=== PATIENT | male | born 1945 | race Caucasian/White ===

== ENCOUNTER 2017-03-18 13:29 | Emergency (ER) | payer MEDICARE, OTHER ==
[2015-05-27 13:55] VITALS: BMI 21.2
[~2017-03-18 13:29] MED LIST: BENADRYL25 MG PO; CALAMINE LOTIO177 ML TP; COUMADIN10 MG PO; COUMADIN5 MG PO; DEPAKOTE ER500 MG PO; FLORINEF 0.1 M0.1 MG PO; HUMULIN R100 U/ML SC; HUMULIN R100 U/ML SQ; IMODIUM A-D2 MG PO; LISINOPRIL10 MG PO; MIDODRINE HCL5 MG PO; NEPHRO-VITE RX1 TAB PO; NEURONTIN 300300 MG PO; NORCO 5/325 TAB1 TA1 PO; NORVASC2.5 MG PO; PEPCID20 MG PO; PLAVIX75 MG PO; RENAGEL800 MG PO; RENVELA800 MG PO; TRIAMCINOLONE A60 M1 TP; ZANTAC150 MG PO; ZYPREXA10 MG PO
[2017-03-18 14:24] LABS: BASOPHILS 0.6 % (0-2); EOSINOPHILS 1.7 % (0-7); HEMATOCRIT 35.5 % (42.0-54.0); HEMOGLOBIN 11.7 g/dL (13.5-17.5); LYMPHOCYTES 12.3 % (15-50); MCH 32.3 pg (26.0-34.0); MCV 98.1 fL (80.0-100.0); MEAN PLATELET VOLUME 12.7 fL (7.4-10.4); MONOCYTES 9.9 % (2-11); NEUTROPHILS 75.5 % (40-80); PLATELET COUNT 129 10x3/uL (130-400); RBC 3.62 10x6/uL (4.20-6.10); RDW 14.3 % (11.5-14.5); WBC 6.4 10x3/uL (4.8-10.8)
[2017-03-18 15:31] LABS: INR 1.14 (0.85-1.17); PROTIME 14.2 SECONDS (11.6-15.0)
[2017-03-18 15:46] LABS: ANION GAP 16.2 mmol/L (8-16); BILIRUBIN - TOTAL 0.28 mg/dL (0.2-1.3); CALCIUM 9.3 mg/dL (8.5-10.1); CARBON DIOXIDE 24.2 mmol/L (21.0-32.0); CREATININE - SERUM 5.2 mg/dL (0.6-1.3); MAGNESIUM - SERUM 1.8 mg/dL (1.8-2.4); POTASSIUM - SERUM 4.4 mmol/L (3.5-5.1); PROTEIN - SERUM 6.4 g/dL (6.4-8.2)
== END 2017-03-18 16:45 | disposition home or self-care (01) ==
LOC: D.ER 13:29
PROVIDERS: Family Medicine; Nurse Practitioner Family
DX: R31.9 Hematuria, unspecified (principal); Z99.2 Dependence on renal dialysis; K59.00 Constipation, unspecified; I12.0 Hypertensive chronic kidney disease with stage 5 chronic kidney disease or end stage renal disease; N18.6 End stage renal disease; E11.9 Type 2 diabetes mellitus without complications

== ENCOUNTER → 2017-04-03 07:47 | Outpatient (CLI) | payer MEDICARE, OTHER ==
[2015-05-27 13:55] VITALS: BMI 21.2
== END | disposition home or self-care (01) ==
LOC: D.MRI 07:47
DX: N28.89 Other specified disorders of kidney and ureter (principal)

== ENCOUNTER 2018-04-04 15:48 | Inpatient (IN) | payer MEDICARE, OTHER ==
[~2018-04-04] VITALS: Ht 190.5 cm; Wt 69.1 kg
[2018-04-04 18:00] VITALS: BP 169/49
--- NOTE | 2018-04-04 18:01 | NUR ---
ARRIVED VIA STRETCHER TO ICU ROOM 2304, TO BED VIA STAFF, DR. MUNOZ PRESENT AND AWARE OF PRESENCE, AWAKE, ALERT AND ORIENTED TO PERSON, TIME, REORIENTED TO PLACE EASILY. VS STABLE, NO NOTED BLEEDING FROM RIGHT GRAFT SITE, STAFF INSTRUCTED BY DR. MUNOZ TO NOT REMOVE PRESSURE DRESSING AT PRESENT, THE RIGHT HAND IS WARM TO TOUCH, PATIENT REPORTS NO DEGREDATION OF FEELING IN THAT HAND, MOVES FINGERS EASILY, RADIAL PULSE IS PRESENT BUT VERY WEAK, NAILS ARE PINK AND CAP REFILL IS QUICK. PATIENT UNDERSTANDS WHAT IS HAPPENING AND THAT WE MUST VERIFY DR. CABALLERO INTENTIONS BEFORE GIVING FOOD OR DRINK. SEE FLOW SHEETS FOR SPECIFICS.
[2018-04-04 18:07] VITALS: BP 126/79; BMI 18.7
[2018-04-04 19:00] VITALS: BP 190/86
--- NOTE | 2018-04-04 19:30 | NUR ---
SHIFT ASSESSMENT COMPLETE PER NURSING FLOWSHEET, NO NEEDS VOICED OR NOTED AT THIS TIME, C/L IN REACH
[2018-04-04 20:00] VITALS: BP 120/42
[2018-04-04 21:00] VITALS: BP 127/86
--- NOTE | 2018-04-04 21:00 | NUR ---
PATIENT INCONTINENT OF STOOL, PARTIAL LINEN CHANGE, LEVI CARE PROVIDED, PATIENT REPOSITIONED, CONTINUE POC
[2018-04-04 22:00] VITALS: BP 103/51
--- NOTE | 2018-04-04 22:45 | NUR ---
PATIENT LEFT TO GO TO SURGERY, VIA BED, ACCOMPANIED BY OR STAFF
[2018-04-05] VITALS (10 sets, daily range): BP systolic 93–128; BP diastolic 42–81; Ht 190.5 cm; Wt 69.1 kg
--- NOTE | 2018-04-05 00:30 | NUR ---
PATIENT RETURNED FROM SURGERY, RE-ASSESSMENT COMPLETE PER NURSING FLOWSHEET, PATIENT REPOSITIONED, VSS
--- NOTE | 2018-04-05 03:00 | NUR ---
RE-ASSESSMENT COMPLETE, PATIENT REPOSITIONED, NO OTHER NEEDS VOICED OR NOTED AT THIS TIME
[2018-04-05 04:07] LABS: BASOPHILS 1.1 % (0-2); EOSINOPHILS 2.4 % (0-7); HEMATOCRIT 27.1 % (42.0-54.0); HEMOGLOBIN 8.9 g/dL (13.5-17.5); LYMPHOCYTES 26.8 % (15-50); MCH 29.3 pg (26.0-34.0); MCHC 32.8 g/dL (31.0-37.0); MCV 89.1 fL (80.0-100.0); MEAN PLATELET VOLUME 11.1 fL (7.4-10.4); MONOCYTES 12.4 % (2-11); NEUTROPHILS 57.3 % (40-80); RBC 3.04 10x6/uL (4.20-6.10); RDW 14.9 % (11.5-14.5); WBC 4.5 10x3/uL (4.8-10.8)
[2018-04-05 04:11] LABS: PLATELET COUNT 103 10x3/uL (130-400)
[2018-04-05 04:16] LABS: INR 1.18 (0.85-1.17); PROTIME 14.5 SECONDS (11.6-15.0)
[2018-04-05 04:21] LABS: ANION GAP 18.7 mmol/L (8-16); CALCIUM 8.6 mg/dL (8.5-10.1); CARBON DIOXIDE 22.6 mmol/L (21.0-32.0); CREATININE - SERUM 10.1 mg/dL (0.6-1.3)
[2018-04-05 04:22] LABS: POTASSIUM - SERUM 6.3 mmol/L (3.5-5.1)
--- NOTE | 2018-04-05 05:23 | NUR ---
DR MUNOZ NOTIFIED OF CRITICAL K+, NEW ORDER RECEIVED
--- NOTE | 2018-04-05 11:25 | NUR ---
RECEIVED REPORT FROM KITTY IN ICU. PATIENT TO ADMIT TO ROOM 2137.
--- NOTE | 2018-04-05 11:29 | NUR ---
REPORT CALLED TO FLOOR NURSE
--- NOTE | 2018-04-05 11:49 | NUR ---
RECEIVED PATIENT FROM ICU VIA WHEELCHAIR. PATIENT ALERT/ORIENTED. CALL LIGHT WITHIN REACH. PATIENT WITH ATTENTION TOWARD TELEVISION, SWIMMING ON TV. NO DISTRESS.
--- NOTE | 2018-04-05 11:55 | NUR ---
PRESSURE DRESSING TO RIGHT UPPER ARM INTACT. NO BLEEDING NOTED. SCDS ON AND PATENT. IV TO LEFT HAND SALINE LOCKED. NO DISTRESS.
--- NOTE | 2018-04-05 12:14 | NUR ---
BLANKET FROM THE WARMER PROVIDED TO PATIENT. NO DISTRESS. CONSUMING NOON MEAL AT THIS TIME.
--- NOTE | 2018-04-05 12:44 | NUR ---
CALLED PHARMACY PATIENT DOES NOT HAVE VALTESSA AVAILABLE. PHARMACY STATED TECHS AT [facility] BUT HAVE PRINTED LABELS AND MEDS WILL BE TO UNIT VERY SOON.
--- NOTE | 2018-04-05 12:56 | HP ---
PATIENT: JHONATHAN THRASHER MEDICAL RECORD: [id number] ACCOUNT: [id number] LOCATION:[address] : [birth year] ADMISSION DATE: 04/04/18 PCP: JOLYNN MUNOZ MD HISTORY AND PHYSICAL EXAMINATION REASON FOR ADMISSION: Access complication. HISTORY OF PRESENT ILLNESS: This is a 72-year-old gentleman that was at rehab at [facility] and developed a squirting bleed of approximately a liter from his right upper extremity HeRO graft that was tamponaded with a pressure dressing. He is being admitted for surgical consultation. REVIEW OF SYSTEMS: Besides the pain in his arm, no nausea, vomiting, diarrhea. All the rest of his review of systems are negative. PAST MEDICAL HISTORY: 1. ESRD in [place] 3 days a week. 2. Not able to tolerate anticoagulation. 3. Anemia of CKD. 4. Hyperphosphatemia. 5. Secondary hyperparathyroidism. PAST SURGICAL HISTORY: 1. Multiple colonoscopies and endoscopies. 2. Multiple dialysis access surgeries. SOCIAL HISTORY: No tobacco, alcohol or illicit drugs. He has been on dialysis for a number of years. FAMILY HISTORY: Noncontributory. PHYSICAL EXAMINATION: VITAL SIGNS: Stable and afebrile in the [facility]. GENERAL: He is alert. Mental status is at baseline. HEENT: Normocephalic, atraumatic. Clear nares. Clear throat. NECK: No JVD or thyromegaly. CHEST: Clear. CARDIAC: Irregular rate and rhythm. S1, S2. ABDOMEN: Nontender in all 4 quadrants. EXTREMITIES: Right upper extremity HeRO graft with Flash wrap and pressure dressing. Left upper extremity with BP cuff. Muscle atrophy but no focal neurological deficit. LABORATORY DATA: Potassium was 5.5, hemoglobin approximately [address] [facility] prior to transfer. ASSESSMENT: 1. Access complication. Consulting vascular surgery, admit to ICU due to the potential significant hemorrhage that can develop from the pseudoaneurysm. 2. Hyperkalemia. We will monitor his BMP. 3. Anemia of chronic kidney disease. 4. Hyperphosphatemia. 5. Gastrointestinal bleed, currently stable. PLAN: HISTORY AND PHYSICAL [id number] JHONATHAN THRASHER 1. Please see orders. 2. Surgical consultation. TRANSINT:[id number] Voice Confirmation ID: [id number] DOCUMENT ID: [id number] JOLYNN MUNOZ MD at 1256 CC: [id number] DICTATION DATE: 04/04/18 1631 PRINCIPAL SCIENTIST: 04/04/18 1932 ADM IN [facility] [address] [id number]
--- NOTE | 2018-04-05 13:42 | NUR ---
VALTESSA STILL NOT AVAILABLE TO ADMINISTER TO PATIENT. MEDICATION NOT IN CASSESSTE, REFIGERATOR, OR PYXIS.
--- NOTE | 2018-04-05 14:22 | NUR ---
SPOKE WITH LORNA, PHARMACIST ABOUT ADMINISTEREING VALTESSA NOW, SINCE IT IS SO LATE AND PATIENT ATE 2 1/2 HOURS AGO AND JUST RECEIVED HIS PROTAMINE AND IT IS CONTRIINDICATED TO GIVE THIS MEDICATION WITHIN 3 HOURS OF OTHER MEDS. WAS INSTUCTED TO HOLD UNTIL PATIENT EATS TONIGHT BUT KEEP ON REGULAR SCHEDULE FOR TOMORROWS DOSE.
--- NOTE | 2018-04-05 17:39 | NUR ---
PT DOWNSTAIRS IN DIALYSIS. NO DISTRESS. TOLERATED ORAL MEDS WELL. DINNER TRAY AT BEDSIDE. DIALYSIS NURSE ALLOWING PATIENT TO EAT DURING TREATMENT.
--- NOTE | 2018-04-05 18:06 | NUR ---
MALAIKA LEVI, , PLEASE CALL WHEN PATIENT [facility] PATIENT WILL COMPLETE THERAPY AND THEN GO HOME WITH HIS DAUGHTER. DAUGHTER IS ANXIOUS TO GET HIM BACK INTO THERAPY.
--- NOTE | 2018-04-05 20:15 | NUR ---
PT BACK FROM HD VIA BED. DENIES PAIN AT THIS TIME. CL IN REACH. STATES HE WOULD LIKE A SANDWHICH. SANDWHICH PROVIDED PER RENAL DIET.
--- NOTE | 2018-04-05 21:43 | NUR ---
PT LAYING IN BED. DENIES PAIN AT THIS TIME. A/O X 4. VITALS STABLE. TOOK MEDICATIONS WITHOUT DIFFICULTY. HEROGRAFT TO R ARM, COVERED WITH DRSG C/D/I. OLD FISTULA TO L ARM. NORMAL SINUS ON TELE. L HAND IV SL. ROOM AIR. NO FURTHER CONCERNS AT THIS TIME. BED LOWERED AND LOCKED. CL IN REACH. WILL CONTINUE TO MONITOR.
--- NOTE | 2018-04-05 23:57 | NUR ---
RESTING IN BED WITH NO DISTRESS. RESPS NONLABORED. CALL LIGHT IN REACH. MONITOR AND CPOC.
[2018-04-06 00:30] VITALS: BP 101/51
[2018-04-06 04:30] VITALS: BP 104/39
--- NOTE | 2018-04-06 07:00 | NUR ---
RECEIVED REPORT. ASSUMED CARE OF PATIENT. PATIENT RESTING WITH EYES CLOSED. EASILY AROUSED. RESP EVEN AND UNLABORED. CALL LIGHT WITHIN REACH. NO DISTRESS. NO BLEEDING NOTED FROM RIGHT UPPER ARM HEROGRAFT. RECEIVED REPORT FROM [facility] NURSE THAT DIALYSIS ONLY REMOVED 800ML.
[2018-04-06 07:25] VITALS: BP 159/72
[2018-04-06 09:32] LABS: ANION GAP 17.5 mmol/L (8-16); CALCIUM 8.6 mg/dL (8.5-10.1); CREATININE - SERUM 8.6 mg/dL (0.6-1.3); POTASSIUM - SERUM 5.5 mmol/L (3.5-5.1)
[2018-04-06 10:16] LABS: BASOPHILS 1.8 % (0-2); HEMATOCRIT 26.6 % (42.0-54.0); HEMOGLOBIN 8.7 g/dL (13.5-17.5); IMMATURE GRANULOCYTES 0.2 % (0-5); LYMPHOCYTES 16.9 % (15-50); MCHC 32.7 g/dL (31.0-37.0); MCV 88.7 fL (80.0-100.0); MEAN PLATELET VOLUME 11.8 fL (7.4-10.4); MONOCYTES 15.1 % (2-11); RDW 15.3 % (11.5-14.5)
[2018-04-06 10:17] LABS: PLATELET COUNT 144 10x3/uL (130-400)
--- NOTE | 2018-04-06 14:00 | NUR ---
COMPLETE BED BATH AND LINEN CHANGE PROVIDED BY THIS LINK TRAINER MECHANIC. INCONTINENT CARES PROVIDED. NO DISTRESS. CALL LIGHT WITHIN REACH.
--- NOTE | 2018-04-06 17:06 | NUR ---
RESTING WITH EYES CLOSED, EASILY AROUSED. NO DISTRESS. SET PATIENT UP IN BED AND HE IS NOW AWAITING HIS DINNER TO BE SERVERD.
--- NOTE | 2018-04-06 19:30 | NUR ---
PT IS RESTING IN BED WITH EYES OPEN. ALERT AND ORIENTED X 3. DENIES ANY PAIN OR DISCOMFORT AT THIS TIME. NO NEEDS VOICED. DRESSING TO HERO GRAFT SITE IS CDI. NO DRAINAGE NOTED. LEFT HAND SALINE LOCK IS CDI. TELEMETRY UNIT IS ON AND INTACT. SR'S ARE UYP X 3 IN BED. CALL LIGHT AND BEDSIDE TABLE ARE WITHIN EASY REACH.
[2018-04-06 21:41] VITALS: BP 111/55
--- NOTE | 2018-04-06 22:39 | NUR ---
PT IS RESTING QUIETLY IN BED WITH EYES CLOSED. RESPS ARE EVEN AND UNLABORED. NO ACUTE DISTRESS NOTED.
[2018-04-07 00:43] VITALS: BP 135/60
--- NOTE | 2018-04-07 00:56 | NUR ---
PT RESTING IN BED WATCHING TV. NO NEED VOICED.
[2018-04-07 04:17] VITALS: BP 132/61
--- NOTE | 2018-04-07 05:27 | NUR ---
RESTING WITH NO DISTRESS. MONITOR AND CPOC.
[2018-04-07 07:45] VITALS: BP 138/82
--- NOTE | 2018-04-07 12:29 | NUR ---
RESTS IN BED WITH EYES CLOSED. CALL LIGHT IN REACH. WILL MONITOR NEEDS.
--- NOTE | 2018-04-07 12:36 | NUR ---
JUST SPOKE WITH PT'S DAUGHTER DAVION LEWIS AND SHE IS WONDERING ABOUT PT'S DISCHARGE AND WHERE HE WILL GO. I STATED TO HER I KNOW THEY ARE WANTING TO DO REHAB. SHE ASKED IF I COULD GIVE THE LACTATION COORDINATOR HER NUMBER AND I WROTE IT DOWN AND SHE WANTED TO BE TRANSFERED INTO PT'S ROOM. TRANSFERED HER INTO PT'S ROOM AND LAN LACTATION COORDINATOR WAS IN THE ROOM. PT ANSWERED PHONE AND I STATED TO LAN THAT IS THE PT'S DAUGHTER ON THE PHONE AND SHE IS WANTING TO SPEAK WITH HIM. HE VERBALIZED UNDERSTANDING.
[2018-04-07 13:18] VITALS: BP 148/88
--- NOTE | 2018-04-07 14:17 | MORECARE ---
CASE MANAGEMENT DISCHARGE SUMMARY PATIENT: JHONATHAN THRASHER UNIT: [id number] ADM DATE: 04/04/18 AGE: 72 : 47 SEX: M ROOM/BED: D.2137 AUTHOR: AFIA ARANA PHYSICIAN: REFERRING PHYSICIAN: JOLYNN MUNOZ MD DATE OF SERVICE: 04/07/18 Discharge Plan Patient Name: JHONATHAN THRASHER [facility] [facility] 1945 Planned Disposition: Inpatient Rehab Anticipated Discharge Date: 04/08/18 Discharge Date: Expected LOS: 4 Initial Reviewer: [email or web address] Initial Review Date: 04/07/2018 Generated: 04/07/18 3:17 pm Patient Name: JHONATHAN THRASHER Page [phone] at 1417 All edits/amendments must be made on the electronic document DICTATION DATE: 04/07/18 1416 DIRECTOR ORACLE DATABASE: SINTIA 04/07/18 1416 RPT#: [id number] DC DATE: STATUS: ADM IN [facility] [address] [place] [address] END OF REPORT
--- NOTE | 2018-04-07 14:20 | NUR ---
PT TAKEN TO DIALYSIS.
--- NOTE | 2018-04-07 14:27 | MORECARE ---
CASE MANAGEMENT DISCHARGE SUMMARY PATIENT: JHONATHAN THRASHER UNIT: [id number] ADM DATE: 04/04/18 AGE: 72 : [birth year] SEX: M ROOM/BED: D.2137 AUTHOR: AFIA ARANA PHYSICIAN: REFERRING PHYSICIAN: JOLYNN MUNOZ MD DATE OF SERVICE: 04/07/18 Discharge Plan Patient Name: JHONATHAN THRASHER [facility] [facility] 1945 Planned Disposition: Inpatient Rehab Anticipated Discharge Date: 04/08/18 Discharge Date: Expected LOS: 4 Initial Reviewer: [email or web address] Initial Review Date: 04/07/2018 Generated: 04/07/18 3:27 pm DCPIA - Discharge Planning Initial Assessment Updated by [email or web address]: Wilmar Fraser on 04/07/18 2:23 pm * Is the patient Alert and Oriented? Yes * How many steps to enter\exit or inside your home? RAMP * PCP DR. MUNOZ * Pharmacy [facility] IN [place] * Preadmission Environment Home with Family * ADLs Independent * Equipment Walker * Other Equipment NO MEDICAL EQUIPMENT PROVIDER PREFERENCE * List name and contact numbers for known caregivers / representatives who currently or will assist patient after discharge: GABO CAPONE, DTR, DAVION LEWIS, DTR, * Verbal permission to speak to the caregivers and representatives has been obtained from the patient. Yes * Community resources currently utilized Other * Please name any agencies selected above. OUTPATIENT DIALYSIS, [facility] [place] [facility], MWF, 0600AM, [employer] * Additional services required to return to the preadmission environment? Yes * Can the patient safely return to the preadmission environment? Yes * Has this patient been hospitalized within the prior 30 days at any hospital? Yes Last DP export: 04/07/18 1:17 p Patient Name: JHONATHAN THRASHRE Page [phone] at 3491 All edits/amendments must be made on the electronic document DICTATION DATE: 04/07/181425 LURE MAKER: SINTIA 04/07/18 1426 RPT#: [id number] DC DATE: STATUS: ADM IN [address] [place] [address] END OF REPORT
--- NOTE | 2018-04-07 14:45 | MORECARE ---
CASE MANAGEMENT DISCHARGE SUMMARY PATIENT: JHONATHAN THRASHER UNIT: [id number] ADM DATE: 04/04/18 AGE: 72 : 47 SEX: M ROOM/BED: D.3673 AUTHOR: SUMITDOC PHYSICIAN: REFERRING PHYSICIAN: JOLYNN JAQUEZ MD DATE OF SERVICE: 04/07/18 Discharge Plan Patient Name: JHONATHAN THRASHER [facility] [facility] 1945 Planned Disposition: Inpatient Rehab Anticipated Discharge Date: 04/08/18 Discharge Date: Expected LOS: 4 Initial Reviewer: [email or web address] Initial Review Date: 04/07/2018 Generated: 04/07/18 3:44 pm Comments DCP- Discharge Planning Updated by [email or web address]: Wilmar Fraser on 04/07/18 1:[address] Patient Name: JHONATHAN THRASHER Admission Status: Urgent Accout number: [id number] Admission Date: 04-04-2018 : 1945 Admission Diagnosis: Attending: Jolynn Jaquez Current LOS: 3 Anticipated DC Date: 04-08-2018 Planned Disposition: Inpatient Rehab Primary Insurance: MEDICARE A & B PLANNED EXTERNAL PROVIDER: [facility] Discharge Planning Comments: CM RECEIVED ORDER FOR REHAB. CM MET WITH PT IN ROOM TO DISCUSS DISCHARGE PLANNING AND NEEDS. PT REPORTS LIVING AT HOME INDEPENDENTLY WITH HIS ADULT DAUGHTER, DAVION LEWIS. JHONATHAN THRASHER provided verbal consent to discuss current and ongoing needs with/in the presence of: DAUGHTER DAVION. PT HAS STANDARD WHEELED WALKER AT HOME AND NO MEDICAL EQUIPMENT PROVIDER PREFERENCE. PT HAS NO OUTSIDE SERVICES ASSISTING IN THE HOME. PT GOES TO DIALYSIS IN [place] ON MWF, 0600AM, DAUGHTER TRANSPORTS HIM. CM DISCUSSED AVAILABILITY OF HOME HEALTH, REHAB SERVICES AND MEDICAL EQUIPMENT. CM DISCUSSED REHAB OPTIONS, LOCATONS AND PROVIDERS. PT WAS IN REHAB AT [facility] FOR ONE DAY AND HE CAME HERE FOR BETTER CARE. PT WOULD LIKE REHAB AT [facility] IF POSSIBLE AND DOES NOT WANT TO CONSIDER GOING TO SENIOR LIVING FACILITY. PT REPORTS HIS DAUGHTER WILL PICK HIM UP FOR DISCHARGE HOME. IMPORTANT MESSAGE FROM MEDICARE PROVIDED AND EXPLAINED. PT DIRECTED CM TO CALL DAVION. CM CALLED DAVION LEWIS, , AND DISCUSSED REHAB OPTIONS. DAVION WOULD LIKE TO TRY TO GET PT INTO THE REHAB AT [facility] INSTEAD OF GOING BACK TO [facility]. PT WAS IN [facility] FOR ONE DAY AND THEN HAD BLEEDING ISSUE WITH FISTULA AND HAD TO BE HOSPITALIZED AGAIN. INPATIENT REHAB PRESCREENING ORDER RECEIVED. CM WAITING INPATIENT REHAB PRESCREENING AND ADMISSION DETERMINATION FROM [facility]. Yardage Estimator: Wilmar Fraser DCPIA - Discharge Planning Initial Assessment Updated by SLAVA: Wilmar Fraser on 04/07/18 2:23 pm * Is the patient Alert and Oriented? Yes * How many steps to enter\exit or inside your home? RAMP * PCP DR. JAQUEZ * Pharmacy [facility] IN [place] * Preadmission Environment Home with Family * ADLs Independent * Equipment Walker * Other Equipment NO MEDICAL EQUIPMENT PROVIDER PREFERENCE * List name and contact numbers for known caregivers / representatives who currently or will assist patient after discharge: GABO CAPONE, DTR, DAVION LEWIS, DTR, * Verbal permission to speak to the caregivers and representatives has been obtained from the patient. Yes * Community resources currently utilized Other * Please name any agencies selected above. OUTPATIENT DIALYSIS, [facility] [place] [facility], MWF, 0600AM, [employer] * Additional services required to return to the preadmission environment? Yes * Can the patient safely return to the preadmission environment? Yes * Has this patient been hospitalized within the prior 30 days at any hospital? Yes Coverage Notice Reviewer: [email or web address] - Wilmar Fraser Notice Issued Date-Time: 04/07/2018 12:35 Notice Type: IM Discharge Notice Notice Delivered To: Patient Relationship to Patient: Folding Machine Tender Name: Delivery Method: HAND - Hand Delivered Georgie Days: Prior Verbal Notification: Recipient Understood Notice: Yes Recipient Signature: Yes Med Rec Note Co-signed by Attending: Coverage Notice Comment: Last DP export: 04/07/18 1:27 p Patient Name: JHONATHAN THRASHER Page [phone] at 1449 All edits/amendments must be made on the electronic document DICTATION DATE: 04/07/184 INTERNAL REVENUE AGENT: SINTIA 04/07/18 1444 RPT#: [id number] MD DATE: STATUS: ADM IN [facility] [address] [place] [address] END OF REPORT
--- NOTE | 2018-04-07 16:10 | NUR ---
SPOKE WITH DIALYSIS THEY STATE PT DOES NOT NEED PROAMATINE RIGHT NOW BUT IF IT CHANGES THEY WILL LET ME KNOW.
--- NOTE | 2018-04-07 16:48 | OP ---
PATIENT NAME: JHONATHAN THRASHER MEDICAL RECORD: [id number] :[birth year] LOCATION:D.M2 D.2137 ADMISSION DATE:04/04/18 SURGEON: MARY SALMON MD DATE OF OPERATION: 04/05/2018 PREOPERATIVE DIAGNOSES: 1. Acute hemorrhage from a bleeding graft pseudoaneurysm. 2. Acute blood loss anemia. 3. End-stage renal disease. POSTOPERATIVE DIAGNOSES: 1. Acute hemorrhage from a bleeding graft pseudoaneurysm without evidence of a pseudoaneurysm infection. 2. Acute blood loss anemia. 3. End-stage renal disease. PROCEDURES: 1. An 8 mm x 40 mm Fluency Plus Stent placement for pseudoaneurysm exclusion. 2. Nonselective fistulogram. 3. 8-Slovenian antegrade sheath placement. 4. Immediate surgeon interpretation of the fluoroscopic images. SURGEON: Mary Salmon MD SAGGER PREPARER: None. BLOOD LOSS: Minimal. ANESTHESIA: General. COMPLICATIONS: None. The risks, possible complications, and alternatives to the procedure were explained to the patient. He elects to proceed. The discussion specifically included, but was not limited to, bleeding requiring emergency reoperation, infection, and possible need for additional access procedures. This patient obviously has had a number of access procedures. He has a lot of abandoned graft material in the right upper extremity. His vascular surgeon is Dr. Tafoya. I have discussed this case with Dr. Tafoya and I will be assuming the patient's surgical care today at Dr. Tafoya's request. No radiologist was present for this procedure. Static fluoroscopic images were obtained as well as cine images and these are kept in the PACS system. The surgeon interpretation of the radiographic images is dictated within the body of this operative note. OPERATIVE COURSE: The patient was conveyed to the operating room urgently on 04/04/2018. The operation began on 04/04/2018, and extended into the rug cleaning supervisor hours of 04/05/2018. The patient was conveyed to the operating room. General anesthetic was induced. The right upper extremity was abducted at 90 degrees to the patient's trunk. The right upper extremity was sterilely prepped and draped. Utilizing a micropuncture technique, I percutaneously accessed the graft just cephalad to the cubital fossa. This was an antegrade access. A microwire was placed. Micro dilator introducer was advanced. Through the micro OPERATIVE REPORT [id number] JHONATHAN THRASHER dilator an 0.035 J wire was advanced. Over the 0.035 J wire, an 8-Slovenian sheath was advanced. I then compressed the graft distally. Through the sheath, I performed a hand injection and this was a nonselective fistulogram. This revealed no apparent arterial anastomotic narrowing. There was marked irregularity of the graft, but no flow-limiting stenoses. I marked the pseudoaneurysm by applying a hemostat with its tip overlying the pseudoaneurysm. An 0.035 Glidewire was advanced up the HeRO graft. I then removed the sheath. Utilizing a sheathless technique, I advanced the 8 x 40 mm Fluency Plus Graft. This was advanced into the pseudoaneurysm and was deployed under fluoroscopy. I then removed the deployment device. I then readvanced a 6-Slovenian dilator sheath over the 0.035 Glidewire. Over the 0.035 Glidewire, I advanced an 8 mm x 60 mm angioplasty balloon and performed a balloon angioplasty of the stent in order to make sure that it was fully deployed and expanded. This was performed. The angioplasty balloon was removed. A subsequent fistulogram through the sheath revealed prompt flow out through the HeRO graft. I did not obtain any images over the mediastinum as there was metallic material on the table that prevented us from viewing the mediastinum. The outflow appeared to be brisk. There was no evidence of a persistent pseudoaneurysm. Where as the pseudoaneurysm was pulsatile prior to my interventions, there was no further pulsatility. Endovascular hardware was removed. The sheath puncture site was closed with 2 pursestring 3-0 Vicryl sutures. I then emptied out the contents of the pseudoaneurysm. There was no bleeding. The punctate hole where the bleeding had occurred was closed with a single horizontal mattress 3-0 Vicryl suture. The access site and the pseudoaneurysm site were then sealed with Dermabond. Sterile dressings were applied. The patient was then extubated and conveyed to post-anesthesia care unit. He will then be conveyed back to the intensive care unit. The graft can be accessed for hemodialysis starting tomorrow. The only place that should not be used for access would be at the sheath insertion site and at the pseudoaneurysm repair site. TRANSINT:[id number] Voice Confirmation ID: [id number] DOCUMENT ID: [id number] MARY SALMON MD at 1648 CC: JENNY TAFOYA and JOLYNN MUNOZ MD [id number] DICTATION DATE: 04/05/1833 ER NURSE: 04/05/18 0330 ADM IN [facility] [address] [place] [address]
--- NOTE | 2018-04-07 17:18 | NUR ---
Rehab Note- Acute Inpatient Rehab prescreen order received. Will visit with the patient in the AM. He was recetnly is Rehab. Will follow at this time. Thank you for this referral! Rosa Mayorga RN Clinical Liaison, [facility] Rehab
--- NOTE | 2018-04-07 18:06 | NUR ---
DIALYSIS STATES THEY GOT OFF 3L.
--- NOTE | 2018-04-07 18:15 | NUR ---
PT RETURNED FROM DIALYSIS VIA BED.
[2018-04-07 20:51] VITALS: BP 147/81
--- NOTE | 2018-04-07 22:54 | NUR ---
ASSISTED PT TO BATHROOM AND BACK TO BED.
[2018-04-08 00:02] VITALS: BP 141/68
--- NOTE | 2018-04-08 01:05 | NUR ---
REST IN BED, CALL LIGHT IN REACH.
--- NOTE | 2018-04-08 04:09 | NUR ---
REST QUIELTY IN BED, CALL LIGHT IN REACH.
[2018-04-08 06:21] LABS: BASOPHILS 1.2 % (0-2); EOSINOPHILS 2.2 % (0-7); HEMATOCRIT 25.4 % (42.0-54.0); HEMOGLOBIN 8.2 g/dL (13.5-17.5); IMMATURE GRANULOCYTES 0.2 % (0-5); LYMPHOCYTES 21.5 % (15-50); MCH 28.5 pg (26.0-34.0); MCHC 32.3 g/dL (31.0-37.0); MCV 88.2 fL (80.0-100.0); MEAN PLATELET VOLUME 11.6 fL (7.4-10.4); MONOCYTES 15.4 % (2-11); NEUTROPHILS 59.5 % (40-80); RBC 2.88 10x6/uL (4.20-6.10); RDW 15.2 % (11.5-14.5); WBC 4.9 10x3/uL (4.8-10.8)
[2018-04-08 06:34] LABS: ANION GAP 14.3 mmol/L (8-16); CALCIUM 9.2 mg/dL (8.5-10.1); CARBON DIOXIDE 27.5 mmol/L (21.0-32.0); CREATININE - SERUM 7.1 mg/dL (0.6-1.3); PHOSPHOROUS 6.9 mg/dL (2.5-4.9); POTASSIUM - SERUM 4.8 mmol/L (3.5-5.1)
[2018-04-08 06:48] LABS: PLATELET COUNT 104 10x3/uL (130-400)
--- NOTE | 2018-04-08 07:00 | NUR ---
RECEIVED REPORT. ASSUMED CARE OF PATIENT. CALL LIGHT WITHIN REACH. PATIENT RESTING WITH EYES CLOSED, EASILY AROUSED. NO DISTRESS. RESP EVEN AND UNLABORED.
[2018-04-08 08:15] VITALS: BP 132/43
--- NOTE | 2018-04-08 11:35 | NUR ---
RESTING IN BED. INCONTINENT CARES PROVIDED. CALL LIGHT WITHIN REACH. NO DISTRESS.
[2018-04-08 11:46] VITALS: BP 136/72
[2018-04-08] MEDS ORDERED: PROCRIT 202000 UNIT/ SC (14:19)
[2018-04-08] MEDS ORDERED: COUMADIN5 MG PO (14:20)
--- NOTE | 2018-04-08 14:25 | NUR ---
RESTING WELL. NO DISTRESS. CALL LIGHT WIHTIN REACH.
[2018-04-08 15:07] VITALS: BP 117/69
--- NOTE | 2018-04-08 16:23 | NUR ---
RESTING WITH EYES CLOSED. EASILY AROUSED. NO DISTRESS. CALL LIGHT WITHIN REACH.
--- NOTE | 2018-04-08 17:21 | MORECARE ---
CASE MANAGEMENT DISCHARGE SUMMARY PATIENT: JHONATHAN THRASHER UNIT: [id number] ADM DATE: 04/04/18 AGE: 72 : [birth year] SEX: M ROOM/BED: D.2137 AUTHOR: AFIA ARANA PHYSICIAN: REFERRING PHYSICIAN: JOLYNN JAQUEZ MD DATE OF SERVICE: 04/08/18 Discharge Plan Patient Name: JHONATHAN THRASHER [facility] : 1945 Planned Disposition: Inpatient Rehab Anticipated Discharge Date: 04/08/18 Discharge Date: Expected LOS: 4 Initial Reviewer: [id number] Initial Review Date: 04/07/2018 Generated: 04/08/18 6:21 pm Comments DCP- Discharge Planning Updated by [id number]: Wilmar Fraser on 04/08/18 4:[address] Patient Name: JHONATHAN THRASHER Encounter No: [id number] : 1945 Primary Insurance: MEDICARE A & B Anticipated DC Date: 04-08-2018 Planned Disposition: Inpatient Rehab External Planned Provider: [facility] DCP follow-up note: CM SPOKE TO SHANDA OF INPATIENT REHAB, THEY PLAN TO ACCEPT PT TODAY FOR REHAB. PT NOTIFIED, IN AGREEMENT WITH DISCHARGE TO INPATIENT REHAB. [facility] CALLED CM AT APPROXIMATELY 1650 HOURS, PT CAN ADMIT TO ROOM 1108-B. THE ROOM IS READY AND REHAB IS READY TO ACCEPT PT AND NURSE REPORT. MEDICAL LAB TECHNICIAN NURSE AND CARTRIDGE LOADING OPERATOR NOTIFIED. ARI Villalobos DCP- Discharge Planning Updated by [id number]: Wilmar Fraser on 04/07/18 1:[address] Patient Name: JHONATHAN THRASHER Admission Status: Urgent Accout number: [id number] Admission Date: 04-04-2018 : 1945 Admission Diagnosis: Attending: Jolynn Jaquez Current LOS: 3 Anticipated DC Date: 04-08-2018 Planned Disposition: Inpatient Rehab Primary Insurance: MEDICARE A & B PLANNED EXTERNAL PROVIDER: [facility] Discharge Planning Comments: CM RECEIVED ORDER FOR REHAB. CM MET WITH PT IN ROOM TO DISCUSS DISCHARGE PLANNING AND NEEDS. PT REPORTS LIVING AT HOME INDEPENDENTLY WITH HIS ADULT DAUGHTER, DAVION LEWIS. JHONATHAN THRASHER provided verbal consent to discuss current and ongoing needs with/in the presence of: DAUGHTER DAVION. PT HAS STANDARD WHEELED WALKER AT HOME AND NO MEDICAL EQUIPMENT PROVIDER PREFERENCE. PT HAS NO OUTSIDE SERVICES ASSISTING IN THE HOME. PT GOES TO DIALYSIS IN [place] ON MWF, 0600AM, DAUGHTER TRANSPORTS HIM. CM DISCUSSED AVAILABILITY OF HOME HEALTH, REHAB SERVICES AND MEDICAL EQUIPMENT. CM DISCUSSED REHAB OPTIONS, LOCATONS AND PROVIDERS. PT WAS IN REHAB AT [facility] FOR ONE DAY AND HE CAME HERE FOR BETTER CARE. PT WOULD LIKE REHAB AT [facility] IF POSSIBLE AND DOES NOT WANT TO CONSIDER GOING TO PRISON FACILITY. PT REPORTS HIS DAUGHTER WILL PICK HIM UP FOR DISCHARGE HOME. IMPORTANT MESSAGE FROM MEDICARE PROVIDED AND EXPLAINED. PT DIRECTED CM TO CALL DAVION. CM CALLED DAVION LEWIS, , AND DISCUSSED REHAB OPTIONS. DAVION WOULD LIKE TO TRY TO GET PT INTO THE REHAB AT [facility] INSTEAD OF GOING BACK TO [facility]. PT WAS IN [facility] FOR ONE DAY AND THEN HAD BLEEDING ISSUE WITH FISTULA AND HAD TO BE HOSPITALIZED AGAIN. INPATIENT REHAB PRESCREENING ORDER RECEIVED. CM WAITING INPATIENT REHAB PRESCREENING AND ADMISSION DETERMINATION FROM [facility]. Healthcare Financial Analyst: Wilmar Fraser DCPIA - Discharge Planning Initial Assessment Updated by [id number]: Wilmar Fraser on 04/07/18 2:23 pm * Is the patient Alert and Oriented? Yes * How many steps to enter\exit or inside your home? RAMP * PCP DR. JAQUEZ * Pharmacy [facility] IN [place] * Preadmission Environment Home with Family * ADLs Independent * Equipment Walker * Other Equipment NO MEDICAL EQUIPMENT PROVIDER PREFERENCE * List name and contact numbers for known caregivers / representatives who currently or will assist patient after discharge: GBAO CAPONE, DTR, DAVION LEWIS, DTR, * Verbal permission to speak to the caregivers and representatives has been obtained from the patient. Yes * Community resources currently utilized Other * Please name any agencies selected above. OUTPATIENT DIALYSIS, [facility] [place] [facility], MWF, 0600AM, DAUGHTER TRANSPORTS * Additional services required to return to the preadmission environment? Yes * Can the patient safely return to the preadmission environment? Yes * Has this patient been hospitalized within the prior 30 days at any hospital? Yes Coverage Notice Reviewer: [id number] - Wilmar Fraser Notice Issued Date-Time: 04/07/2018 12:35 Notice Type: IM Discharge Notice Notice Delivered To: Patient Relationship to Patient: Principal Biostatistician Name: Delivery Method: HAND - Hand Delivered Georgie Days: Prior Verbal Notification: Recipient Understood Notice: Yes Recipient Signature: Yes Med Rec Note Co-signed by Attending: Coverage Notice Comment: Last DP export: 04/07/18 1:45 p Patient Name: JHONATHAN THRASHER Page [id number] at 1721 All edits/amendments must be made on the electronic document DICTATION DATE: 04/08/181719 FOOD SERVICE DRIVER: SINTIA 04/08/181719 RPT#: [id number] DC DATE: STATUS: ADM IN [facility] [address] [place] [address] END OF REPORT
--- NOTE | 2018-04-08 18:33 | NUR ---
REPORT CALLED TO LISETTE AT THIS TIME. PATIENT TO BE ADMITTED TO ROOM 1108-B.
--- NOTE | 2018-04-08 18:45 | NUR ---
20 GAUGE IV REMOVED FROM LEFT HAND. NO BLEEDING FROM SITE. CATHETER TIP INTACT. 2X2 GAUZE APPLIED AND SECURED WITH BANDAID. TOLERATED IV REMOVAL WELL. PATIENT BEING DISCHARGED TO REHAB.
--- NOTE | 2018-04-08 19:17 | NUR ---
PATIENT LEFT UNIT VIA WHEELCHAIR AT 1855. ELLY DISCHARGED TO INPATIENT REHAB. PATIENT LEFT UNIT WITH ALL PERSONAL BELONGINGS. NO DISTRESS UPON LEAVING UNIT.
--- NOTE | 2018-04-09 06:57 | DS ---
PATIENT:JHONATHAN THRASHER :[birth year] MEDICAL RECORD: [id number] DISCHARGE SUMMARY ADMISSION DATE: 04/04/18 DISCHARGE DATE: 04/08/18 HISTORY OF PRESENT ILLNESS: Mr. Thrasher is a 72-year-old white male with end-stage renal disease, chronic dialysis. He was at [facility] last week with pneumonia, received a course of antibiotics and was stable. He had an aneurysmal area on his graft. Dr. Jaquez and I both evaluated and did not think that it needed surgical intervention at that time. At rehabilitation, the patient was only there for a day when he began to have leakage from this aneurysm and was transferred to [facility] ER where surgery stated that they were unable to care for that wound and was transferred here. HOSPITAL COURSE: The patient did receive transfusion. He was taken to surgery by Dr. Pereyra where he had resection and balloon clotting of the pseudoaneurysm. Postoperatively, he did well. We were able to use the upper portion of the graft. He was reaccepted into rehab at [place] and will be transferred there. During this time, underwent dialysis twice with the graft and did well with that. He was otherwise stable at the time of discharge. DISCHARGE DIAGNOSES: 1. Malfunction of vascular device, requiring surgical intervention. 2. End-stage renal disease. 3. Chronic diarrhea. 4. Chronic anemia. PLAN: The patient will be discharged to rehab today. We will continue to follow him there. He will continue his thrice weekly dialysis and his current renal diet, out of bed and I will follow his access. DISCHARGE MEDICATIONS: Renvela 800 t.i.d., Procrit 4000 daily, Nephro-Janett 1 daily, Zyprexa 10 at bedtime, Florinef 0.1 daily, Depakote ER 500 daily, Neurontin 300 bedtime, loperamide p.r.n. and midodrine 5 mg t.i.d. TRANSINT:[id number] Voice Confirmation ID: [id number] DOCUMENT ID: [id number] MARY CHANEY MD at 0657 CC: [id number] DICTATION DATE: 04/08/18 0629 BIOPHARMACEUTICAL REP: 04/08/18 0816 DIS IN 04/08/18 [address] [place] [address]
== END 2018-04-08 18:55 | DRG 252 ==
LOC: D.ICU 15:48 → D.M2 18:01 → D.ICU 18:01 → D.M2 04-05 11:30
PROVIDERS: Internal Medicine Nephrology; ADMIT Internal Medicine Nephrology
PROC: 03LY3DZ Occlusion of Upper Artery with Intraluminal Device, Percutaneous Approach (ICD-10-PCS; principal; 2018-04-05)
PROC: B51W1ZZ Fluoroscopy of Dialysis Shunt/Fistula using Low Osmolar Contrast (ICD-10-PCS; 2018-04-05)
PROC: 5A1D70Z Performance of Urinary Filtration, Intermittent, Less than 6 Hours Per Day (ICD-10-PCS; 2018-04-05)
DX: T82.838A Hemorrhage due to vascular prosthetic devices, implants and grafts, initial encounter (principal); N18.6 End stage renal disease; D62 Acute posthemorrhagic anemia; I12.0 Hypertensive chronic kidney disease with stage 5 chronic kidney disease or end stage renal disease; N25.81 Secondary hyperparathyroidism of renal origin; Y83.8 Other surgical procedures as the cause of abnormal reaction of the patient, or of later complication, without mention of misadventure at the time of the procedure; D63.1 Anemia in chronic kidney disease; E87.5 Hyperkalemia; E11.22 Type 2 diabetes mellitus with diabetic chronic kidney disease; Z99.2 Dependence on renal dialysis; I48.91 Unspecified atrial fibrillation; I95.9 Hypotension, unspecified; Z86.73 Personal history of transient ischemic attack (TIA), and cerebral infarction without residual deficits

== ENCOUNTER 2018-04-08 19:00 | Inpatient (IN) | payer MEDICARE, OTHER ==
[~2018-04-08] VITALS: Ht 190.5 cm; Wt 76.0 kg
[2018-04-08 19:00] VITALS: BP 133/41
[~2018-04-08 19:00] MED LIST changes: +PROCRIT 202000 UNIT/ SC
[2018-04-08 22:17] VITALS: BP 133/41
[2018-04-09 00:37] VITALS: BP 145/66
--- NOTE | 2018-04-09 02:07 | NUR ---
PT ASLEEP NO NEEDS NOTED, FLUIDS AND CALL LIGHT WITHIN REACH
[2018-04-09 06:37] VITALS: BP 145/66
[2018-04-09 07:28] LABS: BASOPHILS 0.7 % (0-2); EOSINOPHILS 3.2 % (0-7); HEMATOCRIT 25.3 % (42.0-54.0); HEMOGLOBIN 8.2 g/dL (13.5-17.5); LYMPHOCYTES 20.6 % (15-50); MCH 28.7 pg (26.0-34.0); MCHC 32.4 g/dL (31.0-37.0); MCV 88.5 fL (80.0-100.0); MEAN PLATELET VOLUME 11.4 fL (7.4-10.4); MONOCYTES 16.2 % (2-11); NEUTROPHILS 59.3 % (40-80); PLATELET COUNT 104 10x3/uL (130-400); RBC 2.86 10x6/uL (4.20-6.10); RDW 15.2 % (11.5-14.5)
[2018-04-09 07:51] LABS: ANION GAP 19.2 mmol/L (8-16); CALCIUM 9.2 mg/dL (8.5-10.1); CREATININE - SERUM 8.7 mg/dL (0.6-1.3); POTASSIUM - SERUM 5.2 mmol/L (3.5-5.1)
--- NOTE | 2018-04-09 08:59 | NUR ---
AWAKE AND ALERT. NO DISTRESS NOTED. CL IN REACH.
[2018-04-09 09:33] VITALS: Ht 190.5 cm; Wt 76.0 kg
[2018-04-09 10:07] LABS: % SATURATION 31 % (15-55); IRON 62 ug/dl (35-150); TOTAL IRON BIND CAPACITY 197 ug/dl (260-445); UNSAT IRON BIND CAPACITY 135 ug/dl (150-375)
--- NOTE | 2018-04-09 11:39 | NUR ---
PARTICIPATED IN THERAPY THIS AM. RESTING QUIETLY AT THIS TIME.
--- NOTE | 2018-04-09 11:44 | NUR ---
CASE MANAGEMENT Admitted to rehab 04/08/18. Discharge planning and needs discussed. Mr. arteaga lives with his daughter Nena Willis. DME at home include standard wheeled walker with no DME provider preference. Patient goes to dialysis in [place] on MWF 06:00am, daughter transports him. Nena Willis phone #[phone]. Pharmacy [facility] in [place]. Ramp to enter home. Fabienne Romo, BONE DRIER Rehab Rotary Kiln Operator
[2018-04-09 12:00] VITALS: BP 129/63
--- NOTE | 2018-04-09 15:25 | NUR ---
AT DIALYSIS- TOOK EARILER BY BED.
--- NOTE | 2018-04-09 16:35 | NUR ---
STILL IN DIALYSIS AT THIS TIME.
--- NOTE | 2018-04-09 17:58 | NUR ---
RETURNED FROM DIALYSIS. ALERT AND ORIENTED. VSS. R ARM FISTULA WITH DRESSING CDI-NO BLOOD NOTED. EATING DINNER AT THIS TIME.
--- NOTE | 2018-04-09 18:37 | NUR ---
2L WERE PULLED OFF IN DIALYSIS. VS 135/71 74 O2 SAT 98.
[2018-04-09 19:00] VITALS: BP 138/67
--- NOTE | 2018-04-09 19:15 | NUR ---
AWAKE AND ALERT. RESTING IN BED. RIGHT FISTULA COVERED WITH BANDAGE INTACT. NOTED OLD FISTULA IN LEFT ARM. RESPIRATIONS UNLABORED. STATES HE HAS HAD DIARREHA TODAY. WILL MONITOR STOOLS. NO DISTRESS NOTED. CALL LIGHT IN REACH.
--- NOTE | 2018-04-09 22:14 | NUR ---
CONTINUES HAVING LOOSE STOOLS WITH NOTED FOUL SMELL AND MUCOUS IN STOOL. SPECIMEN COLLECTED AND SENT TO LAB FOR C-DIFF.
[2018-04-10 00:05] VITALS: BP 142/52
--- NOTE | 2018-04-10 00:39 | NUR ---
C-DIFF NEGATIVE. CONTINUES TO HAVE LOOSE STOOLS. MEDICATED WITH IMMODIUM PRN DOSE PER HIS REQUEST. RESPIRATIONS UNLABORED. NO OTHER NEEDS VOICED.
--- NOTE | 2018-04-10 03:17 | NUR ---
RESTING WITH EYES CLOSED AND RESPIRATIONS UNLABORED. NO DISTRESS NOTED.
--- NOTE | 2018-04-10 05:44 | NUR ---
QUIET HOURS. RESPIRATIONS UNLABORED. NO CURRENT C/O DISCOMFORTS.
[2018-04-10 06:25] VITALS: BP 130/50
[2018-04-10 06:46] VITALS: BP 135/50
--- NOTE | 2018-04-10 07:33 | NUR ---
PATIENT IS ALERT/ORIENT. RESTING IN BED. CALL LIGHT WITHIN REACH. VOICES NO NEEDS AT THIS TIME. WILL CONTINUE WITH PLAN OF CARE
[2018-04-10 12:00] VITALS: BP 108/52
--- NOTE | 2018-04-10 12:15 | NUR ---
EATING LUNCH.CL IN REACH.
--- NOTE | 2018-04-10 15:59 | NUR ---
PATIENT TURNING COIN PURSE ASSEMBLER LIGHT WHEN HE NEEDS TO GO INTO THE BATHROOM. DOESN'T WANT TO WAIT FOR HELP. WILL GET UP BY SELF AND WALK INTO BATHROOM. CHAIR/BED ALARM ON. PATIENT IS A STAND BY ASST
[2018-04-10 18:41] VITALS: BP 119/69
--- NOTE | 2018-04-10 19:27 | NUR ---
AWAKE AND RESTING IN BED. ASSISTED WITH TV CONTROLS. RESPIRATIONS UNLABORED. NOTED LEFT ARM FISTULA NOT IN USE AND RIGHT ARM FISTULA FOR DIALYSIS WITH DRESSING INTACT. NO C/O PAIN. CALLL LIGHT IN REACH.
[2018-04-11 00:16] VITALS: BP 143/55
[2018-04-11 02:54] VITALS: BP 143/53
--- NOTE | 2018-04-11 03:51 | NUR ---
CONTINUES HAVING LOOSE STOOLS. ASSISTED NEEDED TO BATHROOM. CURRENTLY IN BED RESTING.
[2018-04-11 06:00] VITALS: BP 139/41
--- NOTE | 2018-04-11 07:22 | NUR ---
PATIENT ALERT/ORIENT. DR BHAKTA INTO SEE PATIENT. WROTE DIALYSIS ORDERS. CALL LIGHT WITHIN REACH. VOICES NO NEEDS. WILL CONTINUE WITH PLAN OF CARE
[2018-04-11 08:02] LABS: BASOPHILS 1.2 % (0-2); EOSINOPHILS 2.1 % (0-7); HEMATOCRIT 23.1 % (42.0-54.0); HEMOGLOBIN 7.6 g/dL (13.5-17.5); IMMATURE GRANULOCYTES 0.2 % (0-5); LYMPHOCYTES 20.1 % (15-50); MCH 29.1 pg (26.0-34.0); MCHC 32.9 g/dL (31.0-37.0); MCV 88.5 fL (80.0-100.0); MEAN PLATELET VOLUME 11.7 fL (7.4-10.4); MONOCYTES 15.9 % (2-11); NEUTROPHILS 60.5 % (40-80); PLATELET COUNT 113 10x3/uL (130-400); RBC 2.61 10x6/uL (4.20-6.10); RDW 15.4 % (11.5-14.5); WBC 5.7 10x3/uL (4.8-10.8)
[2018-04-11 08:07] LABS: ANION GAP 19.1 mmol/L (8-16); CALCIUM 8.9 mg/dL (8.5-10.1); CARBON DIOXIDE 24.9 mmol/L (21.0-32.0); CREATININE - SERUM 8.4 mg/dL (0.6-1.3)
--- NOTE | 2018-04-11 10:03 | NUR ---
NURSE ASST IN PATIENT ROOM. HELPING PATIENT WITH SHOWER
--- NOTE | 2018-04-11 10:13 | NUR ---
PATIENT IN REHAB ROOM. WORKING WITH OCCUPATIONAL THERAPIST
--- NOTE | 2018-04-11 11:06 | NUR ---
Nutrition Follow Up: Chart reviewed. Noted pt with chronic diarrhea. Diet: Renal ADA PO Intake: 100% meal avg BM: 04/11/18 Wt stable Labs reviewed Meds noted including Questran Rec continue current diet. RD following.
[2018-04-11 12:06] VITALS: BP 119/57
--- NOTE | 2018-04-11 12:55 | NUR ---
PATIENT TAKEN DOWN TO DIALYSIS CLINIC FOR TREATMENT
--- NOTE | 2018-04-11 16:55 | NUR ---
DIALYSIS CLINIC CALLED FOR THIS NURSE TO PICK. WHEN THIS NURSE BROUGHT PATIENT BACK TO ROOM, PATIENT STATED THAT HE HAD HAD A BOWEL MOVEMENT IN HIS PANTS. PATIENT STATES THAT THE DIALYSIS CLINIC DID NOT HAVE ANYWHERE HE COULD GO TO THE BATHROOM. PATIENT TAKEN INTO HIS BATHROOM AND CLEANED UP
[2018-04-11 18:06] VITALS: BP 132/76
--- NOTE | 2018-04-11 19:15 | NUR ---
PATIENT IS SLEEPING. BED IS DOWN LOW WITH SIDE RAILS UP X2. CALL LIGHT IS IN REACH.
--- NOTE | 2018-04-11 21:21 | NUR ---
PATIENT IS A&O. DENIES ANY NEEDS. BED IS DOWN LOW WITH SIDE RAILS UP X2 AND CALL LIGHT IN REACH.
[2018-04-12] VITALS (7 sets, daily range): BP systolic 109–129; BP diastolic 54–67
--- NOTE | 2018-04-12 00:04 | NUR ---
PATIENT IS SLEEPING. BED IS DOWN LOW WITH SIDE RAILS UP X2 AND CALL LIGHT IN REACH.
--- NOTE | 2018-04-12 04:00 | NUR ---
PATIENT IS SLEEPING. BED IS DOWN LOW WITH SIDE RAILS UP X2. CALL LIGHT IN REACH.
--- NOTE | 2018-04-12 07:32 | NUR ---
AWAKE, ALERT. NO C/O PAIN. RESP EVEN AND UNLABORED. CL IN REACH.
--- NOTE | 2018-04-12 11:40 | NUR ---
AMBULATED IN WARD THIS AM WITH PT. BACK TO [facility] RESTING AT THIS TIME.
--- NOTE | 2018-04-12 16:54 | NUR ---
NO CHANGE IN ASSESSMENT. RESTING WO C/O PAIN.
--- NOTE | 2018-04-12 19:02 | NUR ---
PATIENT IS SLEEPING. BED IS DOWN LOW WITH SIDE RAILS UP X2. CALL LIGHT IN REACH.
--- NOTE | 2018-04-12 20:29 | NUR ---
PATIENT IS RESTING IN HIS BED. VITAL SIGNS ARE STABLE. HE DENIES ANY NEEDS. BED IS DOWN LOW WITH SIDE RAILS UP X2 AND CALL LIGHT IS IN REACH.
[2018-04-13] VITALS: BP 127/63
--- NOTE | 2018-04-13 | NUR ---
PATIENT IS SLEEPING. VITAL SIGNS CHECKED AND ARE STABLE. DENIES ANY NEEDS.
--- NOTE | 2018-04-13 04:03 | NUR ---
PATIENT IS SLEEPING. BED IS DOWN LOW. CALL LIGHT IN REACH.
[2018-04-13 05:25] VITALS: BP 104/52
--- NOTE | 2018-04-13 07:20 | NUR ---
REQUESTED PROAMATINE FROM PHARMACY. ROSA ISELA IS OUT.
--- NOTE | 2018-04-13 07:37 | NUR ---
ALERT AND ORIENTED. NO C/O PAIN. RESP EVEN AND UNLABORED. CL IN REACH.
[2018-04-13 07:59] VITALS: BP 116/58
[2018-04-13 11:17] VITALS: BP 126/65
--- NOTE | 2018-04-13 15:45 | NUR ---
SHOWER GIVEN PER MULTIMEDIA DEVELOPER. NO CHANGE IN ASSESSMENT.
[2018-04-13 18:43] VITALS: BP 133/75
--- NOTE | 2018-04-13 18:57 | NUR ---
PATIENT IS SLEEPING. BED IS DOWN LOW WITH CALL LIGHT IN REACH.
--- NOTE | 2018-04-13 21:26 | NUR ---
PATIENT IS RESTING IN HIS BED. HE DENIES ANY NEEDS. TAKES HIS MEDICATIONS W/O COMPICATIONS. BED IS DOWN LOW WITH SIDE RAILS UP AND CALL LIGHT IN REACH.
--- NOTE | 2018-04-14 00:08 | NUR ---
PATIENT IS SLEEPING. BED IS DOWN LOW WITH SIDE RAILS UP X2. CALL LIGHT IS IN REACH.
[2018-04-14 00:40] VITALS: BP 125/57
--- NOTE | 2018-04-14 04:00 | NUR ---
PATIENT IS SLEEPING. BED IS DOWN LOW. CALL LIGHT IS IN REACH.
[2018-04-14 06:06] VITALS: BP 113/61
[2018-04-14 07:27] LABS: BASOPHILS 1.3 % (0-2); EOSINOPHILS 2.5 % (0-7); HEMATOCRIT 25.1 % (42.0-54.0); IMMATURE GRANULOCYTES 0.2 % (0-5); LYMPHOCYTES 28.7 % (15-50); MCH 28.5 pg (26.0-34.0); MCHC 31.9 g/dL (31.0-37.0); MCV 89.3 fL (80.0-100.0); MEAN PLATELET VOLUME 11.1 fL (7.4-10.4); MONOCYTES 11.3 % (2-11); PLATELET COUNT 116 10x3/uL (130-400); RBC 2.81 10x6/uL (4.20-6.10); RDW 15.6 % (11.5-14.5); WBC 4.8 10x3/uL (4.8-10.8)
--- NOTE | 2018-04-14 07:30 | NUR ---
PT LYING IN BED. CL IN REACH. PT DENIES NEEDS OR PAIN. RESP EVEN AND UNLABORED. WILL CONTINUE TO MONITOR. BED IN LOW POSITION. SIDE RAILS X2.
[2018-04-14 07:36] LABS: ANION GAP 23.4 mmol/L (8-16); CALCIUM 8.6 mg/dL (8.5-10.1); CARBON DIOXIDE 20.3 mmol/L (21.0-32.0); POTASSIUM - SERUM 5.7 mmol/L (3.5-5.1)
--- NOTE | 2018-04-14 09:42 | NUR ---
PT LYING IN BED WATCHING TV. CL IN REACH. PT IS HAVING EPISODES OF DIARRHEA THIS MORNING X2. DOCTOR CHANGED IMODIUM FROM PRN TO SCHEDULED. FIRST DOSE GIVEN THIS AM. WILL CONTINUE TO MONITOR.
--- NOTE | 2018-04-14 10:34 | NUR ---
OCCUPATIONAL THERAPY CAME TO THIS NURSE AND STATED THE PATIENT TOLD HER THAT HE HAD CHEST PAIN THAT WENT DOWN HIS ARM. THIS NURSE CHECKED VITALS AND ASSESSED PT. VITALS WERE 102/64, 89, RESP 17, 100%. THIS NURSE ASKED PT WHERE HE WAS HURTING AND PT STATED " MY SHOULDER IS HURTING FROM DOING THE EXERCISES." THIS NURSE THEN ASKED PT IF IT WAS HIS CHEST LIKE HEART BURN AND HE STATED " ITS MY SHOULDER MUSCLE BEING SORE." PT DENIED HIS ACTUAL CHEST OR HEART HURTING. WILL CONTINUE TO MONITOR.
--- NOTE | 2018-04-14 11:42 | NUR ---
PT IN THERAPY DENIES NEEDS
[2018-04-14 12:57] VITALS: BP 133/73
--- NOTE | 2018-04-14 15:33 | NUR ---
PT IN DIALYSIS.
--- NOTE | 2018-04-14 17:19 | NUR ---
PT BACK FROM DIALYSIS. PT IN BED WATHCING TV. CL IN REACH. PT DENIES NEEDS OR PAIN. WCTM
[2018-04-14 17:24] VITALS: BP 144/72
--- NOTE | 2018-04-14 19:18 | NUR ---
RESTING IN BED WITH RESPIRATIONS UNLABORED. RIGHT ARM FISTULA FOR DIALYSIS INTACT. OLD LEFT ARM FISTULA PRESENT AND NOT IN USE. NO DISTRESS NOTED.
[2018-04-15 00:14] VITALS: BP 142/57
[2018-04-15 00:58] VITALS: BP 129/41
--- NOTE | 2018-04-15 03:07 | NUR ---
RESTING IN BED WITH NO DISTRESS NOTED. CALL LIGHT IN REACH. RESPIRATIONS UNLABORED.
[2018-04-15 06:21] LABS: CALCIUM 8.6 mg/dL (8.5-10.1); CARBON DIOXIDE 24.7 mmol/L (21.0-32.0); PHOSPHOROUS 6.1 mg/dL (2.5-4.9)
[2018-04-15 06:22] LABS: CREATININE - SERUM 7.1 mg/dL (0.6-1.3); POTASSIUM - SERUM 4.7 mmol/L (3.5-5.1)
[2018-04-15 06:28] VITALS: BP 127/45
[2018-04-15 06:33] LABS: EOSINOPHILS 3.3 % (0-7); HEMATOCRIT 24.6 % (42.0-54.0); LYMPHOCYTES 20.2 % (15-50); MCH 28.6 pg (26.0-34.0); MCHC 32.5 g/dL (31.0-37.0); MCV 87.9 fL (80.0-100.0); MEAN PLATELET VOLUME 11.5 fL (7.4-10.4); MONOCYTES 19.9 % (2-11); NEUTROPHILS 55.6 % (40-80); RDW 15.8 % (11.5-14.5); WBC 3.9 10x3/uL (4.8-10.8)
[2018-04-15 06:34] LABS: PLATELET COUNT 90 10x3/uL (130-400)
[2018-04-15 06:51] VITALS: BP 116/80
--- NOTE | 2018-04-15 07:23 | NUR ---
PT LYING IN BED WATCHING TV. CL IN REACH. PT DENIES NEEDS OR PAIN. BED IN LOW POSITION. SIDE RAILS X2. RESP EVEN AND UNLABORED. RITU [place]'D DISCHARGE THIS MORNING. WILL CONTINUE TO MONITOR.
--- NOTE | 2018-04-15 07:23 | NUR ---
REMAINNS SLEEPING IN BED.CL IN REACH.
[2018-04-15 07:58] LABS: PLATELET ESTIMATE DECREASED
[2018-04-15] MEDS ORDERED: PROTONIX40 MG PO (08:24)
--- NOTE | 2018-04-15 10:26 | NUR ---
Nutrition Follow Up: Chart reviewed. Diet: Renal ADA; Lactose Free PO Intake: 96% meal avg BM: 04/15/18 WT stable Labs reviewed - Phos elevated Meds noted including Questran Rec continue current diet. RD following.
--- NOTE | 2018-04-15 11:10 | NUR ---
PT SITTING UP IN WHEELCHAIR IN ROOM. WAITING FOR DC. CL IN REACH. WCTM
[2018-04-15 11:58] VITALS: BP 122/63
[2018-04-15 12:27] VITALS: BP 122/63
--- NOTE | 2018-04-15 14:15 | NUR ---
PT LEFT FLOOR WITH DAUGHTER IN WHEELCHAIR. PAPERWORK SIGNED. BELONGINGS TAKEN WITH PT.
--- NOTE | 2018-04-15 14:31 | NUR ---
PATIENT DISCHARGING HOME TODAY WITH HIS DAUGHTER. [facility] WILL PROVIDE THERAPY AT HOME. NO NEW DME NEEDED AT THIS TIME. PATIENT WILL CONTINUE SAME HD DAYS AT [facility] ON @ 6:00AM. PATIENT CHOICE FORM FOR HOME HEALTH AND IMFM FORM SIGNED AND FILED IN CHART.
--- NOTE | 2018-04-23 12:19 | RHP ---
PATIENT: JHONATHAN THRASHER MEDICAL RECORD: [id number] ACCOUNT: [id number] LOCATION:[id number] : [birth year] ADMISSION DATE: 04/08/18 REHABILITATION HISTORY AND PHYSICAL EXAMINATION POST ADMISSION PHYSICIAN EXAMINATION ADMITTING DIAGNOSES: Uremic myopathy. HISTORY OF PRESENT ILLNESS: The patient is a 72-year-old gentleman, who presents to the rehab with a working diagnosis of uremic myopathy. The patient is a 72-year-old gentleman that presented to [facility] for approximately 8 days with fluid on his lungs per his daughter, was transferred to [facility] inpatient rehab for 1-day he developed bleeding from his right upper extremity HeRO graft that was tamponaded with a pressure dressing. He arrived via EMS with emergent surgery for sheath. Fistulogram was also done and stent to exclude the pseudoaneurysm. Dr. Pereyra saw this gentleman. He had extended period of being in the hospital between [facility] and [facility]. His daughter states that he has gotten progressively weaker while in the hospital. Lives at home with his daughter and was independent with his own care and moderately independent with rolling walker for mobility. He is currently on telemetry, monitoring closely for bleeding. He received hemodialysis 3 times a week. I will monitor his hemodialysis site pretty closely. He is unable to perform his ADLs independently. He is got impaired mobility, recent falls. He is a high risk for falls and self-care deficits. There are barriers to his discharge home safely at this time. He is currently set up for mod assist and his daughter and him both plan on him returning home safely with his prior level of functioning after his acute stay here in the inpatient rehab. Dr. Davis is his knockdown worker. 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 PAST MEDICAL HISTORY: Significant for end-stage renal dialysis. He is on chronic kidney disease, electrolyte abnormalities, hyperparathyroidism, CHF, AFib, TIA, diabetes, hypertension, arthritis, chronic back pain, colon/rectal cancer, and bipolar disorder. PAST SURGICAL HISTORY: Includes multiple colonoscopies and endoscopies, multiple dialysis access surgeries, cataracts, bilateral hip replacements, gallbladder surgery, and colon surgery. ALLERGIES: No known drug allergies. CURRENT MEDICATIONS: Include folic acid 1 tab daily. He is on ProAmatine 5 mg t.i.d., sevelamer 800 mg t.i.d. with meals, Zyprexa 10 mg daily, folic acid 1 tab daily, Florinef 0.1 mg daily, he is on Depakote 500 mg daily, Imodium 2 mg q.4 hours p.r.n. diarrhea, and Neurontin 300 mg p.o. at bedtime. HABITS: No alcohol or tobacco use. FAMILY HISTORY: Noncontributory. SOCIAL HISTORY: The patient hopes to return back home and get back to his prior HISTORY AND PHYSICAL [id number] AJ THRASHERONY level of functioning. REVIEW OF SYSTEMS: GENERAL: Does complain of weakness and fatigue. HEENT: Denies cold, cough, or congestion. CARDIOVASCULAR: He denies chest pain. PHYSICAL EXAMINATION: VITAL SIGNS: Stable, afebrile. Generally a thin gentleman, in no acute distress, alert upon exam. HEENT: Normocephalic and atraumatic. Mucosa moist. NECK: Supple without adenopathy. LUNGS: Clear at this time with no wheeze, rhonchi, or rales. HEART: Irregular rate and rhythm. No murmurs, rubs or gallops. ABDOMEN: Benign. EXTREMITIES: No clubbing, cyanosis or edema. His postop area looks pretty good at this time. NEUROLOGIC: He does have noted proximal muscle weakness. LABORATORY DATA: White count is 4.0, H&H of 8 and 25, and platelet count is noted to be 104. Sodium 134, potassium 5.2, BUN and creatinine of 74 and 8.7, and blood sugar is noted to be 74. ASSESSMENT: This is a 72-year-old gentleman, who presents to rehab with a working diagnosis of uremic myopathy. The patient has potential to make improvement. We instituted the following multidisciplinary therapies including but not limited to physical, occupational, respiratory, speech, nutritional services, prosthetics and orthotics. Given his complex medical condition and risk for more complications, rehabilitation services cannot be provided at a low level of care such as a skilled nurse facility. PLAN: 1. Admit to [facility] for inpatient therapy to include the following disciplines: A. Physical therapy to improve gait, all transfer skills and bed mobility to a modified independent level. B. Occupational therapy to a modified independent level. C. Case management to assist with discharge planning and placement options. D. Nutrition to assist with nutritional needs. E. Rehabilitation nursing to assist in monitoring the patient's [facility] medical conditions and to assist with any type of bowel and bladder management. 2. The patient's current medication and medical care will be continued. 3. We will go ahead and watch that area to his graft to make sure he has no further bleeding. 4. I am going to follow him up with care team meeting today at noon. TRANSINT:[id number] Voice Confirmation ID: [id number] DOCUMENT ID: [id number] 03/15/18 Edited for jenna LÓPEZ. MARIBEL notes whether there has been none or any medical/functional change since admission: - No change since preadmision screen. HISTORY AND PHYSICAL [id number] JHONATHAN THRASHER attests patient continues to be appropriate for IRF: - Continues to be appropriate. NONA MCRAE MD at 1219 CC: [id number] DICTATION DATE: 04/09/18 08 ELEMENTARY MATH TUTOR: 04/09/18 0910 DIS IN 04/15/18 [facility] [address] [place] [address]
== END 2018-04-15 14:34 | disposition home health service (06) | DRG 91 ==
LOC: D.REHAB 19:00
PROVIDERS: Internal Medicine Nephrology; ADMIT Emergency Medicine
DX: G72.89 Other specified myopathies (principal); N18.6 End stage renal disease; A41.9 Sepsis, unspecified organism; I13.2 Hypertensive heart and chronic kidney disease with heart failure and with stage 5 chronic kidney disease, or end stage renal disease; E11.22 Type 2 diabetes mellitus with diabetic chronic kidney disease; I50.9 Heart failure, unspecified; Z99.2 Dependence on renal dialysis; D64.9 Anemia, unspecified; I48.91 Unspecified atrial fibrillation; E11.40 Type 2 diabetes mellitus with diabetic neuropathy, unspecified; E87.8 Other disorders of electrolyte and fluid balance, not elsewhere classified; E21.3 Hyperparathyroidism, unspecified; F31.9 Bipolar disorder, unspecified; M19.90 Unspecified osteoarthritis, unspecified site; I95.9 Hypotension, unspecified

== ENCOUNTER 2018-07-09 14:13 | Emergency (ER) | payer MEDICARE, OTHER ==
[~2018-07-09] VITALS: Ht 190.5 cm; Wt 75.0 kg
[~2018-07-09 14:13] MED LIST changes: +PROTONIX40 MG PO
[2018-07-09 14:16] VITALS: Ht 190.5 cm; Wt 75.0 kg
[2018-07-09 16:03] LABS: INR 1.4 (0.85-1.17); PROTIME 16.6 SECONDS (11.6-15.0)
[2018-07-09 16:05] LABS: BASOPHILS 0.2 % (0-2); EOSINOPHILS 0.1 % (0-7); HEMATOCRIT 32.4 % (42.0-54.0); HEMOGLOBIN 10.7 g/dL (13.5-17.5); IMMATURE GRANULOCYTES 0.2 % (0-5); LYMPHOCYTES 5.3 % (15-50); MCV 93.9 fL (80.0-100.0); MEAN PLATELET VOLUME 11.2 fL (7.4-10.4); MONOCYTES 5.7 % (2-11); NEUTROPHILS 88.5 % (40-80); PLATELET COUNT 93 10x3/uL (130-400); RBC 3.45 10x6/uL (4.20-6.10); RDW 16.2 % (11.5-14.5); WBC 12.5 10x3/uL (4.8-10.8)
[2018-07-09 16:14] LABS: ALBUMIN 2.5 g/dL (3.4-5.0); ANION GAP 19.5 mmol/L (8-16); BILIRUBIN - TOTAL 0.37 mg/dL (0.2-1.3); CALCIUM 9.2 mg/dL (8.5-10.1); CARBON DIOXIDE 22.9 mmol/L (21.0-32.0); POTASSIUM - SERUM 4.4 mmol/L (3.5-5.1); PROTEIN - SERUM 6.5 g/dL (6.4-8.2)
[2018-07-09 17:12] LABS: PLATELET ESTIMATE DECREASED
[2018-07-09 20:20] VITALS: BP 111/47
== END 2018-07-09 20:20 | disposition home or self-care (01) ==
LOC: D.ER 14:13
PROVIDERS: Emergency Medicine
DX: K92.1 Melena (principal); I12.9 Hypertensive chronic kidney disease with stage 1 through stage 4 chronic kidney disease, or unspecified chronic kidney disease; N18.9 Chronic kidney disease, unspecified; R53.1 Weakness

== ENCOUNTER 2018-11-24 11:05 | Inpatient (IN) | payer MEDICARE, OTHER ==
[~2018-11-24] VITALS: Ht 190.5 cm; Wt 70.3 kg
[2018-11-24 11:19] VITALS: BP 132/66
[2018-11-24 11:49] LABS: BASOPHILS 0.1 % (0-2); EOSINOPHILS 0.2 % (0-7); HEMATOCRIT 30.9 % (42.0-54.0); HEMOGLOBIN 10.3 g/dL (13.5-17.5); IMMATURE GRANULOCYTES 0.1 % (0-5); LYMPHOCYTES 3.7 % (15-50); MCH 32.4 pg (26.0-34.0); MCHC 33.3 g/dL (31.0-37.0); MCV 97.2 fL (80.0-100.0); MEAN PLATELET VOLUME 10.8 fL (7.4-10.4); MONOCYTES 12.1 % (2-11); NEUTROPHILS 83.8 % (40-80); PLATELET COUNT 97 10x3/uL (130-400); RBC 3.18 10x6/uL (4.20-6.10); RDW 14.6 % (11.5-14.5); WBC 8.1 10x3/uL (4.8-10.8)
[2018-11-24 12:05] LABS: ALBUMIN 3.1 g/dL (3.4-5.0); ALKALINE PHOSPHATASE 122 U/L (46-116); ALT (SGPT) 31 U/L (10-68); BILIRUBIN - TOTAL 0.29 mg/dL (0.2-1.3); CALC OSMOLALITY 286 mosm/kg (275-300); CALCIUM 9.3 mg/dL (8.5-10.1); CARBON DIOXIDE 26.9 mmol/L (21.0-32.0); CHLORIDE - SERUM 99 mmol/L (98-107); CREATININE - SERUM 4.1 mg/dL (0.6-1.3); GLUCOSE 105 mg/dL (74-106); POTASSIUM - SERUM 4.4 mmol/L (3.5-5.1); PROTEIN - SERUM 7.1 g/dL (6.4-8.2); SODIUM 136 mmol/L (136-145); UREA NITROGEN 54 mg/dL (7-18); eGFR NON AFRICAN AMERICAN 15 mL/min (90-120)
[2018-11-24 12:16] LABS: CKMB 0.7 U/L (0.0-3.6); CREATINE KINASE 52 UL (21-232); MAGNESIUM - SERUM 1.9 mg/dL (1.8-2.4); TROPONIN-I < 0.017 ng/mL (0.000-0.060)
[2018-11-24 12:36] LABS: PLATELET ESTIMATE DECREASED
[2018-11-24 12:37] LABS: ROULEAUX OCC
--- NOTE | 2018-11-24 12:37 | NUR ---
[facility] CALLED AND REQUESTED THAT PT BE NPO AFTER MIDNIGHT AND THAT HE DOES NOT HAVE CAFFEINE AFTER MIDNIGHT.
[2018-11-24 12:48] LABS: APTT 29.2 SECONDS (22.8-39.4); INR 1.12 (0.85-1.17); PROTIME 13.9 SECONDS (11.6-15.0)
--- NOTE | 2018-11-24 13:22 | NUR ---
REPORT CALLED TO JUNE.
--- NOTE | 2018-11-24 13:35 | NUR ---
RECEIVED PT TO ROOM 2114 VIA W/C FROM ER PT IS [id number] SON IN LAW AT BEDSIDE PT CLEAN UP FROM INCONTINENT EPISODE OF DIARRHEA Bhargav BUTT PASTE APPLIED
[2018-11-24 15:06] VITALS: BP 128/62; BMI 19.4
[2018-11-24 18:11] LABS: CKMB 0.9 U/L (0.0-3.6); CREATINE KINASE 102 UL (21-232); TROPONIN-I 0.028 ng/mL (0.000-0.060)
[2018-11-24] MEDS ORDERED: BAYER CHEWABLE81 MG PO (18:13)
[2018-11-24] MEDS ORDERED: CARAFATE1 G PO (18:14)
--- NOTE | 2018-11-24 19:00 | NUR ---
RECEIVED BEDSIDE REPORT. PATIENT IS ALERT AND ORIENTED, RESTING COMFORTABLY IN BED. RESPIRATIONS ARE EVEN AND UNLABORED. NO S/S OF DISTRESS. NO C/O PAIN. CALL LIGHT WITHIN REACH. NEEDS MET. WILL CPOC.
[2018-11-24 20:00] VITALS: BP 103/52
[2018-11-24 23:53] LABS: CKMB 0.9 U/L (0.0-3.6); CREATINE KINASE 106 UL (21-232)
[2018-11-25] VITALS: BP 110/58
[2018-11-25 04:30] VITALS: BP 98/52
[2018-11-25 06:41] LABS: BASOPHILS 0.2 % (0-2); EOSINOPHILS 1.3 % (0-7); HEMATOCRIT 29.3 % (42.0-54.0); HEMOGLOBIN 9.9 g/dL (13.5-17.5); IMMATURE GRANULOCYTES 0.2 % (0-5); LYMPHOCYTES 11.1 % (15-50); MCH 31.8 pg (26.0-34.0); MCHC 33.8 g/dL (31.0-37.0); MEAN PLATELET VOLUME 11.4 fL (7.4-10.4); MONOCYTES 10.2 % (2-11); PLATELET COUNT 99 10x3/uL (130-400); RBC 3.11 10x6/uL (4.20-6.10); RDW 14.6 % (11.5-14.5)
[2018-11-25 06:43] LABS: MCV 94.2 fL (80.0-100.0); WBC 4.7 10x3/uL (4.8-10.8)
[2018-11-25 07:27] LABS: CKMB 0.7 U/L (0.0-3.6); CREATINE KINASE 75 UL (21-232); TROPONIN-I 0.024 ng/mL (0.000-0.060)
[2018-11-25 10:03] VITALS: BP 94/47
--- NOTE | 2018-11-25 10:10 | HP ---
PATIENT: JHONATHAN GARRIDO MEDICAL RECORD: [id number] ACCOUNT: [id number] LOCATION:[address] : [birth year] ADMISSION DATE: 11/24/18 PCP: KEHINDE MCRAE MD HISTORY AND PHYSICAL EXAMINATION DIAGNOSES: 1. Unstable angina. 2. Abnormal ECG. 3. Hypertension. 4. End-stage renal failure, dialysis. 5. Shortness of breath. HISTORY OF PRESENT ILLNESS: Mr. Garrido has no previous cardiac history, no previous cardiac workup. Saturday, after dialysis, he began having chest discomfort. He had shortness of breath and chest discomfort all weekend. Today, after dialysis, he had very severe chest discomfort and presented to the Emergency Room. His troponin is normal. His EKG has multiple PACs, but no acute ST-T abnormalities. PHYSICAL EXAMINATION: CONSTITUTIONAL/GENERAL APPEARANCE: Well nourished, well developed, appears stated age. EYES: Lids and conjunctivae noninjected. No discharge. No pallor. ENT: Lips within normal limit. No cyanosis. No pallor. NECK: Carotid arteries, bilateral normal upstroke. No bruits. No thrills. No jugular venous pressure or distention. CERVICAL LYMPH NODES: Nontender. Nonenlarged. THYROID: Not enlarged. No nodules. CARDIOVASCULAR: Precordial exam, nondisplaced. No heaves or pericardial thrills. Rate and rhythm, regular. Heart sounds, normal S1, normal S2. No S3, no gallop, no rub. Systolic murmur, not heard. Diastolic murmur, not heard. RESPIRATORY: Respiratory effort, unlabored. Normal curvature. No thoracic deformity. No chest wall tenderness. Percussion, resonant. Auscultation, clear. No wheezes, no rales, no rhonchi. ABDOMEN: Soft, nondistended, nontender. No abdominal pain, no vomiting and normal appetite. MUSCULOSKELETAL: No joint tenderness, normal gait, normal tone. SKIN: Warm and dry. OVERALL IMPRESSION: Chest pain compatible with angina, has been there since Saturday in a patient with end-stage renal failure; however, his troponin is normal. EKG is with no acute ST-T abnormalities. We will risk stratify with stress testing, Cardiolite imaging. Further care depends upon the findings of the stress test. TRANSINT:[id number] Voice Confirmation ID: [id number] DOCUMENT ID: [id number] HISTORY AND PHYSICAL [id number] JHONATHAN GARRIDO JEFFREY MD at 1010 CC: [id number] DICTATION DATE: 11/24/18 1225 RN LACTATION CONSULTANT: 11/24/18 1231 ADM IN [place] [id number] [place] [address]
[2018-11-25 12:00] VITALS: BP 90/45
[2018-11-25 12:17] LABS: ALBUMIN 3.2 g/dL (3.4-5.0); ANION GAP 18.5 mmol/L (8-16); BILIRUBIN - TOTAL 0.42 mg/dL (0.2-1.3); CALCIUM 9.1 mg/dL (8.5-10.1); CARBON DIOXIDE 23.8 mmol/L (21.0-32.0); TROPONIN-I 0.022 ng/mL (0.000-0.060)
[2018-11-25 12:18] LABS: CREATININE - SERUM 6.3 mg/dL (0.6-1.3)
[2018-11-25 12:23] LABS: POTASSIUM - SERUM 6.3 mmol/L (3.5-5.1)
--- NOTE | 2018-11-25 14:32 | NUR ---
Perineal area including scrotum and lower buttocks is excoriated and red due to frequent watery diarrhea. Calmoseptine cream is being applied BID and as needed with each episode of incontinence.
[2018-11-25 14:49] VITALS: Ht 190.5 cm; Wt 70.3 kg
--- NOTE | 2018-11-25 19:26 | NUR ---
RESUMING PATIENT CARE. PATIENT IS ALERT AND ORIENTED, RESTING COMFORTABLY IN BED. RESPIRATIONS ARE EVEN AND UNLABORED. NO S/S OF DISTRESS. NO C/O PAIN. CALL LIGHT WITHIN REACH. WILL CPOC.
[2018-11-25 20:00] VITALS: BP 119/48
[2018-11-26 00:30] VITALS: BP 132/38
[2018-11-26 04:30] VITALS: BP 114/54
[2018-11-26 06:12] LABS: BASOPHILS 0.4 % (0-2); EOSINOPHILS 1.1 % (0-7); HEMATOCRIT 30.7 % (42.0-54.0); HEMOGLOBIN 10.5 g/dL (13.5-17.5); LYMPHOCYTES 15.6 % (15-50); MCH 32.6 pg (26.0-34.0); MCHC 34.2 g/dL (31.0-37.0); MCV 95.3 fL (80.0-100.0); MEAN PLATELET VOLUME 11.2 fL (7.4-10.4); MONOCYTES 16.3 % (2-11); NEUTROPHILS 66.6 % (40-80); PLATELET COUNT 107 10x3/uL (130-400); RBC 3.22 10x6/uL (4.20-6.10); RDW 14.3 % (11.5-14.5); WBC 4.5 10x3/uL (4.8-10.8)
[2018-11-26 06:32] LABS: ALBUMIN 2.7 g/dL (3.4-5.0); ANION GAP 14.8 mmol/L (8-16); BILIRUBIN - TOTAL 0.32 mg/dL (0.2-1.3); CALCIUM 8.6 mg/dL (8.5-10.1); CARBON DIOXIDE 27.7 mmol/L (21.0-32.0); CREATININE - SERUM 5.1 mg/dL (0.6-1.3); PROTEIN - SERUM 6.4 g/dL (6.4-8.2)
[2018-11-26 06:40] LABS: POTASSIUM - SERUM 4.5 mmol/L (3.5-5.1)
[2018-11-26 08:35] VITALS: BP 94/48
--- NOTE | 2018-11-26 09:53 | MORECARE ---
CASE MANAGEMENT DISCHARGE SUMMARY PATIENT: JHONATHAN THRASHER UNIT: [id number] ADM DATE: 11/25/18 AGE: 73 : 47 SEX: M ROOM/BED: D.2115 AUTHOR: AFIA ARANA PHYSICIAN: REFERRING PHYSICIAN: KRISTEN CHONG MD DATE OF SERVICE: 11/26/18 Discharge Plan Patient Name: JHONATHAN THRASHER [facility] [facility] 1945 Planned Disposition: Home with Home Health Anticipated Discharge Date: 11/26/18 Discharge Date: Expected LOS: 1 Initial Reviewer: [email or web address] Initial Review Date: 11/26/2018 Generated: 11/26/18 10:52 am External Providers External Provider: [facility] Next Contact Date: 11/26/2018 Service Request Date: Service Type: Resolution: Reviewer: Comments: Coverage Notice Reviewer: [id number] Royal Zapata Notice Issued Date-Time: 11/25/2018 9:34 Notice Type: Medicare Outpatient Observation Notice Notice Delivered To: Patient Relationship to Patient: Self Windows Migration Technician Name: Delivery Method: HAND - Hand Delivered Georgie Days: Prior Verbal Notification: Recipient Understood Notice: Yes Recipient Signature: Yes Med Rec Note Co-signed by Attending: Coverage Notice Comment: Patient Name: JHONATHAN THRASHER Page [phone] at 0953 All edits/amendments must be made on the electronic document DICTATION DATE: 11/26/18951 CARBON PRINTER: SINTIA 11/26/18951 RPT#: [id number] DC DATE: STATUS: ADM IN [facility] [address] [place] [address] END OF REPORT
--- NOTE | 2018-11-26 10:07 | NUR ---
CLEANED OF BM INCONT. IV AND TELEMETRY DCD FOR DC. LEAVING FOR DIALYSIS BY BED. WILL CONT. PLAN OF CARE.
--- NOTE | 2018-11-26 12:04 | MORECARE ---
CASE MANAGEMENT DISCHARGE SUMMARY PATIENT: JHONATHAN THRASHER UNIT: [id number] ADM DATE: 11/25/18 AGE: 73 : 47 SEX: M ROOM/BED: D.2115 AUTHOR: SUMIT,DOC PHYSICIAN: REFERRING PHYSICIAN: KRISTEN CHONG MD DATE OF SERVICE: 11/26/18 Discharge Plan Patient Name: JHONATHAN THRASHER Facility: [facility]:[place] : 1945 Planned Disposition: Home with Home Health Anticipated Discharge Date: 11/26/18 Discharge Date: Expected LOS: 1 Initial Reviewer: [email or web address] Initial Review Date: 11/26/2018 Generated: 11/26/18 1:04 pm DCPIA - Discharge Planning Initial Assessment Updated by [email or web address]: Wilmar Fraser on 11/26/18 12:03 pm * Is the patient Alert and Oriented? Yes * How many steps to enter\exit or inside your home? * PCP DR. MUNOZ * Pharmacy [facility] IN [place] * Preadmission Environment Home with Family * ADLs Partial Dependent * Partial ADLs (Assistance needed) Medication Management * Equipment Walker * Other Equipment NO MEDICAL EQUIPMENT PROVIDER PREFERENCE * List name and contact numbers for known caregivers / representatives who currently or will assist patient after discharge: KELIN THRASHER, DTR, * Verbal permission to speak to the caregivers and representatives has been obtained from the patient. Yes * Community resources currently utilized Other * Please name any agencies selected above. [facility]YS[facility], [facility], [place] - [place], [address], [facility] * Additional services required to return to the preadmission environment? No * Can the patient safely return to the preadmission environment? Yes * Has this patient been hospitalized within the prior 30 days at any hospital? No Coverage Notice Reviewer: [id number] [facility] Notice Issued Date-Time: 11/25/2018 9:34 Notice Type: Medicare Outpatient Observation Notice Notice Delivered To: Patient Relationship to Patient: Self Candle Wicker Name: Delivery Method: HAND - Hand Delivered Georgie Days: Prior Verbal Notification: Recipient Understood Notice: Yes Recipient Signature: Yes Med Rec Note Co-signed by Attending: Coverage Notice Comment: Last DP export: 11/26/18 8:53 a Patient Name: JHONATHAN THRASHER Page [phone] at 1204 All edits/amendments must be made on the electronic document DICTATION DATE: 11/26/18 120 BULK DELIVERY DRIVER: SINTIA 11/26/18 1204 RPT#: [id number] DC DATE: STATUS: ADM IN [facility] [address] [place] [address] END OF REPORT
--- NOTE | 2018-11-26 12:12 | MORECARE ---
CASE MANAGEMENT DISCHARGE SUMMARY PATIENT: JHONATHAN THRASHER UNIT: [id number] ADM DATE: 11/25/18 AGE: 73 : 47 SEX: M ROOM/BED: D.7933 AUTHOR: SUMIT,DOC PHYSICIAN: REFERRING PHYSICIAN: KRISTEN CHONG MD DATE OF SERVICE: 11/26/18 Discharge Plan Patient Name: JHONATHAN THRASHER Facility: [facility]:[place] : 1945 Planned Disposition: Home with Home Health Anticipated Discharge Date: 11/26/18 Discharge Date: Expected LOS: 1 Initial Reviewer: [email or web address] Initial Review Date: 11/26/2018 Generated: 11/26/18 1:12 pm Comments DCP- Discharge Planning Updated by [email or web address]: Wilmar Fraser on 11/26/18 11:[address] Patient Name: JHONATHAN THRASHER Admission Status: Elective Accout number: [id number] Admission Date: 11-25-2018 : 1945 Admission Diagnosis: Attending: RASHMI CHONG Current LOS: 1 Anticipated DC Date: 11-26-2018 Planned Disposition: Home with Home Health Primary Insurance: MEDICARE A & B PLANNED EXTERNAL PROVIDER: [facility] Discharge Planning Comments: CM MET WITH PT IN ROOM TO DISCUSS DISCHARGE PLANNING AND NEEDS. PT REPORTS LIVING AT HIS DAUGHTERS HOME INDEPENDENTLY. PT HAS A WALKER WITH NO MEDICAL EQUIPMENT PROVIDER PREFERENCE. PT HAS NO OUTSIDE SERVICES ASSISTING IN THE HOME. CM DISCUSSED AVAILABILITY OF HOME HEALTH, REHAB SERVICES AND MEDICAL EQUIPMENT. PT REPORTS GOING TO DIALYSIS IN [facility], [place] AND HIS DAUGHTER TAKES HIM NOW. PT WOULD LIKE HOME HEALTH, LISTING PROVIDED, PT HAS NO PREFERENCE ON PROVIDER. CHOICE SIGNED. PT REPORTS KELIN WILL PICK HIM UP FOR DISCHARGE HOME. CM CALLED KELIN AT [phone]; KELIN REPORTS SHE WILL ART OBJECTS SUPERVISOR PT TODAY AFTER SHE GETS OFF FROM WORK. SHE WOULD LIKE HOME HEALTH AND HAS NO PREFERENCE ON PROVIDER. SHE HAS ASKED FOR DIALYSIS UNIT TRANSFER FROM [place] TO [place] PT IS LIVING WITH HER AT [address] [place] [address], [place]. [address]. CM NOTIFIED BEDSIDE NURSE AND PARRISH ALVARADO OF DAUGHTER PICKING UP PT AND PT NEEDING DIALYSIS AT HOSPITAL PRIOR TO DISCHARGE HOME TODAY NO ONE IS AVAILBLE TO TAKE PT TO HIS HOME DIALYSIS UNIT TODAY. CM CALLED [facility], , SPOKE TO [place]ERALD, REFERRAL PROVIDED, PT PLACED ON SCHEDULE FOR TOMORROW. CM FAXED REFERRAL AND DISCHARGE INFORMATION TO [facility] AT [phone]. SAND BLASTER NOTIFIED. Cellular Plastics Cutter: Wilmar Fraser DCPIA - Discharge Planning Initial Assessment Updated by [id number]: Wilmar Fraser on 11/26/18 12:03 pm * Is the patient Alert and Oriented? Yes * How many steps to enter\exit or inside your home? * PCP DR. MUNOZ * [facility] [place] * Preadmission Environment Home with Family * ADLs Partial Dependent * Partial ADLs (Assistance needed) Medication Management * Equipment Walker * Other Equipment NO MEDICAL EQUIPMENT PROVIDER PREFERENCE * List name and contact numbers for known caregivers / representatives who currently or will assist patient after discharge: KELINKAYLIE THRASHER DTR, * Verbal permission to speak to the caregivers and representatives has been obtained from the patient. Yes * Community resources currently utilized Other * Please name any agencies selected above. OUTPATIENT DIALYSIS, [facility], [address], [facility] * Additional services required to return to the preadmission environment? No * Can the patient safely return to the preadmission environment? Yes * Has this patient been hospitalized within the prior 30 days at any hospital? No Coverage Notice Reviewer: [email or web address] Royal Zapata Notice Issued Date-Time: 11/25/2018 9:34 Notice Type: Medicare Outpatient Observation Notice Notice Delivered To: Patient Relationship to Patient: Self Drawing Frame Tender Name: Delivery Method: HAND - Hand Delivered Georgie Days: Prior Verbal Notification: Recipient Understood Notice: Yes Recipient Signature: Yes Med Rec Note Co-signed by Attending: Coverage Notice Comment: Last DP export: 11/26/18 11:04 a Patient Name: JHONATHAN THRASHER Page [phone] at 1212 All edits/amendments must be made on the electronic document DICTATION DATE: 11/26/18 1212 COMPOSING ROOM SUPERVISOR: SINTIA 11/26/18 1212 RPT#: [id number] [place] DATE: STATUS: ADM IN [facility] [address] [place] [address] END OF REPORT
--- NOTE | 2018-11-26 13:31 | NUR ---
BACK FROM DIALYSIS, DIET RESUMED. WAITING FOR RIDE FROM DAUGHTER.
--- NOTE | 2018-11-26 17:41 | NUR ---
DC PLANS GIVEN. UNDERSTANDING VOICED. ESCORTED TO CAR BY W/C.
--- NOTE | 2018-12-02 13:38 | ST ---
PATIENT:JHONATHAN THRASHER MEDICAL RECORD: [id number] SEX: M LOCATION:D. D.211 ORDER #: ADMISSION DATE: 11/25/18 AGE OF PATIENT: 73 REFERRING PHYSICIAN: INTERPRETING PHYSICIAN: KRISTEN CHONG MD DATE OF SERVICE: 11/25/2018 PROCEDURE: Nuclear stress test. INDICATION: Chest pain compatible with angina. He was exercised on standard Lexiscan protocol with 28 mCi of sestamibi injected at peak stress. Rest images were done previously with 11 mCi. FINDINGS: Gated SPECT reveals preserved ejection fraction at 55% with good wall motion and thickening and brightening throughout all segments. SPECT imaging Cardiolite was used as myocardial fusion agent. There is homogeneous uptake throughout all segments at rest and stress with no evidence of inducible ischemia or previous infarction. OVERALL IMPRESSION: 1. This is a normal nuclear stress test with no evidence of inducible ischemia or previous infarction. 2. Gated SPECT reveals a preserved ejection fraction at 55%. In this patient with ongoing symptomatology, the current scan does not suggest the presence of hemodynamically significant coronary artery disease. Evaluate noncardiac etiology of chest pain. TRANSINT:[id number] Voice Confirmation ID: [id number] DOCUMENT ID: [id number] KRISTEN CHONG MD at 1338 CC: [id number] DICTATION DATE: 11/25/18 182 ENGINEERED WOOD DESIGNER: 11/26/18 0123 DIS IN 11/26/18 [facility] [address] [place] [address]
--- NOTE | 2018-12-02 13:38 | DS ---
PATIENT:JHONATHAN GARRIDO :[birth year] MEDICAL RECORD: [id number] DISCHARGE SUMMARY ADMISSION DATE: 11/25/18 DISCHARGE DATE: 11/26/18 DISCHARGE DIAGNOSES: 1. Chest pain. 2. Normal nuclear stress test. 3. Hypertension. 4. End-stage renal failure, on dialysis. HOSPITAL COURSE: Mr. Garrido presents with chest pain. He had one episode during dialysis. He was admitted. His troponin was normal. He had no further episodes of chest pain. He underwent Lexiscan Cardiolite imaging, which was normal. He was discharged home with no cardiac followup. He will follow up with Dr. Zhu. TRANSINT:[id number] Voice Confirmation ID: [id number] DOCUMENT ID: [id number] KRISTEN CHONG MD at 1338 CC: [id number] DICTATION DATE: 11/25/181818 EXPRESSIVE MUSIC THERAPIST: 11/26/18 0121 DIS IN 11/26/18 [place] [id number] [place] [address]
== END 2018-11-26 17:42 | disposition home health service (06) | DRG 313 ==
LOC: D.ER 11:05 → D.M2 12:32 → OBSVTIME 12:49 → D.M2 11-25 15:44
PROVIDERS: Family Medicine; ADMIT Internal Medicine Interventional Cardiology; ATTEND Internal Medicine Interventional Cardiology
PROC: 5A1D70Z Performance of Urinary Filtration, Intermittent, Less than 6 Hours Per Day (ICD-10-PCS; principal; 2018-11-24)
DX: R07.9 Chest pain, unspecified (principal); N18.6 End stage renal disease; I12.0 Hypertensive chronic kidney disease with stage 5 chronic kidney disease or end stage renal disease; D61.818 Other pancytopenia; E87.5 Hyperkalemia; R94.31 Abnormal electrocardiogram [ECG] [EKG]; E11.22 Type 2 diabetes mellitus with diabetic chronic kidney disease; Z99.2 Dependence on renal dialysis; I48.91 Unspecified atrial fibrillation; E11.40 Type 2 diabetes mellitus with diabetic neuropathy, unspecified; I49.1 Atrial premature depolarization; D63.1 Anemia in chronic kidney disease; G40.909 Epilepsy, unspecified, not intractable, without status epilepticus; F03.90 Unspecified dementia, unspecified severity, without behavioral disturbance, psychotic disturbance, mood disturbance, and anxiety; Z86.73 Personal history of transient ischemic attack (TIA), and cerebral infarction without residual deficits; Z87.891 Personal history of nicotine dependence

== ENCOUNTER → 2018-12-25 12:28 | Outpatient (CLI) | payer MEDICARE, OTHER ==
[2018-11-25 14:49] VITALS: BMI 19.3
[~2018-12-25 12:28] MED LIST changes: +BAYER CHEWABLE81 MG PO; +CARAFATE1 G PO
== END | disposition home or self-care (01) ==
LOC: D.LAB 12:28 → D.RAD 12:28
PROVIDERS: ATTEND Internal Medicine Nephrology
DX: S91.109A Unspecified open wound of unspecified toe(s) without damage to nail, initial encounter (principal)

== ENCOUNTER → 2019-01-12 17:42 | Outpatient (CLI) | payer MEDICARE, OTHER ==
[2018-11-25 14:49] VITALS: BMI 19.3
== END | disposition home or self-care (01) ==
LOC: D.LABREF 17:42
PROVIDERS: ATTEND Podiatrist Foot & Ankle Surgery
DX: M86.172 Other acute osteomyelitis, left ankle and foot (principal)

== ENCOUNTER → 2019-03-20 11:06 | Outpatient (CLI) | payer MEDICARE, OTHER ==
[2018-11-25 14:49] VITALS: BMI 19.3
[2019-03-22 14:08] LABS: PROTEIN S - FREE 82 % (57-157); PROTEIN S - FUNCTIONAL 87 % (63-140); PROTEIN S - TOTAL 91 % (60-150)
[2019-03-23 07:08] LABS: LUPUS - INTERPRETATION Comment: (()); LUPUS - THROMBIN TIME 15.8 sec (0.0-23.0); LUPUS - dRVVT 59.9 sec (0.0-47.0); PTT-LA 38.4 sec (0.0-51.9)
[2019-03-23 10:09] LABS: ANA REFLEX - DIRECT Negative (Negative)
[2019-03-23 12:09] LABS: MITOCHONDRIAL ANTIBODY <20.0 Units (0.0-20.0); PROTEIN C - ANTIGEN 86 % (60-150); PROTEIN C - FUNCTIONAL 103 % (73-180)
[2019-03-23 14:08] LABS: ACLA - IGG AB <9 GPL U/mL (0-14); ACLA - IGM AB <9 MPL U/mL (0-12)
[2019-03-24 18:08] LABS: PLASMINOGEN <4 IU/mL (0-27)
== END | disposition home or self-care (01) ==
LOC: D.LAB 11:06
PROVIDERS: ATTEND Nurse Practitioner Family
DX: T82.49XA Other complication of vascular dialysis catheter, initial encounter (principal)

== ENCOUNTER → 2019-05-13 09:51 | Outpatient (CLI) | payer MEDICARE, OTHER ==
[2019-04-21 11:43] VITALS: BMI 21.9
== END | disposition home or self-care (01) ==
LOC: D.CT 05-04 09:00
PROVIDERS: ATTEND Surgery
DX: I83.90 Asymptomatic varicose veins of unspecified lower extremity (principal); Z49.02 Encounter for fitting and adjustment of peritoneal dialysis catheter

== ENCOUNTER 2019-08-17 12:32 | Inpatient (IN) | payer MEDICARE, OTHER ==
[~2019-08-17] VITALS: Ht 190.5 cm; Wt 107.7 kg
[2019-08-17] VITALS (12 sets, daily range): BP systolic 91–148; BP diastolic 16–77; BMI 22.0
[2019-08-17 13:26] LABS: APTT 58.3 SECONDS (22.8-39.4); INR 2.88 (0.85-1.17); PROTIME 29.7 SECONDS (11.6-15.0)
[2019-08-17 13:39] LABS: HEMATOCRIT 35.5 % (42.0-54.0); HEMOGLOBIN 11.8 g/dL (13.5-17.5); MCH 30.4 pg (26.0-34.0); MCHC 33.2 g/dL (31.0-37.0); MCV 91.5 fL (80.0-100.0); MEAN PLATELET VOLUME 9.3 fL (7.4-10.4); PLATELET COUNT 228 10x3/uL (130-400); RBC 3.88 10x6/uL (4.20-6.10); RDW 16.4 % (11.5-14.5); WBC 34.1 10x3/uL (4.8-10.8)
[2019-08-17 13:45] LABS: ALBUMIN 2.1 g/dL (3.4-5.0); ALKALINE PHOSPHATASE 165 U/L (30-120); ALT (SGPT) 10 U/L (10-68); BILIRUBIN - TOTAL 0.83 mg/dL (0.2-1.3); CALC OSMOLALITY 280 mosm/kg (275-300); CALCIUM 10.3 mg/dL (8.5-10.1); CARBON DIOXIDE 25.9 mmol/L (21.0-32.0); CHLORIDE - SERUM 97 mmol/L (98-107); CKMB 0.4 U/L (0.0-3.6); CREATINE KINASE 14 UL (21-232); CREATININE - SERUM 6.8 mg/dL (0.6-1.3); POTASSIUM - SERUM 4.1 mmol/L (3.5-5.1); PRO BNP 18672 pg/mL (0-125); PROTEIN - SERUM 6.9 g/dL (6.4-8.2); SODIUM 134 mmol/L (136-145); TROPONIN-I < 0.017 ng/mL (0.000-0.060); UREA NITROGEN 60 mg/dL (7-18); eGFR NON AFRICAN AMERICAN 9 mL/min (90-120)
[2019-08-17 13:55] LABS: GLUCOSE 33 mg/dL (74-106)
[2019-08-17 14:15] LABS: LYMPHOCYTES 2 % (15-50); MONOCYTES 3 % (2-11); NEUTROPHILS 94 % (40-80); PLATELET ESTIMATE NORMAL
--- NOTE | 2019-08-17 14:30 | NUR ---
REPEAT EKG SHOWS A-FIB WITH RVR.
--- NOTE | 2019-08-17 16:26 | NUR ---
PT TRANSFERRED TO ROOM VIA BED, PT IS ORIENTED, ANSWERS QUESTIONS, HOOKED TO MONITORS, PT IN AFIB WITH RVR, CARDIOLOGY PAGED AT THIS TIME
--- NOTE | 2019-08-17 19:00 | NUR ---
SHIFT ASSESSMENT COMPLETED. PT CARE ASSUMED, MONITORS ON AND WORKING, VITALS STABLE, CALL LIGHT WITHIN REACH, SEE FLOW SHEET FOR FURTHER DETAILS, WILL CONTINUE TO OBSERVE.
[2019-08-18] VITALS (9 sets, daily range): BP systolic 117–151; BP diastolic 65–103; BMI 21.9
--- NOTE | 2019-08-18 | NUR ---
PT LYING IN BED RESTING, MONITORS ON AND WORKING, VITALS STABLE, CALL LIGHT WITHIN REACH, WILL CONTINUE TO OBSERV.E
[2019-08-18 05:29] LABS: BASOPHILS 0 % (0-2); EOSINOPHILS 0.1 % (0-7); HEMATOCRIT 34.2 % (42.0-54.0); HEMOGLOBIN 11.4 g/dL (13.5-17.5); IMMATURE GRANULOCYTES 0.6 % (0-5); LYMPHOCYTES 1.9 % (15-50); MCH 29.6 pg (26.0-34.0); MCHC 33.3 g/dL (31.0-37.0); MCV 88.8 fL (80.0-100.0); MEAN PLATELET VOLUME 9.7 fL (7.4-10.4); MONOCYTES 2.9 % (2-11); NEUTROPHILS 94.5 % (40-80); PLATELET COUNT 250 10x3/uL (130-400); RBC 3.85 10x6/uL (4.20-6.10); RDW 16.3 % (11.5-14.5); WBC 22.7 10x3/uL (4.8-10.8)
[2019-08-18 05:56] LABS: ALKALINE PHOSPHATASE 209 U/L (30-120); ALT (SGPT) 11 U/L (10-68); BILIRUBIN - TOTAL 0.63 mg/dL (0.2-1.3); CALCIUM 10.5 mg/dL (8.5-10.1); CARBON DIOXIDE 24.9 mmol/L (21.0-32.0); CHLORIDE - SERUM 99 mmol/L (98-107); CKMB 0.8 U/L (0.0-3.6); CREATINE KINASE 8 UL (21-232); CREATININE - SERUM 6.5 mg/dL (0.6-1.3); PHOSPHOROUS 3.2 mg/dL (2.5-4.9); POTASSIUM - SERUM 4.5 mmol/L (3.5-5.1); PROTEIN - SERUM 6.7 g/dL (6.4-8.2); SODIUM 135 mmol/L (136-145); UREA NITROGEN 65 mg/dL (7-18); VANCOMYCIN - RANDOM 13.4 ug/mL (10.0-20.0); eGFR NON AFRICAN AMERICAN 9 mL/min (90-120)
[2019-08-18 06:03] LABS: CALC OSMOLALITY 285 mosm/kg (275-300)
[2019-08-18 06:04] LABS: GLUCOSE 53 mg/dL (74-106); TROPONIN-I 0.119 ng/mL (0.000-0.060)
--- NOTE | 2019-08-18 07:00 | NUR ---
LG DARK TARRY STOOL AT THIS TIME, COMPLETE BATH AND LINEN CHANGE
--- NOTE | 2019-08-18 09:00 | NUR ---
LG BM AT THIS TIME, PARTIAL BATH AND LINEN CHANGE
--- NOTE | 2019-08-18 11:30 | NUR ---
PT UPTO CHAIR, LUNCH SERVED
--- NOTE | 2019-08-18 13:00 | NUR ---
BM AT THIS TIME, PARTIAL LINEN CHANGE
--- NOTE | 2019-08-18 15:00 | NUR ---
COMPLETE BATH AND LINEN CHANGE
--- NOTE | 2019-08-18 17:36 | NUR ---
REPORT CALLED TO TIMA VOGEL
--- NOTE | 2019-08-18 19:00 | NUR ---
EVENING ROUNDS COMPLETE. PT IN DIALYSIS AT THIS TIME.
[2019-08-19 00:24] VITALS: BP 74/41
--- NOTE | 2019-08-19 02:30 | NUR ---
PIV TO R THUMB OUT. THIS NURSE ATTEMPTED X2 FOR NEW PIV, NO SUCCESS. WILL HAVE ANOTHER NURSE TRY. CL IN REACH, BED IN LOWEST POSITION.
[2019-08-19 05:11] VITALS: BP 87/69
[2019-08-19 06:12] LABS: BASOPHILS 0.1 % (0-2); EOSINOPHILS 0.9 % (0-7); HEMATOCRIT 30.5 % (42.0-54.0); HEMOGLOBIN 10.1 g/dL (13.5-17.5); IMMATURE GRANULOCYTES 1.4 % (0-5); LYMPHOCYTES 4.9 % (15-50); MCH 29.3 pg (26.0-34.0); MCHC 33.1 g/dL (31.0-37.0); MCV 88.4 fL (80.0-100.0); MEAN PLATELET VOLUME 9.1 fL (7.4-10.4); MONOCYTES 7.6 % (2-11); NEUTROPHILS 85.1 % (40-80); PLATELET COUNT 214 10x3/uL (130-400); RBC 3.45 10x6/uL (4.20-6.10); RDW 16.2 % (11.5-14.5)
[2019-08-19 06:29] LABS: PHOSPHOROUS 3.1 mg/dL (2.5-4.9); VANCOMYCIN - RANDOM 18.8 ug/mL (10.0-20.0)
[2019-08-19 06:37] LABS: WBC 10.1 10x3/uL (4.8-10.8)
[2019-08-19 08:25] VITALS: BP 121/62
[2019-08-19 09:11] LABS: HEP B CORE AB TOTAL Negative (Negative); HEPATITIS C ANTIBODY <0.1 S/CO RAT (0.0-0.9)
[2019-08-19 12:37] VITALS: BP 146/61
--- NOTE | 2019-08-19 12:50 | NUR ---
Nutrition Follow-up: Noted pt c/o loose stools but not appropriate for CDT; Lomotil started. Diet: Renal/Low K+ Wt: 236.9# (08/18); 176# (08/16) Labs noted: K+ 4.0, Glu 58, POC Glu 251 Meds noted: Nephrovite, Renagel, Humalog, Lomotil -Encourage PO intake and honor food preferences within diet restrictions. -Offer Nepro with meals. -Noted large discrepancy in wts; need reweigh. -RD following.
--- NOTE | 2019-08-19 14:31 | NUR ---
CONSENTS SIGNED FOR HEMASPLIT EXCHANGE.
[2019-08-19 16:20] VITALS: BP 103/67
[2019-08-19 20:00] VITALS: BP 95/71
[2019-08-20] VITALS (20 sets, daily range): BP systolic 85–137; BP diastolic 39–73; Ht 190.5 cm; Wt 107.7 kg
[2019-08-20 07:02] LABS: ALBUMIN 1.8 g/dL (3.4-5.0); ANION GAP 14.2 mmol/L (8-16); BILIRUBIN - DIRECT 0.19 mg/dL (0.00-0.30); BILIRUBIN - INDIRECT 0.22 mg/dL (0.00-1.00); BILIRUBIN - TOTAL 0.41 mg/dL (0.2-1.3); CALCIUM 10.7 mg/dL (8.5-10.1); CARBON DIOXIDE 23.9 mmol/L (21.0-32.0); CREATININE - SERUM 6.5 mg/dL (0.6-1.3); PHOSPHOROUS 3.9 mg/dL (2.5-4.9); POTASSIUM - SERUM 4.1 mmol/L (3.5-5.1); PROTEIN - SERUM 5.9 g/dL (6.4-8.2); VANCOMYCIN - RANDOM 25.9 ug/mL (10.0-20.0)
[2019-08-20 07:09] LABS: INR 1.43 (0.85-1.17); PROTIME 17.3 SECONDS (11.6-15.0)
[2019-08-20 07:23] LABS: HEMOGLOBIN 9.7 g/dL (13.5-17.5); LYMPHOCYTES 3.8 % (15-50); MCH 30.2 pg (26.0-34.0); MCHC 33.4 g/dL (31.0-37.0); MCV 90.3 fL (80.0-100.0); MEAN PLATELET VOLUME 8.9 fL (7.4-10.4); NEUTROPHILS 86.6 % (40-80); PLATELET COUNT 223 10x3/uL (130-400); RBC 3.21 10x6/uL (4.20-6.10); WBC 10.3 10x3/uL (4.8-10.8)
--- NOTE | 2019-08-20 08:06 | NUR ---
ASSESSMENT DONE. DENIES NEEDS
--- NOTE | 2019-08-20 10:36 | NUR ---
I have reviewed this patient and I concur with the Shift Assessment completed by the Licensed Practical Nurse today this shift.
--- NOTE | 2019-08-20 17:28 | NUR ---
RECIVED FROM OR PER BED
--- NOTE | 2019-08-20 17:54 | NUR ---
PT O2 SAT 50%-60% BP 67/42. RAPID RESPONSE CALLED. O2 AT 4L VIA NC. CHANGED PT TO HIGH FLOW NC 15L. O2 SAT 68%-72% BP NOW 117/52. RAPID TEAM RESPONDED R.T. PUT THEIR PERSONAL PULSE OX ON PT AND THEY GOT A READING OF 99% TWO DIFFERENT VITAL MACHINES READ THE SAME 70%-80%. ICU CHARGE THAT RESPONDED TO RAPID STATES PT NEEDS TO GO TO THE UNIT AND SHE WILL CALL OIL FIELD EQUIPMENT MECHANIC SUPERVISOR. FSBS 60 GAVE AN AMP OF D50. PT TAKEN TO ICU ROOM 2310 AND GAVE REPORT TO JOSE JUAN VOGEL AT BEDSIDE.
--- NOTE | 2019-08-20 18:15 | NUR ---
PT ARRIVED TO ICU ACCOMPANIED BY NURSING STAFF. PT AROUSES TO VERBAL STIMULI, LETHARGIC. RT SUBCLAVIAN TRIALYSIS PORT INFUSING, SEE IV FLOWSHEET. BREATHING EVEN, UNLABORED AT THIS TIME, WILL CONTINUE TO MONITOR.
[2019-08-20 18:30] LABS: BASOPHILS 0.1 % (0-2); EOSINOPHILS 2.7 % (0-7); HEMATOCRIT 29.3 % (42.0-54.0); HEMOGLOBIN 9.4 g/dL (13.5-17.5); IMMATURE GRANULOCYTES 2.1 % (0-5); MCHC 32.1 g/dL (31.0-37.0); MCV 90.4 fL (80.0-100.0); MEAN PLATELET VOLUME 9.1 fL (7.4-10.4); MONOCYTES 5.9 % (2-11); NEUTROPHILS 84.2 % (40-80); PLATELET COUNT 192 10x3/uL (130-400); RBC 3.24 10x6/uL (4.20-6.10); RDW 16.2 % (11.5-14.5); WBC 8.5 10x3/uL (4.8-10.8)
[2019-08-20 18:47] LABS: ANION GAP 12.5 mmol/L (8-16); CALCIUM 9.9 mg/dL (8.5-10.1); CARBON DIOXIDE 24.6 mmol/L (21.0-32.0); POTASSIUM - SERUM 4.1 mmol/L (3.5-5.1)
[2019-08-20 18:55] LABS: TROPONIN-I 0.031 ng/mL (0.000-0.060)
--- NOTE | 2019-08-20 20:00 | NUR ---
PT ALERT AND ORIENTED. SITTING UP IN BED TALKING TO HER . SHE DENIES NEEDS OR PAIN. SHE IS ON 3.5L NC. OS SAT 94%. IV TO RIGHT WRIST IS SL. BED IS LOW AND CALL LIGHT WITHIN REACH.
--- NOTE | 2019-08-20 20:00 | NUR ---
PT GETTING DIALYSIS. HE IS LETHARGIC. AROUSES TO VERBAL STIMULI BUT DOES NOT STAY AWAKE LONG ONCE AROUSED. HE HAS D10 AT 30ML/HR TO HIS RIGHT TRIALYSIS CATHETER. HE IS ON 7L HIGH FLOW NASAL CANNULA. RESPIRATIONS ARE SHALLOW. O2 SAT 98%. BED IS LOW AND CALL LIGHT WITHIN REACH.
--- NOTE | 2019-08-20 21:30 | NUR ---
RECIEVED A CALL FROM DR. HAQUE. HE STATES PT SHOULD BE ON BIPAP NOT NASAL CANNULA. SPOKE WITH RT, WHO IS GOING IN HER ROOM NOW TO PLACE ON BIPAP. WILL CONTINUE TO MONITOR.
[2019-08-21] VITALS (24 sets, daily range): BP systolic 88–140; BP diastolic 52–69
--- NOTE | 2019-08-21 01:03 | NUR ---
PT RESTING WITH EYES CLOSED, AROUSES WITH VERBAL STIMULI. HE IS LETHARGIC. RESPIRATIONS SHALLOW AT A RATE OF 16 BREATHS PER MINUTE. LUNG SOUNDS DIMINISHED BILATERALLY. VSS. HIS BED IS LOW AND CALL LIGHT IS WITHIN REACH.
--- NOTE | 2019-08-21 03:45 | NUR ---
PT RESTING WITH EYES CLOSED ON 3L HIGH FLOW NC. RESPIRATIONS SHALLOW, EVEN AND UNLABORED. AROUSES WITH VERBAL STIMULI BUT IS LETHARGIC. VSS. BED IS LOW AND CALL LIGHT IS WITHIN REACH. ORAL CARE PERFORMED.
--- NOTE | 2019-08-21 04:35 | NUR ---
BLOOD SUGAR 60. 25ML OF D50 GIVEN IVP ORDERED. RECHECKED 30 MINUTES LATER AND IT IS NOW 72. WILL CONTINUE TO MONITOR.
[2019-08-21 05:24] LABS: BASOPHILS 0.1 % (0-2); HEMATOCRIT 27.9 % (42.0-54.0); HEMOGLOBIN 8.9 g/dL (13.5-17.5); IMMATURE GRANULOCYTES 2.6 % (0-5); LYMPHOCYTES 6.1 % (15-50); MCH 28.8 pg (26.0-34.0); MCHC 31.9 g/dL (31.0-37.0); MCV 90.3 fL (80.0-100.0); MEAN PLATELET VOLUME 9.3 fL (7.4-10.4); MONOCYTES 8.8 % (2-11); NEUTROPHILS 77.4 % (40-80); PLATELET COUNT 187 10x3/uL (130-400); RBC 3.09 10x6/uL (4.20-6.10); RDW 16.2 % (11.5-14.5); WBC 7.4 10x3/uL (4.8-10.8)
--- NOTE | 2019-08-21 05:43 | NUR ---
AFTER SPEAKING WITH STARCH FACTORY LABORER, TIFFANY, WE DECIDED TO GO AHEAD AND TREAT HIS BLOOD SUGAR OF 70 WITH THE REMAINDER OF THE 25ML OF D50. WILL CONTINUE TO MONITOR.
[2019-08-21 05:53] LABS: ANION GAP 15.7 mmol/L (8-16); CALCIUM 9.8 mg/dL (8.5-10.1); CARBON DIOXIDE 22.8 mmol/L (21.0-32.0); CREATININE - SERUM 7.4 mg/dL (0.6-1.3); PHOSPHOROUS 4.6 mg/dL (2.5-4.9); POTASSIUM - SERUM 4.5 mmol/L (3.5-5.1); VANCOMYCIN - RANDOM 33.1 ug/mL (10.0-20.0)
--- NOTE | 2019-08-21 06:06 | NUR ---
CRITICAL D-DIMER OF 6.04 CALLED TO PARRISH HUMPHREY. NO NEW ORDERS GIVEN AT THIS TIME. SHE STATED SHE WOULD LET THE MD KNOW.
--- NOTE | 2019-08-21 08:16 | NUR ---
FSBS 61, 25G D50 GIVEN.
--- NOTE | 2019-08-21 08:51 | EC ---
PATIENT:JHONATHAN THRASHER DATE OF SERVICE: 08/17/19 SEX: M MEDICAL RECORD: [id number] DATE OF : [birth year] LOCATION:[place] [address] AGE OF PATIENT: 73 ADMISSION DATE: 08/17/19 REFERRING PHYSICIAN: INTERPRETING PHYSICIAN: AVIS WORKMAN MD ECHOCARDIOGRAM REPORT ECHO CHARGES 4 ECHO COMPLETE Date: 08/18/19 CLINICAL DIAGNOSIS: AFIB ECHOCARDIOGRAPHIC MEASUREMENTS (adult normal given) AC root (d.<3.7cm) 3.5 cm LV Septum d (<1.2 cm> 1.2 cm Valve Excursion 1.8 cm LV Septum (systole) 1.6 cm Left Atria (s.<4.0cm> 3.2 cm LVPW d(<1.2cm) 1.5 cm RV (d.<2.3cm) 2.9 cm LVPW (sytole) 1.6 cm LV diastole(<5.6CM) 4.6 cm MV E-F(>70mm/sec) cm LV systole 3.6 cm LVOT Diameter 1.9 cm MV exc.(>10mm) cm Est.ejection fraction (50-75%) % DOPPLER: LVIT cm/sec A 87 cm/sec E 62 cm/sec LA cm/sec RVSP 29.8 mmHg LVOT 85 cm/sec AOP1/2T m/s Asc. Ao 176 cm/sec RVOT 72 cm/sec RA cm/sec PA 76 cm/sec AV Gradient Peak 12.4 mmHg AV Mean 6.2 mmHg AV Area 1.5 cm MV Gradient Peak 4.1 mmHg MV Mean 1.7 mmHg MV Area cm COMMENTS: Associate Spa Director: Sarah Beth ANDREWS Care Aide: 3 Dr. Abbott TAPE# PACS Pericardial Effusion N DATE OF SERVICE: Adequate 2D, color flow imaging, spectral Doppler, and M-Mode LVH is present. LV internal dimension is normal. Wall motion is normal. EF is greater than or equal to 55%. Aortic valve is tricuspid. No evidence of stenosis by Doppler interrogation. Left atrium is normal. Mitral valve shows no prolapse. Trace MR. Right-sided chambers are grossly normal. Trace TR. TRANSINT:[id number] Voice Confirmation ID: [id number] DOCUMENT ID: [id number] ECHOCARDIOGRAM REPORT [id number] JHONATHAN THRASHER AVIS WORKMAN MD at 0851 CC: [id number] DICTATION DATE: 08/19/19 [address]TE VEHICLE OPERATOR: 08/19/19 1104 ADM IN [place] [address] [place] [id number]
--- NOTE | 2019-08-21 10:19 | NUR ---
FSBS 61 AGAIN. D50 GIVEN. REPORTED TO [facility] TRIAL MANAGEMENT ASSOCI[facility].
--- NOTE | 2019-08-21 10:19 | NUR ---
SPO2 DROPS TO 86%. HOB 45 DEG. ENC TO COUGH. SUCTIONED THICK YELLOW SPUTUM. SPO2 RETURNS TO ABOVE 90 PERCENT.
--- NOTE | 2019-08-21 10:42 | NUR ---
Nutrition follow-up: Pt now in ICU; NPO Labs reviewed Will need nutrition support started if diet unable to advance within 24-[address] following.
--- NOTE | 2019-08-21 10:52 | NUR ---
SPOKE TO ROSA HERNANDEZ STEP DAUGHTER. SHE STATES THAT SHE HAS POA. SHE STATES THAT SHE WANTS FULL CODE STATUS.
--- NOTE | 2019-08-21 12:10 | NUR ---
DR SWENSON HERE. CONCENT BY PT FOR BRONCH. REPORTED TO MALAIKA NEVILLE BY PHONE ABOUT BRONCH AND THAT PT GAVE CONCENT.
--- NOTE | 2019-08-21 13:16 | NUR ---
BRONCOSCOPY DONE AT BS IN ICU BY DR SWENSON. NO SEDATION GIVEN. 5 OF VERSED AVAILABLE BUT PT DID NOT REQUIRE. PT ZHENG PROCEDURE WELL.
--- NOTE | 2019-08-21 13:41 | NUR ---
FSBS 67. D50 GIVEN.
--- NOTE | 2019-08-21 17:29 | NUR ---
CHG BATH AND LINENS CHANGED.
[2019-08-21 18:08] LABS: AEROBE ID Final report (())
--- NOTE | 2019-08-21 18:28 | NUR ---
MEAL TRAY DELIVERED AND PT FED. PT ATE 100% OF MEAL WITH TOTAL ASST AND WITH OUT DIFFICULTY.
--- NOTE | 2019-08-21 19:10 | NUR ---
PT IS RESTING IN BED WITH EYES CLOSED. AWAKES EASILY WHEN CALLED NAME. HE IS ONLY ALERT AND ORIENTED X2. HIS VS ARE STABLE. TRIAYSIS CATHETOR OBSERVED IN RIGHT NECK CDI. PERFORMED FULL ASSESSMENT AND WILL DOC IN FLOW SHEET. REPSOTIONED AT THIS TIME FOR COMFORT. HEELS ARE BRIDGED OFF BED. BED IS LOW,SIDE RAISLX2,CALL LIGHT WITHIN REACH. BED ALARM IS ON. NO NEEDS WERE VOICED
--- NOTE | 2019-08-21 20:15 | NUR ---
AFTER TALKING WITH PT HE VOICED "CAN I HAVE A PAIN PILL?". I ASKED HIM IF HE WAS IN PAIN, HE VOICED"IN MY LOWER BACK AND MY CHEST". I ASKED IF HE USUALLY HAS PAIN THERE AND HE VOICED"ITS BECASUE I HAVE PNEMONIA AND I HAVE BEEN COUGHING SO MUCH". I VERBALIZED TO HIM THAT I WOULD CALL THE DOCTOR TO SEE ABOUT GETTING A MEDICINE ORDER BC HE HAS NOTHING ORDERED AT THIS TIME. HE VERBALIZED UNDERSTANDING. VSS. NO OTHER NEEDS WERE VOICED. BED IS LOW,SIDE RAISLX2,CALL LIGHT WITHIN REACH. WILL CONITNUE TO MONITOR
--- NOTE | 2019-08-21 20:35 | NUR ---
TAKLED TO AND INFORMED HIM THAT THE PT HAS BEEN C/O PAIN IN HIS "BACK AND MY CHEST BC I HAVE PNEUMONIA". INFORMED THAT THE PT HAS NO PAIN MEDICNE ORDERED. HE GAVE T.O TO GIVE NORCO 7.5MG/325 TYLENOL PO Q4H PRN. T.O READ BACK CORRECT.
--- NOTE | 2019-08-21 21:41 | NUR ---
PT INFORMED ME "I NEED TO BE CLEANED UP I POOPED". PT ASSISTED BY ROOLING BACK AND FORTH FOR ME TO CLEAN HIM UP. HE HAD SMALL DARK BROWN SOFT BM. AFTER CLEANING I APPLIED CALMACEPTINE ORDERED. PT TOLERATED WELL AND VS REMAINED STABLE. HE HAS THEN LIFTED UP TO TOB OF BED AND HOB IS AT 35 DEGREES. PROVIDED WARM BLANKET FOR COMFORT AND APPLIED LIP MOISTURIZER TO LIPS REQUSTED. BED WAS LEFT LOW,SIDE RASILX2,CALL LGIHT WITHIN REACH. WILL CONITNUE TO MONITOR
--- NOTE | 2019-08-21 23:06 | NUR ---
PT IS RESTING IN BED WITH EYES CLOSED. VSS. I REPOSITION HIM TO HIS RIGHT SIDE WITH A PILLOW TO ALLOW PRESSURE OFF OF COCCYX AREA. HE VOICES PAIN"ITS BETTER". PROVIDED ORAL CARE AGAIN. WILL PERFORM RE-ASSESSMENT AND DOC IN FLOWSHEET. BED IS LOW,SIDE RAISLX2,CALL LGITH WITHIN REACH. WILL CONITNUE TO MONITOR
[2019-08-22] VITALS (24 sets, daily range): BP systolic 122–165; BP diastolic 57–90
--- NOTE | 2019-08-22 01:00 | NUR ---
PT IS RESTING IN BED WITH EYES CLOSED. VSS. REPOSITIONED FOR COMFORT. BED IS LOW,SIDE RAISLX2,CALL LIGHT WIHTIN REACH. WILL CONTINUE TO MONITOR
--- NOTE | 2019-08-22 02:59 | NUR ---
PT IS RESTING IN BED ON LEFT SIDE WITH EYES CLOSED. AWAKES EASILY. VSS. DID RE-ASSESSMENT AND WILL DOC IN FLOWSHEET. NO NEEDS OR CONCERNS WERE VOICED. REPOSITIONED FOR COMFORT. BED IS LOW,SIDE RAISLX2,CALL LIGHT WITHIN REACH. BED ALARM IS ON
--- NOTE | 2019-08-22 03:51 | NUR ---
WHILE CHECKING PT BS WHICH WAS 124 HE INFORMED ME"I NEED TO BE CLEANED UP I POOPED AGAIN". PT HAS LARGE INCONTINENT BROWN BM. CLEANED HIM UP GENTLY DUE TO EXCORIEATION AND APPLIED MORE CALMASEPTINE ORDERED. PT TOLERATED WELL. VSS REAMINAED STABLE. PROPPED HIM ON HIS LEFT SIDE FOR RELIEF OFF COCCYX. AND COVERED UP WITH WARM BLANKET FOR COMFORT. BED WAS LEFT LOW,SIDE RAILSX2,CALL TAY PINEDA. WILL CONITUE TO [facility]
[2019-08-22 04:43] LABS: BASOPHILS 0.2 % (0-2); EOSINOPHILS 2.3 % (0-7); HEMATOCRIT 27.6 % (42.0-54.0); HEMOGLOBIN 8.8 g/dL (13.5-17.5); IMMATURE GRANULOCYTES 2.6 % (0-5); LYMPHOCYTES 5.4 % (15-50); MCH 28.8 pg (26.0-34.0); MCHC 31.9 g/dL (31.0-37.0); MCV 90.2 fL (80.0-100.0); MEAN PLATELET VOLUME 8.6 fL (7.4-10.4); MONOCYTES 5.7 % (2-11); NEUTROPHILS 83.8 % (40-80); PLATELET COUNT 185 10x3/uL (130-400); RBC 3.06 10x6/uL (4.20-6.10); RDW 16.1 % (11.5-14.5)
[2019-08-22 04:44] LABS: WBC 11.5 10x3/uL (4.8-10.8)
[2019-08-22 04:57] LABS: ANION GAP 15.7 mmol/L (8-16); CALCIUM 9.6 mg/dL (8.5-10.1); CARBON DIOXIDE 22.9 mmol/L (21.0-32.0); CREATININE - SERUM 8.4 mg/dL (0.6-1.3); MAGNESIUM - SERUM 1.9 mg/dL (1.8-2.4); PHOSPHOROUS 4.6 mg/dL (2.5-4.9); POTASSIUM - SERUM 4.6 mmol/L (3.5-5.1); T4 THYROXINE 5.4 ug/dL (4.7-13.3); VANCOMYCIN - RANDOM 29.4 ug/mL (10.0-20.0)
--- NOTE | 2019-08-22 05:02 | NUR ---
PT IS RESTING IN BED WITH EYES CLOSED. VSS. REPOSITIONED FOR COMFORT. NO NEEDS OR CONCERNS VOICED. BED IS LOW,SIDE RAISLX2,CALL LIGHT WITHIN REACH. WILL CONINTUE TO MONITOR
--- NOTE | 2019-08-22 06:46 | NUR ---
PT IS SITTING UP IN BED WATCHING TV A&OX2. HE VOICES NO NEEDS OR PAIN AT THIS TIME. VSS. REPOSITIONED FOR COMFORT. BED IS LOW,SIDE RAILSX2,CALL LIGHT WITHIN REACH.
--- NOTE | 2019-08-22 08:55 | NUR ---
ASSISTED WITH BREAKFAST. PT COUGHING AFTER FIRST BITE. CRACKLES BILAT LUNGS. PT IS UNABLE TO COUGH UP SPUTUM. SPO2 97% ON 4LNC. YOUNGEST DAUGHTER AT BS.
--- NOTE | 2019-08-22 08:58 | NUR ---
ENC PT TO COUGH.
--- NOTE | 2019-08-22 10:23 | NUR ---
REPORTED TO DR SWENSON THAT PT COUGHING DURING BREAKFAST. DR SWENSON ORDERS TO KEEP PT NPO.
--- NOTE | 2019-08-22 11:17 | NUR ---
DR SWENSON HERE ON ROUNDS. DR MUNOZ HERE WELL. PT PLACED IN ISOLATION FOR RESISTANT INFECTION SPUTUM.
[2019-08-22 15:10] LABS: ACID FAST SMEAR Negative (()); AFB SPECIMEN PROCESSING Concentration (())
--- NOTE | 2019-08-22 15:48 | NUR ---
HD AT BS. PT INC OF STOOL. CLEANED AND LINENS CHANGED.
--- NOTE | 2019-08-22 19:00 | NUR ---
PT CURRENTLY GETTING DIALYSIS. HE IS ALERT AND ORIENTED TO SELF. VSS. BED IS LOW AND CALL LIGHT WITHIN REACH. HE DENIES PAIN OR NEEDS AT THIS TIME.
--- NOTE | 2019-08-22 20:01 | NUR ---
CALLED DR MUNOZ REGARDING THE FOLLOWING. THE PHARMACY IS CLOSED AND WE DO NOT HAVE ANYMORE TPN. PT WAS COMPLAINING OF GENERALIZED PAIN DURING DIALYSIS, WHICH HAS NOW RESOLVED BUT PT ONLY HAS NORCO ORDERED AND HE IS NPO. PT HAS AMIODARONE AND MIDODRINE SCHEDULED FOR TONIGHT BUT IS NPO. PER DR. MUNOZ. RUN D10 @ 40ML/HR UNTIL A NEW BAG OF TPN IS MADE. ORDER GIVEN FOR TORADOL PRN. AND HOLD THE AMIODARONE AND MIDODRINE.
[2019-08-23] VITALS (23 sets, daily range): BP systolic 125–172; BP diastolic 65–102
--- NOTE | 2019-08-23 00:15 | NUR ---
PT TRYING TO GET OUT OF BED. HE STATES HE NEEDS ME TO TAKE HIM TO THE HOSPITAL. REORIENTED HIM TO TIME, PLACE AND SITUATION. HE STATES HE POOPED. CLEANED HIM UP AND CHANGED HIS LINENS. BUTT PASTE APPLIED TO BUTTOCKS WHERE HE IS EXCORIATED. HE HAS A SMALL LOOSE STOOL. SINCE WE DO NOT HAVE ANOTHER BAG OF TPN TO INFUSE, I HUNG A BAG OF THE D10 @ 40ML/HR ORDERED. BLOOD SUGAR 110 AT THIS TIME. VSS. BED IS LOW, BED ALARM ON AND CALL LIGHT IN REACH.
--- NOTE | 2019-08-23 02:35 | NUR ---
PT RESTING WITH EYES CLOSED. RESPIRATIONS SHALLOW, AND UNLABORED. O2 SAT 97% ON 4L HIGH FLOW NC. VSS. BED IS LOW AND CALL LIGHT WITHIN REACH.
[2019-08-23 04:47] LABS: BASOPHILS 0.1 % (0-2); EOSINOPHILS 1.8 % (0-7); HEMATOCRIT 27.5 % (42.0-54.0); HEMOGLOBIN 8.8 g/dL (13.5-17.5); IMMATURE GRANULOCYTES 2.2 % (0-5); LYMPHOCYTES 3.5 % (15-50); MCH 28.9 pg (26.0-34.0); MCV 90.2 fL (80.0-100.0); MEAN PLATELET VOLUME 8.9 fL (7.4-10.4); MONOCYTES 6.8 % (2-11); NEUTROPHILS 85.6 % (40-80); PLATELET COUNT 186 10x3/uL (130-400); RBC 3.05 10x6/uL (4.20-6.10); RDW 16.2 % (11.5-14.5); WBC 10.1 10x3/uL (4.8-10.8)
--- NOTE | 2019-08-23 04:55 | NUR ---
BLOOD SUGAR IS 125. AM LABS DRAWN. PT ASKING FOR A BANANA. HE IS CONFUSED TO TIME, PLACE AND SITUATION. REORIENTED REGARDING NPO DIET, TIME, PLACE AND SITUATION. PT IS HARD TO UNDERSTAND. HE HAS GARBLED SPEECH AT TIMES. VSS. HE IS NOW RESTING WITH EYES CLOSED. NO DISTRESS NOTED. BED IS LOW AND CALL LIGHT IS WITHIN REACH, BED ALARM ON.
[2019-08-23 04:57] LABS: ANION GAP 11.3 mmol/L (8-16); CALCIUM 10.2 mg/dL (8.5-10.1); CARBON DIOXIDE 25.6 mmol/L (21.0-32.0); VANCOMYCIN - RANDOM 24.8 ug/mL (10.0-20.0)
[2019-08-23 05:00] LABS: CREATININE - SERUM 5.6 mg/dL (0.6-1.3); POTASSIUM - SERUM 3.9 mmol/L (3.5-5.1)
--- NOTE | 2019-08-23 08:30 | NUR ---
PT SPEECH GARBLED. CONFUSED. CRACKLES BILAT, 4L O2 PER NC. TRIALYSIS CATHETER TO RIGHT CHEST, IV FLUIDS AND TPN INFUSING PER ORDERS. PT REPORTING NO PAIN AT THIS TIME. DOLL WIG HACKLER STRENGTH WEAK. PT LETHARGIC. BED LOW, CALL LIGHT IN REACH. NO OTHER NEEDS AT THIS TIME.
--- NOTE | 2019-08-23 10:05 | NUR ---
PT RESTING. 4 L O2 PER NC. NO SIGNS OF DISTRESS. WILL CONTINUE TO MONITOR.
--- NOTE | 2019-08-23 17:46 | NUR ---
PTS SON N LAW. PATTYS HERE. POA PAPERS GIVEN TO THIS RN BY HIM AND PLACED ON CHART.
--- NOTE | 2019-08-23 18:44 | NUR ---
PT C/O GENERALIZED DISCOMFORT. TORADOL GIVEN. PT COUGH AND SPIT THICK WHITE SPUTUM.
--- NOTE | 2019-08-23 19:00 | NUR ---
REPORT RECEIVED. PT DISORIENTED TO TIME AND PLACE, REORIENTED NEEDED. NO ACUTE DISTRESS NOTED. RT CHEST TRIALYSIS INFUSING, SEE IV FLOWSHEET. ASSESSMENT COMPLETE, SEE FLOWSHEET. WILL CONTINUE TO MONITOR.
--- NOTE | 2019-08-23 21:00 | NUR ---
PT RESTING IN BED, NO ACUTE DISTRESS NOTED.
--- NOTE | 2019-08-23 23:00 | NUR ---
CHG BATH GIVEN, FULL LINEN CHANGE. REASSESSMENT COMPLETED. SEE FLOWSHEET.
[2019-08-24] VITALS (23 sets, daily range): BP systolic 146–172; BP diastolic 70–90
--- NOTE | 2019-08-24 01:00 | NUR ---
PT RESTING IN BED, NO ACUTE DISTRESS NOTED.
--- NOTE | 2019-08-24 03:00 | NUR ---
REASSESSMENT COMPLETED, SEE FLOWSHEET.
[2019-08-24 03:06] LABS: IMMUNOGLOBULIN E 36 IU/mL (6-495)
--- NOTE | 2019-08-24 05:00 | NUR ---
PT RESTING IN BED, REPORST MODERATE PAIN (7/10). REPOSITIONED FOR COMFORT.
[2019-08-24 06:10] LABS: BASOPHILS 0.2 % (0-2); EOSINOPHILS 3.5 % (0-7); HEMATOCRIT 26.2 % (42.0-54.0); HEMOGLOBIN 8.4 g/dL (13.5-17.5); IMMATURE GRANULOCYTES 2.4 % (0-5); LYMPHOCYTES 5.7 % (15-50); MCHC 32.1 g/dL (31.0-37.0); MCV 90.3 fL (80.0-100.0); MEAN PLATELET VOLUME 8.7 fL (7.4-10.4); MONOCYTES 7.2 % (2-11); PLATELET COUNT 203 10x3/uL (130-400); RDW 16.2 % (11.5-14.5); WBC 9.1 10x3/uL (4.8-10.8)
[2019-08-24 06:28] LABS: ALBUMIN 2.6 g/dL (3.4-5.0); ANION GAP 14.3 mmol/L (8-16); BILIRUBIN - TOTAL 0.45 mg/dL (0.2-1.3); CALCIUM 10.1 mg/dL (8.5-10.1); CARBON DIOXIDE 24.8 mmol/L (21.0-32.0); CREATININE - SERUM 6.9 mg/dL (0.6-1.3); POTASSIUM - SERUM 4.1 mmol/L (3.5-5.1); PROTEIN - SERUM 6.7 g/dL (6.4-8.2)
--- NOTE | 2019-08-24 07:00 | NUR ---
ASSESSMENT COMPLETE PER FLOWSHEET.
--- NOTE | 2019-08-24 09:40 | NUR ---
TO XRAY FOR MODIFIED BARIUM SWALLOW.
--- NOTE | 2019-08-24 10:00 | NUR ---
UP IN CHAIR. O2 SAT 100 PERCENT.
--- NOTE | 2019-08-24 10:16 | NUR ---
UP IN CHAIR. VOICES NO CO AT TIME. O2 4 LITERS HIGH FLOW.
--- NOTE | 2019-08-24 10:59 | NUR ---
Nutrition follow-up: Pt with paul aspiration per MBSS; NPO TPN @ 30 ml/hr per renal Labs reviewed Wt: 237# Pt not meeting est nutritional needs at this time Recommend PEG tube placement and TF of Nepro started to better meet est nutritional needs. RDN following.
--- NOTE | 2019-08-24 11:00 | NUR ---
REASSESSED. UP IN BED. SAT 97 PERCENT O2 4LITERS HIGH FLOW.
[2019-08-24 12:09] LABS: FUNGUS STAIN Final report (())
--- NOTE | 2019-08-24 15:00 | NUR ---
REASSESSED O2 CONT 4LITER HIGHFLOW.
--- NOTE | 2019-08-24 17:45 | NUR ---
EATING SUPPER. VOICES NO CO AT TIME.
--- NOTE | 2019-08-24 20:17 | MORECARE ---
CASE MANAGEMENT DISCHARGE SUMMARY PATIENT: JHONATHAN THRASHER UNIT: [id number] ADM DATE: 08/17/19 AGE: 73 : 47 SEX: M ROOM/BED: D.2310 AUTHOR: AFIA ARANA PHYSICIAN: REFERRING PHYSICIAN: JOLYNN MUNOZ MD DATE OF SERVICE: 08/24/19 Discharge Plan Patient Name: JHONATHAN THRASHER Facility: [facility]:[place] : 1945 Planned Disposition: Home Anticipated Discharge Date: Discharge Date: Expected LOS: Initial Reviewer: [email or web address] Initial Review Date: 08/17/2019 Generated: 08/24/19 9:16 pm DCP- Discharge Planning Updated by [email or web address]: Dottie Peralta on 08/20/19 1:[address] CM went to room to completed discharge planning. He is out of the room at this time. CM will continue to follow and assist with discharge planning/needs. DCPIA - Discharge Planning Initial Assessment Updated by [email or web address]: Alta Melendez on 08/24/19 8:14 pm * Is the patient Alert and Oriented? Yes * How many steps to enter\exit or inside your home? * PCP Leonid * Pharmacy [facility] * Preadmission Environment Home with Family * ADLs Partial Dependent * Partial ADLs (Assistance needed) Ambulation Bathing Dressing Eating Medication Management Toileting Transfers * Other Equipment walker, w/c * List name and contact numbers for known caregivers / representatives who currently or will assist patient after discharge: Katherine Thrasher - daughter POA - [phone] * Verbal permission to speak to the caregivers and representatives has been obtained from the patient. Yes * Community resources currently utilized None * Additional services required to return to the preadmission environment? No * Can the patient safely return to the preadmission environment? Yes * Has this patient been hospitalized within the prior 30 days at any hospital? No Patient Name: JHONATHAN THRASHER Page [id number] at 2017 All edits/amendments must be made on the electronic document DICTATION DATE: 08/24/192015 CABLE HOOKER: SINTIA 08/24/19 2016 RPT#: [id number] DC DATE: STATUS: ADM IN [facility] [address] [place] [address] END OF REPORT
--- NOTE | 2019-08-24 20:24 | MORECARE ---
CASE MANAGEMENT DISCHARGE SUMMARY PATIENT: JHONATHAN THRASHER UNIT: [id number] ADM DATE: 08/17/19 AGE: 73 : 47 SEX: M ROOM/BED: D.2310 AUTHOR: AFIA ARANA PHYSICIAN: REFERRING PHYSICIAN: JOLYNN JAQUEZ MD DATE OF SERVICE: 08/24/19 Discharge Plan Patient Name: JHONATHAN THRASHER Facility: [facility]:[place] : 1945 Planned Disposition: Home Anticipated Discharge Date: Discharge Date: Expected LOS: Initial Reviewer: [email or web address] Initial Review Date: 08/17/2019 Generated: 08/24/19 9:23 pm Comments DCP- Discharge Planning Updated by [email or web address]: Alta Melendez on 08/24/19 7:[address] Patient Name: JHONATHAN THRASHER Admission Status: ER Accout number: [id number] Admission Date: 08-17-2019 : 1945 Admission Diagnosis:PNEUMONIA, UNSPECIFIED ORGANISM Attending: Jolynn Jaquez Current LOS: 7 Anticipated DC Date: Planned Disposition: Home Primary Insurance: MEDICARE A & B Discharge Planning Comments: CM met with patient to complete initial dc planning assessment. CM educated patient on the CM role and verbal consent given by patient to complete assessment. Patient lives at home with family. Patient is mostly independent. At discharge patient plans to return home and feels this is a safe discharge. CM discussed availability of home health, rehab services, and medical equipment. Patient will have family to transport home. Patient has home hemo dialysis MWF. Patient denied known discharge needs at this time. Patient may need walk test for home 02 if still required at discharge. CM will continue to follow and will assist as needed with dc plans/needs. Energy Professional: Alta Melendez DCP- Discharge Planning Updated by [email or web address]: Dottie Peralta on 08/20/19 1:[address] CM went to room to completed discharge planning. He is out of the room at this time. CM will continue to follow and assist with discharge planning/needs. DCPIA - Discharge Planning Initial Assessment Updated by [email or web address]: Alta Melendez on 08/24/19 8:14 pm * Is the patient Alert and Oriented? Yes * How many steps to enter\exit or inside your home? * PCP Leonid * Pharmacy [facility] * Preadmission Environment Home with Family * ADLs Partial Dependent * Partial ADLs (Assistance needed) Ambulation Bathing Dressing Eating Medication Management Toileting Transfers * Other Equipment walker, w/c * List name and contact numbers for known caregivers / representatives who currently or will assist patient after discharge: Katherine Thrasher - daughter POA - [phone] * Verbal permission to speak to the caregivers and representatives has been obtained from the patient. Yes * Community resources currently utilized None * Additional services required to return to the preadmission environment? No * Can the patient safely return to the preadmission environment? Yes * Has this patient been hospitalized within the prior 30 days at any hospital? No Last DP export: 08/24/19 7:17 p Patient Name: JHONATHAN THRASHER Page [phone] at 2023 All edits/amendments must be made on the electronic document DICTATION DATE: 08/24/192022 INSULATION APPLICATOR: SINTIA 08/24/192022 RPT#: [id number] DC DATE: STATUS: ADM IN [facility] [address] [place] [address] END OF REPORT
[2019-08-25] VITALS (14 sets, daily range): BP systolic 128–162; BP diastolic 70–80
[2019-08-25 06:19] LABS: DIGOXIN 2.09 ng/mL (0.90-2.00); MAGNESIUM - SERUM 1.9 mg/dL (1.8-2.4); TOBRAMYCIN - TROUGH 2.4 ug/mL (0.5-2.0); VANCOMYCIN - RANDOM 20.6 ug/mL (10.0-20.0)
[2019-08-25 06:53] LABS: ALBUMIN 2.9 g/dL (3.4-5.0); ANION GAP 16.9 mmol/L (8-16); BILIRUBIN - TOTAL 0.44 mg/dL (0.2-1.3); CALCIUM 10.2 mg/dL (8.5-10.1); CARBON DIOXIDE 21.4 mmol/L (21.0-32.0); POTASSIUM - SERUM 4.3 mmol/L (3.5-5.1); PROTEIN - SERUM 6.8 g/dL (6.4-8.2)
--- NOTE | 2019-08-25 07:00 | NUR ---
ASSESSMENT COMPLETE PER FLOWSHEET. UP IN CHAIR FOR BREAKFAST.
--- NOTE | 2019-08-25 08:00 | NUR ---
CONSUMED 100 PERCENT.
--- NOTE | 2019-08-25 09:51 | NUR ---
BACK TO BED WITH ASSIST.
--- NOTE | 2019-08-25 11:00 | NUR ---
REASSESSED NO CHANGES NOTED.
--- NOTE | 2019-08-25 11:45 | NUR ---
PT REFUSED LUNCH.
--- NOTE | 2019-08-25 16:00 | NUR ---
REPORT CALLED TO SCOTT.
--- NOTE | 2019-08-25 17:00 | NUR ---
ON HD. PT VOICES NO CO AT TIME. REFUSED SUPPER.
--- NOTE | 2019-08-25 18:50 | NUR ---
PT FROM ICU AT THIS TIME, PT MOVED TO BED, NO DISTRESS NOTED, CL IN REACH, SR UP X 2.
[2019-08-26] VITALS (7 sets, daily range): BP systolic 137–157; BP diastolic 58–91
[2019-08-26 04:50] LABS: BASOPHILS 0.5 % (0-2); HEMATOCRIT 25.8 % (42.0-54.0); HEMOGLOBIN 8.2 g/dL (13.5-17.5); IMMATURE GRANULOCYTES 1.2 % (0-5); LYMPHOCYTES 9.1 % (15-50); MCH 28.8 pg (26.0-34.0); MCHC 31.8 g/dL (31.0-37.0); MCV 90.5 fL (80.0-100.0); MONOCYTES 11.4 % (2-11); NEUTROPHILS 73.8 % (40-80); RBC 2.85 10x6/uL (4.20-6.10); RDW 16.5 % (11.5-14.5); WBC 7.5 10x3/uL (4.8-10.8)
[2019-08-26 05:08] LABS: PLATELET COUNT 261 10x3/uL (130-400)
[2019-08-26 05:52] LABS: ANION GAP 14.3 mmol/L (8-16); CALCIUM 9.6 mg/dL (8.5-10.1); CARBON DIOXIDE 25.8 mmol/L (21.0-32.0); MAGNESIUM - SERUM 1.8 mg/dL (1.8-2.4); POTASSIUM - SERUM 4.1 mmol/L (3.5-5.1); TOBRAMYCIN - TROUGH 2.7 ug/mL (0.5-2.0); VANCOMYCIN - RANDOM 18.1 ug/mL (10.0-20.0)
[2019-08-26 05:55] LABS: CREATININE - SERUM 5.5 mg/dL (0.6-1.3)
--- NOTE | 2019-08-26 07:30 | NUR ---
PT LAYING SUPINE, HOB AT 45 DEGREES. PT IS SNORING AND ON 4L HIGH FLOW NC. WILL OPEN EYES WHEN TOUCHED, BUT WILL NOT VERBALLY RESPOND. FSBS IS LOW (SEE LABS). AMP OF DEXTROSE 50% RECIEVED PER ALEXANDER REQUEST. RR EVEN AND UNLABORED AT THIS TIME. NO OBVIOUS SIGNS OF DISTRESS NOTED. WILL CONTINUE TO MONITOR.
--- NOTE | 2019-08-26 12:59 | NUR ---
I have reviewed this patient and I concur with the Shift Assessment completed by the Licensed Practical Nurse today this shift.
--- NOTE | 2019-08-26 19:30 | NUR ---
PT IN BED, EYES CLOSED, RESP EVEN AND UNLABORED. NO DISTRESS NOTED, CL IN REACH, SR UP X 2.
--- NOTE | 2019-08-27 01:52 | NUR ---
I have reviewed this patient and I concur with the Shift Assessment completed by the Licensed Practical Nurse today this shift.
[2019-08-27 04:00] VITALS: BP 158/77
[2019-08-27 05:10] LABS: BASOPHILS 0.4 % (0-2); EOSINOPHILS 3.4 % (0-7); HEMATOCRIT 25.3 % (42.0-54.0); HEMOGLOBIN 7.9 g/dL (13.5-17.5); LYMPHOCYTES 10.8 % (15-50); MCH 28.4 pg (26.0-34.0); MCHC 31.2 g/dL (31.0-37.0); MEAN PLATELET VOLUME 9.1 fL (7.4-10.4); NEUTROPHILS 70.4 % (40-80); PLATELET COUNT 284 10x3/uL (130-400); RBC 2.78 10x6/uL (4.20-6.10); RDW 16.6 % (11.5-14.5); WBC 7.7 10x3/uL (4.8-10.8)
[2019-08-27 05:39] LABS: % SATURATION 37 % (15-55); IRON 26 ug/dl (35-150); TOTAL IRON BIND CAPACITY 69 ug/dl (260-445)
[2019-08-27 05:51] LABS: ANION GAP 15.3 mmol/L (8-16); CALCIUM 10.1 mg/dL (8.5-10.1); CARBON DIOXIDE 24.9 mmol/L (21.0-32.0); CREATININE - SERUM 6.8 mg/dL (0.6-1.3); PHOSPHOROUS 4.6 mg/dL (2.5-4.9); POTASSIUM - SERUM 4.2 mmol/L (3.5-5.1); VANCOMYCIN - RANDOM 17.5 ug/mL (10.0-20.0)
[2019-08-27 05:56] LABS: UNSAT IRON BIND CAPACITY 43 ug/dl (150-375)
--- NOTE | 2019-08-27 07:07 | NUR ---
PT LAYING SUPINE WITH HOB @ 45 DEGREES. RR EVEN AND UNLABORED ON 4L HF NC. NO DISTRESS NOTED. CALL LIGHT WITHIN REACH. BED IN LOWEST POSITION. WILL CONTINUE TO MONITOR.
[2019-08-27 08:50] VITALS: BP 152/72
[2019-08-27 11:00] VITALS: BP 174/79
--- NOTE | 2019-08-27 11:17 | NUR ---
Nutrition Follow-up: Nursing reports pt eating well. ST following. Diet: Renal, Puree, Honey Thick Liquids No new wt; last wt: 237# (08/19) Last BM: 08/25 Labs reviewed Meds noted: Albumin, Nephrovite, Renagel -Encourage PO intake and honor food preferences within diet restrictions. -Offer Nepro with meals. -Need new wt; noted daily wts ordered. -RD following.
--- NOTE | 2019-08-27 16:55 | NUR ---
I have reviewed this patient and I concur with the Shift Assessment completed by the Licensed Practical Nurse today this shift.
--- NOTE | 2019-08-27 19:30 | NUR ---
PT IN BED, EYES CLOSED, RESP EVEN AND UNLABORED. NO DISTRESS NOTED, CL IN REACH, SR X 2, PT DONE WITH DIALYSIS AT BEDSIDE, AT THIS TIME.
[2019-08-27 20:00] VITALS: BP 148/71
[2019-08-28] VITALS: BP 131/44
--- NOTE | 2019-08-28 00:13 | NUR ---
PT RECTAL TUBE PULLED OUT, RENAL NURSE PRACTITIONER PAGED AT THIS TIME.
[2019-08-28 04:00] VITALS: BP 138/70
--- NOTE | 2019-08-28 05:10 | NUR ---
I have reviewed this patient and I concur with the Shift Assessment completed by the Licensed Practical Nurse today this shift.
[2019-08-28 05:21] LABS: BASOPHILS 0.6 % (0-2); EOSINOPHILS 3.5 % (0-7); HEMATOCRIT 25.6 % (42.0-54.0); IMMATURE GRANULOCYTES 0.3 % (0-5); LYMPHOCYTES 11.5 % (15-50); MCH 28.6 pg (26.0-34.0); MCHC 31.3 g/dL (31.0-37.0); MCV 91.4 fL (80.0-100.0); MEAN PLATELET VOLUME 9.2 fL (7.4-10.4); MONOCYTES 14.4 % (2-11); NEUTROPHILS 69.7 % (40-80); PLATELET COUNT 277 10x3/uL (130-400); RDW 16.7 % (11.5-14.5); WBC 6.3 10x3/uL (4.8-10.8)
[2019-08-28 06:12] LABS: ANION GAP 12.1 mmol/L (8-16); CARBON DIOXIDE 27.7 mmol/L (21.0-32.0); PHOSPHOROUS 4.2 mg/dL (2.5-4.9); POTASSIUM - SERUM 3.8 mmol/L (3.5-5.1)
[2019-08-28 06:13] LABS: CREATININE - SERUM 4.6 mg/dL (0.6-1.3)
--- NOTE | 2019-08-28 07:30 | NUR ---
PT SITTING UP IN BED, RR EVEN AND UNLABORED. DENIES NEEDS OR PAIN AT THIS TIME. CALL LIGHT WITHIN REACH. HONEY THICK COKE RECIEVED PER REQUEST. WILL CONTINUE TO MONITOR.
[2019-08-28 08:00] VITALS: BP 142/81
[2019-08-28 12:00] VITALS: BP 154/74
--- NOTE | 2019-08-28 13:43 | NUR ---
OT NOTE: PT COMPLETED FACE AND HAND HYGIENE WITH MIN A. PT COMPLETED BED MOB TASKS WITH MAX A. [phone] THANK YOU,VIOLA WATSON
--- NOTE | 2019-08-28 15:40 | NUR ---
Rehab Prescreening Consult recieved and the chart has been reviewed. He is refusing PT per notes, has a rectal tube, has a C-Diff pending and on droplet isolation. He is to low level currently for acute rehab and we do not have a private room for isolation. Rehab will continue to follow, but he may be more appropriate for a skilled facility. Shey Lovett RN Clinical liaison, Rehab
[2019-08-28 16:00] VITALS: BP 131/39
[2019-08-28 17:08] LABS: FUNGUS CULTURE RESULT 1 Candida albicans (()); FUNGUS MYCOLOGY CULTURE Final report (())
[2019-08-28 20:30] VITALS: BP 149/71
[2019-08-29] VITALS (7 sets, daily range): BP systolic 136–168; BP diastolic 63–91
--- NOTE | 2019-08-29 06:28 | NUR ---
I have reviewed this patient and I concur with the Shift Assessment completed by the Licensed Practical Nurse today this shift.
[2019-08-29 07:05] LABS: ANION GAP 11.2 mmol/L (8-16); CALCIUM 10.3 mg/dL (8.5-10.1); CARBON DIOXIDE 27.8 mmol/L (21.0-32.0); CREATININE - SERUM 6.5 mg/dL (0.6-1.3); PHOSPHOROUS 4.9 mg/dL (2.5-4.9); TOBRAMYCIN - TROUGH 3.5 ug/mL (0.5-2.0)
[2019-08-29 07:34] LABS: BASOPHILS 0.4 % (0-2); EOSINOPHILS 2.9 % (0-7); HEMATOCRIT 24.7 % (42.0-54.0); HEMOGLOBIN 7.7 g/dL (13.5-17.5); IMMATURE GRANULOCYTES 0.3 % (0-5); LYMPHOCYTES 12.3 % (15-50); MCH 28.9 pg (26.0-34.0); MCHC 31.2 g/dL (31.0-37.0); MCV 92.9 fL (80.0-100.0); MEAN PLATELET VOLUME 9.4 fL (7.4-10.4); MONOCYTES 13.5 % (2-11); NEUTROPHILS 70.6 % (40-80); PLATELET COUNT 270 10x3/uL (130-400); RBC 2.66 10x6/uL (4.20-6.10); RDW 16.9 % (11.5-14.5); WBC 7.3 10x3/uL (4.8-10.8)
--- NOTE | 2019-08-29 19:25 | NUR ---
FIRST UNIT PRBC STARTED PER Amy GARCIA RN. NO REACTIONS NOTED. WILL MONITOR. RESP UNLABORED.
--- NOTE | 2019-08-29 23:30 | NUR ---
PRBC COMPLETED WITH NO REACITONS NOTED.O2 @ 4L PER NC ON. RESP UNALBORED.CL IN REACH
--- NOTE | 2019-08-30 00:10 | NUR ---
2ND UNIT PRBC STARTED. NO REACTIONS NOTED.
[2019-08-30 00:30] VITALS: BP 162/72
[2019-08-30 04:30] VITALS: BP 146/71
[2019-08-30 05:35] LABS: LYMPHOCYTES 13.2 % (15-50); MCH 28.9 pg (26.0-34.0); MCHC 31.3 g/dL (31.0-37.0); MCV 92.2 fL (80.0-100.0); MEAN PLATELET VOLUME 9.3 fL (7.4-10.4); NEUTROPHILS 75.3 % (40-80); PLATELET COUNT 263 10x3/uL (130-400); RDW 16.9 % (11.5-14.5); WBC 7.2 10x3/uL (4.8-10.8)
[2019-08-30 05:37] LABS: HEMATOCRIT 29.7 % (42.0-54.0); HEMOGLOBIN 9.3 g/dL (13.5-17.5); RBC 3.22 10x6/uL (4.20-6.10)
--- NOTE | 2019-08-30 05:42 | NUR ---
I have reviewed this patient and I concur with the Shift Assessment completed by the Licensed Practical Nurse today this shift.
[2019-08-30 06:04] LABS: ANION GAP 14.6 mmol/L (8-16); CALCIUM 10.4 mg/dL (8.5-10.1); CARBON DIOXIDE 24.7 mmol/L (21.0-32.0); CREATININE - SERUM 7.7 mg/dL (0.6-1.3); PHOSPHOROUS 5.2 mg/dL (2.5-4.9); POTASSIUM - SERUM 4.3 mmol/L (3.5-5.1); T4 THYROXIN - FREE 0.87 ng/dL (0.76-1.46); THYROID STIMULATING HORMONE 0.92 uIU/mL (0.36-3.74); TOBRAMYCIN - TROUGH 2.8 ug/mL (0.5-2.0)
[2019-08-30 15:11] VITALS: BP 165/70
[2019-08-30 17:55] VITALS: BP 164/59
[2019-08-30 20:30] VITALS: BP 147/79
--- NOTE | 2019-08-30 21:00 | NUR ---
A&O X 4 IN ROOM. PT REPORTS PAIN OF 10/10 TO ABDOMEN. DIALYSIS NURSE REPORTS REMOVAL OF 2L. FSBS 124. NO FURTHER NEEDS VOICED, CTM.
[2019-08-31 00:30] VITALS: BP 152/77
[2019-08-31 04:30] VITALS: BP 167/76
[2019-08-31 08:53] LABS: HEMATOCRIT 31.5 % (42.0-54.0); HEMOGLOBIN 10.1 g/dL (13.5-17.5); LYMPHOCYTES 9.7 % (15-50); MCH 29.6 pg (26.0-34.0); MCHC 32.1 g/dL (31.0-37.0); MCV 92.4 fL (80.0-100.0); MEAN PLATELET VOLUME 9.1 fL (7.4-10.4); NEUTROPHILS 76.9 % (40-80); PLATELET COUNT 215 10x3/uL (130-400); RBC 3.41 10x6/uL (4.20-6.10); WBC 7.1 10x3/uL (4.8-10.8)
[2019-08-31 09:03] LABS: ALBUMIN 4.1 g/dL (3.4-5.0); ANION GAP 18.6 mmol/L (8-16); BILIRUBIN - TOTAL 0.61 mg/dL (0.2-1.3); CARBON DIOXIDE 24.2 mmol/L (21.0-32.0); CREATININE - SERUM 6.1 mg/dL (0.6-1.3); POTASSIUM - SERUM 4.8 mmol/L (3.5-5.1); PROTEIN - SERUM 7.6 g/dL (6.4-8.2)
[2019-08-31 09:51] VITALS: BP 167/75
--- NOTE | 2019-08-31 10:41 | NUR ---
PT AWAKE AND CONFUSED. SEEMS TO BE HURTING. DENIES NEED FOR PAIN MEDICATION. NO COMPLAINTS VOIED AT THIS TIME. WILL CNT TO MONITOR. CL IN REACH, SRX2
--- NOTE | 2019-08-31 11:26 | NUR ---
DROPPED A BOTTLE OF MUCOMYST, SO HAD TO EDWINA ANOTHER ONE
--- NOTE | 2019-08-31 12:08 | NUR ---
Nutrition Follow-up: Pt in droplet precautions. Nursing reports that he is a feeder but she was not sure how well he ate this AM. Noted pt ate 75% x 3 meals on 08/28. Per MD note, pt does not like thickened water; ST following. Diet: Renal No new wt; last wt: 237# (08/19) Labs noted: Ca 11.0 Meds noted: Albumin, Nephrovite, Protonix, Renagel, NS @ KVO -Encourage PO intake and honor food preferences within diet restrictions. -Offer nutrition supplements. -Need new wt; noted daily wts ordered. -RD following.
[2019-08-31 13:18] VITALS: BP 168/93
--- NOTE | 2019-08-31 16:03 | NUR ---
I have reviewed this patient and I concur with the Shift Assessment completed by the Licensed Practical Nurse today this shift.
--- NOTE | 2019-08-31 18:21 | NUR ---
PT ATE ALMOST ALL OF HIS DINNER TRAY. ALERT AND CONFUSED. NO CMPLIANTS OR CONCERNS STATED AT THIS TIME. CL IN REACH,S RX2.
--- NOTE | 2019-08-31 19:10 | NUR ---
REPORT RECEIVED, WILL CONTINUE POC. PATIENT IS ALERT BUT PLEASANTLY CONFUSED. NO S/S OF DISTRESS OBSERVED, RR EVEN AND UNLABORED ON 4L. RECTAL TUBE IN PLACE, PATENT. PATIENT DENIES NEEDS AT THIS TIME. CL IN REACH, BED LOCKED AND LOWERED. WILL CTM.
[2019-08-31 21:51] VITALS: BP 158/75
[2019-09-01 01:26] VITALS: BP 166/83
--- NOTE | 2019-09-01 03:02 | NUR ---
I have reviewed this patient and I concur with the Shift Assessment completed by the Licensed Practical Nurse today this shift.
[2019-09-01 05:03] VITALS: BP 165/81
--- NOTE | 2019-09-01 07:00 | NUR ---
RECEIVED BEDSIDE REPORT ON PATIENT AND ASSUMED CARE. PATIENT ALERT BUT CONFUSED STATES ITS 2000, AND CANNOT RECALL WHY HE IS IN THE HOSPITAL, REORIENTED. RIGHT IJ TRIALYSIS CATH INPLACE, WITH NS AT 15 ML/HR. RIGHT ARM FISTULA NOTED BUT NOT ABLE TO PALPATE THRILL OR BRUIT, OLD FISTULA SITE NOTED TO LEFT UPPEER ARM NO THRILL OR BRUIT NOTED. FECAL BAG IN PLACE. ON NC AT 3 LPM WITH SPO2 - 100%. BBS - CLEAR BUT DIMINISHED. HEAD TO TOE ASSESSMENT COMPLETED.
--- NOTE | 2019-09-01 08:11 | NUR ---
PATIENT GIVEN BREAKFAST TRAY AND REPOSITIONED IN BED. FSBS - 70 MG/DL.
[2019-09-01 09:46] VITALS: BP 172/80
--- NOTE | 2019-09-01 11:35 | MORECARE ---
CASE MANAGEMENT DISCHARGE SUMMARY PATIENT: JHONATHAN THRASHER UNIT: [id number] ADM DATE: 08/17/19 AGE: 73 : 47 SEX: M ROOM/BED: D.2103 AUTHOR: AFIA ARANA PHYSICIAN: REFERRING PHYSICIAN: JOLYNN JAQUEZ MD DATE OF SERVICE: 09/01/19 Discharge Plan Patient Name: JHONATHAN THRASHER Facility: [facility]:[place] : 1945 Planned Disposition: Home Anticipated Discharge Date: Discharge Date: Expected LOS: Initial Reviewer: [email or web address] Initial Review Date: 08/17/2019 Generated: 09/01/19 12:34 pm Comments DCP- Discharge Planning Updated by [email or web address]: Dottie Peralta on 09/01/19 10:[address] CM noted PT notes. I called patient's daughter to discuss post acute care. Patient's daughter states she would like her father to go to inpatient rehab at [facility]. States after discharge from rehab if he needs further therapy, would like outpatient therapy (not home health) at [facility] outpatient PT department. CM placed inpatient rehab screen. CM will continue to follow and assist with discharge planning/needs. DCP- Discharge Planning Updated by [email or web address]: Alta Melendez on 08/24/19 7:[address] Patient Name: JHONATHAN THRASHER Admission Status: ER Accout number: [id number] Admission Date: 08-17-2019 : 1945 Admission Diagnosis:PNEUMONIA, UNSPECIFIED ORGANISM Attending: Jolynn Jaquez Current LOS: 7 Anticipated DC Date: Planned Disposition: Home Primary Insurance: MEDICARE A & B Discharge Planning Comments: CM met with patient to complete initial dc planning assessment. CM educated patient on the CM role and verbal consent given by patient to complete assessment. Patient lives at home with family. Patient is mostly independent. At discharge patient plans to return home and feels this is a safe discharge. CM discussed availability of home health, rehab services, and medical equipment. Patient will have family to transport home. Patient has home hemo dialysis MWF. Patient denied known discharge needs at this time. Patient may need walk test for home 02 if still required at discharge. CM will continue to follow and will assist as needed with dc plans/needs. Psychiatric Nurse Practitioner: Alta Melendez DCP- Discharge Planning Updated by [email or web address]: Dottie Peralta on 08/20/19 1:[address] CM went to room to completed discharge planning. He is out of the room at this time. CM will continue to follow and assist with discharge planning/needs. DCPIA - Discharge Planning Initial Assessment Updated by [email or web address]: Alta Melendez on 08/24/19 8:14 pm * Is the patient Alert and Oriented? Yes * How many steps to enter\exit or inside your home? * PCP Leonid * Pharmacy [facility] * Preadmission Environment Home with Family * ADLs Partial Dependent * Partial ADLs (Assistance needed) Ambulation Bathing Dressing Eating Medication Management Toileting Transfers * Other Equipment walker, w/c * List name and contact numbers for known caregivers / representatives who currently or will assist patient after discharge: Katherine Thrasher - daughter POA - [phone] * Verbal permission to speak to the caregivers and representatives has been obtained from the patient. Yes * Community resources currently utilized None * Additional services required to return to the preadmission environment? No * Can the patient safely return to the preadmission environment? Yes * Has this patient been hospitalized within the prior 30 days at any hospital? No Coverage Notice Reviewer: [email or web address] - Dottie Peralta Notice Issued Date-Time: 09/01/2019 11:30 Notice Type: Patient Choice Letter Notice Delivered To: Family Member Relationship to Patient: Daughter [employer]p [employer] Name: Katheirne Thrasher Delivery Method: HAND - Hand Delivered Georgie Days: Prior Verbal Notification: Recipient Understood Notice: Yes Recipient Signature: Yes Med Rec Note Co-signed by Attending: Coverage Notice Comment: [facility]LET for Inpatient rehab at [facility] Last DP export: 08/24/19 7:24 p Patient Name: JHONATHAN THRASHER Page [phone] at 1135 All edits/amendments must be made on the electronic document DICTATION DATE: 09/01/191133 HUMANITIES DEPARTMENT CHAIR: SINTIA 09/01/191133 RPT#: [id number] DC DATE: STATUS: ADM IN [facility] [address] [place] [address] END OF REPORT
--- NOTE | 2019-09-01 12:23 | NUR ---
OT NOTE: PT PERFORMED WELL TODAY. CONSUMED APPROX 80% OF MEAL; PT ABLE TO FEED SELF WITH SET UP; ABLE TO WASH HANDS AND FACE WITH SET UP; BED MOB WITH MIN ASSIST; GOOD STATIC SITTING BALANCE ON EOB; SIT TO STAND WITH MIN ASSIST AND USE OF WALKER. ABLE TO SIDE STEP AND TAKE A FEW STEPS WITH MIN ASSIST AND USE OF WALKER. DID NOT HAVE PT SIT UP IN CHAIR DUE TO RECTAL TUBE. ABLE TO PERFORM UE AROM EXS WITH CUES. GABO TURNER, OTR/L [phone]
[2019-09-01 12:49] VITALS: BP 189/98
--- NOTE | 2019-09-01 13:37 | NUR ---
PATIENT DID NOT EAT LUNCH TRAY, ATTMEPTED TO ASSIST WITH EATING BUT PATIENT STATED NO HUNGRY.
--- NOTE | 2019-09-01 14:20 | NUR ---
OT NOTE: PT COMPLETED BUE AROM EXS TOLERATED. PT COMPLETED FACE AND HAND HYGIENE TASKS. PT COMPLETED SIDE ROLLING WITH MIN A. [phone] THANK YOU,VIOLA WATSON
--- NOTE | 2019-09-01 15:15 | NUR ---
PATIENT RESTING QUIETLY, EASILY AROUSED BY VOICE, FSBS - 118 MG/DL.
--- NOTE | 2019-09-01 19:00 | NUR ---
REPORT RECEIVED, WILL CONTINUE POC. PATIENT IS AAOX4, LYING IN SEMI-FOWLERS POSITION. NO S/S OF DISTRESS OBSERVED, RR EVEN AND UNLABORED ON 4L. PATIENT DENIES NEEDS AT THIS TIME. CL IN REACH, BED LOCKED AND LOWERED. WILL CTM.
--- NOTE | 2019-09-01 20:15 | NUR ---
DIALYSIS AT BEDSIDE.
[2019-09-01 23:58] VITALS: BP 175/83
--- NOTE | 2019-09-02 00:41 | NUR ---
TELEMETRY DC'D PER ORDER.
--- NOTE | 2019-09-02 01:06 | NUR ---
I have reviewed this patient and I concur with the Shift Assessment completed by the Licensed Practical Nurse today this shift.
--- NOTE | 2019-09-02 01:54 | NUR ---
PATIENT C/O PAIN TO BACK AND HEAD. NO ORDERS FOR PAIN MEDS AND TYLENOL IS BEING HELD. PAGED YAMILA RODRIGUEZ APN AQUATICS MANAGER. ORDERS RECEIVED.
[2019-09-02 04:05] VITALS: BP 197/87
--- NOTE | 2019-09-02 07:10 | NUR ---
REPORT RECEIVED FROM SUPERVISOR PAPER COATING AND PATIENT CARE ASSUMED.PATIENT LAYING IN BED ON BACK WITH EYES CLOSED AND BREATHING EVENLY. WILL CONTINUE WITH PLAN OF CARE. SR UP X 2 BED IN LOW POSITION AND CALL LIGHT IN REACH.
[2019-09-02 08:11] VITALS: BP 178/88
--- NOTE | 2019-09-02 10:30 | NUR ---
Rehab Note- Continue to follow at this time. The patient currently has a rectal tube. Will continue to follow. Thank you for this referral! Rosa Mayorga RN [facility] Rehab, Clinical Liaison
--- NOTE | 2019-09-02 10:56 | NUR ---
PATIENT IS STABLE AND VSS. PATIENT DENIES ANY NEEDS OR PAIN. ASSESSENT COMPLETED. WILL CONTINUE TO MONITOR. SR UP X 2 BED IN LOW POSITION AND CALL LIGHT IN REACH.
[2019-09-02 11:42] VITALS: BP 189/56
[2019-09-02 14:56] VITALS: BP 200/89
--- NOTE | 2019-09-02 16:45 | NUR ---
OT NOTE: PT COMPLETED SUPINE TO SIT WITH MIN/MOD A. PT COMPLETED ADL MOB WITH MIN A WITH RW. PT COMPLETED UE AROM AXS. PT COMPLETED UB HYGIENE TASK WITH SET UP AT EOB. [phone] THANK YOU,VIOLA WATSON
--- NOTE | 2019-09-02 17:11 | NUR ---
OT NOTE: PT WITH NOTED IMPROVEMENT TODAY. BED MOB WITH MIN ASSIST; GOOD STATIC SITTING ON EOB; PROVIDED PT WITH WASHCLOTH AND HE WAS ABLE TO WASH FACE, HANDS, CHEST, AND ARMS WITH SET UP AND VERBAL INSTRUCTION; MOD ASSIST WITH LE BATHING; MIN ASSIST TO AAMIR GOWN; SET UP OF TRAY FOR FEEDING; SIT TO STAND WITH WALKER AND MIN ASSIST; AMB IN ROOM AND INTO HALLWAY WITH WALKER, GAIT BELT, 02, AND IV AND MIN ASSIST X APPROX 30 FT. PT VERY FATIGUED FOLLOWING AMBULATION GABO TURNER, OTR/L [phone]
--- NOTE | 2019-09-02 19:00 | NUR ---
REPORT RECEIVED, WILL CONTINUE POC. PATIENT IS ALERT, CONFUSED. NO S/S OF DISTRESS OBSERVED, RR EVEN AND UNLABORED ON 2L O2 VIA NC. PATIENT DENIES NEEDS AT THIS TIME. CL IN REACH, BED LOCKED AND LOWERED. WILL CTM.
[2019-09-02 20:48] VITALS: BP 200/89
[2019-09-03] VITALS (7 sets, daily range): BP systolic 124–178; BP diastolic 58–100
--- NOTE | 2019-09-03 03:38 | NUR ---
I have reviewed this patient and I concur with the Shift Assessment completed by the Licensed Practical Nurse today this shift.
--- NOTE | 2019-09-03 09:38 | NUR ---
Nutrition Follow-up: NPO for removal of trialysis and insertion of new hemosplit today. Diet: NPO PO intake: 45% avg yesterday (10-75%) No new wt; last wt: 237# (08/19) Last BM: 09/01 Labs reviewed Meds noted: Nephrovite, Protonix, Renagel -Resume diet following surgery as medically feasible. -Pt may benefit from an appetite stimulant. -Need new wt; daily wts ordered. -RD following.
--- NOTE | 2019-09-03 11:49 | NUR ---
PT CONFUSED AND UNABLE TO CALL CONSENTS. CALLED ROSA THRASHER PT'S POA AND GOT OVER THE PHONE CONSENTS FOR HEMOSPLIT PLACEMENT AND TRIALYSIS REMOVAL TODAY AND ANNELISE VOGEL VERIFIED WITH ROSA THRASHER.
--- NOTE | 2019-09-03 11:49 | NUR ---
PT CONFUSED AND UNABLE TO SIGN CONSENTS. CALLED ROSA THRASHER PT'S POA AND GOT OVER THE PHONE CONSENTS FOR HEMOSPLIT PLACEMENT AND TRIALYSIS REMOVAL TODAY 09/03/19 AND ANNELISE VOGEL VERIFIED WITH ROSA THRASHER.
--- NOTE | 2019-09-03 13:19 | NUR ---
I have reviewed this patient and I concur with the Shift Assessment completed by the Licensed Practical Nurse today this shift.
--- NOTE | 2019-09-03 15:40 | NUR ---
PT LYING IN BED. RESTING QUIETLY. RECEIVING DIALYSIS IN ROOM. BED LOW. CL IN REACH. WILL CONTINUE TO MONITOR.
--- NOTE | 2019-09-03 16:21 | NUR ---
OT NOTE: PT COMPLETED SUPINE TO SIT WITH MIN A TO MANAGE LES. PT COMPLETED EOB SITTING WITH CGA. PT COMPLETED SIT TO SUPINE TO WITH MIN A. PT COMPLETED UB HYGIENE TASKS WITH MIN A. PT REQUIRED MODERATE VERBAL CUES FOR INCREASED UNDERSTANDING. [phone] THANK YOU,VIOLA WATSON
--- NOTE | 2019-09-03 17:20 | NUR ---
SX CALLED AND STATED SX IS CANCELED TODAY AND PT WILL GO TOMORROW INSTEAD. I VERBALIZED UNDERSTANDING. PT TO BE NPO AFTER MIDNIGHT.
--- NOTE | 2019-09-03 17:43 | NUR ---
DIALYSIS FINISHED WITH PT AND NURSE STATED SHE GOT OFF 3L AND LAST BP WAS 124/68.
--- NOTE | 2019-09-03 19:15 | NUR ---
PT AROUSES WITH VERBAL STIMULI. HE LOOKS AROUND BUT WILL NOT ANSWER MY QUESTIONS TO ASSESS ORIENTATION. VSS. RECTAL TUBE IN PLACE AND WORKING PROPERLY. HIS BED IS LOW AND CALL LIGHT IS WITHIN REACH.
[2019-09-04] VITALS: BP 165/88
[2019-09-04 04:00] VITALS: BP 166/88
--- NOTE | 2019-09-04 07:53 | NUR ---
PT LAYING SUPINE IN BED WITH EYES OPEN UPON ENTERING. PT IS ALERT BUT DOES NOT RESPOND TO QUESTIONS/ CONVERSATION. ASSESSED BLOOD SUGAR, 96. NO INSULIN NEEDED PER SLIDING SCALE. RESTING COMFORTABLY IN BED. BED IN LOWEST POSITION, BED RAILS X2, CALL LIGHT WITHIN REACH. WILL CONTINUE TO MONITOR.
--- NOTE | 2019-09-04 08:33 | NUR ---
ADMINISTERED IV PROTONIX AT THIS TIME, TOLERATED WELL. RESTING COMFORTABLY IN BED. WAS ABLE TO GET PT TO ANSWER 2 YES OR NO ANSWER QUESTIONS, ANSWERED APPROPRIATELY. DENIES ANY NEEDS. WILL CONTINUE TO MONITOR.
[2019-09-04 10:36] VITALS: BP 173/50
--- NOTE | 2019-09-04 12:20 | NUR ---
ASSESSED BLOOD SUGAR, 93. NO INSULIN PER SLIDING SCALE. UNABLE TO TAKE PO MEDS DUE TO NPO ORDER FOR PROCEDURE TODAY. RESTING IN BED, DENIES ANY NEEDS. WILL CONTINUE TO MONITOR.
--- NOTE | 2019-09-04 12:56 | NUR ---
PT HAS BEEN PREOP'D AND IS READY FOR SURGERY. RESTING COMFORTABLY IN BED. WILL CONTINUE TO MONITOR.
--- NOTE | 2019-09-04 14:00 | NUR ---
PT GONE TO PROCEDURE
--- NOTE | 2019-09-04 15:14 | NUR ---
OT NOTE: PT COMPLETED SUPINE TO SIT AT EOB WITH MIN A. PT COMPLETED BUE AROM EXS AT EOB TOLERATED. PT COMPLETED SITTING BALANCE AT EOB WITH SBA/CGA. PT COMPLETED BATHING TASKS AT EOB WITH MIN A FOR UB AND MAX A FOR LB. PT REQUIRED EXTENSIVE CUES FOR SEQUENCING AND TASK COMPLETION. 3-100 THANK YOU,VIOLA WATSON
[2019-09-04 15:48] VITALS: BP 159/90
--- NOTE | 2019-09-04 16:11 | NUR ---
I have reviewed this patient and I concur with the Shift Assessment completed by the Licensed Practical Nurse today this shift.
--- NOTE | 2019-09-04 16:26 | NUR ---
PT BACK FROM PROCEDURE, VSS. PT IS STILL SLEEPING, BREATHING EVEN AND NON LABORED, NO S/S OF DISTRESS NOTED AT THIS TIME. WILL CONTINUE TO MONITOR TO ACCESS FREQUENT VITALS.
--- NOTE | 2019-09-04 17:16 | NUR ---
SAW PT ATTEMPTING TO GET OUT OF BED, REDIRECTED. IS NOW RESTING IN BED WITH BED ALARM ON, AND FUNCTIONING. DOESNT WANT TO TAKE PO MEDICATIONS, DOCUMENTED. DENIES ANY NEEDS. WILL CONTINUE TO MONITOR.
[2019-09-04 20:30] VITALS: BP 140/86
--- NOTE | 2019-09-04 21:48 | NUR ---
PT IN BED, EYES CLOSED, RESP EVEN AND UNLABORED.NO DISTRESS NOTED, CL IN REACH, SR UP X 2.
[2019-09-05 00:26] VITALS: BP 157/48
--- NOTE | 2019-09-05 04:05 | NUR ---
I have reviewed this patient and I concur with the Shift Assessment completed by the Licensed Practical Nurse today this shift.
[2019-09-05 04:30] VITALS: BP 108/84
[2019-09-05 05:36] LABS: BASOPHILS 0.2 % (0-2); EOSINOPHILS 0 % (0-7); HEMOGLOBIN 10.4 g/dL (13.5-17.5); IMMATURE GRANULOCYTES 0.2 % (0-5); LYMPHOCYTES 8.1 % (15-50); MCH 28.4 pg (26.0-34.0); MCHC 31.5 g/dL (31.0-37.0); MCV 90.2 fL (80.0-100.0); MEAN PLATELET VOLUME 10.1 fL (7.4-10.4); MONOCYTES 9.2 % (2-11); NEUTROPHILS 82.3 % (40-80); PLATELET COUNT 175 10x3/uL (130-400); RBC 3.66 10x6/uL (4.20-6.10); WBC 5.4 10x3/uL (4.8-10.8)
[2019-09-05 05:51] LABS: ANION GAP 16.6 mmol/L (8-16); CARBON DIOXIDE 25.7 mmol/L (21.0-32.0); POTASSIUM - SERUM 4.3 mmol/L (3.5-5.1)
[2019-09-05 05:52] LABS: CALCIUM 12.1 mg/dL (8.5-10.1)
[2019-09-05] MEDS ORDERED: LANOXIN125 MCG PO (07:11)
--- NOTE | 2019-09-05 08:00 | NUR ---
PT RESTING COMFROTABLY. BREATHS EVEN/REGULAR AND UNLABORED. NO SIGNS OR SYMPTOMS OFACUTE DISTRESS NOTED AT THIST SAMANTHA. CL IN REACH,S RX.2.
--- NOTE | 2019-09-05 09:21 | NUR ---
SPOKE TO PRIMARY DIRECT OF REAL ESTATE DAUGHTER. PT STATES THAT HER HOME IS APPROPRIATE AND THAT THEY WOULD BE ABLE TO PICK HIM UP THIS AFTERNOON. PT USES [facility] IN THE PAST, [facility] NEEDS TO COME OUT SATURDAY.
[2019-09-05 10:06] VITALS: BP 165/83
--- NOTE | 2019-09-05 12:39 | NUR ---
FED PT LUNCH, ATE ROUGHLY 50% OF HIS TRAY. WAITING TO DIALYIZE BEFORE GOING HOME.
[2019-09-05 13:12] VITALS: BP 155/84
--- NOTE | 2019-09-05 14:47 | NUR ---
SPOKE TO DR. KRISHNAMURTHY, HE STATES TO KEEP PT ANOTHER NIGHT D/T PT LOOKING GENRALLY UNWELL. V/S STABLE, CBG WNL. PT HAS BEEN LETHARGIC. SPOKE TO DAUGHTER NEPTALI COME AT 5PM TO VISIT AND SEE FATHERS CHANGED CONDITION
--- NOTE | 2019-09-05 15:54 | NUR ---
Maria Eugenia Thorpe A.P.N. spoke to Geneva Mason R.N.. Told her Mr. Garrido was a home hemo patient. That he wasto be discharged and have dialysis at home.
[2019-09-05 17:26] VITALS: BP 143/72
--- NOTE | 2019-09-05 19:32 | MORECARE ---
CASE MANAGEMENT DISCHARGE SUMMARY PATIENT: JHONATHAN THRASHER UNIT: [id number] ADM DATE: 08/17/19 AGE: 73 : 47 SEX: M ROOM/BED: D.2103 AUTHOR: SUMIT,DOC PHYSICIAN: REFERRING PHYSICIAN: JOLYNN JAQUEZ MD DATE OF SERVICE: 09/05/19 Discharge Plan Patient Name: JHONATHAN THRASHER Facility: [facility]:[place] : 1945 Planned Disposition: Home Anticipated Discharge Date: Discharge Date: Expected LOS: Initial Reviewer: [email or web address] Initial Review Date: 08/17/2019 Generated: 09/05/19 8:32 pm Comments DCP- Discharge Planning Updated by [id number]: Alta Melendez on 09/05/19 6:[address] CM called and spoke with Rosa from inpatient rehab regarding patient possible admission to rehab. She asked if patient still had rectal tube. CM wasn't sure. Rosa stated she would review chart and let CM know if they can accept patient or not. CM did get d/c orders for home. CM called and spoke with daughter Katherine. CM asked about getting HH set up and she stated that she needed to speak to her Dad but if needed they would want [facility]. CM contacted Rosa with [facility] and she stated that they can admit patient on Saturday. CM for fax over records to [facility]. CM got a call from nursing that discharge was placed on hold per Dr. Navarro. and daughter to come visit with patient this evening to see his status. DCP- Discharge Planning Updated by [id number]: Dottie Peralta on 09/01/19 10:[address] CM noted PT notes. I called patient's daughter to discuss post acute care. Patient's daughter states she would like her father to go to inpatient rehab at [facility]. States after discharge from rehab if he needs further therapy, would like outpatient therapy (not home health) at [facility] outpatient PT department. CM placed inpatient rehab screen. CM will continue to follow and assist with discharge planning/needs. DCP- Discharge Planning Updated by [id number]: Alta Melendez on 08/24/19 7:[address] Patient Name: JHONATHAN THRASHER Admission Status: ER Accout number: [id number] Admission Date: 08-17-2019 : 1945 Admission Diagnosis:PNEUMONIA, UNSPECIFIED ORGANISM Attending: Jolynn Jaquez Current LOS: 7 Anticipated DC Date: Planned Disposition: Home Primary Insurance: MEDICARE A & B Discharge Planning Comments: CM met with patient to complete initial dc planning assessment. CM educated patient on the CM role and verbal consent given by patient to complete assessment. Patient lives at home with family. Patient is mostly independent. At discharge patient plans to return home and feels this is a safe discharge. CM discussed availability of home health, rehab services, and medical equipment. Patient will have family to transport home. Patient has home hemo dialysis MWF. Patient denied known discharge needs at this time. Patient may need walk test for home 02 if still required at discharge. CM will continue to follow and will assist as needed with dc plans/needs. Shank Burnisher: Alta Melendez DCP- Discharge Planning Updated by [id number]: Dotite Peralta on 08/20/19 1:[address] CM went to room to completed discharge planning. He is out of the room at this time. CM will continue to follow and assist with discharge planning/needs. DCPIA - Discharge Planning Initial Assessment Updated by [email or web address]: Alta Melendez on 08/24/19 8:14 pm * Is the patient Alert and Oriented? Yes * How many steps to enter\exit or inside your home? * PCP Leonid * Pharmacy [facility] * Preadmission Environment Home with Family * ADLs Partial Dependent * Partial ADLs (Assistance needed) Ambulation Bathing Dressing Eating Medication Management Toileting Transfers * Other Equipment walker, w/c * List name and contact numbers for known caregivers / representatives who currently or will assist patient after discharge: Katherine Thrasher - daughter POA - [phone] * Verbal permission to speak to the caregivers and representatives has been obtained from the patient. Yes * Community resources currently utilized None * Additional services required to return to the preadmission environment? No * Can the patient safely return to the preadmission environment? Yes * Has this patient been hospitalized within the prior 30 days at any hospital? No Coverage Notice Reviewer: [id number] - Dottie Peralta Notice Issued Date-Time: 09/01/2019 11:30 Notice Type: Patient Choice Letter Notice Delivered To: Family Member Relationship to Patient: Daughter Opening Machine Cleaner Name: Katherine Thrasher Delivery Method: HAND - Hand Delivered Georgie Days: Prior Verbal Notification: Recipient Understood Notice: Yes Recipient Signature: Yes Med Rec Note Co-signed by Attending: Coverage Notice Comment: [facility] for Inpatient rehab at [facility] Last DP export: 09/01/19 10:35 a Patient Name: JHONATHAN THRASHER Page 13889 at 1932 All edits/amendments must be made on the electronic document DICTATION DATE: 09/05/191931 POWER PLANT ASSISTANT: SINTIA 09/05/191931 RPT#: [id number] DC DATE: STATUS: ADM IN [facility] [address] [place] [address] END OF REPORT
--- NOTE | 2019-09-05 20:03 | NUR ---
PATIENT RESTING IN BED WITH EYES CLOSED AND NO S/S OF DISTRESS. BED IN LOWEST POSITION AND CALL LIGHT WITHIN REACH. WILL CONTINUE TO MONITOR.
[2019-09-05 20:30] VITALS: BP 126/79
--- NOTE | 2019-09-05 23:27 | NUR ---
Rehab Note- The patient continues with rectal tube at this time and is not appropriate in inpatient acute rehab. Will continue to follow at this time. Rosa Mayorga RN Clinical Liaiosn, [facility] Rehab
[2019-09-06 00:55] VITALS: BP 138/69
[2019-09-06 04:30] VITALS: BP 149/76
[2019-09-06 06:47] LABS: ANION GAP 21.2 mmol/L (8-16); CALCIUM 10.8 mg/dL (8.5-10.1); CARBON DIOXIDE 21.8 mmol/L (21.0-32.0); CREATININE - SERUM 8.5 mg/dL (0.6-1.3)
--- NOTE | 2019-09-06 07:23 | NUR ---
PT RESTING, ROUSED FOR BREATHING TX. DOES NOT ANSWER QUESTIONS AT THIS TIME. CL IN REACH,S RX2, NO FAMILY AT BEDSIDE.
[2019-09-06 07:34] LABS: BASOPHILS 1.3 % (0-2); EOSINOPHILS 1.1 % (0-7); HEMATOCRIT 31.5 % (42.0-54.0); HEMOGLOBIN 10.2 g/dL (13.5-17.5); IMMATURE GRANULOCYTES 0.2 % (0-5); LYMPHOCYTES 15.7 % (15-50); MCHC 32.4 g/dL (31.0-37.0); MCV 89.5 fL (80.0-100.0); MEAN PLATELET VOLUME 10.2 fL (7.4-10.4); MONOCYTES 12.8 % (2-11); NEUTROPHILS 68.9 % (40-80); PLATELET COUNT 177 10x3/uL (130-400); RBC 3.52 10x6/uL (4.20-6.10); WBC 5.5 10x3/uL (4.8-10.8)
--- NOTE | 2019-09-06 09:51 | MORECARE ---
CASE MANAGEMENT DISCHARGE SUMMARY PATIENT: JHONATHAN THRASHER UNIT: [id number] ADM DATE: 08/17/19 AGE: 73 : 47 SEX: M ROOM/BED: D.2103 AUTHOR: SUMIT,DOC PHYSICIAN: REFERRING PHYSICIAN: JOLYNN JAQUEZ MD DATE OF SERVICE: 09/06/19 Discharge Plan Patient Name: JHONATHAN THRASHER Facility: [facility]:[place] : 1945 Planned Disposition: Home Anticipated Discharge Date: Discharge Date: Expected LOS: Initial Reviewer: [email or web address] Initial Review Date: 08/17/2019 Generated: 09/06/19 10:51 am Comments DCP- Discharge Planning Updated by [email or web address]: Alta Melendez on 09/05/19 6:[address] CM called and spoke with Rosa from inpatient rehab regarding patient possible admission to rehab. She asked if patient still had rectal tube. CM wasn't sure. Rosa stated she would review chart and let CM know if they can accept patient or not. CM did get d/c orders for home. CM called and spoke with daughter Katherine. CM asked about getting HH set up and she stated that she needed to speak to her Dad but if needed they would want [facility]. CM contacted Rosa with [facility] and she stated that they can admit patient on Saturday. CM for fax over records to [facility]. CM got a call from nursing that discharge was placed on hold per Dr. Navarro. and daughter to come visit with patient this evening to see his status. DCP- Discharge Planning Updated by [id number]: Dottie Peralta on 09/01/19 10:[address] CM noted PT notes. I called patient's daughter to discuss post acute care. Patient's daughter states she would like her father to go to inpatient rehab at [facility]. States after discharge from rehab if he needs further therapy, would like outpatient therapy (not home health) at [facility] outpatient PT department. CM placed inpatient rehab screen. CM will continue to follow and assist with discharge planning/needs. DCP- Discharge Planning Updated by [id number]: Alta Melendez on 08/24/19 7:[address] Patient Name: JHONATHAN THRASHER Admission Status: ER Accout number: [id number] Admission Date: 08-17-2019 : 1945 Admission Diagnosis:PNEUMONIA, UNSPECIFIED ORGANISM Attending: Jolynn Jaquez Current LOS: 7 Anticipated DC Date: Planned Disposition: Home Primary Insurance: MEDICARE A & B Discharge Planning Comments: CM met with patient to complete initial dc planning assessment. CM educated patient on the CM role and verbal consent given by patient to complete assessment. Patient lives at home with family. Patient is mostly independent. At discharge patient plans to return home and feels this is a safe discharge. CM discussed availability of home health, rehab services, and medical equipment. Patient will have family to transport home. Patient has home hemo dialysis MWF. Patient denied known discharge needs at this time. Patient may need walk test for home 02 if still required at discharge. CM will continue to follow and will assist as needed with dc plans/needs. Ladle Mechanic: Alta Melendez DCP- Discharge Planning Updated by [id number]: Dottie Peralta on 08/20/19 1:[address] CM went to room to completed discharge planning. He is out of the room at this time. CM will continue to follow and assist with discharge planning/needs. DCPIA - Discharge Planning Initial Assessment Updated by [id number]: Alta Melendez on 08/24/19 8:14 pm * Is the patient Alert and Oriented? Yes * How many steps to enter\exit or inside your home? * PCP Leonid * Pharmacy [facility] * Preadmission Environment Home with Family * ADLs Partial Dependent * Partial ADLs (Assistance needed) Ambulation Bathing Dressing Eating Medication Management Toileting Transfers * Other Equipment walker, w/c * List name and contact numbers for known caregivers / representatives who currently or will assist patient after discharge: Katherine Thrasher - daughter POA - [phone] * Verbal permission to speak to the caregivers and representatives has been obtained from the patient. Yes * Community resources currently utilized None * Additional services required to return to the preadmission environment? No * Can the patient safely return to the preadmission environment? Yes * Has this patient been hospitalized within the prior 30 days at any hospital? No External [facility]iders [facility] Next Contact Date: Service Request Date: Service Type: Resolution: Reviewer: Comments: Coverage Notice Reviewer: [id number] - Dottie Peralta Notice Issued Date-Time: 09/01/2019 11:30 Notice Type: Patient Choice Letter Notice Delivered To: Family Member Relationship to Patient: Daughter Motion Study Analyst Name: Katherine Thrasher Delivery Method: HAND - Hand Delivered Georgie Days: Prior Verbal Notification: Recipient Understood Notice: Yes Recipient Signature: Yes Med Rec Note Co-signed by Attending: Coverage Notice Comment: [facility]LET for Inpatient rehab at [facility] Last DP export: 09/05/19 6:32 p Patient Name: JHONATHAN THRASHER Page [id number] at 0951 All edits/amendments must be made on the electronic document DICTATION DATE: 09/06/19950 VIBRATION ENGINEER: SINTIA 09/06/19950 RPT#: [id number] DC DATE: STATUS: ADM IN [facility] [address] [place] [address] END OF REPORT
[2019-09-06 10:01] VITALS: BP 137/67
--- NOTE | 2019-09-06 10:16 | NUR ---
PT MORE ALERT HIS MORNING. ATE HISM EDICATIONS BUT REFUSED TO EAT MORE FOR BREAKFAST. STRONGLY DISLIKES OUR THICKENED LIQUIDS. WILL CNT. TO MONITOR. FAMILY TO VISIT TODAY. Rosita VARGAS RX2.
--- NOTE | 2019-09-06 11:34 | NUR ---
I have reviewed this patient and I concur with the Shift Assessment completed by the Licensed Practical Nurse today this shift.
[2019-09-06 14:10] VITALS: BP 151/76
[2019-09-06 18:22] VITALS: BP 164/79
--- NOTE | 2019-09-06 19:00 | NUR ---
REPORT RECEIVED, WILL CONTINUE POC. PATIENT IS LETHARGIC, LYING IN BED IN SEMI-FOWLERS POSITION. NO S/S OF DISTRESS OBSERVED, RR EVEN AND UNLABORED ON 2L O2 VIA NC. PATIENT DENIES NEEDS AT THIS TIME. CL IN REACH, BED LOCKED AND LOWERED. WILL CTM.
[2019-09-06 20:30] VITALS: BP 174/81
[2019-09-07 00:17] VITALS: BP 179/88
[2019-09-07 04:30] VITALS: BP 174/83
[2019-09-07 05:27] LABS: BASOPHILS 1.2 % (0-2); EOSINOPHILS 2.1 % (0-7); HEMATOCRIT 31.6 % (42.0-54.0); HEMOGLOBIN 10.2 g/dL (13.5-17.5); IMMATURE GRANULOCYTES 0.6 % (0-5); LYMPHOCYTES 18.1 % (15-50); MCH 28.7 pg (26.0-34.0); MCHC 32.3 g/dL (31.0-37.0); MCV 88.8 fL (80.0-100.0); MONOCYTES 15.5 % (2-11); NEUTROPHILS 62.5 % (40-80); PLATELET COUNT 196 10x3/uL (130-400); RBC 3.56 10x6/uL (4.20-6.10); RDW 16.6 % (11.5-14.5); WBC 5.2 10x3/uL (4.8-10.8)
[2019-09-07 05:55] LABS: ANION GAP 17.6 mmol/L (8-16); CALCIUM 10.6 mg/dL (8.5-10.1); CARBON DIOXIDE 23.5 mmol/L (21.0-32.0); CREATININE - SERUM 9.9 mg/dL (0.6-1.3); DIGOXIN 1.59 ng/mL (0.90-2.00); POTASSIUM - SERUM 4.1 mmol/L (3.5-5.1)
[2019-09-07 09:00] VITALS: BP 182/71
[2019-09-07 11:00] VITALS: BP 194/96
--- NOTE | 2019-09-07 12:25 | NUR ---
OT NOTE: PT NOT DOING WELL TODAY. PT VERY SLOW TO RESPOND TO ANY COMMANDS; SAT IN SILENCE MOST OF TIME; REQUIRED MAX ASSIST FOR SUPINE TO SIT; WHEN ASKED WHAT WAS WRONG, HE STATED THAT HE WAS COLD AND HIS BACK WAS HURTING; REQUIRED MAX ENCOURAGEMENT FOR SIT TO STAND WITH WALKER AND MOD ASSIST. PT DID NOT ATTEMPT ANYTHING.. CONT TO STATE, "I CANT DO IT" HOWEVER, WITH VERBAL CUES FOR EACH STEP HE COULD PHYSICALLY DO IT BUT MENTALLY HAVE DIFFICULTY PROCESSING COMMANDS. PT FINALLY ABLE TO WALK APPROX 5 STEPS WITH WALKER.. YESSENIA COVER CREASER WAS IN ROOM TO ASSIST, PT JUST SAT DOWN.. HE WAS NOT CLOSE TO BED AND THERAPISTS HAD TO DRAG HIM TO EOB. PT WOULD NOT STAND TO SCOOT UP IN BED HE WAS ABLE TO DO LAST WEEK..MAX ASSIST X 2 TO GET PT UP IN BED AND PADS RE ADJUSTED. GABO TURNER, OTR/L [phone]
--- NOTE | 2019-09-07 14:30 | MORECARE ---
CASE MANAGEMENT DISCHARGE SUMMARY PATIENT: JHONATHAN THRASHER UNIT: [id number] ADM DATE: 08/17/19 AGE: 73 : 47 SEX: M ROOM/BED: D.2103 AUTHOR: SUMIT,DOC PHYSICIAN: REFERRING PHYSICIAN: JOLYNN JAQUEZ MD DATE OF SERVICE: 09/07/19 Discharge Plan Patient Name: JHONATHAN THRASHER Facility: [facility]:[place] : 1945 Planned Disposition: Home Anticipated Discharge Date: Discharge Date: Expected LOS: Initial Reviewer: [email or web address] Initial Review Date: 08/17/2019 Generated: 09/07/19 3:29 pm Comments DCP- Discharge Planning Updated by [email or web address]: Eboni Jiménez on 09/07/19 1:[address] Patient's rectal tube has been removed, patient has ambulated 3". CM contacted Shey with rehab, will re-evaluate again 09/07. DCP- Discharge Planning Updated by [email or web address]: Alta Melendez on 09/05/19 6:[address] CM called and spoke with Rosa from inpatient rehab regarding patient possible admission to rehab. She asked if patient still had rectal tube. JANENE wasn't sure. Rosa stated she would review chart and let CM know if they can accept patient or not. JANENE did get d/c orders for home. JANENE called and spoke with daughter Katherine. CM asked about getting HH set up and she stated that she needed to speak to her Dad but if needed [facility] would want [facility] . CM contacted Rosa with [facility] and she stated that they can admit patient on Saturday. CM for fax over records to [facility]. CM got a call from nursing that discharge was placed on hold per Dr. Navarro. and daughter to come visit with patient this evening to see his status. DCP- Discharge Planning Updated by [email or web address]: Dottie Peralta on 09/01/19 10:[address] CM noted PT notes. I called patient's daughter to discuss post acute care. Patient's daughter states she would like her father to go to inpatient rehab at [facility]. States after discharge from rehab if he needs further therapy, would like outpatient therapy (not home health) at [facility] outpatient PT department. CM placed inpatient rehab screen. CM will continue to follow and assist with discharge planning/needs. DCP- Discharge Planning Updated by [email or web address]: Alta Melendez on 08/24/19 7:[address] Patient Name: JHONATHAN THRASHER Admission Status: ER Accout number: [id number] Admission Date: 08-17-2019 : 1945 Admission Diagnosis:PNEUMONIA, UNSPECIFIED ORGANISM Attending: Jolynn Jaquez Current LOS: 7 Anticipated DC Date: Planned Disposition: Home Primary Insurance: MEDICARE A & B Discharge Planning Comments: CM met with patient to complete initial dc planning assessment. CM educated patient on the CM role and verbal consent given by patient to complete assessment. Patient lives at home with family. Patient is mostly independent. At discharge patient plans to return home and feels this is a safe discharge. CM discussed availability of home health, rehab services, and medical equipment. Patient will have family to transport home. Patient has home hemo dialysis MWF. Patient denied known discharge needs at this time. Patient may need walk test for home 02 if still required at discharge. CM will continue to follow and will assist as needed with dc plans/needs. Dietary Director: Alta Melendez DCP- Discharge Planning Updated by [email or web address]: Dottie Fabian on 08/20/19 1:[address] CM went to room to completed discharge planning. He is out of the room at this time. CM will continue to follow and assist with discharge planning/needs. DCPIA - Discharge Planning Initial Assessment Updated by [email or web address]: Alta Melendez on 08/24/19 8:14 pm * Is the patient Alert and Oriented? Yes * How many steps to enter\\exit or inside your home? * PCP Leonid * Pharmacy [facility] * Preadmission Environment Home with Family * ADLs Partial Dependent * Partial ADLs (Assistance needed) Ambulation Bathing Dressing Eating Medication Management Toileting Transfers * Other Equipment walker, w/c * List name and contact numbers for known caregivers / representatives who currently or will assist patient after discharge: Katherine Thrasher - daughter POA - [phone] * Verbal permission to speak to the caregivers and representatives has been obtained from the patient. Yes * Community resources currently utilized None * Additional services required to return to the preadmission environment? No * Can the patient safely return to the preadmission environment? Yes * Has this patient been hospitalized within the prior 30 days at any hospital? No Coverage Notice Reviewer: [id number] Royal Peralta Notice Issued Date-Time: 09/01/2019 11:30 Notice Type: Patient Choice Letter Notice Delivered To: Family Member Relationship to Patient: Daughter Hoisting Engineer Pile Driving Name: Katherine Thrasher Delivery Method: HAND - Hand Delivered Georgie Days: Prior Verbal Notification: Recipient Understood Notice: Yes Recipient Signature: Yes Med Rec Note Co-signed by Attending: Coverage Notice Comment: [facility]LET for Inpatient rehab at [facility] Last DP export: 09/06/19 8:51 a Patient Name: JHONATHAN THRASHER Page [phone] at 1430 All edits/amendments must be made on the electronic document DICTATION DATE: 09/07/191429 SYSTEMS ARCHITECTURE ANALYST: SINTIA 09/07/19 1430 RPT#: [id number] DC DATE: STATUS: ADM IN [facility] [address] [place] [address] END OF REPORT
[2019-09-07 15:00] VITALS: BP 190/94
--- NOTE | 2019-09-07 16:34 | NUR ---
OT NOTE: PT COMPLETED SIDE ROLLING WITH MAX A.PT ATTEMPTED SUPINE TO SIT WITH MAX A. PT REQUIRED MOD A WITH SIMPLE FACE AND HAND HYGIENE. PT IS WEAK AND CONFUSED. [phone] THANK YOU,VIOLA WATSON
--- NOTE | 2019-09-07 17:32 | NUR ---
I have reviewed this patient and I concur with the Shift Assessment completed by the Licensed Practical Nurse today this shift.
--- NOTE | 2019-09-07 18:03 | NUR ---
PT HAS BEEN MOSTLY LETHARGIC AND CONFUSED DURING THE DAY. HE WAS AWAKE THIS MORING, BUT WOULD SPEAK TO US. ATTEMPTED TO FEED ALL MEALS BUT PT REFUSED TO OPEN HIS MOUTH. UNABLE TO GIVE MEDICATIONS D/T HIS NON COMPLIENCE. WILL CONT. TO ATTEMPT NECISSARY. FAMILY HAS NOT CALLED. WALKED 3 FEET WITH PHYSICAL THERAPY AND WILL BE REASSED FOR INHOUSE REHAB TOMORROW. PTS RECTAL TUBE WAS D/C'D YESTERDAY EVENING BY ME. CL IN REACH, SRX2, BED ALARM ON AND ACTIVE WNL.
--- NOTE | 2019-09-07 19:05 | NUR ---
REPORT RECEIVED, WILL CONTINUE POC. PATIENT IS RESTING WITH EYES CLOSED, NO S/S OF DISTRESS OBSERVED, RR EVEN AND UNLABORED ON ROOM AIR. CL IN REACH, BED LOCKED AND LOWERED. DROPLET PRECAUTIONS MAINTAINED. WILL CTM.
[2019-09-07 19:25] VITALS: BP 160/82
[2019-09-08 00:39] VITALS: BP 160/79
[2019-09-08 04:22] LABS: BASOPHILS 0.9 % (0-2); EOSINOPHILS 5.2 % (0-7); IMMATURE GRANULOCYTES 0.2 % (0-5); MCH 28.7 pg (26.0-34.0); MCHC 32.3 g/dL (31.0-37.0); MCV 88.8 fL (80.0-100.0); MEAN PLATELET VOLUME 9.9 fL (7.4-10.4); MONOCYTES 13.9 % (2-11); NEUTROPHILS 58.8 % (40-80); PLATELET COUNT 166 10x3/uL (130-400); RBC 3.49 10x6/uL (4.20-6.10); RDW 16.6 % (11.5-14.5); WBC 4.6 10x3/uL (4.8-10.8)
[2019-09-08 04:28] VITALS: BP 180/88
[2019-09-08 04:36] LABS: ANION GAP 19.2 mmol/L (8-16); CALCIUM 10.6 mg/dL (8.5-10.1); CARBON DIOXIDE 23.1 mmol/L (21.0-32.0); CREATININE - SERUM 11.1 mg/dL (0.6-1.3); POTASSIUM - SERUM 4.3 mmol/L (3.5-5.1)
--- NOTE | 2019-09-08 08:00 | NUR ---
PT RECEIVED AWAKE AND ALERT. POSITIONED FOR MEAL, ASSISTED TO EAT. LINENS CHANGED AND PT CLEANED DUE TO BM. ALVAREZ APPLIED AND PT POSITIONED FOR COMFORT.
[2019-09-08 09:00] VITALS: BP 188/56
--- NOTE | 2019-09-08 12:13 | NUR ---
Nutrition Follow-up: Noted pt refused to open his mouth for meals yesterday but nursing reports he ate well for breakfast this AM. Diet: Renal, Puree, Honey Thick Liquids No new wt; last wt: 237# (08/19) Last BM: 09/07 Labs noted: Na 135, Glu 115, Ca 10.6 Meds noted: Nephrovite, Protonix, Renagel -Encourage PO intake and honor food preferences within diet restrictions. -Offer Nepro with meals. -Need new wt; noted daily wts ordered. -RD following.
--- NOTE | 2019-09-08 14:37 | NUR ---
OT NOTE: PT ACTING LETHARGIC TODAY. HIS EYES WERE OPEN BUT VERY LIMITED VERBAL RESPONSE; BED MOB INCLUDING ROLLING SIDE TO SIDE FOR TOILET HYGIENE WITH MAX ASSIST. PT WITH 2 EPISODES OF DIARRHEA..CREAM PLACED ON BOTTOM EACH TIME DUE TO EXCORIATION. SUPINE TO SIT WITH MIN ASSIST; SIT TO STAND X 2 TRIALS WITH MOD ASSIST TO IMPROVE UE STRENGTH. TRANSFER FROM BED TO CHAIR TO BED WITH MOD ASSIST AND USE OF WALKER. GABO TURNER, OTR/L [phone]
[2019-09-08 15:00] VITALS: BP 178/87
--- NOTE | 2019-09-08 16:07 | NUR ---
OT NOTE: PT REQUIRED MAX A WITH LB HYGIENE . PT HAD 2 EPISODES OF DIARRHEA DURING SESSION. NURSING AWARE. PT REQUIRED MOD A WITH UB HYGIENE TASKS. PT REQUIRED MOD A FOR SUPINE TO SIT. PT COMPLETED BED TO CHAIR TSF WITH MOD/MIN A WITH R/W. 113-124 THANK YOU,VIOLA WATSON
--- NOTE | 2019-09-08 16:13 | OP ---
PATIENT NAME: JHONATHAN THRASHER MEDICAL RECORD: [id number] :47 LOCATION:D.M2 D.2103 ADMISSION DATE:08/17/19 SURGEON: JENNY TAFOYA MD DATE OF OPERATION: 08/20/2019 REFERRED BY: Daryl Munoz MD PREOPERATIVE DIAGNOSES: End-stage renal disease and dependence on hemodialysis with dependence on a tunneled dialysis catheter in the right internal jugular vein also pneumonia, and gram-positive Streptococci on blood culture. POSTOPERATIVE DIAGNOSES: End-stage renal disease and dependence on hemodialysis with dependence on a tunneled dialysis catheter in the right internal jugular vein also pneumonia, and gram-positive Streptococci on blood culture. OPERATION PERFORMED: Today, removal of tunneled dialysis catheter from the right internal jugular vein and insertion of a 20-cm Trialysis catheter through the right internal jugular vein, through a different pass and not tunneled. Also, during the procedure, fluoroscopic guidance for placement of the new catheter and performance of superior vena cavogram. OPERATIVE FINDINGS: The patient has a rigid tube or sheath of calcium and probably collagen, which used to surround the outflow device of his HeRO graft and now surrounds his TDC. This sheath interfered with catheter function unless the catheter were placed very deeply into the right atrium. DESCRIPTION OF PROCEDURE: Under MAC and monitored per VOCATIONAL REHABILITATION TEACHER with intermittent administration of IV lidocaine due to ventricular tachycardia. The patient is prepped and draped in sterile manner and the skin and subcutaneous tissues anesthetized with 1% lidocaine without epinephrine. I made a small transverse incision over the catheter at the base of the neck and exposed the Dacron felt cuff on the TDC, dissected it from the surrounding structures to mobilize the catheter. I then made another small incision a little higher over the catheter. The old catheter was clamped and transected and the subcutaneous section then backed out and brought out through the small or more distal incision in the neck. That catheter was then removed over wire under fluoroscopy and replaced first with a 15 cm Trialysis catheter, which did not work and then contrast injections demonstrated the tight sheath obstructing flow and the catheter was then replaced with a 20-cm long Trialysis catheter. Contrast injection revealed good filling of the right atrium and with aspiration of both therapeutic lumens and the third lumen all returned blood easily. The catheter was flushed with saline and heparin locked, clamped and capped. It was sutured to the skin near the entry site with 2-0 Prolene and the wound closed with interrupted inverted 3-0 Vicryl and a chlorhexidine Biopatch was applied and then a sterile CVL dressing. The patient was awakened and taken to recovery. There was really no blood loss during the procedure today. Sponges, instruments, and needles were accounted for. No drain was used and no surgical specimen was submitted for histopathology. The terminal 3 inches of the old HemoSplit catheter were sent for culture and sensitivity. PLAN: The patient will continue his in-hospital treatment for pneumonia and sepsis. Unless there is a problem with his present Trialysis catheter function, I think he should dialyze with it until discharge from the hospital and then at [facility] have the Trialysis catheter replaced with a new tunneled dialysis catheter via the right internal jugular vein. That is, if his medical condition improved OPERATIVE REPORT [id number] JHONATHAN THRASHER to the point that he is considered to be potentially a candidate for that under conscious sedation at [facility]. If not, it can be done here at [place] of course. TRANSINT:[id number] Voice Confirmation ID: [id number] DOCUMENT ID: [id number] JENNY TAFOYA MD at 1613 CC: DARYL MUNOZ MD [id number] DICTATION DATE: 08/20/19 1624 MOBILE EQUIPMENT OPERATOR: 08/20/19 1713 ADM IN [place] [id number] [place] [address]
--- NOTE | 2019-09-08 16:13 | OP ---
PATIENT NAME: JHONATHAN THRASHER MEDICAL RECORD: [id number] :47 LOCATION:D.M2 D.2103 ADMISSION DATE:08/17/19 SURGEON: JENNY TAFOYA MD DATE OF OPERATION: 09/04/2019 REFERRED BY: 1. Jolynn Jaquez MD 2. Rhys Church MD 3. Rabia Hoyos DO PREOPERATIVE DIAGNOSES: End-stage renal disease, dependence on hemodialysis and sepsis and pneumonia and blood borne infection with positive blood cultures. POSTOPERATIVE DIAGNOSIS: End-stage renal disease, dependence on hemodialysis and sepsis and pneumonia and blood borne infection with positive blood cultures. OPERATION PERFORMED: Removal of Trialysis dialysis catheter from the right internal jugular vein and insertion of a new 27 cm HemoSplit dialysis catheter via the right internal jugular vein under fluoroscopy. ANESTHESIA: General with LMA per PERSONAL CARE AIDE. SURGEON: Jenny Tafoya MD PREOPERATIVE NOTE: Mr. Thrasher is a chronically ill 73-year-old white male patient on dialysis. He dialyzed for quite a long time with the right-sided HeRO which had to be removed due to recurrent episodes of thrombosis and he has had dialyzed for a long time now with HemoSplit via the right internal jugular vein through the old tract of the HeRO device. He was hospitalized with blood cultures positive and pneumonia and sepsis and his catheter was removed and replaced with a Trialysis catheter about 2 weeks ago. He now is to have a temporary catheter removed and we will try to place another long-term HemoSplit dialysis catheter in the same place. The fibrous calcified sheath or tract from the old HeRO outflow device extends well down into the right atrium and I believe it is probably optimal to place his new catheter down at least into the upper inferior vena cava. Under anesthesia, the patient was prepped and draped in sterile manner and the skin and subcutaneous tissues has been needed and anesthetized further with 0.25% Marcaine with epinephrine. The entry site over the clavicle at the base of the neck was excised sharply and the existing catheter then removed over a Roadrunner guidewire, which was passed into the inferior vena cava. The tract was extremely tight around the existing catheter. I passed a dilator and peel-away introducer over the wire. I chose a new 27 cm HemoSplit and made an incision based on the fluoroscopic appearance and the decision to have the tip reach into the inferior vena cava. The new catheter was pulled through the subcutaneous tunnel and then passed over the guidewire through the peel-away sheath after being well lubricated with ultrasound jelly. The catheter then passed actually fairly easily into the upper vena cava. The guidewire and peelaway sheath were removed. The catheter was sutured to the skin near the entry site. Both lumens were accessed and aspirated, free return of blood confirmed. They were then flushed with saline and then heparin locked, clamped and capped. The catheter was sutured to the skin near the entry site with 2-0 Prolene and the cervical wound closed with interrupted inverted 3-0 Vicryl and Dermabond glue. That incision was subsequently dressed additionally with OPERATIVE REPORT [id number] JHONATHAN THRASHER Bactroban ointment then Maxorb Ag, Tegaderm, and Cavilon skin prep. The entry site was dressed with a Biopatch and a sterile CVL dressing and the patient awakened and taken back to his room on the floor. Blood loss during the procedure was insignificant and unreplaced. All sponges, instruments and needles were accounted for. No drain was used and no surgical specimen submitted for histopathology. TRANSINT:[id number] Voice Confirmation ID: [id number] DOCUMENT ID: [id number] cc: JENNY Taylor MD at 1613 CC: JOLYNN JAQUEZ MD and RHYS CHURCH [id number] DICTATION DATE: 09/04/19 1547 HIDE TRIMMER: 09/05/19 0123 ADM IN [facility] [address] [place] [address]
--- NOTE | 2019-09-08 19:01 | NUR ---
PT AT REST WITH EYES CLOSED DIALYSIS IS IN PROGRESS IN ROOM
--- NOTE | 2019-09-08 22:14 | NUR ---
HE IS UNABLE TO DO IS OR FLUTTER-TOO SOMNOLENT POST GIALYSIS TO DO.
[2019-09-09] VITALS: BP 150/77
[2019-09-09 04:00] VITALS: BP 125/76
--- NOTE | 2019-09-09 08:00 | NUR ---
PT RESTING IN BED WITH EYES OPEN CALL LIGHT IN REACH WILL MONITER
[2019-09-09 08:18] LABS: BASOPHILS 0.9 % (0-2); EOSINOPHILS 2.8 % (0-7); HEMATOCRIT 33.6 % (42.0-54.0); HEMOGLOBIN 10.6 g/dL (13.5-17.5); IMMATURE GRANULOCYTES 0.2 % (0-5); LYMPHOCYTES 16.2 % (15-50); MCH 28.7 pg (26.0-34.0); MCHC 31.5 g/dL (31.0-37.0); MEAN PLATELET VOLUME 10.4 fL (7.4-10.4); MONOCYTES 15.8 % (2-11); NEUTROPHILS 64.1 % (40-80); PLATELET COUNT 137 10x3/uL (130-400); RBC 3.69 10x6/uL (4.20-6.10); RDW 16.7 % (11.5-14.5); WBC 4.6 10x3/uL (4.8-10.8)
[2019-09-09 08:20] LABS: MCV 91.1 fL (80.0-100.0)
[2019-09-09 08:33] LABS: ANION GAP 20.4 mmol/L (8-16); CALCIUM 11.4 mg/dL (8.5-10.1); CARBON DIOXIDE 23.1 mmol/L (21.0-32.0); POTASSIUM - SERUM 4.5 mmol/L (3.5-5.1)
[2019-09-09 08:35] LABS: CREATININE - SERUM 7.2 mg/dL (0.6-1.3)
[2019-09-09 11:08] VITALS: BP 149/72
[2019-09-09 13:09] VITALS: BP 131/77
--- NOTE | 2019-09-09 15:02 | NUR ---
OT NOTE: PT SLIGHTLY MORE RESPONSIVE TODAY; ABLE TO PERFORM BED MOB INCLUDING SUPINE TO SIT WITHOUT ASSIST; GOOD STATIC SITTING ON EOB; ABLE TO WASH FACE AND HANDS WITH SET UP; TRANSFERRED TO CHAIR WITH MIN ASSIST; AFTER SETTING UP PT TRAY, PT WAS ABLE TO FEED HIMSELF.. REQUIRED ASSIST TO GET STARTED AND AFTER A FEW BITES WITH ASSIST, PT WAS ABLE TO FEED HIMSELF. GABO TURNRE, OTR/L [phone]
--- NOTE | 2019-09-09 15:07 | MORECARE ---
CASE MANAGEMENT DISCHARGE SUMMARY PATIENT: JHONATHAN THRASHER UNIT: [id number] ADM DATE: 08/17/19 AGE: 73 : 47 SEX: M ROOM/BED: D.2103 AUTHOR: SUMIT,DOC PHYSICIAN: REFERRING PHYSICIAN: JOLYNN JAQUEZ MD DATE OF SERVICE: 09/09/19 Discharge Plan Patient Name: JHONATHAN THRASHER Facility: [facility]:[place] : 1945 Planned Disposition: Home Anticipated Discharge Date: Discharge Date: Expected LOS: Initial Reviewer: [email or web address] Initial Review Date: 08/17/2019 Generated: 09/09/19 4:06 pm Comments DCP- Discharge Planning Updated by [email or web address]: Eboni Jiménez on 09/07/19 1:[address] Patient's rectal tube has been removed, patient has ambulated 3". CM contacted Shey with rehab, will re-evaluate again 09/07. DCP- Discharge Planning Updated by [email or web address]: Alta Melendez on 09/05/19 6:[address] CM called and spoke with Rosa from inpatient rehab regarding patient possible admission to rehab. She asked if patient still had rectal tube. JANENE wasn't sure. Rosa stated she would review chart and let CM know if they can accept patient or not. JANENE did get d/c orders for home. JANENE called and spoke with daughter Katherine. CM asked about getting HH set up and she stated that she needed to speak to her Dad but if needed they would want [facility] . CM contacted Rosa with [facility] and she stated that they can admit patient on Saturday. CM for fax over records to [facility]. CM got a call from nursing that discharge was placed on hold per Dr. Navarro. and daughter to come visit with patient this evening to see his status. DCP- Discharge Planning Updated by [email or web address]: Dottie Peralta on 09/01/19 10:[address] CM noted PT notes. I called patient's daughter to discuss post acute care. Patient's daughter states she would like her father to go to inpatient rehab at [facility]. States after discharge from rehab if he needs further therapy, would like outpatient therapy (not home health) at [facility] outpatient PT department. CM placed inpatient rehab screen. CM will continue to follow and assist with discharge planning/needs. DCP- Discharge Planning Updated by [email or web address]: Alta Melendez on 08/24/19 7:[address] Patient Name: JHONATHAN THRASHER Admission Status: ER Accout number: [id number] Admission Date: 08-17-2019 : 1945 Admission Diagnosis:PNEUMONIA, UNSPECIFIED ORGANISM Attending: Jolynn Jaquez Current LOS: 7 Anticipated DC Date: Planned Disposition: Home Primary Insurance: MEDICARE A & B Discharge Planning Comments: CM met with patient to complete initial dc planning assessment. CM educated patient on the CM role and verbal consent given by patient to complete assessment. Patient lives at home with family. Patient is mostly independent. At discharge patient plans to return home and feels this is a safe discharge. CM discussed availability of home health, rehab services, and medical equipment. Patient will have family to transport home. Patient has home hemo dialysis MWF. Patient denied known discharge needs at this time. Patient may need walk test for home 02 if still required at discharge. CM will continue to follow and will assist as needed with dc plans/needs. Animal Caretaker: Alta Melendez DCP- Discharge Planning Updated by [email or web address]: Dottie Fabian on 08/20/19 1:[address] CM went to room to completed discharge planning. He is out of the room at this time. CM will continue to follow and assist with discharge planning/needs. DCPIA - Discharge Planning Initial Assessment Updated by [email or web address]: Alta Melendez on 08/24/19 8:14 pm * Is the patient Alert and Oriented? Yes * How many steps to enter\\exit or inside your home? * PCP Leonid * Pharmacy [facility] * Preadmission Environment Home with Family * ADLs Partial Dependent * Partial ADLs (Assistance needed) Ambulation Bathing Dressing Eating Medication Management Toileting Transfers * Other Equipment walker, w/c * List name and contact numbers for known caregivers / representatives who currently or will assist patient after discharge: Katherine Thrasher - daughter POA - [phone] * Verbal permission to speak to the caregivers and representatives has been obtained from the patient. Yes * Community resources currently utilized None * Additional services required to return to the preadmission environment? No * Can the patient safely return to the preadmission environment? Yes * Has this patient been hospitalized within the prior 30 days at any hospital? No External Providers External Provider: [facility] Next Contact Date: Service Request Date: Service Type: Resolution: Reviewer: Comments: Coverage Notice Reviewer: [email or web address] Royal Peralta Notice Issued Date-Time: 09/01/2019 11:30 Notice Type: Patient Choice Letter Notice Delivered To: Family Member Relationship to Patient: Daughter Shake Backboard Notcher Name: Katherine Thrasher Delivery Method: HAND - Hand Delivered Georgie Days: Prior Verbal Notification: Recipient Understood Notice: Yes Recipient Signature: Yes Med Rec Note Co-signed by Attending: Coverage Notice Comment: [facility]LET for Inpatient rehab at [facility] Last DP export: 09/07/19 1:30 p Patient Name: JHONATHAN THRASHER Page [phone] at 1507 All edits/amendments must be made on the electronic document DICTATION DATE: 09/09/19 1506 WEIGHER PACKING: SINTIA 09/09/19 1506 RPT#: [id number] DC DATE: STATUS: ADM IN [facility] [address] [place] [address] END OF REPORT
--- NOTE | 2019-09-09 15:28 | MORECARE ---
CASE MANAGEMENT DISCHARGE SUMMARY PATIENT: JHONATHAN THRASHER UNIT: [id number] ADM DATE: 08/17/19 AGE: 73 : 47 SEX: M ROOM/BED: D.2103 AUTHOR: SUMIT,DOC PHYSICIAN: REFERRING PHYSICIAN: JOLYNN JAQUEZ MD DATE OF SERVICE: 09/09/19 Discharge Plan Patient Name: JHONATHAN THRASHER Facility: [facility]:[place] : 1945 Planned Disposition: Home Anticipated Discharge Date: Discharge Date: Expected LOS: Initial Reviewer: [email or web address] Initial Review Date: 08/17/2019 Generated: 09/09/19 4:28 pm Comments DCP- Discharge Planning Updated by [email or web address]: Eboni Jiménez on 09/09/19 2:[address] Patient's daughter now wants patient to go into [facility]. Faxed information to Yana at [facility]. Patient Choice and DC IMM signed. DCP- Discharge Planning Updated by [email or web address]: Eboni Jiménez on 09/07/19 1:[address] Patient's rectal tube has been removed, patient has ambulated 3". CM contacted Shey with rehab, will re-evaluate again 09/07. DCP- Discharge Planning Updated by [email or web address]: Alta Melendez on 09/05/19 6:[address] CM called and spoke with Rosa from inpatient rehab regarding patient possible admission to rehab. She asked if patient still had rectal tube. JANENE wasn't sure. Rosa stated she would review chart and let CM know if they can accept patient or not. JANENE did get d/c orders for home. JANENE called and spoke with daughter Katherine. JANENE asked about getting HH set up and she stated that she needed to speak to her Dad but if needed they would want [facility]. JANENE contacted Rosa with [facility] and she stated that they can admit patient on Saturday. JANENE for fax over records to [facility]. JANENE got a call from nursing that discharge was placed on hold per Dr. Navarro. and daughter to come visit with patient this evening to see his status. DCP- Discharge Planning Updated by [email or web address]: Dottie Peralta on 09/01/19 10:[address] CM noted PT notes. I called patient's daughter to discuss post acute care. Patient's daughter states she would like her father to go to inpatient rehab at [facility]. States after discharge from rehab if he needs further therapy, would like outpatient therapy (not home health) at [facility] outpatient PT department. CM placed inpatient rehab screen. CM will continue to follow and assist with discharge planning/needs. DCP- Discharge Planning Updated by [id number]: Alta Melendez on 08/24/19 7:[address] Patient Name: JHONATHAN THRASHER Admission Status: ER Accout number: [id number] Admission Date: 08-17-2019 : 1945 Admission Diagnosis:PNEUMONIA, UNSPECIFIED ORGANISM Attending: Jolynn Jaquez Current LOS: 7 Anticipated DC Date: Planned Disposition: Home Primary Insurance: MEDICARE A & B Discharge Planning Comments: CM met with patient to complete initial dc planning assessment. CM educated patient on the CM role and verbal consent given by patient to complete assessment. Patient lives at home with family. Patient is mostly independent. At discharge patient plans to return home and feels this is a safe discharge. CM discussed availability of home health, rehab services, and medical equipment. Patient will have family to transport home. Patient has home hemo dialysis MWF. Patient denied known discharge needs at this time. Patient may need walk test for home 02 if still required at discharge. CM will continue to follow and will assist as needed with dc plans/needs. Customer Success Specialist: Alta Melendez DCP- Discharge Planning Updated by [email or web address]: Dottie Peralta on 08/20/19 1:[address] CM went to room to completed discharge planning. He is out of the room at this time. CM will continue to follow and assist with discharge planning/needs. DCPIA - Discharge Planning Initial Assessment Updated by [email or web address]: Alta Melendez on 08/24/19 8:14 pm * Is the patient Alert and Oriented? Yes * How many steps to enter\\exit or inside your home? * PCP Leonid * Pharmacy [facility] * Preadmission Environment Home with Family * ADLs Partial Dependent * Partial ADLs (Assistance needed) Ambulation Bathing Dressing Eating Medication Management Toileting Transfers * Other Equipment walker, w/c * List name and contact numbers for known caregivers / representatives who currently or will assist patient after discharge: Katherine Thrasher - daughter POA - [phone] * Verbal permission to speak to the caregivers and representatives has been obtained from the patient. Yes * Community resources currently utilized None * Additional services required to return to the preadmission environment? No * Can the patient safely return to the preadmission environment? Yes * Has this patient been hospitalized within the prior 30 days at any hospital? No Coverage Notice Reviewer: [email or web address] Royal Peralta Notice Issued Date-Time: 09/01/2019 11:30 Notice Type: Patient Choice Letter Notice Delivered To: Family Member Relationship to Patient: Daughter Composer Teaching Artist Name: Katherine Thrasher Delivery Method: HAND - Hand Delivered Georgie Days: Prior Verbal Notification: Recipient Understood Notice: Yes Recipient Signature: Yes Med Rec Note Co-signed by Attending: Coverage Notice Comment: ARLET for Inpatient rehab at [facility] Last DP export: 09/09/19 2:07 pm Patient Name: JHONATHAN THRASHER Page [id number] at 1528 All edits/amendments must be made on the electronic document DICTATION DATE: 09/09/19 1528 DRYWALL HANGER: SINTIA 09/09/19 1528 RPT#: [id number] DC DATE: STATUS: ADM IN [facility] [address] [place] [address] END OF REPORT
--- NOTE | 2019-09-09 15:31 | NUR ---
PT RESTING IN BED EYES OPEN CALL LIGHT IN REACH WILL MONITER
--- NOTE | 2019-09-09 15:33 | NUR ---
OT NOTE: PT COMPLETED SUPINE TO SIT WITH MIN A. PT COMPLETED SIT TO STAND WITH MIN A. PT COMPLETED UB HYGIENE WITH MOD A. 1-995 THANK YOU,VIOLA WATSON
--- NOTE | 2019-09-09 15:54 | NUR ---
I have reviewed this patient and I concur with the Shift Assessment completed by the Licensed Practical Nurse today this shift.
--- NOTE | 2019-09-09 16:43 | MORECARE ---
CASE MANAGEMENT DISCHARGE SUMMARY PATIENT: JHONATHAN THRASHER UNIT: [id number] ADM DATE: 08/17/19 AGE: 73 : [birth year] SEX: M ROOM/BED: D.2103 AUTHOR: SUMIT,DOC PHYSICIAN: REFERRING PHYSICIAN: JOLYNN JAQUEZ MD DATE OF SERVICE: 09/09/19 Discharge Plan Patient Name: JHONATHAN THRASHER Facility: [facility]:[place] : 1945 Planned Disposition: Home Anticipated Discharge Date: Discharge Date: Expected LOS: Initial Reviewer: [email or web address] Initial Review Date: 08/17/2019 Generated: 09/09/19 5:43 pm Comments DCP- Discharge Planning Updated by [email or web address]: Eboni Jiménez on 09/09/19 3:[address] Patient's daughter now wants patient to go into [facility]. Faxed information to Yana at [facility]. Patient Choice and DC IMM signed. daughter refuses for the patient to go into a SNF. DCP- Discharge Planning Updated by [email or web address]: Eboni Jiménez on 09/07/19 1:[address] Patient's rectal tube has been removed, patient has ambulated 3". CM contacted Shey with rehab, will re-evaluate again 09/07. DCP- Discharge Planning Updated by [id number]: Alta Melendez on 09/05/19 6:[address] JANENE called and spoke with Rosa from inpatient rehab regarding patient possible admission to rehab. She asked if patient still had rectal tube. JANENE wasn't sure. Rosa stated she would review chart and let CM know if they can accept patient or not. JANENE did get d/c orders for home. JANENE called and spoke with daughter Katherine. JANENE asked about getting HH set up and she stated that she needed to speak to her Dad but if needed they would want [facility]. JANENE contacted Rosa with [facility] and she stated that they can admit patient on Saturday. CM for fax over records to [facility]. JANENE got a call from nursing that discharge was placed on hold per Dr. Navarro. and daughter to come visit with patient this evening to see his status. DCP- Discharge Planning Updated by [email or web address]: Dottie Peralta on 09/01/19 10:[address] CM noted PT notes. I called patient's daughter to discuss post acute care. Patient's daughter states she would like her father to go to inpatient rehab at [facility]. States after discharge from rehab if he needs further therapy, would like outpatient therapy (not home health) at [facility] outpatient PT department. CM placed inpatient rehab screen. CM will continue to follow and assist with discharge planning/needs. DCP- Discharge Planning Updated by [email or web address]: Alta Melendez on 08/24/19 7:[address] Patient Name: JHONATHAN THRASHER Admission Status: ER Accout number: [id number] Admission Date: 08-17-2019 : 1945 Admission Diagnosis:PNEUMONIA, UNSPECIFIED ORGANISM Attending: Jolynn Jaquez Current LOS: 7 Anticipated DC Date: Planned Disposition: Home Primary Insurance: MEDICARE A & B Discharge Planning Comments: CM met with patient to complete initial dc planning assessment. CM educated patient on the CM role and verbal consent given by patient to complete assessment. Patient lives at home with family. Patient is mostly independent. At discharge patient plans to return home and feels this is a safe discharge. CM discussed availability of home health, rehab services, and medical equipment. Patient will have family to transport home. Patient has home hemo dialysis MWF. Patient denied known discharge needs at this time. Patient may need walk test for home 02 if still required at discharge. CM will continue to follow and will assist as needed with dc plans/needs. Software Specialist: Alta Melendez DCP- Discharge Planning Updated by [id number]: Dottie Peralta on 08/20/19 1:[address] CM went to room to completed discharge planning. He is out of the room at this time. CM will continue to follow and assist with discharge planning/needs. DCPIA - Discharge Planning Initial Assessment Updated by [id number]: Alta Melendez on 08/24/19 8:14 pm * Is the patient Alert and Oriented? Yes * How many steps to enter\\exit or inside your home? * PCP Leonid * Pharmacy [facility] * Preadmission Environment Home with Family * ADLs Partial Dependent * Partial ADLs (Assistance needed) Ambulation Bathing Dressing Eating Medication Management Toileting Transfers * Other Equipment walker, w/c * List name and contact numbers for known caregivers / representatives who currently or will assist patient after discharge: Katherine Thrasher - daughter POA - [phone] * Verbal permission to speak to the caregivers and representatives has been obtained from the patient. Yes * Community resources currently utilized None * Additional services required to return to the preadmission environment? No * Can the patient safely return to the preadmission environment? Yes * Has this patient been hospitalized within the prior 30 days at any hospital? No Coverage Notice Reviewer: [id number] Royal Peralta Notice Issued Date-Time: 09/01/2019 11:30 Notice Type: Patient Choice Letter Notice Delivered To: Family Member Relationship to Patient: Daughter Sheet Layer Name: Katherine Thrasher Delivery Method: HAND - Hand Delivered Georgie Days: Prior Verbal Notification: Recipient Understood Notice: Yes Recipient Signature: Yes Med Rec Note Co-signed by Attending: Coverage Notice Comment: [facility]LET for Inpatient rehab at [facility] Last DP export: 09/09/19 2:28 pm Patient Name: JHONATHAN THRASHER Page [id number] at 1643 All edits/amendments must be made on the electronic document DICTATION DATE: 09/09/19 164 COMPUTER OPERATOR: SINTIA 09/09/191642 RPT#: [id number] DC DATE: STATUS: ADM IN [facility] [address] [place] [address] END OF REPORT
--- NOTE | 2019-09-09 16:50 | MORECARE ---
CASE MANAGEMENT DISCHARGE SUMMARY PATIENT: JHONATHAN THRASHER UNIT: [id number] ADM DATE: 08/17/19 AGE: 73 : 47 SEX: M ROOM/BED: D.2103 AUTHOR: SUMIT,DOC PHYSICIAN: REFERRING PHYSICIAN: JOLYNN JAQUEZ MD DATE OF SERVICE: 09/09/19 Discharge Plan Patient Name: JHONATHAN THRASHER Facility: [facility]:[place] : 1945 Planned Disposition: Home Anticipated Discharge Date: Discharge Date: Expected LOS: Initial Reviewer: [email or web address] Initial Review Date: 08/17/2019 Generated: 09/09/19 5:49 pm Comments DCP- Discharge Planning Updated by [id number]: Eboni Jiménez on 09/09/19 3:48 pm [facility] has approved patient for admission. Patient's daughter now wants patient to go into [facility]. Faxed information to Yana at [facility]. Patient Choice and DC IMM signed. daughter refuses for the patient to go into a SNF. DCP- Discharge Planning Updated by [email or web address]: Eboni Jiménez on 09/07/19 1:[address] Patient's rectal tube has been removed, patient has ambulated 3". CM contacted Shey with rehab, will re-evaluate again 09/07. DCP- Discharge Planning Updated by [email or web address]: Alta Melendez on 09/05/19 6:[address] JANENE called and spoke with Rosa from inpatient rehab regarding patient possible admission to rehab. She asked if patient still had rectal tube. JANENE wasn't sure. Rosa stated she would review chart and let CM know if they can accept patient or not. JANENE did get d/c orders for home. JANENE called and spoke with daughter Katherine. JANENE asked about getting HH set up and she stated that she needed to speak to her Dad but if needed they would want [facility]. JANENE contacted Rosa with [facility] and she stated that they can admit patient on Saturday. CM for fax over records to [facility]. JANENE got a call from nursing that discharge was placed on hold per Dr. Navarro. and daughter to come visit with patient this evening to see his status. DCP- Discharge Planning Updated by [id number]: Dottie Peralta on 09/01/19 10:[address] CM noted PT notes. I called patient's daughter to discuss post acute care. Patient's daughter states she would like her father to go to inpatient rehab at [facility]. States after discharge from rehab if he needs further therapy, would like outpatient therapy (not home health) at [facility] outpatient PT department. CM placed inpatient rehab screen. CM will continue to follow and assist with discharge planning/needs. DCP- Discharge Planning Updated by [email or web address]: Alta Melendez on 08/24/19 7:[address] Patient Name: JHONATHAN THRASHER Admission Status: ER Accout number: [id number] Admission Date: 08-17-2019 : 1945 Admission Diagnosis:PNEUMONIA, UNSPECIFIED ORGANISM Attending: Jolynn Jaquez Current LOS: 7 Anticipated DC Date: Planned Disposition: Home Primary Insurance: MEDICARE A & B Discharge Planning Comments: CM met with patient to complete initial dc planning assessment. CM educated patient on the CM role and verbal consent given by patient to complete assessment. Patient lives at home with family. Patient is mostly independent. At discharge patient plans to return home and feels this is a safe discharge. CM discussed availability of home health, rehab services, and medical equipment. Patient will have family to transport home. Patient has home hemo dialysis MWF. Patient denied known discharge needs at this time. Patient may need walk test for home 02 if still required at discharge. CM will continue to follow and will assist as needed with dc plans/needs. Spike Driver: Alta Melendez DCP- Discharge Planning Updated by [email or web address]: Dottie Peralta on 08/20/19 1:[address] CM went to room to completed discharge planning. He is out of the room at this time. CM will continue to follow and assist with discharge planning/needs. DCPIA - Discharge Planning Initial Assessment Updated by [email or web address]: Alta Melendez on 08/24/19 8:14 pm * Is the patient Alert and Oriented? Yes * How many steps to enter\\exit or inside your home? * PCP Leonid * Pharmacy [facility] * Preadmission Environment Home with Family * ADLs Partial Dependent * Partial ADLs (Assistance needed) Ambulation Bathing Dressing Eating Medication Management Toileting Transfers * Other Equipment walker, w/c * List name and contact numbers for known caregivers / representatives who currently or will assist patient after discharge: Katherine Thrasher - daughter POA - [phone] * Verbal permission to speak to the caregivers and representatives has been obtained from the patient. Yes * Community resources currently utilized None * Additional services required to return to the preadmission environment? No * Can the patient safely return to the preadmission environment? Yes * Has this patient been hospitalized within the prior 30 days at any hospital? No Coverage Notice Reviewer: [id number] Royal Peralta Notice Issued Date-Time: 09/01/2019 11:30 Notice Type: Patient Choice Letter Notice Delivered To: Family Member Relationship to Patient: Daughter Crystal Lapper Name: Katherine Thrasher Delivery Method: HAND - Hand Delivered Georgie Days: Prior Verbal Notification: Recipient Understood Notice: Yes Recipient Signature: Yes Med Rec Note Co-signed by Attending: Coverage Notice Comment: ARLET for Inpatient rehab at [facility] Last DP export: 09/09/19 3:44 pm Patient Name: JHONATHAN THRASHER Page [phone] at 1650 All edits/amendments must be made on the electronic document DICTATION DATE: 09/09/191649 EARTH SCIENCE TECHNICAL OFFICER: SINTIA 09/09/191649 RPT#: [id number] DC DATE: STATUS: ADM IN [facility] [address] [place] [address] END OF REPORT
--- NOTE | 2019-09-09 19:00 | NUR ---
REPORT RECEIVED, WILL CONTINUE POC. PATIENT IS AAOX2, LYING IN SEMI-FOWLERS POSITION. NO S/S OF DISTRESS OBSERVED, RR EVEN AND UNLABORED ON 2L I2 VIA NC. PATIENT DENIES NEEDS AT THIS TIME. CL IN REACH, BED LOCKED AND LOWERED. WILL CTM.
[2019-09-09 20:00] VITALS: BP 154/74
[2019-09-10] VITALS: BP 128/74
--- NOTE | 2019-09-10 01:12 | NUR ---
PATIENT HAD LARGE INCONTINENT BM. PATIENT CLEANED UP, BUTT PASTE APPLIED. LINENS CHANGED.
--- NOTE | 2019-09-10 02:13 | NUR ---
20G PIV INSERTED TO LT WRIST X1 ATTEMPT, GOOD BLOOD RETURN, FLUSHED WITH EASE. PATIENT TOLERATED WELL.
--- NOTE | 2019-09-10 03:52 | NUR ---
I have reviewed this patient and I concur with the Shift Assessment completed by the Licensed Practical Nurse today this shift.
[2019-09-10 04:00] VITALS: BP 165/81
[2019-09-10 08:34] VITALS: BP 165/75
[2019-09-10 12:00] VITALS: BP 153/79
--- NOTE | 2019-09-10 12:09 | NUR ---
OT NOTE: BED MOB WITH MIN ASSIST; TOILETING WITH CGA; SIMPLE GROOMING WITH SET UP; FUNCTIONAL TRANSFERS WITH CGA GABO TURNER, OTR/L [phone]
--- NOTE | 2019-09-10 12:14 | NUR ---
OT NOTE: PT INITIALLY IN BED; VERY SLOW PROCESSING FOR VERBAL COMMANDS TODAY; BED MOB WITH MIN ASSIST; MOD ASSIST FOR DOFFING/DONNING SHIRT; MIN ASSIST FOR SIMPLE GROOMING; SIT TO STAND WITH MOD ASSIST; FUNCTIONAL TRANSFERS WITH MIN/MOD ASSIST. GABO TURNER, OTR/L [phone]
--- NOTE | 2019-09-10 13:19 | MORECARE ---
CASE MANAGEMENT DISCHARGE SUMMARY PATIENT: JHONATHAN THRASHER UNIT: [id number] ADM DATE: 08/17/19 AGE: 73 : 47 SEX: M ROOM/BED: D.2103 AUTHOR: SUMIT,DOC PHYSICIAN: REFERRING PHYSICIAN: JOLYNN JAQUEZ MD DATE OF SERVICE: 09/10/19 Discharge Plan Patient Name: JHONATHAN THRASHER Facility: [facility]:[place] : 1945 Planned Disposition: Home Anticipated Discharge Date: Discharge Date: Expected LOS: Initial Reviewer: [email or web address] Initial Review Date: 08/17/2019 Generated: 09/10/19 2:19 pm Comments DCP- Discharge Planning Updated by [email or web address]: Eboni Jiménez on 09/10/19 12:[address] DC today to [facility] via their van. DCP- Discharge Planning Updated by [email or web address]: Eboni Jiménez on 09/09/19 3:[address] [facility] has approved patient for admission. Patient's daughter now wants patient to go into [facility]. Faxed information to Yana at [facility]. Patient Choice and DC IMM signed. daughter refuses for the patient to go into a SNF. DCP- Discharge Planning Updated by [id number]: Eboni Jiménez on 09/07/19 1:[address] Patient's rectal tube has been removed, patient has ambulated 3". CM contacted Shey with rehab, will re-evaluate again 09/07. DCP- Discharge Planning Updated by [id number]: Alta Melendez on 09/05/19 6:[address] CM called and spoke with Roas from inpatient rehab regarding patient possible admission to rehab. She asked if patient still had rectal tube. JANENE wasn't sure. Rosa stated she would review chart and let CM know if they can accept patient or not. JANENE did get d/c orders for home. JANENE called and spoke with daughter Katherine. JANENE asked about getting HH set up and she stated that she needed to speak to her Dad but if needed they would want [facility]. CM contacted Rosa with [facility] and she stated that they can admit patient on Saturday. CM for fax over records to [facility]. CM got a call from nursing that discharge was placed on hold per Dr. Navarro. and daughter to come visit with patient this evening to see his status. DCP- Discharge Planning Updated by [email or web address]: Dottie Peralta on 09/01/19 10:[address] CM noted PT notes. I called patient's daughter to discuss post acute care. Patient's daughter states she would like her father to go to inpatient rehab at [facility]. States after discharge from rehab if he needs further therapy, would like outpatient therapy (not home health) at [facility] outpatient PT department. CM placed inpatient rehab screen. CM will continue to follow and assist with discharge planning/needs. DCP- Discharge Planning Updated by [id number]: Alta Melendez on 08/24/19 7:[address] Patient Name: JHONATHAN THRASHER Admission Status: ER Accout number: [id number] Admission Date: 08-17-2019 : 1945 Admission Diagnosis:PNEUMONIA, UNSPECIFIED ORGANISM Attending: Jolynn Jaquez Current LOS: 7 Anticipated DC Date: Planned Disposition: Home Primary Insurance: MEDICARE A & B Discharge Planning Comments: CM met with patient to complete initial dc planning assessment. CM educated patient on the CM role and verbal consent given by patient to complete assessment. Patient lives at home with family. Patient is mostly independent. At discharge patient plans to return home and feels this is a safe discharge. CM discussed availability of home health, rehab services, and medical equipment. Patient will have family to transport home. Patient has home hemo dialysis MWF. Patient denied known discharge needs at this time. Patient may need walk test for home 02 if still required at discharge. CM will continue to follow and will assist as needed with dc plans/needs. Contracting Analyst: Alta Melendez DCP- Discharge Planning Updated by [email or web address]: Dottie Peralta on 08/20/19 1:[address] CM went to room to completed discharge planning. He is out of the room at this time. CM will continue to follow and assist with discharge planning/needs. DCPIA - Discharge Planning Initial Assessment Updated by [id number]: Alta Melendez on 08/24/19 8:14 pm * Is the patient Alert and Oriented? Yes * How many steps to enter\\exit or inside your home? * PCP Leonid * Pharmacy [facility] * Preadmission Environment Home with Family * ADLs Partial Dependent * Partial ADLs (Assistance needed) Ambulation Bathing Dressing Eating Medication Management Toileting Transfers * Other Equipment walker, w/c * List name and contact numbers for known caregivers / representatives who currently or will assist patient after discharge: Katherine Thrasher - daughter POA - [phone] * Verbal permission to speak to the caregivers and representatives has been obtained from the patient. Yes * Community resources currently utilized None * Additional services required to return to the preadmission environment? No * Can the patient safely return to the preadmission environment? Yes * Has this patient been hospitalized within the prior 30 days at any hospital? No Coverage Notice Reviewer: [email or web address] Royal Peralta Notice Issued Date-Time: 09/01/2019 11:30 Notice Type: Patient Choice Letter Notice Delivered To: Family Member Relationship to Patient: Daughter Candle Extrusion Machine Operator Name: Katherine Thrasher Delivery Method: HAND - Hand Delivered Georgie Days: Prior Verbal Notification: Recipient Understood Notice: Yes Recipient Signature: Yes Med Rec Note Co-signed by Attending: Coverage Notice Comment: ARLET for Inpatient rehab at [facility] Last DP export: 09/09/19 3:50 pm Patient Name: JHONATHAN THRASHER Page [id number] at 1319 All edits/amendments must be made on the electronic document DICTATION DATE: 09/10/19 131 COAL EQUIPMENT OPERATOR: SINTIA 09/10/19 1319 RPT#: [id number] DC DATE: STATUS: ADM IN [facility] [address] [place] [address] END OF REPORT
--- NOTE | 2019-09-10 16:30 | NUR ---
REPORT CALLED TO TIMA VOGEL AT [facility]. ADELIA TO SPECIAL CLASS WELDER BETWEEN [phone].
--- NOTE | 2019-09-10 18:23 | NUR ---
PT ASSISTED INTO CHAIR FOR [facility]. BELONGINGS SENT. PACKET GIVEN TO CLIENT ANALYST.
--- NOTE | 2019-09-11 06:36 | NUR ---
OT NOTE: (DOS 09/10/2019) PT REQUIRED MIN A FOR SUPINE TO SIT WITH EXENTENSIVE VERBAL CUES. PT COMPLETED EOB SITTING WITH MIN A. PT REQUIRED MIN/MOD A WITH AAMIR/DOFF SOCKS. PT COMPLETED FACE WASH WITH MIN A. [phone] [facility]
--- NOTE | 2019-09-11 15:16 | MORECARE ---
CASE MANAGEMENT DISCHARGE SUMMARY PATIENT: JHONATHAN THRASHER UNIT: [id number] ADM DATE: 08/17/19 AGE: 73 : [birth year] SEX: M ROOM/BED: D.2103 AUTHOR: SUMIT,DOC PHYSICIAN: REFERRING PHYSICIAN: JOLYNN JAQUEZ MD DATE OF SERVICE: 09/11/19 Discharge Plan Patient Name: JHONATHAN THRASHER Facility: [facility]:[place] : 1945 Planned Disposition: Home Anticipated Discharge Date: Discharge Date: 09/10/2019 Expected LOS: Initial Reviewer: [email or web address] Initial Review Date: 08/17/2019 Generated: 09/11/19 4:15 pm Comments DCP- Discharge Planning Updated by [email or web address]: Eboni Jiménez on 09/10/19 12:[address] DC today to [facility] via their van. DCP- Discharge Planning Updated by [email or web address]: Eboni Jiménez on 09/09/19 3:[address] [facility] has approved patient for admission. Patient's daughter now wants patient to go into [facility]. Faxed information to Yana at [facility]. Patient Choice and DC IMM signed. daughter refuses for the patient to go into a SNF. DCP- Discharge Planning Updated by [id number]: Eboni Jiménez on 09/07/19 1:[address] Patient's rectal tube has been removed, patient has ambulated 3". CM contacted Shey with rehab, will re-evaluate again 09/07. DCP- Discharge Planning Updated by [email or web address]: Alta Melendez on 09/05/19 6:[address] CM called and spoke with Rosa from inpatient rehab regarding patient possible admission to rehab. She asked if patient still had rectal tube. JANENE wasn't sure. Rosa stated she would review chart and let CM know if they can accept patient or not. JANENE did get d/c orders for home. JANENE called and spoke with cynthia Murphy. JANENE asked about getting HH set up and she stated that she needed to speak to her Dad but if needed they would want [facility]. JANENE contacted Rosa with [facility] and she stated that they can admit patient on Saturday. CM for fax over records to [facility]. CM got a call from nursing that discharge was placed on hold per Dr. Navarro. and daughter to come visit with patient this evening to see his status. DCP- Discharge Planning Updated by [email or web address]: Dottie Peralta on 09/01/19 10:[address] CM noted PT notes. I called patient's daughter to discuss post acute care. Patient's daughter states she would like her father to go to inpatient rehab at [facility]. States after discharge from rehab if he needs further therapy, would like outpatient therapy (not home health) at [facility] outpatient PT department. CM placed inpatient rehab screen. CM will continue to follow and assist with discharge planning/needs. DCP- Discharge Planning Updated by [email or web address]: Alta Melendez on 08/24/19 7:[address] Patient Name: JHONATHAN THRASHER Admission Status: ER Accout number: [id number] Admission Date: 08-17-2019 : 1945 Admission Diagnosis:PNEUMONIA, UNSPECIFIED ORGANISM Attending: Jolynn Jaquez Current LOS: 7 Anticipated DC Date: Planned Disposition: Home Primary Insurance: MEDICARE A & B Discharge Planning Comments: CM met with patient to complete initial dc planning assessment. CM educated patient on the CM role and verbal consent given by patient to complete assessment. Patient lives at home with family. Patient is mostly independent. At discharge patient plans to return home and feels this is a safe discharge. CM discussed availability of home health, rehab services, and medical equipment. Patient will have family to transport home. Patient has home hemo dialysis MWF. Patient denied known discharge needs at this time. Patient may need walk test for home 02 if still required at discharge. CM will continue to follow and will assist as needed with dc plans/needs. Director Industrial Relations: Alta Melendez DCP- Discharge Planning Updated by [id number]: Dottie Peralta on 08/20/19 1:[address] CM went to room to completed discharge planning. He is out of the room at this time. CM will continue to follow and assist with discharge planning/needs. DCPIA - Discharge Planning Initial Assessment Updated by [id number]: Alta Melendez on 08/24/19 8:14 pm * Is the patient Alert and Oriented? Yes * How many steps to enter\\exit or inside your home? * PCP Leonid * Pharmacy [facility] * Preadmission Environment Home with Family * ADLs Partial Dependent * Partial ADLs (Assistance needed) Ambulation Bathing Dressing Eating Medication Management Toileting Transfers * Other Equipment walker, w/c * List name and contact numbers for known caregivers / representatives who currently or will assist patient after discharge: Katherine Thrasher - daughter POA - [phone] * Verbal permission to speak to the caregivers and representatives has been obtained from the patient. Yes * Community resources currently utilized None * Additional services required to return to the preadmission environment? No * Can the patient safely return to the preadmission environment? Yes * Has this patient been hospitalized within the prior 30 days at any hospital? No Coverage Notice Reviewer: [email or web address] Royal Peralta Notice Issued Date-Time: 09/01/2019 11:30 Notice Type: Patient Choice Letter Notice Delivered To: Family Member Relationship to Patient: Daughter Shell Mold Bonder Name: Katherine Thrasher Delivery Method: HAND - Hand Delivered Georgie Days: Prior Verbal Notification: Recipient Understood Notice: Yes Recipient Signature: Yes Med Rec Note Co-signed by Attending: Coverage Notice Comment: ARLET for Inpatient rehab at [facility] Last DP export: 09/10/19 12:19 pm Patient Name: JHONATHAN THRASHER Page [id number] at 1516 All edits/amendments must be made on the electronic document DICTATION DATE: 09/11/19 1515 OFFICE WORKER: SINTIA 09/11/19 1515 RPT#: [id number] DC DATE:09/10/19 STATUS: DIS IN [facility] [address] [place] [address] END OF REPORT
== END 2019-09-10 18:24 | DRG 314 ==
LOC: D.ER 12:32 → D.ICU 14:58 → D.M2 14:58 → D.ICU 14:58 → D.M2 08-18 18:35 → D.ICU 08-20 18:32 → D.M2 08-25 20:09
PROVIDERS: Family Medicine; Internal Medicine Nephrology; Internal Medicine Pulmonary Disease; Surgery; ADMIT Internal Medicine Nephrology; ATTEND Internal Medicine Nephrology
PROC: 05HM33Z Insertion of Infusion Device into Right Internal Jugular Vein, Percutaneous Approach (ICD-10-PCS; principal; 2019-08-20 13:00)
PROC: 0B9B8ZZ Drainage of Left Lower Lobe Bronchus, Via Natural or Artificial Opening Endoscopic (ICD-10-PCS; 2019-08-21)
PROC: 0B948ZZ Drainage of Right Upper Lobe Bronchus, Via Natural or Artificial Opening Endoscopic (ICD-10-PCS; 2019-08-21)
PROC: 0B988ZZ Drainage of Left Upper Lobe Bronchus, Via Natural or Artificial Opening Endoscopic (ICD-10-PCS; 2019-08-21)
PROC: 0B938ZZ Drainage of Right Main Bronchus, Via Natural or Artificial Opening Endoscopic (ICD-10-PCS; 2019-08-21)
PROC: 0B978ZZ Drainage of Left Main Bronchus, Via Natural or Artificial Opening Endoscopic (ICD-10-PCS; 2019-08-21)
PROC: 0B968ZZ Drainage of Right Lower Lobe Bronchus, Via Natural or Artificial Opening Endoscopic (ICD-10-PCS; 2019-08-21)
PROC: 05PY33Z Removal of Infusion Device from Upper Vein, Percutaneous Approach (ICD-10-PCS; 2019-09-04)
PROC: 05HM33Z Insertion of Infusion Device into Right Internal Jugular Vein, Percutaneous Approach (ICD-10-PCS; 2019-09-04)
DX: T80.219A Unspecified infection due to central venous catheter, initial encounter (principal); N18.6 End stage renal disease; J69.0 Pneumonitis due to inhalation of food and vomit; A41.9 Sepsis, unspecified organism; I12.0 Hypertensive chronic kidney disease with stage 5 chronic kidney disease or end stage renal disease; I47.2 Ventricular tachycardia; E87.1 Hypo-osmolality and hyponatremia; J44.1 Chronic obstructive pulmonary disease with (acute) exacerbation; E11.22 Type 2 diabetes mellitus with diabetic chronic kidney disease; Z99.2 Dependence on renal dialysis; I95.9 Hypotension, unspecified; D63.1 Anemia in chronic kidney disease; I48.91 Unspecified atrial fibrillation; D50.9 Iron deficiency anemia, unspecified; F41.8 Other specified anxiety disorders; M19.90 Unspecified osteoarthritis, unspecified site; R53.81 Other malaise; R19.7 Diarrhea, unspecified; I95.89 Other hypotension; T17.990A Other foreign object in respiratory tract, part unspecified in causing asphyxiation, initial encounter; E83.52 Hypercalcemia

== ENCOUNTER 2019-09-15 13:05 | Inpatient (IN) | payer MEDICARE ==
[~2019-09-15] VITALS: Ht 190.5 cm; Wt 79.4 kg
[~2019-09-15 13:05] MED LIST changes: +LANOXIN125 MCG PO
[2019-09-15 13:56] VITALS: BP 120/63; BMI 21.9
--- NOTE | 2019-09-15 14:43 | NUR ---
UNABLE TO GET IV OR BLOOD DRAW AFTER MULTIPLE ATTEMPTS, PUBLIC HEALTH ANALYST DR MARQUES ABOUT USING HEMOSPLIT FOR BLOOD DRAW
[2019-09-15 15:00] VITALS: BP 104/687
--- NOTE | 2019-09-15 15:26 | NUR ---
SPOKE WITH DR. HANSON ABOUT IV ACCESS, SHE ADVISED THAT SHE WOULD HAVE A DIALYSIS NURSE DRAW BLOOD FROM HEMOSPLIT AND TO ADMIT THE PATIENT WITHOUT LABS OR ACCESS
[2019-09-15 15:34] LABS: BILIRUBIN NEGATIVE (NEGATIVE); GLUCOSE NEGATIVE (NEGATIVE); KETONE NEGATIVE (NEGATIVE); NITRITE NEGATIVE (NEGATIVE); UROBILINOGEN NORMAL (NORMAL)
[2019-09-15 15:38] LABS: BACTERIA MODERATE /hpf (NEGATIVE); RED CELLS - URINE 0-5 /hpf (0-5); WHITE CELLS - URINE 0-5 /hpf (NEGATIVE)
[2019-09-15 16:00] VITALS: BP 136/46
--- NOTE | 2019-09-15 16:44 | NUR ---
PT HAS SCABS ON #2 TOE ON RIGHT FOOT AND #3 TOE ON LEFT. EXCORIATION ON BUTTOCKS, SCROTUM AND GROIN. RECOMMENDED KEEPING TOES OPEN TO AIR AND APPLYING CALMOSEPTINE CREAM TO BUTTOCKS, SCROTUM AND GROIN. WOUND CARE WILL CONTINUE MONITORING.
[2019-09-15 17:00] VITALS: BP 114/36
--- NOTE | 2019-09-15 19:00 | NUR ---
RECEIVED BEDSIDE REPORT. PATIENT RESTING COMFORTABLY IN BED. NO S/S OF DISTRESS. NO C/O PAIN. CALL LIGHT WITHIN REACH. WILL CPOC.
[2019-09-15 20:00] VITALS: BP 153/51
[2019-09-15] MEDS ORDERED: HUMALOG 30100 UNITS/ SC (22:32)
[2019-09-16] VITALS: BP 142/65
[2019-09-16 04:00] VITALS: BP 163/71
--- NOTE | 2019-09-16 07:20 | NUR ---
RECIEVE REPORT. RESTING IN BED WITH EYES CLOSED. RESPIRATIONS EVEN AND NONLABORED. CONTINUE PLAN OF CARE AND SAFETY PRECAUTIONS.
[2019-09-16 09:41] VITALS: BP 160/81
[2019-09-16 13:43] VITALS: BP 157/82
[2019-09-16 14:14] VITALS: BMI 21.8
--- NOTE | 2019-09-16 16:34 | NUR ---
RESTING IN BED WATCHING TV. RETURN DAUGHTER'S PHONE CALL. MESSAGE LEFT ON ANSWERING MACHINE.
[2019-09-16 17:16] VITALS: BP 134/70
--- NOTE | 2019-09-16 19:10 | NUR ---
DIALYSIS CURRENTLY IN PROGRESS IN PTS ROOM.
[2019-09-16 19:11] LABS: BASOPHILS 0.5 % (0-2); EOSINOPHILS 5.7 % (0-7); HEMATOCRIT 32.3 % (42.0-54.0); HEMOGLOBIN 10.3 g/dL (13.5-17.5); IMMATURE GRANULOCYTES 0.2 % (0-5); LYMPHOCYTES 15.4 % (15-50); MCH 28.9 pg (26.0-34.0); MCHC 31.9 g/dL (31.0-37.0); MCV 90.5 fL (80.0-100.0); MEAN PLATELET VOLUME 10.4 fL (7.4-10.4); MONOCYTES 9.6 % (2-11); NEUTROPHILS 68.6 % (40-80); PLATELET COUNT 156 10x3/uL (130-400); RBC 3.57 10x6/uL (4.20-6.10); RDW 16.5 % (11.5-14.5); WBC 5.6 10x3/uL (4.8-10.8)
[2019-09-16 19:19] LABS: ANION GAP 16.1 mmol/L (8-16); CALCIUM 11.6 mg/dL (8.5-10.1); CARBON DIOXIDE 25.4 mmol/L (21.0-32.0); CREATININE - SERUM 12.4 mg/dL (0.6-1.3); POTASSIUM - SERUM 5.5 mmol/L (3.5-5.1)
[2019-09-16 20:00] VITALS: BP 104/71
[2019-09-17] VITALS: BP 105/67
--- NOTE | 2019-09-17 02:46 | NUR ---
RESTING WITH EYES CLOSED, RESPERATIONS EVEN, NO S/S DISTRESS NOTED.
[2019-09-17 04:00] VITALS: BP 102/69
[2019-09-17 05:38] LABS: BASOPHILS 0.5 % (0-2); EOSINOPHILS 4.9 % (0-7); HEMATOCRIT 35.2 % (42.0-54.0); HEMOGLOBIN 10.9 g/dL (13.5-17.5); IMMATURE GRANULOCYTES 0.2 % (0-5); LYMPHOCYTES 17.3 % (15-50); MCH 28.3 pg (26.0-34.0); MCV 91.4 fL (80.0-100.0); MONOCYTES 9.7 % (2-11); NEUTROPHILS 67.4 % (40-80); PLATELET COUNT 127 10x3/uL (130-400); RBC 3.85 10x6/uL (4.20-6.10); RDW 16.4 % (11.5-14.5); WBC 5.9 10x3/uL (4.8-10.8)
[2019-09-17 06:02] LABS: ANION GAP 15.7 mmol/L (8-16); CALCIUM 10.9 mg/dL (8.5-10.1); CARBON DIOXIDE 26.2 mmol/L (21.0-32.0); PHOSPHOROUS 4.3 mg/dL (2.5-4.9); POTASSIUM - SERUM 4.9 mmol/L (3.5-5.1)
[2019-09-17 06:04] LABS: CREATININE - SERUM 8.4 mg/dL (0.6-1.3)
[2019-09-17 11:22] VITALS: BP 157/74
[2019-09-17 14:57] VITALS: BP 126/65
[2019-09-17 18:54] VITALS: BP 143/70
[2019-09-17 20:00] VITALS: BP 139/68
[2019-09-18] VITALS: BP 151/69
[2019-09-18 04:00] VITALS: BP 149/85
[2019-09-18 05:01] LABS: BASOPHILS 0.5 % (0-2); EOSINOPHILS 3.5 % (0-7); HEMATOCRIT 32.3 % (42.0-54.0); HEMOGLOBIN 10.2 g/dL (13.5-17.5); IMMATURE GRANULOCYTES 0.3 % (0-5); LYMPHOCYTES 16.7 % (15-50); MCH 28.3 pg (26.0-34.0); MCHC 31.6 g/dL (31.0-37.0); MCV 89.7 fL (80.0-100.0); MEAN PLATELET VOLUME 10.6 fL (7.4-10.4); MONOCYTES 9.9 % (2-11); NEUTROPHILS 69.1 % (40-80); RDW 16.3 % (11.5-14.5); WBC 6.6 10x3/uL (4.8-10.8)
[2019-09-18 05:06] LABS: PLATELET COUNT 157 10x3/uL (130-400)
[2019-09-18 05:29] LABS: ANION GAP 17.1 mmol/L (8-16); CALCIUM 10.8 mg/dL (8.5-10.1); CARBON DIOXIDE 25.1 mmol/L (21.0-32.0); CREATININE - SERUM 9.8 mg/dL (0.6-1.3); DIGOXIN 1.19 ng/mL (0.90-2.00); PHOSPHOROUS 4.9 mg/dL (2.5-4.9); POTASSIUM - SERUM 5.2 mmol/L (3.5-5.1)
[2019-09-18 09:12] LABS: HEP B CORE AB TOTAL Negative (Negative); HEPATITIS C ANTIBODY 0.1 (0.0-0.9)
[2019-09-18 09:34] VITALS: BP 148/81
[2019-09-18 12:00] VITALS: BP 124/71
--- NOTE | 2019-09-18 14:00 | NUR ---
Nutrition Follow-up: Pt confused. Ate ~50% of breakfast this AM. ST following. HD today. Diet: Renal, Puree, Honey Thick Liquids PO intake: 39% avg x 7 meals (0-100% per chart) WT: 175# (09/15) Last BM: 09/17 Labs noted: K+ 5.2, Ca 10.8 Meds noted: Sensipar, Renagel, Questran -Encourage PO intake and honor food preferences within diet restrictions. -Offer Nepro with meals. -Pt may benefit from appetite stimulant. -Monitor wt. -RD following.
--- NOTE | 2019-09-18 14:44 | NUR ---
Rehab Prescreening Consult recieved and the chart has been reviewed. He was in the ARU at [facility] and sent back to the hospital from there. According to notes he is lethargic and not motivated to participate. Medicare requires a patient be able to participate in 3 hrs of therapy 5 days a week. He is to low level for acute rehab. Recommend a skilled facility. Discussed with the CM Lola Lovett RN Clinical liaison, Rehab
--- NOTE | 2019-09-18 19:51 | NUR ---
IN ITAIL ROUNDS COMPLETED AT 0 HRS. DIALYSIS IN PROGRESS. DIALYSIS COMPLETED AT 0 HRS. ASSESSMENT DONE AT 1940 HRS. PT VERY [place]. PT ALERTA ND ORIENTED TO PERON AND PLACE. REORIENTED TO TIME. R CHEST HEMOSPLIT CLEAN, DRY AND INTACT. LUNGS DIMINISHED N BASES BILAT. TEAGUE. ABD SOFT WITH ACTIVE BS NOTED. STAGE 2 NOTED TO L INNER BUTTOCKS APPROX 1.5CM X 5 CM. THICKENED LIQUID GIVEN TO PT. SWALLOWED WITHOUT DIFFULCULTY. SR UP X2, CALL LIGHT WITHIN REACH.
[2019-09-18 20:00] VITALS: BP 119/69
--- NOTE | 2019-09-18 22:52 | NUR ---
REPOSITIONED IN BED FOR COMFORT. PT DENEIS ANY DISCOMFORT. CALL LIGHT WITHIN REACH.
--- NOTE | 2019-09-19 01:03 | NUR ---
PT RESTING WITH EYES CLOSED. RESP EVEN AND REGULAR. SR UP X2, CALL LIGHT WITHIN REACH AND BED ALARM ON.
--- NOTE | 2019-09-19 02:28 | NUR ---
REPOSITIONED IN BED FOR COMFORT. SR UP X2, CALL LIGHT WITHIN REACH AND BED ALARM ON.
[2019-09-19 04:00] VITALS: BP 134/77
--- NOTE | 2019-09-19 04:33 | NUR ---
PT RESTING WITH EYES CLOSED. RESP EVEN AND REGULAR. SR UP X2, CALL LIGHT WITHIN REACH AND BED ALARM ON.
[2019-09-19 04:58] LABS: BASOPHILS 0.5 % (0-2); HEMATOCRIT 31.3 % (42.0-54.0); HEMOGLOBIN 9.9 g/dL (13.5-17.5); LYMPHOCYTES 16.3 % (15-50); MCH 28.5 pg (26.0-34.0); MCHC 31.6 g/dL (31.0-37.0); MCV 90.2 fL (80.0-100.0); MEAN PLATELET VOLUME 10.4 fL (7.4-10.4); MONOCYTES 14.1 % (2-11); NEUTROPHILS 66.1 % (40-80); RBC 3.47 10x6/uL (4.20-6.10); RDW 16.1 % (11.5-14.5); WBC 5.6 10x3/uL (4.8-10.8)
[2019-09-19 05:07] LABS: PLATELET COUNT 120 10x3/uL (130-400)
[2019-09-19 05:37] LABS: CALCIUM 10.4 mg/dL (8.5-10.1); CARBON DIOXIDE 27.4 mmol/L (21.0-32.0); PHOSPHOROUS 4.4 mg/dL (2.5-4.9)
[2019-09-19 05:39] LABS: CREATININE - SERUM 6.3 mg/dL (0.6-1.3); POTASSIUM - SERUM 4.4 mmol/L (3.5-5.1)
--- NOTE | 2019-09-19 06:41 | NUR ---
VSS THROUGHOUT NIGHT. PT DENIED ANY DISCOMFORT. NEEDS MET; WILL CONTINUE TO MONITOR.
[2019-09-19 09:16] VITALS: BP 116/63
[2019-09-19 20:28] VITALS: BP 113/63
--- NOTE | 2019-09-20 01:25 | NUR ---
INITIAL ROUNDS COMPLETED AT 1914 HRS. PT RSTING WITH EYES CLOSED. RESP EVEN AND REGULAR. PT INCONTINENT OF A LARGE AMOUNT OF STOOL AT 2029 HRS. INCONTINENT CARE DONE, BED LINENS CHANGED. ASSESSMENT COMPLETED AT 2039 HRS. VSS. PT ALERT AND ORIENTED TO PERSON,PLACE AND SITUATION. REORIENTED TO TIME. R CHEST HEMOSPLIT CLEAN, DRY AND INTACT. LUNGS DIMINISHED IN BASES BILAT. TEAGUE. PALPABLE PERIPHERAL PULSES. BUTTOCKS AND POSTERIOR SCROTUM EXCORIATED. STAGE 2 NOTED TO L BUTTOCKS APPROX 1.5 X5CM. CALMOSEPTINE APPLIED TO AREA. PM FSBS 78. NO COVERAGE NEEDED. PM MEDS GIVEN CRUSHED IN APPLESAUCE. PT SWALLOWED WITHOUT DIFFICULTY. PT CURRENTLY RESTING WITH EYES CLOSED. RESP EVEN AND REGULAR. SR UP X2, CALL LIGHT WITHIN REACH AND BED ALARM ON.
--- NOTE | 2019-09-20 02:21 | NUR ---
PT AWAKE; DENIES ANY DISCOMFORT. SR UP X2, CALL LIGHT WITHIN REACH AND BED ALARM ON.
--- NOTE | 2019-09-20 04:20 | NUR ---
PT RESTING WITH EYES CLOSED. RESP EVEN AND REGULAR. SR UP X2, CALL LIGHT WITHIN REACH AND BED ALARM ON.
[2019-09-20 05:00] VITALS: BP 145/73
--- NOTE | 2019-09-20 06:44 | NUR ---
VSS THROUGHOUT NIGHT. PT DENIED ANY DISCOMFORT. INCONTINENT OF STOOL DURING SHIFT. NEEDS MET; WILL CONTINUE TO MONITOR.
[2019-09-20 06:56] LABS: HEMATOCRIT 33.5 % (42.0-54.0); HEMOGLOBIN 10.5 g/dL (13.5-17.5); MCH 28.5 pg (26.0-34.0); MCHC 31.3 g/dL (31.0-37.0); MEAN PLATELET VOLUME 10.4 fL (7.4-10.4); NEUTROPHILS 65.3 % (40-80); PLATELET COUNT 107 10x3/uL (130-400); RBC 3.68 10x6/uL (4.20-6.10); WBC 6.4 10x3/uL (4.8-10.8)
[2019-09-20 07:05] LABS: ANION GAP 15.5 mmol/L (8-16); CALCIUM 10.7 mg/dL (8.5-10.1); CARBON DIOXIDE 26.7 mmol/L (21.0-32.0); CREATININE - SERUM 7.9 mg/dL (0.6-1.3); PHOSPHOROUS 5.3 mg/dL (2.5-4.9); POTASSIUM - SERUM 5.2 mmol/L (3.5-5.1)
--- NOTE | 2019-09-20 07:20 | NUR ---
RECIEVE REPORT. RESTING IN BED WITH EYES CLOSED. NO SIGNS OF DISTRESS. RESPIRATIONS NONLABORED. CONTINUE PLAN OF CARE AND SAFETY PRECAUTIONS.
[2019-09-20 10:06] VITALS: BP 122/67
[2019-09-20 18:06] VITALS: BP 133/76
[2019-09-20 21:30] VITALS: BP 112/63
--- NOTE | 2019-09-21 00:07 | NUR ---
INITIAL ROUNDS COMPLETED AT 1909 HRS. PT RESTING WITH EYES CLOSED. RESP EVEN AND REGULAR. ASSESSMENT COMPLETED AT 2024 HRS. VSS. PT VERY [place]. PT ALERT, ORIENTED TO PERSON, PLACE AND SITUATION. REORIENTED TO TIME. HEMOSPLIT NOTED TO R UPPER CHEST. LUNGS DIMINISHED IN BASES BILAT. TEAGUE. ABDSOFT WITH ACTIVE BS NOTED. OLD [place]IST[place]AS NOTED TO BILAT ARMS AND UPPER R THIGH. BUTTOCKS AND SCROTUM EXCORIATED. STAGE 2 TO L BUTTOCKS APPROX 1.5C X 5 CM. PT INCONTINENT OF DIARRHEA. INCONTINENT CARE DONE, BE LINENS CHANGED. PT TOLERATED ACTIVITY WELL. PM FSBS 100. NO COVERGE NEEDED. PM MEDS GIVEN. PT CURRENTLY RESTING WITH EYES CLOSED. RESP EVEN AND REGULAR. SR UP X2,CALL LIGHT WITHIN REACH.
--- NOTE | 2019-09-21 03:33 | NUR ---
PT RESTING WITH EYES CLOSED. RESP EVEN AND REGULAR. SR UP X2,CALL LIGHT WITHIN REACH.
[2019-09-21 04:29] VITALS: BP 122/69
--- NOTE | 2019-09-21 06:06 | NUR ---
VSS THROUGHOUT NIGHT. PT DENIED ANY DISCOMFORT. INCONTINENT OF DIARRHEA X2 DURING SHIFT. NEEDS MET; WILL CONTINUE TO MONITOR.
--- NOTE | 2019-09-21 07:20 | NUR ---
RECIEVE REPORT. RESTING IN BED WITH EYES CLOSED. RESPIRATIONS NONLABORED. NO SIGNS OF DISTRESS. CONTINUE PLAN OF CARE AND SAFETY PRECAUTIONS.
[2019-09-21 09:00] VITALS: BP 119/64
[2019-09-21 10:09] LABS: ANION GAP 17.6 mmol/L (8-16); CALCIUM 10.4 mg/dL (8.5-10.1); CARBON DIOXIDE 26.4 mmol/L (21.0-32.0); CREATININE - SERUM 9.6 mg/dL (0.6-1.3); PHOSPHOROUS 5.4 mg/dL (2.5-4.9)
[2019-09-21 11:18] LABS: HEMATOCRIT 34.6 % (42.0-54.0); HEMOGLOBIN 10.8 g/dL (13.5-17.5); LYMPHOCYTES 11.9 % (15-50); MCH 28.6 pg (26.0-34.0); MCHC 31.2 g/dL (31.0-37.0); MCV 91.5 fL (80.0-100.0); NEUTROPHILS 76.7 % (40-80); PLATELET COUNT 104 10x3/uL (130-400); RBC 3.78 10x6/uL (4.20-6.10); RDW 15.8 % (11.5-14.5)
[2019-09-21 11:20] LABS: WBC 8.4 10x3/uL (4.8-10.8)
[2019-09-21 12:00] VITALS: BP 125/73
--- NOTE | 2019-09-21 14:32 | MORECARE ---
CASE MANAGEMENT DISCHARGE SUMMARY PATIENT: JHONATHAN THRASHER UNIT: [id number] ADM DATE: 09/15/19 AGE: 73 : [birth year] SEX: M ROOM/BED: D.3 AUTHOR: AFIA ARANA PHYSICIAN: REFERRING PHYSICIAN: JIAN HANSON DO DATE OF SERVICE: 09/21/19 Discharge Plan Patient Name: JHONATHAN THRASHER [facility] [facility] 1945 Planned Disposition: Anticipated Discharge Date: Discharge Date: Expected LOS: Initial Reviewer: [email or web address] Initial Review Date: 09/15/2019 Generated: 09/21/19 3:32 pm External Providers [facility] Next Contact Date: Service Request Date: Service Type: Resolution: Reviewer: Comments: Patient Name: JHONATHAN THRASHER Page [phone] at 1432 All edits/amendments must be made on the electronic document DICTATION DATE: 09/21/19 1432 EXCELSIOR MACHINE OPERATOR: SINTIA 09/21/19 1432 RPT#: [id number] DC DATE: STATUS: ADM IN [facility] [address] [place] [address] END OF REPORT
--- NOTE | 2019-09-21 14:43 | MORECARE ---
CASE MANAGEMENT DISCHARGE SUMMARY PATIENT: JHONATHAN THRASHER UNIT: [id number] ADM DATE: 09/15/19 AGE: 73 : 47 SEX: M ROOM/BED: D.7 AUTHOR: AFIA ARANA PHYSICIAN: REFERRING PHYSICIAN: JIAN HANSON DO DATE OF SERVICE: 09/21/19 Discharge Plan Patient Name: JHONATHAN THRASHER [facility] [facility] 1945 Planned Disposition: Anticipated Discharge Date: Discharge Date: Expected LOS: Initial Reviewer: [email or web address] Initial Review Date: 09/15/2019 Generated: 09/21/19 3:42 pm DCPIA - Discharge Planning Initial Assessment Updated by [email or web address]: Lola Dumont on 09/21/19 2:39 pm * Is the patient Alert and Oriented? No * PCP ALEXANDER * [facility] * Preadmission Environment Home Alone * ADLs Partial Dependent * Partial ADLs (Assistance needed) Ambulation Bathing Dressing Medication Management Toileting Transfers * Equipment Walker Wheelchair * List name and contact numbers for known caregivers / representatives who currently or will assist patient after discharge: KELIN THRASHER DTR [phone] * Verbal permission to speak to the caregivers and representatives has been obtained from the patient. Yes * Community resources currently utilized Home Health * Please name any agencies selected above. [facility] * Additional services required to return to the preadmission environment? No * Can the patient safely return to the preadmission environment? Yes * Has this patient been hospitalized within the prior 30 days at any hospital? Yes Last DP export: 09/21/19 1:32 p Patient Name: JHONATHAN THRASHER Page [phone] at 1443 All edits/amendments must be made on the electronic document DICTATION DATE: 09/21/19 144 INSTRUCTIONAL DEVELOPER: SINTIA 09/21/19 1443 RPT#: [id number] DC DATE: STATUS: ADM IN [facility] [address] [place] [address] END OF REPORT
--- NOTE | 2019-09-21 14:58 | MORECARE ---
CASE MANAGEMENT DISCHARGE SUMMARY PATIENT: JHONATHAN THRASHER UNIT: [id number] ADM DATE: 09/15/19 AGE: 73 : 47 SEX: M ROOM/BED: D.8077 AUTHOR: SUMIT,DOC PHYSICIAN: REFERRING PHYSICIAN: JIAN HANSON DO DATE OF SERVICE: 09/21/19 Discharge Plan Patient Name: JHONATHAN THRASHER Facility: [facility]:[place] : 1945 Planned Disposition: Anticipated Discharge Date: Discharge Date: Expected LOS: Initial Reviewer: [email or web address] Initial Review Date: 09/15/2019 Generated: 09/21/19 3:57 pm Comments DCP- Discharge Planning Updated by [email or web address]: Lola Dumont on 09/21/19 1:[address] Patient Name: JHONATHAN THRASHER Admission Status: ER Accout number: [id number] Admission Date: 09-15-2019 : 1945 Admission Diagnosis:DIARRHEA, UNSPECIFIED Attending: SETH Current LOS: 6 Anticipated DC Date: Planned Disposition: Primary Insurance: MEDICARE A & B Discharge Planning Comments: CM met with patient to complete initial dc planning assessment. CM educated patient on the CM role and verbal consent given by patient to complete assessment. CM verified patient's address, phone number, and emergency contact phone numbers. Patient lives at home alone, but at dc pt daughter Kelin [phone] states he will move in with her. CM discussed availability of home health, rehab services, and medical equipment. kelin states he has had [facility] in the past and plans to reuse them. ARLET signed for [facility], and declination signed for IP rehab, and SNF. CM spoke with Amol from [facility] at [phone]. Kelin states she quit her job so she is able to care for him at home. Patient will have family to transport home. Patient has home hemodialysis MWF. DC IMM delivered, explained, signed by the patient, and placed in chart. Signed form also left with the patient. CM will continue to follow and will assist as needed with dc plans/needs. Financial Services Agent: Lola Dumont DCPIA - Discharge Planning Initial Assessment Updated by [id number]: Lola Dumont on 09/21/19 2:39 pm * Is the patient Alert and Oriented? No * PCP ALEXANDER * [facility] * Preadmission Environment Home Alone * ADLs Partial Dependent * Partial ADLs (Assistance needed) Ambulation Bathing Dressing Medication Management Toileting Transfers * Equipment Walker Wheelchair * List name and contact numbers for known caregivers / representatives who currently or will assist patient after discharge: KELIN THRASHER DTR [phone] * Verbal permission to speak to the caregivers and representatives has been obtained from the patient. Yes * Community resources currently utilized Home Health * Please name any agencies selected above. [facility] * Additional services required to return to the preadmission environment? No * Can the patient safely return to the preadmission environment? Yes * Has this patient been hospitalized within the prior 30 days at any hospital? Yes Last DP export: 09/21/19 1:43 p Patient Name: JHONATHAN THRASHER Page [phone] at 1458 All edits/amendments must be made on the electronic document DICTATION DATE: 09/21/191457 DIRECT ENTRY MIDWIFE: SINTIA 09/21/198 RPT#: [id number] DC DATE: STATUS: ADM IN [facility] [address] [place] [address] END OF REPORT
[2019-09-21 15:00] VITALS: BP 98/54
[2019-09-21] MEDS ORDERED: ZYPREXA10 MG PO (15:00)
[2019-09-21] MEDS ORDERED: GUAIFEN-CODEINE10 ML PO (15:03)
[2019-09-21] MEDS ORDERED: SENSIPAR30 MG PO (15:03)
[2019-09-21] MEDS ORDERED: FLORINEF 0.1 M0.1 MG PO (15:04)
[2019-09-21] MEDS ORDERED: MEGACE40 MG PO (15:05)
[2019-09-21] MEDS ORDERED: ATIVAN0.5 MG PO (15:05)
[2019-09-21] MEDS ORDERED: TOPROL XL50 MG PO (15:06)
[2019-09-21] MEDS ORDERED: ZOFRAN4 MG PO (15:06)
[2019-09-21] MEDS ORDERED: ZOLOFT25 MG PO (15:07)
--- NOTE | 2019-09-21 15:32 | MORECARE ---
CASE MANAGEMENT DISCHARGE SUMMARY PATIENT: JHONATHAN THRASHER UNIT: [id number] ADM DATE: 09/15/19 AGE: 73 : 47 SEX: M ROOM/BED: D.2593 AUTHOR: SUMIT,DOC PHYSICIAN: REFERRING PHYSICIAN: JIAN HANSON DO DATE OF SERVICE: 09/21/19 Discharge Plan Patient Name: JHONATHAN THRASHER Facility: [facility]:[place] : 1945 Planned Disposition: Anticipated Discharge Date: Discharge Date: Expected LOS: Initial Reviewer: [email or web address] Initial Review Date: 09/15/2019 Generated: 09/21/19 4:32 pm Comments DCP- Discharge Planning Updated by [email or web address]: Lola Dumont on 09/21/19 1:[address] Patient Name: JHONATHAN THRASHER Admission Status: ER Accout number: [id number] Admission Date: 09-15-2019 : 1945 Admission Diagnosis:DIARRHEA, UNSPECIFIED Attending: SETH Current LOS: 6 Anticipated DC Date: Planned Disposition: Primary Insurance: MEDICARE A & B Discharge Planning Comments: CM met with patient to complete initial dc planning assessment. CM educated patient on the CM role and verbal consent given by patient to complete assessment. CM verified patient's address, phone number, and emergency contact phone numbers. Patient lives at home alone, but at dc pt daughter Kelin [phone] states he will move in with her. CM discussed availability of home health, rehab services, and medical equipment. kelin states he has had [facility] in the past and plans to reuse them. ARLET signed for [facility], and declination signed for IP rehab, and SNF. CM spoke with Amol from [facility] at [phone]. Kelin states she quit her job so she is able to care for him at home. Patient will have family to transport home. Patient has home hemodialysis MWF. DC IMM delivered, explained, signed by the patient, and placed in chart. Signed form also left with the patient. CM will continue to follow and will assist as needed with dc plans/needs. Talent Management Manager: Lola Dumont DCPIA - Discharge Planning Initial Assessment Updated by [email or web address]: Lola Dumont on 09/21/19 2:39 pm * Is the patient Alert and Oriented? No * PCP ALEXANDER * [facility] * Preadmission Environment Home Alone * ADLs Partial Dependent * Partial ADLs (Assistance needed) Ambulation Bathing Dressing Medication Management Toileting Transfers * Equipment Walker Wheelchair * List name and contact numbers for known caregivers / representatives who currently or will assist patient after discharge: KELIN THRASHER DTR [phone] * Verbal permission to speak to the caregivers and representatives has been obtained from the patient. Yes * Community resources currently utilized Home Health * Please name any agencies selected above. [facility] * Additional services required to return to the preadmission environment? No * Can the patient safely return to the preadmission environment? Yes * Has this patient been hospitalized within the prior 30 days at any hospital? Yes External Providers External Provider: [facility] Next Contact Date: Service Request Date: Service Type: Resolution: Reviewer: Comments: Last DP export: 09/21/19 1:58 p Patient Name: JHONATHAN THRASHER Page [phone] at 1532 All edits/amendments must be made on the electronic document DICTATION DATE: 09/21/191531 MACHINE OPERATOR PICKER: SINTIA 09/21/191531 RPT#: [id number] DC DATE: STATUS: ADM IN [facility] [address] [place] [address] END OF REPORT
--- NOTE | 2019-09-21 20:34 | NUR ---
PAGE OUT TO KELSEA ALVARADO APN, PT ASKING FOR NAUSEA MEDICATION.
[2019-09-22 00:39] VITALS: BP 77/49
[2019-09-22 06:27] VITALS: BP 103/61
--- NOTE | 2019-09-22 07:20 | NUR ---
RECIEVE REPORT. RESTING IN BED WITH EYES CLOSED. NO SIGNS OF DISTRESS. CONTINUE PLAN OF CARE AND SAFETY PRECAUTIONS.
[2019-09-22 10:49] VITALS: BP 104/63
[2019-09-22 12:21] VITALS: BP 103/59
--- NOTE | 2019-09-22 13:36 | NUR ---
Nutrition Follow-up: Appeared to have eaten a small amt of breakfast this AM. ST following. Diet: Renal, Puree, Honey Thick Liquids PO intake: 33% avg x 3 meals yesterday Wt: 175# (09/15) Last BM: 09/21 Labs noted (09/20): K+ 5.0, Ca 10.4, PO4 5.4 Meds noted: Zofran, Imodium, Questran, Sensipar, Renagel -Encourage PO intake and honor food preferences within diet restrictions. -+Nepro with meals. -Monitor wt. -RD following.
[2019-09-22 16:40] VITALS: BP 98/55
[2019-09-22 21:29] VITALS: BP 134/116
[2019-09-23 05:47] LABS: HEMATOCRIT 32.5 % (42.0-54.0); MCHC 30.8 g/dL (31.0-37.0); MEAN PLATELET VOLUME 11.3 fL (7.4-10.4); PLATELET COUNT 96 10x3/uL (130-400); RBC 3.45 10x6/uL (4.20-6.10); RDW 15.5 % (11.5-14.5); WBC 8.2 10x3/uL (4.8-10.8)
[2019-09-23 05:54] LABS: MCV 94.2 fL (80.0-100.0)
[2019-09-23 06:28] LABS: ALBUMIN 3.1 g/dL (3.4-5.0); ANION GAP 19.1 mmol/L (8-16); BILIRUBIN - TOTAL 0.36 mg/dL (0.2-1.3); CALCIUM 9.8 mg/dL (8.5-10.1); CARBON DIOXIDE 22.2 mmol/L (21.0-32.0); CREATININE - SERUM 8.6 mg/dL (0.6-1.3); POTASSIUM - SERUM 5.3 mmol/L (3.5-5.1); PROTEIN - SERUM 6.9 g/dL (6.4-8.2)
[2019-09-23 08:50] LABS: BASOPHILS 2 % (0-2); EOSINOPHILS 1 % (0-7); LYMPHOCYTES 24 % (15-50); MONOCYTES 5 % (2-11); NEUTROPHILS 67 % (40-80); PLATELET ESTIMATE DECREASED
[2019-09-23 10:10] VITALS: BP 80/40
[2019-09-23 10:42] VITALS: BP 107/66
--- NOTE | 2019-09-23 10:43 | NUR ---
DIALYSIS STARTED AT BS. B/P 107/66.
[2019-09-23 13:45] VITALS: BP 107/66
[2019-09-23 17:28] VITALS: BP 87/50
[2019-09-23 20:00] VITALS: BP 131/66
[2019-09-24] VITALS: BP 109/61
--- NOTE | 2019-09-24 05:10 | NUR ---
PT HAS HAD SEVERAL LIQUID STOOLS THROUGH OUT THE NIGHT, SPECIMEN COLLECT AND SENT TO LAB.
[2019-09-24 07:07] LABS: ALBUMIN 2.9 g/dL (3.4-5.0); ANION GAP 12.3 mmol/L (8-16); BILIRUBIN - TOTAL 0.27 mg/dL (0.2-1.3); CALCIUM 9.2 mg/dL (8.5-10.1); CARBON DIOXIDE 28.2 mmol/L (21.0-32.0); CREATININE - SERUM 6.4 mg/dL (0.6-1.3); MAGNESIUM - SERUM 1.9 mg/dL (1.8-2.4); PHOSPHOROUS 4.8 mg/dL (2.5-4.9); POTASSIUM - SERUM 4.5 mmol/L (3.5-5.1); PROTEIN - SERUM 6.6 g/dL (6.4-8.2); THYROID STIMULATING HORMONE 0.97 uIU/mL (0.36-3.74)
[2019-09-24 07:30] LABS: HEMATOCRIT 32.7 % (42.0-54.0); LYMPHOCYTES 11.2 % (15-50); MCH 28.7 pg (26.0-34.0); MCHC 30.6 g/dL (31.0-37.0); MEAN PLATELET VOLUME 10.8 fL (7.4-10.4); NEUTROPHILS 77.3 % (40-80); RBC 3.48 10x6/uL (4.20-6.10); RDW 15.8 % (11.5-14.5); WBC 8.7 10x3/uL (4.8-10.8)
[2019-09-24 07:31] LABS: PLATELET COUNT 75 10x3/uL (130-400)
--- NOTE | 2019-09-24 09:43 | NUR ---
AMBULATES WITH PT ASSIST. WEAKNESS NOTED.
[2019-09-24 11:25] VITALS: BP 100/48
--- NOTE | 2019-09-24 13:43 | NUR ---
Nutrition Follow-up: Pt ambulating with PT this AM. Observed >50% of breakfast eaten. Ate 75%-75%-10% of meals yesterday. Noted pt with several liquid stools overnight; CDT pending. HD yesterday. Diet: Renal, Puree, Honey Thick, Nepro TID Wt: 175# (09/15) Labs noted: K+ 4.5, Glu 69, PO4 4.8, Alb 2.9 Meds noted: Zofran, Imodium, Questran, Sensipar, Renagel -Encourage PO intake and honor food preferences within diet restrictions. -Need new wt. -RD following.
[2019-09-24 14:13] LABS: PATH REVIEW PERIPHERAL SMEAR REVIEWED
[2019-09-24 14:49] VITALS: BP 116/62
[2019-09-24 18:10] LABS: OVA + PARASITE EXAM Final report (())
--- NOTE | 2019-09-24 19:52 | MORECARE ---
CASE MANAGEMENT DISCHARGE SUMMARY PATIENT: JHONATHAN THRASHER UNIT: [id number] ADM DATE: 09/15/19 AGE: 73 : [birth year] SEX: M ROOM/BED: D.7051 AUTHOR: AFIA ARANA PHYSICIAN: REFERRING PHYSICIAN: JIAN HANSON DO DATE OF SERVICE: 09/24/19 Discharge Plan Patient Name: JHONATHAN THRASHER Facility: [facility]:[place] : 1945 Planned Disposition: Anticipated Discharge Date: Discharge Date: Expected LOS: Initial Reviewer: [email or web address] Initial Review Date: 09/15/2019 Generated: 09/24/19 8:51 pm Comments DCP- Discharge Planning Updated by [email or web address]: Lola Lopez on 09/24/19 6:[address] CM CALLED JUAN PABLO [phone] TO INQUIRE ABOUT COVID TESTING AND RESULTS. JUAN PABLO STATED SHE CALLED THE OTHER DAY TO [facility] AND SHE REPORTS IT WILL TAKE 5 OR MORE DAYS TO OBTAIN A RESULT. CM PROVIDED OTHER VENUES THAT WILL NOT REQUIRE A WEEKS WAIT FOR RESULTS. JUAN PABLO STATED [facility] [address] TODAY AND EXPECT RESULT SATURDAY OR SATURDAY. CM WILL CONTINUE TO FOLLOW AND ASSIST IN DC PLANNING. LOLA LOPEZ DCP- Discharge Planning Updated by [email or web address]: Lola Lopez on 09/21/19 1:[address] Patient Name: JHONATHAN THRASHER Admission Status: ER Accout number: [id number] Admission Date: 09-15-2019 : 1945 Admission Diagnosis:DIARRHEA, UNSPECIFIED Attending: SETH Current LOS: 6 Anticipated DC Date: Planned Disposition: Primary Insurance: MEDICARE A & B Discharge Planning Comments: CM met with patient to complete initial dc planning assessment. CM educated patient on the CM role and verbal consent given by patient to complete assessment. CM verified patient's address, phone number, and emergency contact phone numbers. Patient lives at home alone, but at dc pt daughter Juan Pablo [phone] states he will move in with her. CM discussed availability of home health, rehab services, and medical equipment. juan pablo states he has had [facility] in the past and plans to reuse them. ARLET signed for [facility], and declination signed for IP rehab, and SNF. CM spoke with Amol from [facility] at [phone]. Juan Pablo states she quit her job so she is able to care for him at home. Patient will have family to transport home. Patient has home hemodialysis MWF. DC IMM delivered, explained, signed by the patient, and placed in chart. Signed form also left with the patient. CM will continue to follow and will assist as needed with dc plans/needs. Belt Loop Maker: Lola Lopez DCPIA - Discharge Planning Initial Assessment Updated by [email or web address]: Lola Lopez on 09/21/19 2:39 pm * Is the patient Alert and Oriented? No * PCP ALEXANDER * [facility] * Preadmission Environment Home Alone * ADLs Partial Dependent * Partial ADLs (Assistance needed) Ambulation Bathing Dressing Medication Management Toileting Transfers * Equipment Walker Wheelchair * List name and contact numbers for known caregivers / representatives who currently or will assist patient after discharge: JUAN PABLO THRASHER DTR [phone] * Verbal permission to speak to the caregivers and representatives has been obtained from the patient. Yes * Community resources currently utilized Home Health * Please name any agencies selected above. [facility] * Additional services required to return to the preadmission environment? No * Can the patient safely return to the preadmission environment? Yes * Has this patient been hospitalized within the prior 30 days at any hospital? Yes Last DP export: 09/21/19 2:32 p Patient Name: JHONATHAN THRASHER Page [id number] at 1952 All edits/amendments must be made on the electronic document DICTATION DATE: 09/24/191950 PLUGGER WORKER: SINTIA 09/24/191950 RPT#: [id number] DC DATE: STATUS: ADM IN [facility] [address] [place] [address] END OF REPORT
[2019-09-24 20:00] VITALS: BP 101/36
--- NOTE | 2019-09-25 03:06 | NUR ---
I have reviewed this patient and I concur with the Shift Assessment completed by the Licensed Practical Nurse today this shift.
[2019-09-25 04:00] VITALS: BP 123/67
[2019-09-25 13:59] VITALS: Ht 190.5 cm; Wt 79.4 kg
--- NOTE | 2019-09-25 16:30 | MORECARE ---
CASE MANAGEMENT DISCHARGE SUMMARY PATIENT: JHONATHAN THRASHER UNIT: [id number] ADM DATE: 09/15/19 AGE: 73 : 47 SEX: M ROOM/BED: D.5506 AUTHOR: AFIA ARANA PHYSICIAN: REFERRING PHYSICIAN: JIAN HANSON DO DATE OF SERVICE: 09/25/19 Discharge Plan Patient Name: JHONATHAN THRASHER Facility: [facility]:[place] : 1945 Planned Disposition: Anticipated Discharge Date: Discharge Date: Expected LOS: Initial Reviewer: [email or web address] Initial Review Date: 09/15/2019 Generated: 09/25/19 5:30 pm Comments DCP- Discharge Planning Updated by [email or web address]: Lola Lopez on 09/24/19 6:[address] CM CALLED JUAN PABLO [phone] TO INQUIRE ABOUT COVID TESTING AND RESULTS. JUAN PABLO STATED SHE CALLED THE OTHER DAY TO [facility] AND SHE REPORTS IT WILL TAKE 5 OR MORE DAYS TO OBTAIN A RESULT. CM PROVIDED OTHER VENUES THAT WILL NOT REQUIRE A WEEKS WAIT FOR RESULTS. JUAN PABLO STATED SHE WILL GO TO [facility] ON [address] TODAY AND EXPECT RESULT SATURDAY OR SATURDAY. CM WILL CONTINUE TO FOLLOW AND ASSIST IN DC PLANNING. LOLA LOPEZ DCP- Discharge Planning Updated by [email or web address]: Lola Lopez on 09/21/19 1:[address] Patient Name: JHONATHAN THRASHER Admission Status: ER Accout number: [id number] Admission Date: 09-15-2019 : 1945 Admission Diagnosis:DIARRHEA, UNSPECIFIED Attending: SETH Current LOS: 6 Anticipated DC Date: Planned Disposition: Primary Insurance: MEDICARE A & B Discharge Planning Comments: CM met with patient to complete initial dc planning assessment. CM educated patient on the CM role and verbal consent given by patient to complete assessment. CM verified patient's address, phone number, and emergency contact phone numbers. Patient lives at home alone, but at dc pt daughter Juan Pablo [phone] states he will move in with her. CM discussed availability of home health, rehab services, and medical equipment. juan pablo states he has had [facility] in the past and plans to reuse them. ARLET signed for [facility], and declination signed for IP rehab, and SNF. CM spoke with Amol from [facility] at [phone]. Juan Pablo states she quit her job so she is able to care for him at home. Patient will have family to transport home. Patient has home hemodialysis MWF. DC IMM delivered, explained, signed by the patient, and placed in chart. Signed form also left with the patient. CM will continue to follow and will assist as needed with dc plans/needs. Rate Quoting Operator: Lola Lopez DCPIA - Discharge Planning Initial Assessment Updated by [email or web address]: Lola Lopez on 09/21/19 2:39 pm * Is the patient Alert and Oriented? No * PCP ALEXANDER * [facility] * Preadmission Environment Home Alone * ADLs Partial Dependent * Partial ADLs (Assistance needed) Ambulation Bathing Dressing Medication Management Toileting Transfers * Equipment Walker Wheelchair * List name and contact numbers for known caregivers / representatives who currently or will assist patient after discharge: JUAN PABLO THRASHER DTR [phone] * Verbal permission to speak to the caregivers and representatives has been obtained from the patient. Yes * Community resources currently utilized Home Health * Please name any agencies selected above. [facility] * Additional services required to return to the preadmission environment? No * Can the patient safely return to the preadmission environment? Yes * Has this patient been hospitalized within the prior 30 days at any hospital? Yes External Providers External Provider: [facility] Next Contact Date: Service Request Date: Service Type: Resolution: Reviewer: Comments: Last DP export: 09/24/19 6:52 p Patient Name: JHONATHAN THRASHER Page [id number] at 1630 All edits/amendments must be made on the electronic document DICTATION DATE: 09/25/19 1630 DISH UP PERSON: SINTIA 09/25/19 1630 RPT#: [id number] DC DATE: STATUS: ADM IN [facility] [address] [place] [address] END OF REPORT
[2019-09-25 20:27] VITALS: BP 96/51
[2019-09-26 04:39] VITALS: BP 92/50
--- NOTE | 2019-09-26 07:00 | NUR ---
RECEIVED REPORT. ASSUMED CARE OF PATIENT. CALL LIGHT WITHIN REACH. NO DISTRESS. PATIENT RESTING IN BED WITH EYES CLOSED. RESP EVEN AND UNLABORED. BEDSIDE SHIFT REPORT COMPLETED. WHITE BOARD UPDATED.
[2019-09-26 08:00] VITALS: BP 143/39
[2019-09-26 11:00] VITALS: BP 84/46
--- NOTE | 2019-09-26 12:44 | NUR ---
PATIENT MEDICATED FOR SEVERE ABD PAIN AT THIS TIME. NO DISTRESS. ZOFRAN ADMINISTERED FOR NAUSEA
[2019-09-26 15:00] VITALS: BP 98/81
[2019-09-26 16:05] LABS: BASOPHILS 0.1 % (0-2); EOSINOPHILS 0.5 % (0-7); HEMATOCRIT 31.2 % (42.0-54.0); HEMOGLOBIN 9.7 g/dL (13.5-17.5); IMMATURE GRANULOCYTES 0.3 % (0-5); LYMPHOCYTES 6.2 % (15-50); MCH 28.6 pg (26.0-34.0); MCHC 31.1 g/dL (31.0-37.0); MEAN PLATELET VOLUME 10.4 fL (7.4-10.4); MONOCYTES 6.7 % (2-11); NEUTROPHILS 86.2 % (40-80); PLATELET COUNT 80 10x3/uL (130-400); RBC 3.39 10x6/uL (4.20-6.10); RDW 15.9 % (11.5-14.5); WBC 8.7 10x3/uL (4.8-10.8)
[2019-09-26 16:32] LABS: INR 1.02 (0.85-1.17); PROTIME 13.3 SECONDS (11.6-15.0)
[2019-09-26 16:37] LABS: ALBUMIN 2.9 g/dL (3.4-5.0); ANION GAP 11.2 mmol/L (8-16); BILIRUBIN - TOTAL 0.31 mg/dL (0.2-1.3); CALCIUM 9.6 mg/dL (8.5-10.1); CARBON DIOXIDE 31.2 mmol/L (21.0-32.0); CREATININE - SERUM 6.1 mg/dL (0.6-1.3); PHOSPHOROUS 4.2 mg/dL (2.5-4.9); POTASSIUM - SERUM 4.4 mmol/L (3.5-5.1); PROTEIN - SERUM 6.7 g/dL (6.4-8.2)
[2019-09-26 16:38] LABS: PLATELET ESTIMATE DECREASED
--- NOTE | 2019-09-26 16:43 | NUR ---
22 gauge iv placed to left wrist x 1 stick. good blood return, easy flush. taped, dated and secured. tolerated iv placement well.
--- NOTE | 2019-09-26 17:09 | NUR ---
HERE, PT STATES ZOFRAN IS NOT HELPING NAUSEA. VERBAL ORDER RECEIVED FOR COMPAZINE. ORDER NOTED.
--- NOTE | 2019-09-26 19:25 | NUR ---
REPORT RECEIVED, PT CARE ASSUMED. WROTE NAME ON BOARD. PT SITTING UP IN BED WITH EYES CLOSED, RR EVEN AND NONLABORED, NO S/S OF DISTRESS. C/O NAUSEA, PRN PO COMPAZINE 10 MG ADMINISTERED. DENIES ANY OTHER NEEDS AT THIS TIME. BED IN LOWEST, SRX3, CALL LIGHT WITHIN REACH. WILL CTM.
[2019-09-26 21:00] VITALS: BP 137/78
[2019-09-27 04:24] VITALS: BP 97/51
--- NOTE | 2019-09-27 07:00 | NUR ---
RECEIVED REPORT. ASSUMED CARE OF PATIENT. CALL LIGHT WITHIN REACH. PATIENT RESTING IN BED WITH EYES CLOSED. PATIENT RESP EVEN AND UNLABORED. BEDSIDE SHIFT REPORT COMPLETED. WHITE BOARD UPDATED. NO DISTRESS.
[2019-09-27 07:52] LABS: ALBUMIN 2.9 g/dL (3.4-5.0); ANION GAP 15.3 mmol/L (8-16); BILIRUBIN - TOTAL 0.39 mg/dL (0.2-1.3); CALCIUM 9.8 mg/dL (8.5-10.1); CARBON DIOXIDE 25.2 mmol/L (21.0-32.0); CREATININE - SERUM 6.8 mg/dL (0.6-1.3); PHOSPHOROUS 4.4 mg/dL (2.5-4.9); POTASSIUM - SERUM 4.5 mmol/L (3.5-5.1); PROTEIN - SERUM 6.8 g/dL (6.4-8.2)
[2019-09-27 08:03] LABS: BASOPHILS 0.1 % (0-2); EOSINOPHILS 1.2 % (0-7); HEMATOCRIT 33.2 % (42.0-54.0); HEMOGLOBIN 10.3 g/dL (13.5-17.5); IMMATURE GRANULOCYTES 0.1 % (0-5); LYMPHOCYTES 9.3 % (15-50); MCH 28.7 pg (26.0-34.0); MCV 92.5 fL (80.0-100.0); MONOCYTES 6.6 % (2-11); NEUTROPHILS 82.7 % (40-80); PLATELET COUNT 96 10x3/uL (130-400); RBC 3.59 10x6/uL (4.20-6.10); WBC 6.7 10x3/uL (4.8-10.8)
[2019-09-27 08:45] VITALS: BP 118/67
[2019-09-27 08:47] LABS: PLATELET ESTIMATE DECREASED
--- NOTE | 2019-09-27 11:24 | NUR ---
MEDICATED FOR ABD PAIN AND NAUSEA AT THIS TIME. NO DISTRESS.
--- NOTE | 2019-09-27 11:29 | NUR ---
FSBS 63. PT ASYMPTOMATIC. APPLE JUICE AND TEA PROVIDED AND CONSUMED WITHOUT DIFFICULTY. PATIENT WITH ATTENTION TOWARD TELEVISION AT THIS TIME.
[2019-09-27 12:07] VITALS: BP 124/66
--- NOTE | 2019-09-27 12:24 | NUR ---
RECHECKED FSBS, UP TO 77 AFTER CONSUMING APPLE JUICE. NO DISTRESS. RESTING WITH EYES CLOSED.
[2019-09-27 15:51] VITALS: BP 131/70
--- NOTE | 2019-09-27 16:32 | NUR ---
PATIENT STATES HE IS PASSING A LOT OF GAS AND STATES THAT HIS BELLY FEELS MUCH BETTER SINCE HE HAS STARTED PASSING THE GAS. PATIENT IS ALERT WITH ATTENTION TOWARD TELEVISION AT THIS TIME AND NOT COMPLAINING OF ABD PAIN. CALL LIGHT WITHIN REACH. NO DISTRESS.
--- NOTE | 2019-09-27 18:15 | NUR ---
MEDICATED FOR NAUSEA AT THIS TIME.
--- NOTE | 2019-09-27 20:28 | NUR ---
PT NAUSEOUS, C/O "STOMACH BURNING AND HURTING." PRN PO ZOFRAN 4 MG ADMINISTERED, PER ORDER. FSBS 157, NO INSULIN GIVEN, NOT TOLERATING FOOD WELL AT THIS TIME. PM MEDS ADMINISTERED, PER ORDER. DENIES ANY OTHER NEEDS AT THIS TIME. BED IN LOWEST, SRX3, CALL LIGHT WITHIN REACH. WILL CTM.
[2019-09-27 20:30] VITALS: BP 101/64
[2019-09-28 04:41] VITALS: BP 121/68
[2019-09-28 07:44] LABS: BASOPHILS 0.1 % (0-2); EOSINOPHILS 0.6 % (0-7); HEMATOCRIT 27.3 % (42.0-54.0); HEMOGLOBIN 8.5 g/dL (13.5-17.5); IMMATURE GRANULOCYTES 0.2 % (0-5); LYMPHOCYTES 8.7 % (15-50); MCH 28.2 pg (26.0-34.0); MCHC 31.1 g/dL (31.0-37.0); MCV 90.7 fL (80.0-100.0); MONOCYTES 7.6 % (2-11); NEUTROPHILS 82.8 % (40-80); PLATELET COUNT 108 10x3/uL (130-400); RBC 3.01 10x6/uL (4.20-6.10)
[2019-09-28 07:46] LABS: ALBUMIN 2.4 g/dL (3.4-5.0); ALKALINE PHOSPHATASE 80 U/L (30-120); BILIRUBIN - TOTAL 0.32 mg/dL (0.2-1.3); CALCIUM 9.5 mg/dL (8.5-10.1); CARBON DIOXIDE 27.4 mmol/L (21.0-32.0); CHLORIDE - SERUM 101 mmol/L (98-107); CREATININE - SERUM 7.9 mg/dL (0.6-1.3); GLUCOSE 77 mg/dL (74-106); POTASSIUM - SERUM 4.8 mmol/L (3.5-5.1); PROTEIN - SERUM 6.3 g/dL (6.4-8.2); SODIUM 135 mmol/L (136-145); WBC 10.1 10x3/uL (4.8-10.8); eGFR NON AFRICAN AMERICAN 7 mL/min (90-120)
[2019-09-28 07:47] LABS: CALC OSMOLALITY 284 mosm/kg (275-300); UREA NITROGEN 56 mg/dL (7-18)
[2019-09-28 07:48] LABS: ALT (SGPT) < 6 U/L (10-68)
--- NOTE | 2019-09-28 08:58 | NUR ---
AM MEDS GIVEN AT THIS TIME. ALSO GAVE ULTRAM FOR PAIN LEVEL OF 10/10. PT DENIES ANY OTHER NEEDS AT THIS TIME. CALL LIGHT IN REACH, NAD NOTED, WILL CONTINUE TO MONITOR.
[2019-09-28 09:32] VITALS: BP 121/64
--- NOTE | 2019-09-28 10:27 | NUR ---
PT TO DIALYSIS VIA BED.
--- NOTE | 2019-09-28 14:30 | NUR ---
PT BACK TO ROOM 2126 FROM DIALYSIS, ASKING FOR PAIN MEDICATION, INFORMED PT THAT HE CANNOT HAVE ANYTHING UNTIL 3.
--- NOTE | 2019-09-28 17:25 | NUR ---
ULTRAM GIVEN FOR PAIN LEVEL OF 10/10. PT REFUSED TO EAT DINNER, STATED THAT HIS ABD WAS HURTING TOO MUCH AND HE DID NOT FEEL LIKE EATING. ALSO HUNG IV IRON. PT DENIES ANY NEEDS AT THIS TIME. CALL LIGHT IN REACH.
[2019-09-28 21:32] VITALS: BP 125/67
--- NOTE | 2019-09-28 21:49 | NUR ---
OT NOTE: PT COMPLETED SUPINE TO SIT WITH MOD A. PT COMPLETED SIT TO STAND WITH MIN/MOD A. PT REQUIRED MAX A WITH LB HYGIENE. PT COMPLETED UE AROM AXS WITH FUNCTIONAL TASK. [id number] THANK YOU,VIOLA WATSON
--- NOTE | 2019-09-29 01:37 | NUR ---
I have reviewed this patient and I concur with the Shift Assessment completed by the Licensed Practical Nurse today this shift.
--- NOTE | 2019-09-29 02:37 | NUR ---
I have reviewed this patient and I concur with the Shift Assessment completed by the Licensed Practical Nurse today this shift.
[2019-09-29 04:00] VITALS: BP 106/53
[2019-09-29 06:12] LABS: BASOPHILS 0.3 % (0-2); EOSINOPHILS 1.3 % (0-7); HEMATOCRIT 27.6 % (42.0-54.0); HEMOGLOBIN 8.4 g/dL (13.5-17.5); IMMATURE GRANULOCYTES 0.1 % (0-5); LYMPHOCYTES 8.6 % (15-50); MCH 27.9 pg (26.0-34.0); MCHC 30.4 g/dL (31.0-37.0); MCV 91.7 fL (80.0-100.0); MONOCYTES 7.6 % (2-11); NEUTROPHILS 82.1 % (40-80); PLATELET COUNT 113 10x3/uL (130-400); RBC 3.01 10x6/uL (4.20-6.10); WBC 7.7 10x3/uL (4.8-10.8)
[2019-09-29 06:47] LABS: ALBUMIN 2.4 g/dL (3.4-5.0); ALKALINE PHOSPHATASE 76 U/L (30-120); BILIRUBIN - TOTAL 0.32 mg/dL (0.2-1.3); CALCIUM 10.1 mg/dL (8.5-10.1); CARBON DIOXIDE 27.3 mmol/L (21.0-32.0); CHLORIDE - SERUM 102 mmol/L (98-107); GLUCOSE 100 mg/dL (74-106); PHOSPHOROUS 3.3 mg/dL (2.5-4.9); POTASSIUM - SERUM 4.2 mmol/L (3.5-5.1); PROTEIN - SERUM 6.2 g/dL (6.4-8.2); SODIUM 137 mmol/L (136-145)
[2019-09-29 06:56] LABS: CALC OSMOLALITY 279 mosm/kg (275-300); CREATININE - SERUM 5.1 mg/dL (0.6-1.3); UREA NITROGEN 30 mg/dL (7-18); eGFR NON AFRICAN AMERICAN 12 mL/min (90-120)
[2019-09-29 06:57] LABS: ALT (SGPT) < 6 U/L (10-68)
--- NOTE | 2019-09-29 07:30 | NUR ---
RECEIVED REPORT. ASSUMED CARE OF PATIENT. CALL LIGHT WITHIN REACH. PATIENT RESTING WITH EYES CLOSED. EASILY AROUSED. BEDSIDE SHIFT REPORT COMPLETE. WHITE BOARD UPDATED. RESP EVEN AND UNLABORED. NO DISTRESS.
[2019-09-29 09:28] VITALS: BP 131/73
--- NOTE | 2019-09-29 11:39 | NUR ---
FSBS 94. NO INSULIN PER SLIDING SCALE TO BE ADMINISTERED. RESTING WITH EYES CLOSED. NO DISTRESS. CALL LIGHT WITHIN REACH.
[2019-09-29 12:09] VITALS: BP 132/71
--- NOTE | 2019-09-29 12:11 | NUR ---
OT NOTES: PT RESTING BUT AROUSED TO VOICE. INITIALLY DID NOT WANT TO GET UP BUT AFTER SOME ENCOURAGEMENT, PT SAT RIGHT UP ON EOB WITHOUT ANY ASSIST. PROVIDED WITH WASH CLOTH AND HE WAS ABLE TO WASH FACE, HANDS, AND CHEST WITH VERBAL CUEING. PT ABLE TO AAMIR GOWN WITH MIN ASSIST; SIT TO STAND WITH WALKER AND MIN ASSIST; MAX ASSIST FOR PERINEAL CARE AND RE APPLIED CREAM TO BUTTOCKS. PT AMB IN ROOM WITH MIN ASSIST; AMB A FEW FEET OUTSIDE OF ROOM BUT FATIGUED QUICKLY AND HAD TO RETURN TO BED AND SIT DOWN. UE AROM EXS WHILE SITTING ON EOB. PROVIDED CLEAN LINENS; BACK TO BED WITHOUT ASSIST. GABO TURNER, OTR/L [phone]
--- NOTE | 2019-09-29 13:41 | NUR ---
NUTRITION F/U CHART REVIEWED, PT SLEEPING SOUNDLY. PO INTAKE RECORDS INDICATE POOR PO INTAKE THUS FAR TODAY. NUTRITIONAL SUPPLEMENT ON BEDSIDE TABLE. WILL CONTINUE TO MONITOR PT PROGRESS. RD FOLLOWING
[2019-09-29 15:35] VITALS: BP 121/70
--- NOTE | 2019-09-29 20:23 | NUR ---
GONE TO CT VIA BED.
[2019-09-29 22:31] VITALS: BP 119/58
--- NOTE | 2019-09-29 23:46 | NUR ---
PT INCONTINENT OF BOWEL, DUMPER MOLD CLEANER AT BED SIDE TO BATHE PT AND CHANGE LINENS.
[2019-09-30 01:54] VITALS: BP 120/51
--- NOTE | 2019-09-30 02:11 | NUR ---
I have reviewed this patient and I concur with the Shift Assessment completed by the Licensed Practical Nurse today this shift.
[2019-09-30 06:19] LABS: BASOPHILS 0.2 % (0-2); HEMATOCRIT 27.4 % (42.0-54.0); HEMOGLOBIN 8.5 g/dL (13.5-17.5); IMMATURE GRANULOCYTES 0.2 % (0-5); MCH 28.4 pg (26.0-34.0); MCV 91.6 fL (80.0-100.0); MEAN PLATELET VOLUME 10.4 fL (7.4-10.4); MONOCYTES 11.6 % (2-11); PLATELET COUNT 130 10x3/uL (130-400); RBC 2.99 10x6/uL (4.20-6.10); RDW 16.1 % (11.5-14.5); WBC 5.3 10x3/uL (4.8-10.8)
[2019-09-30 06:59] VITALS: BP 121/59
[2019-09-30 07:04] LABS: ALBUMIN 2.4 g/dL (3.4-5.0); BILIRUBIN - TOTAL 0.34 mg/dL (0.2-1.3); CALCIUM 10.5 mg/dL (8.5-10.1); CARBON DIOXIDE 27.1 mmol/L (21.0-32.0); POTASSIUM - SERUM 4.1 mmol/L (3.5-5.1); PROTEIN - SERUM 6.2 g/dL (6.4-8.2)
[2019-09-30 07:05] LABS: CREATININE - SERUM 6.6 mg/dL (0.6-1.3)
[2019-09-30 10:14] VITALS: BP 139/80
--- NOTE | 2019-09-30 15:59 | NUR ---
OT NOTE: PT COMPLETED BED MOB TASKS WITH MIN A. PT COMPLETED SUPINE TO SIT WITH MOD A. PT REQUIRED MAX A WITH LB HYGIENE TASKS. [phone] THANK YOU,VIOLA WATSON
--- NOTE | 2019-09-30 16:01 | NUR ---
OT NOTE: BED MOB WITH SBA; EOB SITTING WITH GOOD BALANCE; ABLE TO WASH FACE, HANDS, CHEST WITH SET UP; MAX ASSIST FOR TOILET HYGIENE..LARGE LOOSE BM; DONNED GOWN WITH SET UP; SOCKS WITH MOD ASSIST; AMB IN ROOM APPROX 12 FT; TRANSFERRED TO CHAIR WITH MIN ASSIST; ENCOURAGED PT TO EAT BREAKFAST AND SET UP TRAY BUT HE DID NOT WANT IT.. WANTED IT OUT OF ROOM. C/O BACK PAIN.. ATTEMPTED TO POSITION WITH PILLOWS WITHOUT SUCCESS. GABO TURNER, OTR/L [phone]
[2019-09-30 16:43] VITALS: BP 128/71
[2019-10-01] VITALS: BP 145/77
--- NOTE | 2019-10-01 03:54 | NUR ---
I have reviewed this patient and I concur with the Shift Assessment completed by the Licensed Practical Nurse today this shift.
[2019-10-01 04:00] VITALS: BP 141/71
[2019-10-01 09:47] LABS: BASOPHILS 0.6 % (0-2); EOSINOPHILS 2.5 % (0-7); HEMATOCRIT 30.7 % (42.0-54.0); HEMOGLOBIN 9.4 g/dL (13.5-17.5); IMMATURE GRANULOCYTES 0.4 % (0-5); LYMPHOCYTES 17.4 % (15-50); MCH 28.3 pg (26.0-34.0); MCHC 30.6 g/dL (31.0-37.0); MCV 92.5 fL (80.0-100.0); MEAN PLATELET VOLUME 9.5 fL (7.4-10.4); MONOCYTES 12.5 % (2-11); NEUTROPHILS 66.6 % (40-80); PLATELET COUNT 135 10x3/uL (130-400); RBC 3.32 10x6/uL (4.20-6.10); RDW 16.4 % (11.5-14.5); WBC 5.2 10x3/uL (4.8-10.8)
[2019-10-01 09:57] VITALS: BP 139/73
--- NOTE | 2019-10-01 10:02 | NUR ---
PT SWALLOWED AM MEDS WITH 1 SMALL SIP OF THICKENED WATER.
[2019-10-01 10:19] LABS: ALBUMIN 2.7 g/dL (3.4-5.0); ANION GAP 10.3 mmol/L (8-16); BILIRUBIN - TOTAL 0.42 mg/dL (0.2-1.3); CALCIUM 11.1 mg/dL (8.5-10.1); CARBON DIOXIDE 26.9 mmol/L (21.0-32.0); PHOSPHOROUS 3.9 mg/dL (2.5-4.9); POTASSIUM - SERUM 4.2 mmol/L (3.5-5.1)
[2019-10-01 10:20] LABS: CREATININE - SERUM 4.9 mg/dL (0.6-1.3)
--- NOTE | 2019-10-01 14:12 | NUR ---
Nutrition Follow-up: Pt has not been eating well. EGD today. Diet: NPO PO intake: 0-25% Wt: 175# (09/15) Labs noted: Na 135, Glu 73, Ca 11.1, Alb 2.7 Meds noted: Protonix, Carafate, Imodium, Questran, Sensipar, Renagel -Rec resume diet when medically feasible. -Need new wt. -RD following.
--- NOTE | 2019-10-01 14:16 | NUR ---
I have reviewed this patient and I concur with the Shift Assessment completed by the Licensed Practical Nurse today this shift.
[2019-10-01 15:06] VITALS: BP 141/81
--- NOTE | 2019-10-01 15:41 | NUR ---
OT NOTE: PT COMPLETED FACE AND HAND HYGIENE WITH SETUP. PT COMPLETED BUE AROM EXS TOLERATED. PT COMPLETED SUPINE TO SIT WITH CGA. PT STATED HE WAS NAUSEATED. ROD NOTIFIED NURSING. [phone] THANK YOU,VIOLA WATSON
[2019-10-01 16:02] VITALS: BP 113/78
--- NOTE | 2019-10-01 18:01 | NUR ---
PT RETURNED FROM EGD VIA BED. ALERT AND ORIENTED. VS STABLE. FSBS 62. FED PT JELLO AND APLLE JUICE. FSBS 77. NURSE FROM GI LAB STATES DR. SHARMA FOUND A HIATAL HERNIA, EROSIVE ESOPHAGITIS, DUODENITIS, AND GASTRITIS. I VERBALIZED UNDERSTANDING. BED LOW. CL IN REACH.
--- NOTE | 2019-10-01 19:36 | NUR ---
ASSESSMENT COMPLETE, PT A&O. IV TO RIGHT ARM SWOLLEN AND LEAKING, IV CATH REMOVED, TIP INTACT. AFTER 2 ATTEMPTS, UNABLE TO SITE PIV. WILL HAVE ANOTHER NURSE TRY.
[2019-10-01 20:00] VITALS: BP 122/68
--- NOTE | 2019-10-01 22:18 | NUR ---
SECOND NURSE AT SIDE TO ATTEMPT PIV. AFTER 2 STICKS, STILL NO IV ACCESS. WILL HAVE ANOTHER NURSE ATTEMPT.
[2019-10-02] VITALS: BP 149/77
[2019-10-02 04:00] VITALS: BP 136/72
--- NOTE | 2019-10-02 04:37 | NUR ---
I have reviewed this patient and I concur with the Shift Assessment completed by the Licensed Practical Nurse today this shift.
[2019-10-02 08:05] LABS: HEMATOCRIT 30.8 % (42.0-54.0); HEMOGLOBIN 9.4 g/dL (13.5-17.5); LYMPHOCYTES 18.2 % (15-50); MCH 29.4 pg (26.0-34.0); MCHC 30.5 g/dL (31.0-37.0); MEAN PLATELET VOLUME 10.3 fL (7.4-10.4); NEUTROPHILS 63.2 % (40-80); PLATELET COUNT 151 10x3/uL (130-400); RDW 17.6 % (11.5-14.5); WBC 4.5 10x3/uL (4.8-10.8)
[2019-10-02 08:06] LABS: MCV 96.3 fL (80.0-100.0)
--- NOTE | 2019-10-02 08:16 | NUR ---
SPOKE WITH DR. MUNOZ HE STATES NO BP OR BLOOD DRAWS IN RIGHT LEG OR BILATERAL ARMS BUT FSBS ARE ALLOWED. I VERBALIZED UNDERSTANDING. SIGNS MADE AND HUNG IN ROOM AND ON DOOR.
[2019-10-02 08:21] VITALS: BP 161/82
[2019-10-02 08:27] LABS: ALBUMIN 2.5 g/dL (3.4-5.0); ANION GAP 14.2 mmol/L (8-16); BILIRUBIN - TOTAL 0.34 mg/dL (0.2-1.3); CALCIUM 10.6 mg/dL (8.5-10.1); CARBON DIOXIDE 24.2 mmol/L (21.0-32.0); POTASSIUM - SERUM 4.4 mmol/L (3.5-5.1); PROTEIN - SERUM 6.2 g/dL (6.4-8.2)
--- NOTE | 2019-10-02 08:27 | MORECARE ---
CASE MANAGEMENT DISCHARGE SUMMARY PATIENT: JHONATHAN THRASHER UNIT: [id number] ADM DATE: 09/15/19 AGE: 73 : [birth year] SEX: M ROOM/BED: D.2180 AUTHOR: AFIA ARANA PHYSICIAN: REFERRING PHYSICIAN: JIAN HANSON DO DATE OF SERVICE: 10/02/19 Discharge Plan Patient Name: JHONATHAN THRASHER Facility: [facility]:[place] : 1945 Planned Disposition: Anticipated Discharge Date: Discharge Date: Expected LOS: Initial Reviewer: [email or web address] Initial Review Date: 09/15/2019 Generated: 10/02/19 9:26 am Comments DCP- Discharge Planning Updated by [email or web address]: Lola Lopez on 10/02/19 7:[address] Called Juan Pablo at [phone] to follow up about covid test results. Left message with call back number. DCP- Discharge Planning Updated by [email or web address]: Lola Lopez on 09/24/19 6:[address] CM CALLED JUAN PABLO [phone] TO INQUIRE ABOUT COVID TESTING AND RESULTS. JUAN PABLO STATED SHE CALLED THE OTHER DAY TO [facility] AND SHE REPORTS IT WILL TAKE 5 OR MORE DAYS TO OBTAIN A RESULT. CM PROVIDED OTHER VENUES THAT WILL NOT REQUIRE A WEEKS WAIT FOR RESULTS. JUAN PABLO STATED SHE WILL GO TO [facility] ON [address] TODAY AND EXPECT RESULT SATURDAY OR SATURDAY. CM WILL CONTINUE TO FOLLOW AND ASSIST IN DC PLANNING. LOLA LOPEZ DCP- Discharge Planning Updated by [email or web address]: Lola Lopez on 09/21/19 1:[address] Patient Name: JHONATHAN THRASHER Admission Status: ER Accout number: [id number] Admission Date: 09-15-2019 : 1945 Admission Diagnosis:DIARRHEA, UNSPECIFIED Attending: SETH Current LOS: 6 Anticipated DC Date: Planned Disposition: Primary Insurance: MEDICARE A & B Discharge Planning Comments: CM met with patient to complete initial dc planning assessment. CM educated patient on the CM role and verbal consent given by patient to complete assessment. CM verified patient's address, phone number, and emergency contact phone numbers. Patient lives at home alone, but at dc pt daughter Juan Pablo [phone] states he will move in with her. CM discussed availability of home health, rehab services, and medical equipment. juan pablo states he has had [facility] in the past and plans to reuse them. ARLET signed for [facility], and declination signed for IP rehab, and SNF. CM spoke with Amol from [facility] at [phone]. Juan Pablo states she quit her job so she is able to care for him at home. Patient will have family to transport home. Patient has home hemodialysis MWF. DC IMM delivered, explained, signed by the patient, and placed in chart. Signed form also left with the patient. CM will continue to follow and will assist as needed with dc plans/needs. [place] Gatherer: Lola Lopez DCPIA - Discharge Planning Initial Assessment Updated by [email or web address]: Lola Lopez on 09/21/19 2:39 pm * Is the patient Alert and Oriented? No * PCP ALEXANDER * [facility] * Preadmission Environment Home Alone * ADLs Partial Dependent * Partial ADLs (Assistance needed) Ambulation Bathing Dressing Medication Management Toileting Transfers * Equipment Walker Wheelchair * List name and contact numbers for known caregivers / representatives who currently or will assist patient after discharge: JUAN PABLO THRASHER DTR [phone] * Verbal permission to speak to the caregivers and representatives has been obtained from the patient. Yes * Community resources currently utilized Home Health * Please name any agencies selected above. [facility] * Additional services required to return to the preadmission environment? No * Can the patient safely return to the preadmission environment? Yes * Has this patient been hospitalized within the prior 30 days at any hospital? Yes Last DP export: 09/25/19 3:30 p Patient Name: JHONATHAN THRASHER Page 19489 at 0827 All edits/amendments must be made on the electronic document DICTATION DATE: 10/02/19825 COMPUTER TYPESETTER: SINTIA 10/02/19825 RPT#: [id number] DC DATE: STATUS: ADM IN [facility] [address] [place] [address] END OF REPORT
--- NOTE | 2019-10-02 09:52 | NUR ---
PT TO RECEIVE IRON IN DIALYSIS. IRON NOT FRIDGE. CALLED PHARMACY AND SPOKE WITH TRISHA AND HE STATES THEY WILL TAKE IRON TO HD. I VERBALIZED UNDERSTANDING. CALLED AND SPOKE WITH PERRI VOGEL ABOUT GIVING IRON AND PHARMACY TO BRING IT TO HER IN HD AND SHE VERBALIZED UNDERSTANDING.
--- NOTE | 2019-10-02 10:00 | NUR ---
PT TAKEN TO DIALYSIS VIA BED.
--- NOTE | 2019-10-02 11:20 | NUR ---
SPOKE WITH PERRI VOGEL IN DIALYSIS AND SHE STATES PHARMACY BROUGHT IRON AND IT IS INFUSING NOW. I VERBALIZED UNDERSTANDING.
--- NOTE | 2019-10-02 11:50 | NUR ---
Dialysis Coordinator: Pt needs new Covid test (must be within 5 days for pt to return to home training with [facility] team). Home team with [facility] is trying to confirm if pt's daughter Katherine ever completed process for Covid testing as required to bring pt in for re-training as was explained was necessary. Dtr was told by the Home Dept that pt could go in-center for 1-2 treatments only while awaiting results of the Covid test. DONNA CORDERO.
--- NOTE | 2019-10-02 12:12 | NUR ---
COVID PLACEMENT SWAB DONE AND TAKEN TO LAB.
--- NOTE | 2019-10-02 12:41 | NUR ---
I have reviewed this patient and I concur with the Shift Assessment completed by the Licensed Practical Nurse today this shift.
--- NOTE | 2019-10-02 13:05 | MORECARE ---
CASE MANAGEMENT DISCHARGE SUMMARY PATIENT: JHONATHAN THRASHER UNIT: [id number] ADM DATE: 09/15/19 AGE: 73 : 47 SEX: M ROOM/BED: D.4006 AUTHOR: AFIA ARANA PHYSICIAN: REFERRING PHYSICIAN: JIAN HANSON DO DATE OF SERVICE: 10/02/19 Discharge Plan Patient Name: JHONATHAN THRASHER Facility: [facility]:[address] : 1945 Planned Disposition: Anticipated Discharge Date: Discharge Date: Expected LOS: Initial Reviewer: [email or web address] Initial Review Date: 09/15/2019 Generated: 10/02/19 2:04 pm Comments DCP- Discharge Planning Updated by [email or web address]: Lola Lopez on 10/02/19 7:[address] Called Juan Pablo at [phone] to follow up about covid test results. Left message with call back number. DCP- Discharge Planning Updated by [id number]: Lola Lopez on 09/24/19 6:[address] CM CALLED JUAN PABLO [phone] TO INQUIRE ABOUT COVID TESTING AND RESULTS. JUAN PABLO STATED SHE CALLED THE OTHER DAY TO [facility] AND SHE REPORTS IT WILL TAKE 5 OR MORE DAYS TO OBTAIN A RESULT. CM PROVIDED OTHER VENUES THAT WILL NOT REQUIRE A WEEKS WAIT FOR RESULTS. JUAN PABLO STATED SHE WILL GO TO [facility] ON [address] TODAY AND EXPECT RESULT SATURDAY OR SATURDAY. CM WILL CONTINUE TO FOLLOW AND ASSIST IN DC PLANNING. LOLA LOPEZ DCP- Discharge Planning Updated by [email or web address]: Lola Lopez on 09/21/19 1:[address] Patient Name: JHONATHAN THRASHER Admission Status: ER Accout number: [id number] Admission Date: 09-15-2019 : 1945 Admission Diagnosis:DIARRHEA, UNSPECIFIED Attending: SETH Current LOS: 6 Anticipated DC Date: Planned Disposition: Primary Insurance: MEDICARE A & B Discharge Planning Comments: CM met with patient to complete initial dc planning assessment. CM educated patient on the CM role and verbal consent given by patient to complete assessment. CM verified patient's address, phone number, and emergency contact phone numbers. Patient lives at home alone, but at dc pt daughter Juan Pablo [phone] states he will move in with her. CM discussed availability of home health, rehab services, and medical equipment. juan pablo states he has had care IV in the past and plans to reuse them. ARLET signed for [facility], and declination signed for IP rehab, and SNF. CM spoke with Amol from [facility] at [phone]. Juan Pablo states she quit her job so she is able to care for him at home. Patient will have family to transport home. Patient has home hemodialysis MWF. DC IMM delivered, explained, signed by the patient, and placed in chart. Signed form also left with the patient. CM will continue to follow and will assist as needed with dc plans/needs. Qc Manager: Lola Lopez DCPIA - Discharge Planning Initial Assessment Updated by [email or web address]: Lola Lopez on 09/21/19 2:39 pm * Is the patient Alert and Oriented? No * PCP ALEXANDER * [facility] * Preadmission Environment Home Alone * ADLs Partial Dependent * Partial ADLs (Assistance needed) Ambulation Bathing Dressing Medication Management Toileting Transfers * Equipment Walker Wheelchair * List name and contact numbers for known caregivers / representatives who currently or will assist patient after discharge: JUAN PABLO THRASHER DTR [phone] * Verbal permission to speak to the caregivers and representatives has been obtained from the patient. Yes * Community resources currently utilized Home Health * Please name any agencies selected above. [facility] * Additional services required to return to the preadmission environment? No * Can the patient safely return to the preadmission environment? Yes * Has this patient been hospitalized within the prior 30 days at any hospital? Yes Last DP export: 10/02/19 7:27 a Patient Name: JHONATHAN THRASHER Page 60162 at 1305 All edits/amendments must be made on the electronic document DICTATION DATE: 10/02/19 1305 METAL PICKLING EQUIPMENT OPERATOR: SINTIA 10/02/19 1305 RPT#: [id number] DC DATE: STATUS: ADM IN [facility] [address] [place] [address] END OF REPORT
--- NOTE | 2019-10-02 14:15 | NUR ---
PT RETURNED FROM DIALYSIS AND 1L WAS REMOVED AND DIALYSIS CHANGED RT CHEST HEMOSPLIT DRESSING.
[2019-10-02 16:33] VITALS: BP 125/32
--- NOTE | 2019-10-02 18:00 | NUR ---
COVID TEST NEGATIVE.
--- NOTE | 2019-10-02 18:00 | NUR ---
COVID TEXT NEGATIVE.
--- NOTE | 2019-10-02 19:29 | NUR ---
INITIAL ROUNDS COMPLETED. PT INCONTINENT OF STOOL. INCONTINENT CARE DONE. PT TOLERATED ACTIVITY WELL. SR UP X2, CALL LIGHT WITHIN REACH.
[2019-10-02 19:35] VITALS: BP 106/36
--- NOTE | 2019-10-02 20:34 | MORECARE ---
CASE MANAGEMENT DISCHARGE SUMMARY PATIENT: JHONATHAN THRASHER UNIT: [id number] ADM DATE: 09/15/19 AGE: 73 : 47 SEX: M ROOM/BED: D.0121 AUTHOR: AFIA ARANA PHYSICIAN: REFERRING PHYSICIAN: JIAN HANSON DO DATE OF SERVICE: 10/02/19 Discharge Plan Patient Name: JHONATHAN THRASHER Facility: [facility]:[place] : 1945 Planned Disposition: Anticipated Discharge Date: Discharge Date: Expected LOS: Initial Reviewer: [email or web address] Initial Review Date: 09/15/2019 Generated: 10/02/19 9:33 pm Comments DCP- Discharge Planning Updated by [email or web address]: Lola Lopez on 10/02/19 7:[address] Patient Name: JHONATHAN THRASHER Encounter No: [id number] : 1945 Primary Insurance: MEDICARE A & B Anticipated DC Date: Planned Disposition: External Planned Provider: : DCP follow-up note: CM spoke with Yanely dialysis coordinator about OP chair. Yanely states the patient has a chair available MW at 0700 at [facility] with the first appointment scheduled for Saturday at 0700. Pt should have welcome letter. Juan Pablo as not returned call as of yet to confirm her covid results, but patient will have OP chair until her results are available so she may resume home HD. Case management will follow and assist as needed. Lola Lopez DCP- Discharge Planning Updated by [id number]: Lola Lopez on 10/02/19 7:[address] Called Juan Pablo at [phone] to follow up about covid test results. Left message with call back number. DCP- Discharge Planning Updated by [email or web address]: Lola Lopez on 09/24/19 6:[address] CM CALLED JUAN PABLO [phone] TO INQUIRE ABOUT COVID TESTING AND RESULTS. JUAN PABLO STATED SHE CALLED THE OTHER DAY TO [facility] AND SHE REPORTS IT WILL TAKE 5 OR MORE DAYS TO OBTAIN A RESULT. CM PROVIDED OTHER VENUES THAT WILL NOT REQUIRE A WEEKS WAIT FOR RESULTS. JUAN PABLO STATED SHE [facility] [address] TODAY AND EXPECT RESULT SATURDAY OR SATURDAY. CM WILL CONTINUE TO FOLLOW AND ASSIST IN DC PLANNING. LOLA LOPEZ DCP- Discharge Planning Updated by [id number]: Lola Lopez on 09/21/19 1:[address] Patient Name: JHONATHAN THRASHER Admission Status: ER Accout number: [id number] Admission Date: 09-15-2019 : 1945 Admission Diagnosis:DIARRHEA, UNSPECIFIED Attending: SETH Current LOS: 6 Anticipated DC Date: Planned Disposition: Primary Insurance: MEDICARE A & B Discharge Planning Comments: CM met with patient to complete initial dc planning assessment. CM educated patient on the CM role and verbal consent given by patient to complete assessment. CM verified patient's address, phone number, and emergency contact phone numbers. Patient lives at home alone, but at dc pt daughter Juan Pablo [phone] states he will move in with her. CM discussed availability of home health, rehab services, and medical equipment. juan pablo states he has had care IV in the past and plans to reuse them. ARLET signed for [facility], and declination signed for IP rehab, and SNF. CM spoke with Amol from [facility] at [phone]. Juan Pablo states she quit her job so she is able to care for him at home. Patient will have family to transport home. Patient has home hemodialysis MWF. DC IMM delivered, explained, signed by the patient, and placed in chart. Signed form also left with the patient. CM will continue to follow and will assist as needed with dc plans/needs. Fire Prevention Specialist: Lola Lopez DCPIA - Discharge Planning Initial Assessment Updated by [email or web address]: Lola Lopez on 09/21/19 2:39 pm * Is the patient Alert and Oriented? No * PCP ALEXANDER * [facility] * Preadmission Environment Home Alone * ADLs Partial Dependent * Partial ADLs (Assistance needed) Ambulation Bathing Dressing Medication Management Toileting Transfers * Equipment Walker Wheelchair * List name and contact numbers for known caregivers / representatives who currently or will assist patient after discharge: JUAN PABLO THRASHER DTR [phone] * Verbal permission to speak to the caregivers and representatives has been obtained from the patient. Yes * Community resources currently utilized Home Health * Please name any agencies selected above. [facility] * Additional services required to return to the preadmission environment? No * Can the patient safely return to the preadmission environment? Yes * Has this patient been hospitalized within the prior 30 days at any hospital? Yes Last DP export: 10/02/19 12:05 p Patient Name: JHONATHAN THRASHER Page 71025 at 2033 All edits/amendments must be made on the electronic document DICTATION DATE: 10/02/192032 NONPROFIT FUNDRAISER: SINTIA 10/02/192032 RPT#: [id number] DC DATE: STATUS: ADM IN [facility] [address] [place] [address] END OF REPORT
--- NOTE | 2019-10-02 22:43 | NUR ---
ASSESSMENT COMPLETED AT 1935 HRS. VSS. ALERT AND ORIENTED TO PERSON, PLACE. REORIENTED TO TIME AND SITUATION. NO IV ACCESS. LUNGS DIMISHED IN BASES BILAT. R CHEST HEMOSPLIT CLEAN, DRY AND INTACT. NON WORKING FISTULA TO BIALT ARMS AND R UPPER LEG. ABD SOFT WITH ACTIVE BS NOTED. PALPABLE PERIPHERAL PULSES. PM FSBS 92. NO COVERGE NEEDED. BUTTOCKS AND SCROTUM RED. STAGE 1 NOTED TO L BUTTOCKS APPRO 1CM X 2CM. CALOSEPTINE APPLIED. PM MEDS GIVEN. PT CURRENTLY WATCHING TV. NO DISTRESS NOTED. SR UP X2,CALL LIGHT WITHIN REACH, BED ALARM ON AND DOOR OPEN.
--- NOTE | 2019-10-03 00:16 | NUR ---
PT RESTING WITH EYES CLOSED. RESP EVEN AND REGULAR. SR UP X2,CALL LIGHT WITHIN REACH AND BED ALARM ON.
[2019-10-03 00:48] VITALS: BP 114/58
--- NOTE | 2019-10-03 02:04 | NUR ---
PT INCONTINENT OF A SMALL AMOUNT OF STOOL. INCONTINENT CARE DONE. SR UP X2, CALL LIGHT WITHIN REACH.
--- NOTE | 2019-10-03 04:14 | NUR ---
PT AWAKE; DENIES ANY DISCOMFORT. SR UP X2, CALL LIGHT WITHIN REACH.
[2019-10-03 04:46] VITALS: BP 140/52
--- NOTE | 2019-10-03 06:45 | NUR ---
VSS THROUGHOUT NIGHT. PT DENEID ANY DISCOMFORT. NEEDS MET; WILL CONTINUE TO MONITOR.
--- NOTE | 2019-10-03 07:00 | NUR ---
RECEIVED REPORT. ASSUMED CARE OF PATIENT. CALL LIGHT WITHIN REACH. RESTING WITH EYES CLOSED. EASILY AROUSED. RESP EVEN AND UNLABORED. WHITE BOARD UPDATED, BEDSIDE SHIFT REPORT COMPLETE. NO DISTRESS.
[2019-10-03 09:41] VITALS: BP 108/32
[2019-10-03] MEDS ORDERED: ZOFRAN ODT4 MG/UDTAB PO (09:47)
[2019-10-03] MEDS ORDERED: PROTONIX40 MG PO (09:47)
[2019-10-03] MEDS ORDERED: BENTYL10 MG PO (09:47)
[2019-10-03] MEDS ORDERED: PEPCID40 MG PO (09:47)
--- NOTE | 2019-10-03 11:11 | NUR ---
SPOKE WITH PATIENTS DAUGHTER KELIN AND SHE WILL NOT BE ABLE TO COME AND GET THE PATIENT UNTIL 4PM TODAY.
--- NOTE | 2019-10-03 12:11 | NUR ---
FSBS 74. NO INSULIN PER SLIDING SCALE.
--- NOTE | 2019-10-03 15:35 | NUR ---
DISCHARGE INSTRUCTIONS PROVIDED TO PATIENT. PT VERBALIZED UNDERSTANDING OF ALL INSTRUCTIONS. THIS NURSE ALSO PROVIDED INSTRUCTIONS TO PATIENTS DAUGHTER VIA PHONE.
--- NOTE | 2019-10-03 16:06 | NUR ---
THIS BOAT DIESEL MOTOR MECHANIC HAS BEEN CALLING PATIENTS DAUGHTER KELIN SINCE [phone] TO ASK HER IF SHE WILL STILL DERMATOLOGY PHYSICIAN THE PATIENT AT 1600. PHONE RINGS ONCE AND GOES DIRECTLY TO VOICE MAIL. THIS BOAT DIESEL MOTOR MECHANIC HAS BEEN UNABLE TO REACH PT DAUGHTER.
--- NOTE | 2019-10-03 16:19 | NUR ---
PATIENT LEFT UNIT VIA WHEELCHAIR WITH ALL PERSONAL BELONGINGS. PATIENT IN NO DISTRESS UPON LEAVING UNIT. PATIENT DISCHARGED TO HOME WITH HIS DAUGHTER KELIN THRASHER.
--- NOTE | 2019-10-04 09:31 | MORECARE ---
CASE MANAGEMENT DISCHARGE SUMMARY PATIENT: JHONATHAN THRASHER UNIT: [id number] ADM DATE: 09/15/19 AGE: 73 : [birth year] SEX: M ROOM/BED: D.9054 AUTHOR: AFIA ARANA PHYSICIAN: REFERRING PHYSICIAN: JIAN HANSON DO DATE OF SERVICE: 10/04/19 Discharge Plan Patient Name: JHONATHAN THRASHER Facility: [facility]:[place] : 1945 Planned Disposition: Anticipated Discharge Date: Discharge Date: 10/03/2019 Expected LOS: Initial Reviewer: [email or web address] Initial Review Date: 09/15/2019 Generated: 10/04/19 10:30 am Comments DCP- Discharge Planning Updated by [email or web address]: Alta Melendez on 10/04/19 8:[address] LATE ENTRY 10/03/[address] CM [address] of [address] [facility] notified of patient discharge CM faxed update to [facility]. [facility] will admit patient on Saturday since patient will be in dialysis on MWF. D/C IMM signed 10/03/19 @ 1320 DCP- Discharge Planning Updated by [email or web address]: Lola Lopez on 10/02/19 7:[address] Patient Name: JHONATHAN THRASHER Encounter No: [id number] : 1945 Primary Insurance: MEDICARE A & B Anticipated DC Date: Planned Disposition: External Planned Provider: : DCP follow-up note: CM spoke with Yanely dialysis coordinator about OP chair. Yanely states the patient has a chair available MW at 0700 at [facility] with the first appointment scheduled for Saturday at 0700. Pt should have welcome letter. Juan Pablo as not returned call as of yet to confirm her covid results, but patient will have OP chair until her results are available so she may resume home HD. Case management will follow and assist as needed. Lola Lopez DCP- Discharge Planning Updated by [email or web address]: Lola Lopez on 10/02/19 7:[address] Called Juan Pablo at [phone] to follow up about covid test results. Left message with call back number. DCP- Discharge Planning Updated by [id number]: Lola Lopez on 09/24/19 6:[address] CM CALLED JUAN PABLO [phone] TO INQUIRE ABOUT COVID TESTING AND RESULTS. JUAN PABLO STATED SHE CALLED THE OTHER DAY TO [facility] AND SHE REPORTS IT WILL TAKE 5 OR MORE DAYS TO OBTAIN A RESULT. CM PROVIDED OTHER VENUES THAT WILL NOT REQUIRE A WEEKS WAIT FOR RESULTS. JUAN PABLO STATED SHE WILL GO TO [facility] ON [address] TODAY AND EXPECT RESULT SATURDAY OR SATURDAY. CM WILL CONTINUE TO FOLLOW AND ASSIST IN DC PLANNING. LOLA LOPEZ DCP- Discharge Planning Updated by [id number]: Lola Lopez on 09/21/19 1:[address] Patient Name: JHONATHAN THRASHER Admission Status: ER Accout number: [id number] Admission Date: 09-15-2019 : 1945 Admission Diagnosis:DIARRHEA, UNSPECIFIED Attending: SETH Current LOS: 6 Anticipated DC Date: Planned Disposition: Primary Insurance: MEDICARE A & B Discharge Planning Comments: CM met with patient to complete initial dc planning assessment. CM educated patient on the CM role and verbal consent given by patient to complete assessment. CM verified patient's address, phone number, and emergency contact phone numbers. Patient lives at home alone, but at dc pt daughter Juan Pablo [phone] states he will move in with her. CM discussed availability of home health, rehab services, and medical equipment. juan pablo states he has had care IV in the past and plans to reuse them. ARLET signed for [facility], and declination signed for IP rehab, and SNF. CM spoke with Amol from [facility] at [phone]. Juan Pablo states she quit her job so she is able to care for him at home. Patient will have family to transport home. Patient has home hemodialysis MWF. DC IMM delivered, explained, signed by the patient, and placed in chart. Signed form also left with the patient. CM will continue to follow and will assist as needed with dc plans/needs. Supervisor Locomotive: Lola Lopez DCPIA - Discharge Planning Initial Assessment Updated by [email or web address]: Lola Lopez on 09/21/19 2:39 pm * Is the patient Alert and Oriented? No * PCP ALEXANDER * [facility]acy [facility] * Preadmission Environment Home Alone * ADLs Partial Dependent * Partial ADLs (Assistance needed) Ambulation Bathing Dressing Medication Management Toileting Transfers * Equipment Walker Wheelchair * List name and contact numbers for known caregivers / representatives who currently or will assist patient after discharge: JUAN PABLO THRASHER DTR [phone] * Verbal permission to speak to the caregivers and representatives has been obtained from the patient. Yes * Community resources currently utilized Home Health * Please name any agencies selected above. [facility] * Additional services required to return to the preadmission environment? No * Can the patient safely return to the preadmission environment? Yes * Has this patient been hospitalized within the prior 30 days at any hospital? Yes Coverage Notice Reviewer: [id number] - Altachivo Melendez Notice Issued Date-Time: 10/03/2019 13:20 Notice Type: IM Discharge Notice Notice Delivered To: Patient Relationship to Patient: Industrial/Organizational Psychologist Name: Delivery Method: HAND - Hand Delivered Georgie Days: Prior Verbal Notification: Recipient Understood Notice: Yes Recipient Signature: Yes Med Rec Note Co-signed by Attending: Coverage Notice Comment: Last DP export: 10/02/19 7:34 p Patient Name: JHONATHAN THRASHER Page 63868 at 0931 All edits/amendments must be made on the electronic document DICTATION DATE: 10/04/19929 EXTENSION WORK INSTRUCTOR: SINTIA 10/04/19929 RPT#: [id number] DC DATE:10/03/19 STATUS: DIS IN [facility] [address] [place] [address] END OF REPORT
--- NOTE | 2019-10-05 07:55 | MORECARE ---
CASE MANAGEMENT DISCHARGE SUMMARY PATIENT: JHONATHAN THRASHER UNIT: [id number] ADM DATE: 09/15/19 AGE: 73 : 47 SEX: M ROOM/BED: D.3788 AUTHOR: AFIA ARANA PHYSICIAN: REFERRING PHYSICIAN: JIAN HANSON DO DATE OF SERVICE: 10/05/19 Discharge Plan Patient Name: JHONATHAN THRASHER Facility: [facility]:[place] : 1945 Planned Disposition: Anticipated Discharge Date: Discharge Date: 10/03/2019 Expected LOS: Initial Reviewer: [email or web address] Initial Review Date: 09/15/2019 Generated: 10/05/19 8:54 am Comments DCP- Discharge Planning Updated by [id number]: Alta Melendez on 10/04/19 8:[address] LATE ENTRY 10/03/19 CM notified of discharge [facility] notified of patient discharge CM faxed update to [facility]. [facility] will admit patient on Saturday since patient will be in dialysis on MWF. D/C IMM signed 10/03/19 @ 1320 DCP- Discharge Planning Updated by [email or web address]: Lola Lopez on 10/02/19 7:[address] Patient Name: JHONATHAN THRASHER Encounter No: [id number] : 1945 Primary Insurance: MEDICARE A & B Anticipated DC Date: Planned Disposition: External Planned Provider: : DCP follow-up note: CM spoke with Yanely dialysis coordinator about OP chair. Yanely states the patient has a chair available MW at 0700 at [facility] with the first appointment scheduled for Saturday at 0700. Pt should have welcome letter. Juan Pablo as not returned call as of yet to confirm her covid results, but patient will have OP chair until her results are available so she may resume home HD. Case management will follow and assist as needed. Lola Lopez DCP- Discharge Planning Updated by [email or web address]: Lola Lopez on 10/02/19 7:[address] Called Juan Pablo at [phone] to follow up about covid test results. Left message with call back number. DCP- Discharge Planning Updated by [id number]: Lola Lopez on 09/24/19 6:[address] CM CALLED JUAN PABLO [phone] TO INQUIRE ABOUT COVID TESTING AND RESULTS. JUAN PABLO STATED SHE CALLED THE OTHER DAY TO [facility] [place] AND SHE REPORTS IT WILL TAKE 5 OR MORE DAYS TO OBTAIN A RESULT. CM PROVIDED OTHER VENUES THAT WILL NOT REQUIRE A WEEKS WAIT FOR RESULTS. JUAN PABLO STATED SHE WILL GO TO [facility] [address] TODAY AND EXPECT RESULT SATURDAY OR SATURDAY. CM WILL CONTINUE TO FOLLOW AND ASSIST IN DC PLANNING. LOLA LOPEZ DCP- Discharge Planning Updated by [id number]: Lola Lopez on 09/21/19 1:[address] Patient Name: JHONATHAN THRASHER Admission Status: ER Accout number: [id number] Admission Date: 09-15-2019 : 1945 Admission Diagnosis:DIARRHEA, UNSPECIFIED Attending: SETH Current LOS: 6 Anticipated DC Date: Planned Disposition: Primary Insurance: MEDICARE A & B Discharge Planning Comments: CM met with patient to complete initial dc planning assessment. CM educated patient on the CM role and verbal consent given by patient to complete assessment. CM verified patient's address, phone number, and emergency contact phone numbers. Patient lives at home alone, but at dc pt daughter Juan Pablo [phone] states he will move in with her. CM discussed availability of home health, rehab services, and medical equipment. juan pablo states he has had care IV in the past and plans to reuse them. ARLET signed for [facility], and declination signed for IP rehab, and SNF. CM spoke with Amol from [facility] at [phone]. Juan Pablo states she quit her job so she is able to care for him at home. Patient will have family to transport home. Patient has home hemodialysis MWF. DC IMM delivered, explained, signed by the patient, and placed in chart. Signed form also left with the patient. CM will continue to follow and will assist as needed with dc plans/needs. Tenon Machine Operator: Lola Lopez DCPIA - Discharge Planning Initial Assessment Updated by [email or web address]: Lola Lopez on 09/21/19 2:39 pm * Is the patient Alert and Oriented? No * PCP ALEXANDER * [facility] * Preadmission Environment Home Alone * ADLs Partial Dependent * Partial ADLs (Assistance needed) Ambulation Bathing Dressing Medication Management Toileting Transfers * Equipment Walker Wheelchair * List name and contact numbers for known caregivers / representatives who currently or will assist patient after discharge: JUAN PABLO THRASHER DTR [phone] * Verbal permission to speak to the caregivers and representatives has been obtained from the patient. Yes * Community resources currently utilized Home Health * Please name any agencies selected above. [facility] * Additional services required to return to the preadmission environment? No * Can the patient safely return to the preadmission environment? Yes * Has this patient been hospitalized within the prior 30 days at any hospital? Yes Coverage Notice Reviewer: [id number] - Altachivo Melendez Notice Issued Date-Time: 10/03/2019 13:20 Notice Type: IM Discharge Notice Notice Delivered To: Patient Relationship to Patient: Buyer Agent Name: Delivery Method: HAND - Hand Delivered Georgie Days: Prior Verbal Notification: Recipient Understood Notice: Yes Recipient Signature: Yes Med Rec Note Co-signed by Attending: Coverage Notice Comment: Last DP export: 10/04/19 8:31 a Patient Name: JHONATHAN THRASHER Page 51742 at 0755 All edits/amendments must be made on the electronic document DICTATION DATE: 10/05/19753 SURVEILLANCE SENSOR OFFICER: SINTIA 10/05/19 0754 RPT#: [id number] DC DATE:10/03/19 STATUS: DIS IN [facility] [address] [place] [address] END OF REPORT
== END 2019-10-03 16:21 | disposition home health service (06) | DRG 391 ==
LOC: D.ER 13:05 → D.M2 13:55 → D.SDCHOLD 09-16 12:58 → D.M2 09-16 12:58
PROVIDERS: Family Medicine; Internal Medicine Gastroenterology; Internal Medicine Nephrology; ADMIT Internal Medicine; ATTEND Internal Medicine
PROC: 0DB68ZX Excision of Stomach, Via Natural or Artificial Opening Endoscopic, Diagnostic (ICD-10-PCS; 2019-10-01)
PROC: 0DB98ZX Excision of Duodenum, Via Natural or Artificial Opening Endoscopic, Diagnostic (ICD-10-PCS; principal; 2019-10-01 15:00)
DX: R19.7 Diarrhea, unspecified (principal); N18.6 End stage renal disease; I12.0 Hypertensive chronic kidney disease with stage 5 chronic kidney disease or end stage renal disease; K22.10 Ulcer of esophagus without bleeding; E11.22 Type 2 diabetes mellitus with diabetic chronic kidney disease; D63.1 Anemia in chronic kidney disease; R62.7 Adult failure to thrive; Z68.21 Body mass index [BMI] 21.0-21.9, adult; I48.91 Unspecified atrial fibrillation; D69.6 Thrombocytopenia, unspecified; K29.70 Gastritis, unspecified, without bleeding; K29.80 Duodenitis without bleeding; K44.9 Diaphragmatic hernia without obstruction or gangrene

== ENCOUNTER 2019-11-08 18:51 | Inpatient (IN) | payer MEDICARE ==
[2019-11-08] VITALS (17 sets, daily range): BP systolic 78–146; BP diastolic 26–104
[~2019-11-08] VITALS: Ht 182.9 cm; Wt 101.6 kg
--- NOTE | ~2019-11-08 | EEG ---
PATIENT:JHONATHAN THRASHER MEDICAL RECORD: [id number] DATE OF : 49 LOCATION:D.230 D.ICU ADMISSION DATE: 11/08/19 REFERRING PHYSICIAN: INTERPRETING PHYSICIAN: JENNY URBAN MD DATE OF SERVICE: 12/05/2019 This is an inpatient recording in room [address] Urban. CASE HISTORY: A 74-year-old male admitted on 11/08/2019 with report of suspected anoxic event? with further history of ESRD, on dialysis; hypertension; hemodialysis; fall with clavicle fracture; acute CHF; atrial fibrillation; sepsis; hyperkalemia; diabetic neuropathy; pleural effusion; anemia; AV shunt; pneumonia; respiratory failure; SVC syndrome. MEDICATIONS: Included sedation on propofol apparently for the full length of admission. Reportedly, propofol was discontinued for an unknown length of time prior to EEG. Other medications listed include aspirin, Sensipar, Bentyl, digoxin, Depakote, Pepcid, Ativan, megestrol, Zofran, Protonix, sevelamer, sucralfate, acetylcysteine, budesonide, calcitonin, Lovenox, Florinef, glucagon, Atrovent, insulin. PROCEDURE: EEG done as a routine bedside portable recording using the standard 10-20 international electrode system. Sixteen channels were used with seventeenth as EKG. Photic stimulation done as activation procedures. DESCRIPTION OF PROCEDURE: EEG opens with the patient poorly responsive with the record displaying mild to moderately low background amplitudes with mixed theta and delta slowing with shifting predominance intermixed with brief periods of better organization in the 6-7 Hz range and very brief 7-8 Hz range. No distinct focality of background slowing was seen. No epileptiform change such as spike, polyspike, or spike and wave was seen. No change in background was observed during verbal stimulation. Photic stimulation did not yield a photoparoxysmal response. IMPRESSION: Moderately abnormal EEG with diffuse background slowing consistent with encephalopathy with provided history suggestive of possible hypoxic encephalopathy as well as infectious encephalopathy, question metabolic encephalopathy etiologies as well. No evidence of distinct focal abnormality. No evidence of seizure activity. NTS:[id number] Voice Confirmation ID: [id number] DOCUMENT ID: [id number] JENNY URBAN MD CC: [id number] DICTATION DATE: 12/05/19 1335 CERTIFIED HYPERBARIC TECHNOLOGIST: 12/05/19 2311 ADM IN [place] [address] [place] [address]
[~2019-11-08 18:51] MED LIST changes: +ATIVAN0.5 MG PO; +BENTYL10 MG PO; +GUAIFEN-CODEINE10 ML PO; +HUMALOG 30100 UNITS/ SC; +MEGACE40 MG PO; +PEPCID40 MG PO; +SENSIPAR30 MG PO; +TOPROL XL50 MG PO; +ZOFRAN ODT4 MG/UDTAB PO; +ZOFRAN4 MG PO; +ZOLOFT25 MG PO
[2019-11-08 19:14] LABS: BASOPHILS 0.1 % (0-2); EOSINOPHILS 0.5 % (0-7); HEMATOCRIT 35.1 % (42.0-54.0); HEMOGLOBIN 10.6 g/dL (13.5-17.5); IMMATURE GRANULOCYTES 0.3 % (0-5); LYMPHOCYTES 16.4 % (15-50); MCH 31.5 pg (26.0-34.0); MCHC 30.2 g/dL (31.0-37.0); MCV 104.5 fL (80.0-100.0); MEAN PLATELET VOLUME 9.7 fL (7.4-10.4); MONOCYTES 5.8 % (2-11); NEUTROPHILS 76.9 % (40-80); RBC 3.36 10x6/uL (4.20-6.10); RDW 22.7 % (11.5-14.5); WBC 14.4 10x3/uL (4.8-10.8)
[2019-11-08 19:15] LABS: PLATELET COUNT 222 10x3/uL (130-400)
[2019-11-08 19:19] LABS: BILIRUBIN NEGATIVE (NEGATIVE); KETONE NEGATIVE (NEGATIVE); NITRITE NEGATIVE (NEGATIVE); UROBILINOGEN NORMAL (NORMAL); WHITE CELLS - URINE >50 /hpf (0-5)
[2019-11-08 19:20] LABS: BACTERIA MANY /hpf (NONE SEEN); EPITHELIAL CELLS OCC /hpf (0-5)
[2019-11-08 19:29] LABS: CALC OSMOLALITY 290 mosm/kg (275-300); CARBON DIOXIDE 22.8 mmol/L (21.0-32.0); CHLORIDE - SERUM 106 mmol/L (98-107); CREATININE - SERUM 6.6 mg/dL (0.6-1.3); POTASSIUM - SERUM 4.4 mmol/L (3.5-5.1); SODIUM 141 mmol/L (136-145); UREA NITROGEN 36 mg/dL (7-18); eGFR NON AFRICAN AMERICAN 9 mL/min (90-120)
[2019-11-08 19:32] LABS: GLUCOSE 126 mg/dL (74-106)
[2019-11-08 19:33] LABS: APTT 34.8 SECONDS (22.8-39.4); INR 1.41 (0.85-1.17); PROTIME 17.1 SECONDS (11.6-15.0)
[2019-11-08 19:44] LABS: ALBUMIN 2.2 g/dL (3.4-5.0); ALKALINE PHOSPHATASE 116 U/L (30-120); BILIRUBIN - TOTAL 0.63 mg/dL (0.2-1.3); CKMB 0.4 U/L (0.0-3.6); CREATINE KINASE 18 UL (21-232); PROTEIN - SERUM 6.3 g/dL (6.4-8.2); TROPONIN-I 0.027 ng/mL (0.000-0.060)
[2019-11-08 19:45] LABS: ALT (SGPT) 5 U/L (10-68)
[2019-11-09] VITALS (54 sets, daily range): BP systolic 58–162; BP diastolic 38–115; BMI 21.5
--- NOTE | 2019-11-09 01:15 | NUR ---
2019 PT ARRIVED BY, BED, ED NURSE AND RESPIRATORY WITH PT. PT VENTILATED, N/S, DIPRAVAN, LEVOPHED, AND VANC BEING INFUSED AT THIS TIME. PT CAME TO UNIT WITH IV IN THE RIGHT JUGULAR AND THE RIGHT F/A. BED IN LOWEST POSITION, SIDE RAILS UP X3. WILL CONTINUE TO MONITOR
[2019-11-09 04:47] LABS: BASOPHILS 0.1 % (0-2); EOSINOPHILS 0.7 % (0-7); HEMOGLOBIN 11.7 g/dL (13.5-17.5); IMMATURE GRANULOCYTES 0.1 % (0-5); LYMPHOCYTES 7.7 % (15-50); MCH 31.5 pg (26.0-34.0); MCHC 30.8 g/dL (31.0-37.0); MEAN PLATELET VOLUME 9.9 fL (7.4-10.4); MONOCYTES 6.2 % (2-11); NEUTROPHILS 85.2 % (40-80); PLATELET COUNT 230 10x3/uL (130-400); RBC 3.72 10x6/uL (4.20-6.10); RDW 22.5 % (11.5-14.5)
[2019-11-09 04:48] LABS: MCV 102.2 fL (80.0-100.0); WBC 8.3 10x3/uL (4.8-10.8)
[2019-11-09 05:27] LABS: ALBUMIN 1.9 g/dL (3.4-5.0); ANION GAP 15.6 mmol/L (8-16); BILIRUBIN - TOTAL 0.66 mg/dL (0.2-1.3); CALCIUM 9.9 mg/dL (8.5-10.1); CARBON DIOXIDE 25.4 mmol/L (21.0-32.0); CREATININE - SERUM 6.3 mg/dL (0.6-1.3)
--- NOTE | 2019-11-09 06:03 | NUR ---
PT. BLOOD SUGAR CAME BACK AT 56. PAGED , NEW ORDERS ENTERED. WILL CONTINUE TO MONITOR
--- NOTE | 2019-11-09 06:29 | NUR ---
ADMINISTERED 1AMP D50 PER ORDERS, RECHECKED BS AND IS 87, DR. MUNOZ IN THE UNIT, REPORTED BS, NO NEW ORDERS AT THIS TIME. D10 @20ML/HR RUNNING, WILL CONTINUE TO MONITOR
--- NOTE | 2019-11-09 07:00 | NUR ---
SHIFT ASSESSMENT COMPLETE, PT IS SEDTED ON VENT, PATENT NGT TO LIWS, ALL PPP, VSS, WILL CON'T TO MONITOR
--- NOTE | 2019-11-09 10:19 | NUR ---
CHG BATH GIVEN, PT TOLERATED WELL
[2019-11-10] VITALS (85 sets, daily range): BP systolic 46–171; BP diastolic 20–94
--- NOTE | 2019-11-10 01:56 | NUR ---
PT. BS REMAINS IN THE 44-57 RANGE EVEN AFTER ADMINISTERING D50 PER ORDERS. CALL THE DULL COAT MILL OPERATOR DRRussell UPON THE RETURN CALL INSTRUCTED TO INCREASE D10 FROM 20ML/HR TO 40ML/HR AND CONTINUE TO MONITOR BS. WILL CONTINUE TO MONITOR
--- NOTE | 2019-11-10 02:01 | NUR ---
0130 PT HAS HAS 3 BP 70/42, 72/25, 64/33. LEVOPHED STARTED BACK AT 5MCG/MIN. WILL CONT. TO MONITOR
--- NOTE | 2019-11-10 03:29 | NUR ---
PT NOTED TO HAVE REDDENED AREA TO BUTTOCKS AND SCROTUM. APPLIED MEPELEX TO BOTTOM AND BUTT PASTE TO SCROTUM. PT HAS HAD 4 LOOSE BOWEL MOVEMENTS THIS EVENING. WILL CONTINUE TO MONITOR
[2019-11-10 04:34] LABS: BASOPHILS 0.1 % (0-2); EOSINOPHILS 0.3 % (0-7); HEMATOCRIT 35.4 % (42.0-54.0); HEMOGLOBIN 10.7 g/dL (13.5-17.5); IMMATURE GRANULOCYTES 0.6 % (0-5); LYMPHOCYTES 3.7 % (15-50); MCH 30.8 pg (26.0-34.0); MCHC 30.2 g/dL (31.0-37.0); MEAN PLATELET VOLUME 10.2 fL (7.4-10.4); MONOCYTES 3.7 % (2-11); NEUTROPHILS 91.6 % (40-80); PLATELET COUNT 209 10x3/uL (130-400); RBC 3.47 10x6/uL (4.20-6.10); RDW 22.4 % (11.5-14.5)
[2019-11-10 04:35] LABS: WBC 15.2 10x3/uL (4.8-10.8)
[2019-11-10 04:50] LABS: INR 1.34 (0.85-1.17); PROTIME 16.5 SECONDS (11.6-15.0)
[2019-11-10 05:23] LABS: ALBUMIN 1.6 g/dL (3.4-5.0); ANION GAP 17.7 mmol/L (8-16); BILIRUBIN - DIRECT 0.08 mg/dL (0.00-0.30); BILIRUBIN - INDIRECT 0.4 mg/dL (0.00-1.00); BILIRUBIN - TOTAL 0.48 mg/dL (0.2-1.3); CALCIUM 10.4 mg/dL (8.5-10.1); CARBON DIOXIDE 21.7 mmol/L (21.0-32.0); CREATININE - SERUM 6.7 mg/dL (0.6-1.3); DIGOXIN 0.8 ng/mL (0.90-2.00); PHOSPHOROUS 4.7 mg/dL (2.5-4.9); POTASSIUM - SERUM 4.4 mmol/L (3.5-5.1); PROTEIN - SERUM 5.6 g/dL (6.4-8.2)
--- NOTE | 2019-11-10 11:30 | NUR ---
ATTEMPT TO CALL FAMILY WITH NO ANSWER
--- NOTE | 2019-11-10 11:40 | NUR ---
DR SWENSON AT BEDSIDE HR 210 GIVEN UPDATE. NEW ORDERS RECEIVED.
--- NOTE | 2019-11-10 12:10 | NUR ---
VIJAYA FARMER APN AT BEDSIDE GIVEN UPDATE. NEW ORDERS RECEIVED
--- NOTE | 2019-11-10 13:51 | NUR ---
SPOKE WITH DR BENITO LINDQUIST PT STATUS AND CVL PLACEMENT STATED WOULD COME SEE PT.
--- NOTE | 2019-11-10 16:48 | NUR ---
ATTEMPT TO CALL FAMILY WITH NO ANSWER
[2019-11-11] VITALS (91 sets, daily range): BP systolic 62–149; BP diastolic 20–96
--- NOTE | 2019-11-11 00:35 | NUR ---
PT BP IS STILL DROPPING BELOW NORMAL LIMITS. CONT. LEVOPHED, INCREASED TO 25. WILL CONTINUE TO MONITOR
[2019-11-11 04:45] LABS: ANION GAP 16.4 mmol/L (8-16); CARBON DIOXIDE 21.8 mmol/L (21.0-32.0); CREATININE - SERUM 5.2 mg/dL (0.6-1.3); PHOSPHOROUS 3.6 mg/dL (2.5-4.9); POTASSIUM - SERUM 4.2 mmol/L (3.5-5.1); VANCOMYCIN - RANDOM 19.5 ug/mL (10.0-20.0)
[2019-11-11 05:41] LABS: BASOPHILS 0.1 % (0-2); EOSINOPHILS 0.6 % (0-7); HEMATOCRIT 32.6 % (42.0-54.0); HEMOGLOBIN 10.4 g/dL (13.5-17.5); IMMATURE GRANULOCYTES 0.2 % (0-5); LYMPHOCYTES 5.7 % (15-50); MCHC 31.9 g/dL (31.0-37.0); MEAN PLATELET VOLUME 10.2 fL (7.4-10.4); MONOCYTES 4.4 % (2-11); PLATELET COUNT 182 10x3/uL (130-400); RBC 3.35 10x6/uL (4.20-6.10); RDW 20.9 % (11.5-14.5); WBC 13.8 10x3/uL (4.8-10.8)
[2019-11-11 05:42] LABS: MCV 97.3 fL (80.0-100.0)
--- NOTE | 2019-11-11 06:50 | NUR ---
REPORT RECEIVED. ASSESSMENT COMPLETE PER FLOW SHEET. VSS. PT RESTING COMFORTABLY WILL CONTINUE TO MONITOR
--- NOTE | 2019-11-11 12:35 | NUR ---
Nutrition follow-up: Pt remains NPO; intubated, sedated with propofol @ 24 ml/hr BP issues Labs reviewed Wt: 174# Pt too unstable to begin nutrition support at this time Will re-assess tomorrow RDN following.
--- NOTE | 2019-11-11 12:55 | NUR ---
ROSA CALLED. GIVEN UPDATE. DR SWENSON GIVEN UDPATE WELL.
--- NOTE | 2019-11-11 19:15 | NUR ---
BEDSIDE SHIFT REPORT COMPLETED AT THIS TIME, SHIFT ASSESSMENT COMPLETED SEE FLOWSHEET. VSS CPOC
[2019-11-12] VITALS (86 sets, daily range): BP systolic 90–132; BP diastolic 23–77
--- NOTE | 2019-11-12 01:00 | NUR ---
PATIENT IN FIB AT THIS TIME - HR 60-68 - WILL CONTINUE TO CLOSELY MONITOR
[2019-11-12 04:23] LABS: BASOPHILS 0.2 % (0-2); EOSINOPHILS 0.8 % (0-7); HEMATOCRIT 31.3 % (42.0-54.0); HEMOGLOBIN 10.2 g/dL (13.5-17.5); IMMATURE GRANULOCYTES 0.4 % (0-5); LYMPHOCYTES 10.1 % (15-50); MCH 31.1 pg (26.0-34.0); MCHC 32.6 g/dL (31.0-37.0); MCV 95.4 fL (80.0-100.0); MONOCYTES 4.6 % (2-11); NEUTROPHILS 83.9 % (40-80); RBC 3.28 10x6/uL (4.20-6.10); RDW 20.2 % (11.5-14.5)
[2019-11-12 04:27] LABS: PLATELET COUNT 143 10x3/uL (130-400); WBC 10.3 10x3/uL (4.8-10.8)
[2019-11-12 04:52] LABS: ALBUMIN 1.7 g/dL (3.4-5.0); ANION GAP 18.8 mmol/L (8-16); BILIRUBIN - TOTAL 0.8 mg/dL (0.2-1.3); CALCIUM 8.8 mg/dL (8.5-10.1); CARBON DIOXIDE 18.2 mmol/L (21.0-32.0); CREATININE - SERUM 5.5 mg/dL (0.6-1.3); MAGNESIUM - SERUM 1.5 mg/dL (1.8-2.4); PHOSPHOROUS 3.9 mg/dL (2.5-4.9); PROTEIN - SERUM 5.1 g/dL (6.4-8.2); VANCOMYCIN - RANDOM 25.3 ug/mL (10.0-20.0)
--- NOTE | 2019-11-12 05:14 | NUR ---
PT FINGERSTICK GLUCOSE - 73 LAB GLUCOSE IS INACCURATE DUE TO PATIENT TRENDS AND LAB DRAW SITE
--- NOTE | 2019-11-12 15:43 | NUR ---
FSBS 69 RECHECK 59, 1/2 AMP DEXTROSE GIVEN PER S/S
--- NOTE | 2019-11-12 18:50 | NUR ---
BEDSIDE SHIFT REPORT COMPLETED, DIALYSIS NURSE AND DAY SHIFT NURSE AT BEDSIDE. PT RECEIVED DIALYSIS AND SHE IS FINISHED, NO FLUID PULLED ONLY A CLEAN. PT HEART RHYTHM IRREGULAR, AFIB NOTED ON THE MONITOR WITH FREQUENT PVC'S LAB DRAWS ORDERED AT THIS TIME. BP 120 SYSTOLIC HR 78 - CONTROLLED FIB, AFEBRILE. WILL CONTINUE TO CLOSELY MONITOR
[2019-11-12 19:41] LABS: BASOPHILS 0.1 % (0-2); EOSINOPHILS 1.6 % (0-7); HEMATOCRIT 30.9 % (42.0-54.0); HEMOGLOBIN 9.9 g/dL (13.5-17.5); IMMATURE GRANULOCYTES 0.6 % (0-5); LYMPHOCYTES 7.9 % (15-50); MCV 96.9 fL (80.0-100.0); MEAN PLATELET VOLUME 10.1 fL (7.4-10.4); MONOCYTES 5.4 % (2-11); NEUTROPHILS 84.4 % (40-80); RBC 3.19 10x6/uL (4.20-6.10); RDW 20.2 % (11.5-14.5)
[2019-11-12 19:42] LABS: PLATELET COUNT 110 10x3/uL (130-400); WBC 7.1 10x3/uL (4.8-10.8)
[2019-11-12 20:09] LABS: ANION GAP 14.9 mmol/L (8-16); CALCIUM 7.6 mg/dL (8.5-10.1); CARBON DIOXIDE 22.1 mmol/L (21.0-32.0)
[2019-11-12 20:13] LABS: CREATININE - SERUM 3.3 mg/dL (0.6-1.3)
--- NOTE | 2019-11-12 21:02 | NUR ---
PAGED RENAL AT THIS TIME REGARDING RHYTHM CHANGES AND ELECTROLYTE IMBALANCES
--- NOTE | 2019-11-12 21:08 | NUR ---
DR MUNOZ RETURNED ACALL AT THIS TIME - NEW ORDERS RECEIVED
[2019-11-13] VITALS (35 sets, daily range): BP systolic 85–130; BP diastolic 25–60
--- NOTE | 2019-11-13 00:59 | NUR ---
PT NSR ON THE MONITOR RATE OF 67 - NOTED PVC - PATIENT RECEIVING SECOND 10MEQ DOSE OF KCL PER PHYSICIAN ORDER. WILL CONTINUE TO CLOSELY MONITOR
--- NOTE | 2019-11-13 05:30 | NUR ---
BOWEL MOVEMENT NOTED - PARTIAL CHG BATH AND LINEN CHANGE COMPLETED AT THIS TIME
--- NOTE | 2019-11-13 09:11 | NUR ---
DECREASE O2 30%
--- NOTE | 2019-11-13 10:27 | NUR ---
Nutrition follow-up: Pt remains intubated, sedated with propofol @ 12 ml/hr Continues NPO Labs reviewed BP low NGT->LIWS 4+ weeping edema NGT->LIWS Will need nutrition support started when medically feasible RDN following.
[2019-11-13 10:36] LABS: HEMATOCRIT 32.3 % (42.0-54.0); HEMOGLOBIN 10.7 g/dL (13.5-17.5); MCH 30.8 pg (26.0-34.0); MCHC 33.1 g/dL (31.0-37.0); MEAN PLATELET VOLUME 10.5 fL (7.4-10.4); PLATELET COUNT 122 10x3/uL (130-400); RBC 3.47 10x6/uL (4.20-6.10); RDW 20.1 % (11.5-14.5)
[2019-11-13 10:42] LABS: ALBUMIN 1.5 g/dL (3.4-5.0); ANION GAP 17.3 mmol/L (8-16); BILIRUBIN - DIRECT 0.28 mg/dL (0.00-0.30); BILIRUBIN - INDIRECT 0.28 mg/dL (0.00-1.00); BILIRUBIN - TOTAL 0.56 mg/dL (0.2-1.3); CALCIUM 9.6 mg/dL (8.5-10.1); CARBON DIOXIDE 22.8 mmol/L (21.0-32.0); CREATININE - SERUM 4.2 mg/dL (0.6-1.3); PHOSPHOROUS 4.2 mg/dL (2.5-4.9); POTASSIUM - SERUM 4.1 mmol/L (3.5-5.1); PROTEIN - SERUM 4.4 g/dL (6.4-8.2)
[2019-11-13 11:01] LABS: MCV 93.1 fL (80.0-100.0); WBC 9.4 10x3/uL (4.8-10.8)
--- NOTE | 2019-11-13 11:02 | NUR ---
DECREASED RR TO 16 PER ORDER
[2019-11-13 12:20] LABS: ANISOCYTOSIS OCC; EOSINOPHILS 2 % (0-7); LYMPHOCYTES 10 % (15-50); MONOCYTES 9 % (2-11); NEUTROPHILS 78 % (40-80); PLATELET ESTIMATE NORMAL
--- NOTE | 2019-11-13 14:36 | MORECARE ---
CASE MANAGEMENT DISCHARGE SUMMARY PATIENT: JHONATHAN THRASHER UNIT: [id number] ADM DATE: 11/08/19 AGE: 74 : 47 SEX: M ROOM/BED: D.2304 AUTHOR: AFIA ARANA PHYSICIAN: REFERRING PHYSICIAN: JOLYNN MUNOZ MD DATE OF SERVICE: 11/13/19 Discharge Plan Patient Name: JHONATHAN THRASHER Facility: [facility]:[place] : 1945 Planned Disposition: Anticipated Discharge Date: Discharge Date: Expected LOS: Initial Reviewer: [email or web address] Initial Review Date: 11/08/2019 Generated: 11/13/19 3:36 pm Comments DCP- Discharge Planning Updated by [email or web address]: Eboni Jiménez on 11/13/19 1:[address] CM called patient's daughter, Katherine Thrasher (ANGELITOA) [phone], to discuss initial discharge planning. Patient's daughter is in agreement to proceed with the assessment. Daughter reports that the patient lives at home with her and he is total care. Daughter also reports that she is raising 5 grandchildren. Patient is currently intubated to a mechanical vent. PCP: Dr. Sanchez [facility]. Pharmacy: [facility], daughter picks up his medication. Patient has been able to obtain all of his prescribed medications. HHS: [facility], LIME SLAKER. DME: walker, w/c, hospital bed, lesli lift. Patient is totally dependent with medication management LIME SLAKER and daughter gives the medications to him. CM discussed the availability of HH, Rehab, SNF, OP Therapy, DME services. When the patient is able to return home, his daughter states she would like to resume [facility]. Patient's daughter advises that she "had a call from an IN ROOM DINING SERVER, to inform her she should not expect her father to return home this time". Daughter has been encouraged to fill out paperwork for the Medicaid [place] Program, daughter agrees, states she hasn't had time. Advised daughter that the usual time frame is 45 days for a decision. Daughter denies the use of community resources LIME SLAKER. Transportation at time of discharge: Daughter or facility, if patient requires a SNF setting. CM will continue to follow and assist with DC planning. Patient Name: JHONATHAN THRASHER Page [phone] at 1436 All edits/amendments must be made on the electronic document DICTATION DATE: 11/13/191435 HOIST CYLINDER LOADER: SINTIA 11/13/191435 RPT#: [id number] DC DATE: STATUS: ADM IN [facility] [address] [place] [address] END OF REPORT
--- NOTE | 2019-11-13 14:44 | MORECARE ---
CASE MANAGEMENT DISCHARGE SUMMARY PATIENT: JHONATHAN THRASHER UNIT: [id number] ADM DATE: 11/08/19 AGE: 74 : 47 SEX: M ROOM/BED: D.2304 AUTHOR: AFIA ARANA PHYSICIAN: REFERRING PHYSICIAN: JOLYNN MUNOZ MD DATE OF SERVICE: 11/13/19 Discharge Plan Patient Name: JHONATHAN THRASHER Facility: [facility]:[place] : 1945 Planned Disposition: Anticipated Discharge Date: Discharge Date: Expected LOS: Initial Reviewer: [email or web address] Initial Review Date: 11/08/2019 Generated: 11/13/19 3:44 pm Comments DCP- Discharge Planning Updated by [email or web address]: Eboni Jiménez on 11/13/19 1:[address] CM called patient's daughter, Katherine Thrasher (POA) [phone], to discuss initial discharge planning. Patient's daughter is in agreement to proceed with the assessment. Daughter reports that the patient lives at home with her and he is total care. Daughter also reports that she is raising 5 grandchildren. Patient is currently intubated to a mechanical vent. PCP: Dr. Sanchez [facility]. Pharmacy: [facility], daughter picks up his medication. Patient has been able to obtain all of his prescribed medications. H[facility]: [facility], BICYCLE RENTAL CLERK. DME: walker, w/c, hospital bed, didi lift. Patient is totally dependent with medication management BICYCLE RENTAL CLERK and daughter gives the medications to him. CM discussed the availability of HH, Rehab, SNF, OP Therapy, DME services. When the patient is able to return home, his daughter states she would like to resume [facility]. Patient's daughter advises that she "had a call from an BUILDING RENTAL SUPERINTENDENT, to inform her she should not expect her father to return home this time". Daughter has been encouraged to fill out paperwork for the Medicaid [place]aver Program, daughter agrees, states she hasn't had time. Advised daughter that the usual time frame is 45 days for a decision. Daughter denies the use of community resources BICYCLE RENTAL CLERK. Transportation at time of discharge: Daughter or facility, if patient requires a SNF setting. CM will continue to follow and assist with DC planning. DCPIA - Discharge Planning Initial Assessment Updated by [email or web address]: Eboni Jiménez on 11/13/19 2:38 pm * Is the patient Alert and Oriented? No * PCP Dr. Sanchez, [facility] * Pharmacy [facility], [place] Daughter picks up medications * Preadmission Environment Home with Family * ADLs Total Dependent * Equipment Tub Bench * Other Equipment RW, W/C, Hospital bed, Didi lift * List name and contact numbers for known caregivers / representatives who currently or will assist patient after discharge: Katherine Thrasher ([facility]) [phone] Address: [address] [place] [address] Rd, [place], [place] * Verbal permission to speak to the caregivers and representatives has been obtained from the patient. N/A * Community resources currently utilized Home Health * Please name any agencies selected above. [facility] * Additional services required to return to the preadmission environment? Yes * Can the patient safely return to the preadmission environment? No * Has this patient been hospitalized within the prior 30 days at any hospital? No Last DP export: 11/13/19 1:36 pm Patient Name: JHONATHAN THRASHER Page [phone] at 1444 All edits/amendments must be made on the electronic document DICTATION DATE: 11/13/191443 DEPARTMENT CHAIR: SINTIA 11/13/191443 RPT#: [id number] DC DATE: STATUS: ADM IN [facility] [address] [place] [address] END OF REPORT
--- NOTE | 2019-11-13 14:52 | MORECARE ---
CASE MANAGEMENT DISCHARGE SUMMARY PATIENT: JHONATHAN THRASHER UNIT: [id number] ADM DATE: 11/08/19 AGE: 74 : 47 SEX: M ROOM/BED: D.2304 AUTHOR: AFIA ARANA PHYSICIAN: REFERRING PHYSICIAN: JOLYNN MUNOZ MD DATE OF SERVICE: 11/13/19 Discharge Plan Patient Name: JHONATHAN THRASHER Facility: [facility]:[place] : 1945 Planned Disposition: Anticipated Discharge Date: Discharge Date: Expected LOS: Initial Reviewer: [email or web address] Initial Review Date: 11/08/2019 Generated: 11/13/19 3:51 pm Comments DCP- Discharge Planning Updated by [email or web address]: Eboni Jiménez on 11/13/19 1:[address] CM called patient's daughter, Katherine Thrasher (POA) [phone], to discuss initial discharge planning. Patient's daughter is in agreement to proceed with the assessment. Daughter reports that the patient lives at home with her and he is total care. Daughter reports that the patient is non-ambulatory, requires feeding, incontinent of bowel CAREER PORTALS TEACHER. Daughter also reports that she is raising 5 grandchildren, along with caring for her father. 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 Daughter transports patient to and from HD. Patient is currently intubated to a mechanical vent. PCP: Dr. Sanchez [facility] in [place]. Pharmacy: [facility], daughter picks up his medication. Patient has been able to obtain all of his prescribed medications. HHS: [facility], CAREER PORTALS TEACHER. DME: walker, w/c, hospital bed, didi lift. Patient is totally dependent with medication management CAREER PORTALS TEACHER. CM discussed the availability of HH, Rehab, SNF, OP Therapy, DME services. When the patient is able to return home, his daughter states she would like to resume [facility]. Patient's daughter advises that she "had a call from an HYDRAULIC TECHNICIAN, to inform her she should not expect her father to return home this time". Daughter has been encouraged to fill out paperwork for the Medicaid Waver Program, daughter agrees, but states she hasn't had time. Advised daughter that the usual time frame is 45 days before a decision is reached. Daughter denies the use of community resources CAREER PORTALS TEACHER. Transportation at time of discharge: Daughter or facility, if patient requires a SNF setting. CM will continue to follow and assist with DC planning. DCPIA - Discharge Planning Initial Assessment Updated by [email or web address]: Eboni Jiménez on 11/13/19 2:38 pm * Is the patient Alert and Oriented? No * PCP Dr. Sanchez, [facility] * Pharmacy [facility], [place] Daughter picks up medications * Preadmission Environment Home with Family * ADLs Total Dependent * Equipment Tub Bench * Other Equipment RW, W/C, Hospital bed, Didi lift * List name and contact numbers for known caregivers / representatives who currently or will assist patient after discharge: Katherine Thrasher ([facility]) [phone] Address: [address] [place] [address] Rd, [place], [place] * Verbal permission to speak to the caregivers and representatives has been obtained from the patient. N/A * Community resources currently utilized Home Health * Please name any agencies selected above. [facility] * Additional services required to return to the preadmission environment? Yes * Can the patient safely return to the preadmission environment? No * Has this patient been hospitalized within the prior 30 days at any hospital? No Last DP export: 11/13/19 1:44 pm Patient Name: JHONATHAN THRASHER Page [phone] at 1452 All edits/amendments must be made on the electronic document DICTATION DATE: 11/13/191450 MEDICAL RECORDS TECH: SINTIA 11/13/19 1451 RPT#: [id number] DC DATE: STATUS: ADM IN [facility] [address] [place] [address] END OF REPORT
--- NOTE | 2019-11-13 16:10 | MORECARE ---
CASE MANAGEMENT DISCHARGE SUMMARY PATIENT: JHONATHAN THRASHER UNIT: [id number] ADM DATE: 11/08/19 AGE: 74 : 47 SEX: M ROOM/BED: D.2304 AUTHOR: AFIA ARANA PHYSICIAN: REFERRING PHYSICIAN: JOLYNN MUNOZ MD DATE OF SERVICE: 11/13/19 Discharge Plan Patient Name: JHONATHAN THRASHER Facility: [facility]:[place] : 1945 Planned Disposition: Anticipated Discharge Date: Discharge Date: Expected LOS: Initial Reviewer: [email or web address] Initial Review Date: 11/08/2019 Generated: 11/13/19 5:10 pm Comments DCP- Discharge Planning Updated by [email or web address]: Eboni Jiménez on 11/13/19 1:[address] CM called patient's daughter, Katherine Thrasher (POA) [phone], to discuss initial discharge planning. Patient's daughter is in agreement to proceed with the assessment. Daughter reports that the patient lives at home with her and he is total care. Daughter reports that the patient is non-ambulatory, requires feeding, incontinent of bowel DITCH DIGGER. Daughter also reports that she is raising 5 grandchildren, along with caring for her father. 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 Daughter transports patient to and from HD. Patient is currently intubated to a mechanical vent. PCP: Dr. Sanchez [facility] in [place]. Pharmacy: [facility], daughter picks up his medication. Patient has been able to obtain all of his prescribed medications. HHS: [facility], DITCH DIGGER. DME: walker, w/c, hospital bed, didi lift. Patient is totally dependent with medication management DITCH DIGGER. CM discussed the availability of HH, Rehab, SNF, OP Therapy, DME services. When the patient is able to return home, his daughter states she would like to resume [facility]. Patient's daughter advises that she "had a call from an CRIMPING MACHINE OPERATOR FOR METAL, to inform her she should not expect her father to return home this time". Daughter has been encouraged to fill out paperwork for the Medicaid Waver Program, daughter agrees, but states she hasn't had time. Advised daughter that the usual time frame is 45 days before a decision is reached. Daughter denies the use of community resources DITCH DIGGER. Transportation at time of discharge: Daughter or facility, if patient requires a SNF setting. CM will continue to follow and assist with DC planning. DCPIA - Discharge Planning Initial Assessment Updated by [id number]: Eboni Jiménez on 11/13/19 2:38 pm * Is the patient Alert and Oriented? No * PCP Dr. Sanchez, [facility] * Pharmacy [facility], [place] Daughter picks up medications * Preadmission Environment Home with Family * ADLs Total Dependent * Equipment Tub Bench * Other Equipment RW, W/C, Hospital bed, Didi lift * List name and contact numbers for known caregivers / representatives who currently or will assist patient after discharge: Katherine Thrasher ([facility]) [phone] Address: [address] [place] [address] Rd, [place], [place] * Verbal permission to speak to the caregivers and representatives has been obtained from the patient. N/A * Community resources currently utilized Home Health * Please name any agencies selected above. [facility] * Additional services required to return to the preadmission environment? Yes * Can the patient safely return to the preadmission environment? No * Has this patient been hospitalized within the prior 30 days at any hospital? No Last DP export: 11/13/19 1:52 pm Patient Name: JHONATHAN THRASHER Page [phone] at 1610 All edits/amendments must be made on the electronic document DICTATION DATE: 11/13/19 161 FLOOR WORKER TRANSFER BAY: SINTIA 11/13/19 1610 RPT#: [id number] DC DATE: STATUS: ADM IN [facility] [address] [place] [address] END OF REPORT
--- NOTE | 2019-11-13 17:45 | MORECARE ---
CASE MANAGEMENT DISCHARGE SUMMARY PATIENT: JHONATHAN THRASHER UNIT: [id number] ADM DATE: 11/08/19 AGE: 74 : 47 SEX: M ROOM/BED: D.2304 AUTHOR: AFIA ARANA PHYSICIAN: REFERRING PHYSICIAN: JOLYNN MUNOZ MD DATE OF SERVICE: 11/13/19 Discharge Plan Patient Name: JHONATHAN HTRASHER Facility: [facility]:[place] : 1945 Planned Disposition: Anticipated Discharge Date: Discharge Date: Expected LOS: Initial Reviewer: [email or web address] Initial Review Date: 11/08/2019 Generated: 11/13/19 6:44 pm Comments DCP- Discharge Planning Updated by [email or web address]: Eboni Jiménez on 11/13/19 1:[address] CM called patient's daughter, Katherine Thrasher (POA) [phone], to discuss initial discharge planning. Patient's daughter is in agreement to proceed with the assessment. Daughter reports that the patient lives at home with her and he is total care. Daughter reports that the patient is non-ambulatory, requires feeding, incontinent of bowel COLOR TESTER. Daughter also reports that she is raising 5 grandchildren, along with caring for her father. 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 Daughter transports patient to and from HD. Patient is currently intubated to a mechanical vent. PCP: Dr. Sanchez [facility] in [place]. Pharmacy: [facility], daughter picks up his medication. Patient has been able to obtain all of his prescribed medications. HHS: [facility], COLOR TESTER. DME: walker, w/c, hospital bed, didi lift. Patient is totally dependent with medication management COLOR TESTER. CM discussed the availability of HH, Rehab, SNF, OP Therapy, DME services. When the patient is able to return home, his daughter states she would like to resume [facility]. Patient's daughter advises that she "had a call from an ACTIVE DIRECTORY SPECIALIST, to inform her she should not expect her father to return home this time". Daughter has been encouraged to fill out paperwork for the Medicaid [place] Program, daughter agrees, but states she hasn't had time. Advised daughter that the usual time frame is 45 days before a decision is reached. Daughter denies the use of community resources COLOR TESTER. Transportation at time of discharge: Daughter or facility, if patient requires a SNF setting. CM will continue to follow and assist with DC planning. DCPIA - Discharge Planning Initial Assessment Updated by [email or web address]: Eboni Jiménez on 11/13/19 2:38 pm * Is the patient Alert and Oriented? No * PCP Dr. Sanchez, [facility] * Pharmacy [facility], [place] Daughter picks up medications * Preadmission Environment Home with Family * ADLs Total Dependent * Equipment Tub Bench * Other Equipment RW, W/C, Hospital bed, Didi lift * List name and contact numbers for known caregivers / representatives who currently or will assist patient after discharge: Katherine Thrasher (A-r) [phone] Address: [address] [place] [address] Rd, [place], [place] * Verbal permission to speak to the caregivers and representatives has been obtained from the patient. N/A * Community resources currently utilized Home Health * Please name any agencies selected above. [facility] * Additional services required to return to the preadmission environment? Yes * Can the patient safely return to the preadmission environment? No * Has this patient been hospitalized within the prior 30 days at any hospital? No Last DP export: 11/13/19 3:10 pm Patient Name: JHONATHAN THRASHER Page [id number] at 1745 All edits/amendments must be made on the electronic document DICTATION DATE: 11/13/191743 ROUGHER FOR CEMENT: SINTIA 11/13/191743 RPT#: [id number] DC DATE: STATUS: ADM IN [facility] [address] [place] [address] END OF REPORT
--- NOTE | 2019-11-13 19:10 | NUR ---
PT INTUBATED AND SEDATED ON THE VENTILATOR, NSR NOTED ON THE MONITOR WITH A RATE OF 70 - SHIFT ASSESSMENT COMPLETED AT THIS TIME. SEE FLOWSHEET. VSS CPOC
[2019-11-14] VITALS (74 sets, daily range): BP systolic 96–138; BP diastolic 4–75
[2019-11-14 06:35] LABS: BASOPHILS 0 % (0-2); HEMATOCRIT 32.5 % (42.0-54.0); HEMOGLOBIN 10.7 g/dL (13.5-17.5); IMMATURE GRANULOCYTES 0.7 % (0-5); LYMPHOCYTES 6.9 % (15-50); MCH 30.7 pg (26.0-34.0); MCHC 32.9 g/dL (31.0-37.0); MCV 93.1 fL (80.0-100.0); MEAN PLATELET VOLUME 11.7 fL (7.4-10.4); MONOCYTES 7.6 % (2-11); NEUTROPHILS 83.8 % (40-80); PLATELET COUNT 123 10x3/uL (130-400); RBC 3.49 10x6/uL (4.20-6.10); RDW 20.4 % (11.5-14.5); WBC 9.8 10x3/uL (4.8-10.8)
[2019-11-14 07:24] LABS: ANION GAP 19.7 mmol/L (8-16); CALCIUM 10.1 mg/dL (8.5-10.1); CARBON DIOXIDE 20.8 mmol/L (21.0-32.0); CREATININE - SERUM 4.5 mg/dL (0.6-1.3); POTASSIUM - SERUM 4.5 mmol/L (3.5-5.1); VANCOMYCIN - RANDOM 18.9 ug/mL (10.0-20.0)
[2019-11-14 07:25] LABS: PHOSPHOROUS 5.6 mg/dL (2.5-4.9)
[2019-11-14 08:12] LABS: HEP B CORE AB TOTAL Negative (Negative); HEPATITIS C ANTIBODY <0.1 S/CO RAT (0.0-0.9)
--- NOTE | 2019-11-14 14:04 | NUR ---
0700 REPORT RECIEVED AND CARE ASSUMED OF THE PATIENT.. SEE FLOW SHEET FOR SHIFT ASSESMENT FIDNINGS..
--- NOTE | 2019-11-14 15:40 | NUR ---
1530 CASTING WHEEL OPERATOR AT BEDSIDE.. IV FLUIDS ARE TO RUN THRU THE DIALYSIS PER HER..
--- NOTE | 2019-11-14 16:49 | NUR ---
1055 DIALYSIS CONTINUES AT BEDSIDE
[2019-11-15] VITALS (93 sets, daily range): BP systolic 82–125; BP diastolic 25–72
[2019-11-16] VITALS (55 sets, daily range): BP systolic 95–143; BP diastolic 24–82
[2019-11-16 04:38] LABS: BASOPHILS 0.1 % (0-2); EOSINOPHILS 1.6 % (0-7); HEMATOCRIT 30.1 % (42.0-54.0); HEMOGLOBIN 10.1 g/dL (13.5-17.5); IMMATURE GRANULOCYTES 0.3 % (0-5); LYMPHOCYTES 5.6 % (15-50); MCH 30.5 pg (26.0-34.0); MCHC 33.6 g/dL (31.0-37.0); MEAN PLATELET VOLUME 10.6 fL (7.4-10.4); MONOCYTES 4.1 % (2-11); NEUTROPHILS 88.3 % (40-80); PLATELET COUNT 129 10x3/uL (130-400); RBC 3.31 10x6/uL (4.20-6.10); WBC 7.9 10x3/uL (4.8-10.8)
[2019-11-16 04:47] LABS: MCV 90.9 fL (80.0-100.0)
[2019-11-16 05:08] LABS: ALBUMIN 2.2 g/dL (3.4-5.0); ANION GAP 19.7 mmol/L (8-16); BILIRUBIN - TOTAL 0.51 mg/dL (0.2-1.3); CALCIUM 9.4 mg/dL (8.5-10.1); CREATININE - SERUM 4.3 mg/dL (0.6-1.3); PROTEIN - SERUM 4.6 g/dL (6.4-8.2); VANCOMYCIN - RANDOM 15.1 ug/mL (10.0-20.0)
[2019-11-16 05:10] LABS: POTASSIUM - SERUM 3.7 mmol/L (3.5-5.1)
--- NOTE | 2019-11-16 07:10 | NUR ---
REPORT RECIEVED FROM OFF GOING NURSE. PATIENT LAYING IN BED ON BACK WITH EYES CLOSED SEDATED ON VENT. VSS. WILL CONTINUE TO MONITOR.D SR UP X 2 BED IN LOW POSITION AND CALL LIGHT IN REACH.
--- NOTE | 2019-11-16 08:13 | NUR ---
Nutrition follow-up: Intubated, sedated Nepro @ 20 ml/hr labs reviewed off levophed at this time Wt: 186# Dialysis pt Recommend increasing Nepro to goal rate of 40 ml/hr with 20 ml H2O flush q hour RDN following.
--- NOTE | 2019-11-16 10:59 | NUR ---
COMPLETECHG BATH GIVEN WITH COMPLETE LINEN CHANGE. PATIENT TOLERATED WELL.
--- NOTE | 2019-11-16 11:18 | NUR ---
BP 88/47 RE-STARTED LEVOPHED 8MCG. WILL CONITNUE TO MONITOR.
[2019-11-17] VITALS (92 sets, daily range): BP systolic 89–119; BP diastolic 4–63
--- NOTE | 2019-11-17 07:10 | NUR ---
REPORT RECEIVED FROM OUT OF SCHOOL HOURS CARE WORKER AND PATIENT CARE ASSUMED. PATIENT LAYING IN BED ON RT SIDE WITH HOB ELEVATED 30 DEGREES WITH VENT AC R16 FIO2 40% TV 500 PEEP 5 RENATO SOFT WRIST RESTRAINTS IN PLACE BP 105/42 R23 HR69 [id number]%. WILL CONTINUE WITH PLAN OF CARE. SR UP X 2 BED IN LOW POSITON AND CALL LIGHT IN REACH.
[2019-11-17 07:36] LABS: HEMATOCRIT 29.2 % (42.0-54.0); MCH 30.4 pg (26.0-34.0); MCHC 34.2 g/dL (31.0-37.0); MEAN PLATELET VOLUME 10.6 fL (7.4-10.4); PLATELET COUNT 153 10x3/uL (130-400); RBC 3.29 10x6/uL (4.20-6.10); RDW 19.3 % (11.5-14.5)
[2019-11-17 07:37] LABS: MCV 88.8 fL (80.0-100.0); WBC 12.2 10x3/uL (4.8-10.8)
[2019-11-17 07:52] LABS: ANION GAP 22.3 mmol/L (8-16); CALCIUM 9.6 mg/dL (8.5-10.1); CARBON DIOXIDE 18.3 mmol/L (21.0-32.0); CREATININE - SERUM 4.7 mg/dL (0.6-1.3); POTASSIUM - SERUM 3.6 mmol/L (3.5-5.1)
[2019-11-17 12:38] LABS: LYMPHOCYTES 11 % (15-50); MONOCYTES 7 % (2-11); NEUTROPHILS 81 % (40-80); PLATELET ESTIMATE NORMAL; ROULEAUX OCC
[2019-11-18] VITALS (72 sets, daily range): BP systolic 73–122; BP diastolic 31–470
[2019-11-18 05:05] LABS: BASOPHILS 0.1 % (0-2); EOSINOPHILS 0.7 % (0-7); HEMATOCRIT 25.5 % (42.0-54.0); HEMOGLOBIN 8.7 g/dL (13.5-17.5); IMMATURE GRANULOCYTES 0.3 % (0-5); LYMPHOCYTES 3.2 % (15-50); MCH 30.1 pg (26.0-34.0); MCHC 34.1 g/dL (31.0-37.0); MCV 88.2 fL (80.0-100.0); MEAN PLATELET VOLUME 10.2 fL (7.4-10.4); NEUTROPHILS 93.7 % (40-80); PLATELET COUNT 152 10x3/uL (130-400); RBC 2.89 10x6/uL (4.20-6.10); RDW 19.7 % (11.5-14.5)
[2019-11-18 05:22] LABS: ANION GAP 19.4 mmol/L (8-16); CALCIUM 9.8 mg/dL (8.5-10.1); CREATININE - SERUM 4.8 mg/dL (0.6-1.3); PHOSPHOROUS 5.2 mg/dL (2.5-4.9); POTASSIUM - SERUM 3.4 mmol/L (3.5-5.1); VANCOMYCIN - RANDOM 23.2 ug/mL (10.0-20.0)
--- NOTE | 2019-11-18 07:10 | NUR ---
REPORT RECEIVED. ASSESSMENT COMPLETE PER FLOW SHEET. VSS. PT RESTING COMFORTABLY WILL CONTINUE TO MONITOR
--- NOTE | 2019-11-18 09:38 | NUR ---
Nutrition follow-up; Pt remains intubated, sedated with propofol @ 6 ml/hr Levophed in use Nepro infusing @ 30 ml/hr Wt: 198# Labs reviewed Recommend Nepro increased to goal rate of 40 ml/hr RDN following.
--- NOTE | 2019-11-18 10:13 | NUR ---
DAVION [id number]-[phone] [facility] WORK-[id number]
--- NOTE | 2019-11-18 14:24 | NUR ---
[facility] AT BESIDE. GIVEN UPDATE PER EDEL MENEZES CHARGE NURSE
--- NOTE | 2019-11-18 16:39 | MORECARE ---
CASE MANAGEMENT DISCHARGE SUMMARY PATIENT: JHONATHAN THRASHER UNIT: [id number] ADM DATE: 11/08/19 AGE: 74 : 47 SEX: M ROOM/BED: D.2304 AUTHOR: SUMIT,DOC PHYSICIAN: REFERRING PHYSICIAN: JOLYNN MUNOZ MD DATE OF SERVICE: 11/18/19 Discharge Plan Patient Name: JHONATHAN THRASHER Facility: [facility]:[place] : 1945 Planned Disposition: Anticipated Discharge Date: Discharge Date: Expected LOS: Initial Reviewer: [email or web address] Initial Review Date: 11/08/2019 Generated: 11/18/19 5:38 pm Comments DCP- Discharge Planning Updated by [email or web address]: Alta Melendez on 11/18/19 3:[address] CM received a call from patient's daughter Nena Willis cell [phone] work [phone]. She asked if her sister Katherine had provided proof of POA paperwork . CM explained that at this time she was unaware if there was a copy on the chart. Nena stated that her, her brother and the patient's sister all are wanting to make patient a DNR but Katherine is the only one wanting to keep him on the vent. CM asked who was the eldest child and that if there isn't a POA then the eldest child will be the one acting as POA if the patient isn't . CM will look to see if patient has POA paperwork in his records. CM will notify Nena and let her know if paperwork is on file. CM did locate POA paperwork and placed a hard copy in front on hard chart. CM did call Nena and let her know that Katherine does have POA. CM will continue to follow and assist as needed with discharge planning/ needs DCP- Discharge Planning Updated by [id number]: Eboni Jiménez on 11/13/19 1:[address] CM called patient's daughter, Katherine Thrasher (POA) [phone], to discuss initial discharge planning. Patient's daughter is in agreement to proceed with the assessment. Daughter reports that the patient lives at home with her and he is total care. 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 Daughter also reports that she is raising 5 grandchildren, along with caring for her father. 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 Daughter transports patient to and from HD. Patient is currently intubated to a mechanical vent. PCP: Danny Painter in [place]. Pharmacy: [facility], daughter picks up his medication. Patient has been able to obtain all of his prescribed medications. H[facility]: [facility], CURRICULUM ASSISTANT. DME: walker, w/c, hospital bed, didi lift. Patient is totally dependent with medication management CURRICULUM ASSISTANT. CM discussed the availability of HH, Rehab, SNF, OP Therapy, DME services. When the patient is able to return home, his daughter states she would like to resume [facility]. Patient's daughter advises that she "had a call from an FOOD SAFETY AUDITOR, to inform her she should not expect her father to return home this time". Daughter has been encouraged to fill out paperwork for the Medicaid [place] Program, daughter agrees, but states she hasn't had time. Advised daughter that the usual time frame is 45 days before a decision is reached. Daughter denies the use of community resources CURRICULUM ASSISTANT. Transportation at time of discharge: Daughter or facility, if patient requires a SNF setting. CM will continue to follow and assist with DC planning. DCPIA - Discharge Planning Initial Assessment Updated by [email or web address]: Eboni Jiménez on 11/13/19 2:38 pm * Is the patient Alert and Oriented? No * PCP Dr. Sanchez [facility] * Pharmacy [facility], [place] Daughter picks up medications * Preadmission Environment Home with Family * ADLs Total Dependent * Equipment Tub Bench * Other Equipment RW, W/C, Hospital bed, Didi lift * List name and contact numbers for known caregivers / representatives who currently or will assist patient after discharge: Katherine Hema (POA-dtr) [phone] Address: [address] [place] [address] Rd, [place], [place] * Verbal permission to speak to the caregivers and representatives has been obtained from the patient. N/A * Community resources currently utilized Home Health * Please name any agencies selected above. [facility] * Additional services required to return to the preadmission environment? Yes * Can the patient safely return to the preadmission environment? No * Has this patient been hospitalized within the prior 30 days at any hospital? No Last DP export: 11/13/19 4:45 pm Patient Name: JHONATHAN THRASHER Page [id number] at 1639 All edits/amendments must be made on the electronic document DICTATION DATE: 11/18/191637 CONSULTING SYSTEMS ENGINEER: SINTIA 11/18/191637 RPT#: [id number] DC DATE: STATUS: ADM IN [facility] [address] [place] [address] END OF REPORT
[2019-11-19] VITALS (42 sets, daily range): BP systolic 88–142; BP diastolic 26–90
[2019-11-19 05:25] LABS: BASOPHILS 0.1 % (0-2); HEMOGLOBIN 8.2 g/dL (13.5-17.5); IMMATURE GRANULOCYTES 0.5 % (0-5); LYMPHOCYTES 3.2 % (15-50); MCH 29.8 pg (26.0-34.0); MCHC 34.2 g/dL (31.0-37.0); MCV 87.3 fL (80.0-100.0); MONOCYTES 2.6 % (2-11); NEUTROPHILS 92.6 % (40-80); PLATELET COUNT 149 10x3/uL (130-400); RBC 2.75 10x6/uL (4.20-6.10); RDW 19.6 % (11.5-14.5); WBC 14.9 10x3/uL (4.8-10.8)
[2019-11-19 05:52] LABS: ANION GAP 19.8 mmol/L (8-16); CALCIUM 10.1 mg/dL (8.5-10.1); CARBON DIOXIDE 19.5 mmol/L (21.0-32.0); CREATININE - SERUM 5.1 mg/dL (0.6-1.3); PHOSPHOROUS 5.2 mg/dL (2.5-4.9); POTASSIUM - SERUM 3.3 mmol/L (3.5-5.1)
--- NOTE | 2019-11-19 14:49 | MORECARE ---
CASE MANAGEMENT DISCHARGE SUMMARY PATIENT: JHONATHAN THRASHER UNIT: [id number] ADM DATE: 11/08/19 AGE: 74 : 47 SEX: M ROOM/BED: D.2304 AUTHOR: SUMIT,DOC PHYSICIAN: REFERRING PHYSICIAN: JOLYNN MUNOZ MD DATE OF SERVICE: 11/19/19 Discharge Plan Patient Name: JHONATHAN THRASHER Facility: [facility]:[place] : 1945 Planned Disposition: Anticipated Discharge Date: Discharge Date: Expected LOS: Initial Reviewer: [email or web address] Initial Review Date: 11/08/2019 Generated: 11/19/19 3:48 pm DCP- Discharge Planning Updated by [id number]: Alta Melendez on 11/19/19 1:[address] CM received a call from Delano with APS [phone] he stated that he had received a call from a family member to investigate and requested for CM to call him if family decides to term extubate or if he is weaned off vent to where he could speak with him. DCP- Discharge Planning Updated by [id number]: Alta Melendez on 11/18/19 3:[address] CM received a call from patient's daughter Nena Willis cell [phone] work [phone]. She asked if her sister Katherine had provided proof of POA paperwork . CM explained that at this time she was unaware if there was a copy on the chart. Nena stated that her, her brother and the patient's sister all are wanting to make patient a DNR but Katherine is the only one wanting to keep him on the vent. CM asked who was the eldest child and that if there isn't a POA then the eldest child will be the one acting as POA if the patient isn't . CM will look to see if patient has POA paperwork in his records. CM will notify Nena and let her know if paperwork is on file. CM did locate POA paperwork and placed a hard copy in front on hard chart. CM did call Nena and let her know that Katherine does have POA. CM will continue to follow and assist as needed with discharge planning/ needs DCP- Discharge Planning Updated by [id number]: Ebonigary Jiménez on 11/13/19 1:[address] CM called patient's daughter, Katherine Thrasher (POA) [phone], to discuss initial discharge planning. Patient's daughter is in agreement to proceed with the assessment. Daughter reports that the patient lives at home with her and he is total care. 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 Daughter also reports that she is raising 5 grandchildren, along with caring for her father. 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 Daughter transports patient to and from HD. Patient is currently intubated to a mechanical vent. PCP: Danny Painter in [place]. [facility], daughter picks up his medication. Patient has been able to obtain all of his prescribed medications. HHS: [facility], FORESTRY CONSERVATION WORKER. DME: walker, w/c, hospital bed, didi lift. Patient is totally dependent with medication management FORESTRY CONSERVATION WORKER. CM discussed the availability of HH, Rehab, SNF, OP Therapy, DME services. When the patient is able to return home, his daughter states she would like to resume [facility]. Patient's daughter advises that she "had a call from an RECORD CHANGER, to inform her she should not expect her father to return home this time". Daughter has been encouraged to fill out paperwork for the Medicaid [place] Program, daughter agrees, but states she hasn't had time. Advised daughter that the usual time frame is 45 days before a decision is reached. Daughter denies the use of community resources FORESTRY CONSERVATION WORKER. Transportation at time of discharge: Daughter or facility, if patient requires a SNF setting. CM will continue to follow and assist with DC planning. DCPIA - Discharge Planning Initial Assessment Updated by [id number]: Eboni Sagastumelroy on 11/13/19 2:38 pm * Is the patient Alert and Oriented? No * PCP Dr. Sanchez [facility] * Pharmacy [facility] [place] Daughter picks up medications * Preadmission Environment Home with Family * ADLs Total Dependent * Equipment Tub Bench * Other Equipment RW, W/C, Hospital bed, Didi lift * List name and contact numbers for known caregivers / representatives who currently or will assist patient after discharge: Katherine Thrasher (POA-dtr) [phone] Address: [address] [place] [address] Rd, [place], [place] * Verbal permission to speak to the caregivers and representatives has been obtained from the patient. N/A * Community resources currently utilized Home Health * Please name any agencies selected above. [facility] * Additional services required to return to the preadmission environment? Yes * Can the patient safely return to the preadmission environment? No * Has this patient been hospitalized within the prior 30 days at any hospital? No Last DP export: 11/18/19 3:39 pm Patient Name: JHONATHAN THRASHER Page [phone] at 1449 All edits/amendments must be made on the electronic document DICTATION DATE: 11/19/191448 HEEL LINING PASTER: SINTIA 11/19/191448 RPT#: [id number] DC DATE: STATUS: ADM IN [facility] [address] [place] [address] END OF REPORT
[2019-11-20] VITALS (50 sets, daily range): BP systolic 74–121; BP diastolic 23–66
[2019-11-20 04:24] LABS: BASOPHILS 0.1 % (0-2); EOSINOPHILS 0.7 % (0-7); HEMATOCRIT 23.3 % (42.0-54.0); HEMOGLOBIN 8.1 g/dL (13.5-17.5); IMMATURE GRANULOCYTES 0.2 % (0-5); LYMPHOCYTES 2.8 % (15-50); MCH 30.6 pg (26.0-34.0); MCHC 34.8 g/dL (31.0-37.0); MCV 87.9 fL (80.0-100.0); MEAN PLATELET VOLUME 9.6 fL (7.4-10.4); MONOCYTES 2.6 % (2-11); NEUTROPHILS 93.6 % (40-80); PLATELET COUNT 168 10x3/uL (130-400); RBC 2.65 10x6/uL (4.20-6.10); RDW 19.7 % (11.5-14.5)
[2019-11-20 04:28] LABS: CALCIUM 10.9 mg/dL (8.5-10.1); CREATININE - SERUM 3.9 mg/dL (0.6-1.3); PHOSPHOROUS 4.2 mg/dL (2.5-4.9); VANCOMYCIN - RANDOM 18.3 ug/mL (10.0-20.0)
[2019-11-20 04:33] LABS: ANION GAP 16.2 mmol/L (8-16); CARBON DIOXIDE 24.7 mmol/L (21.0-32.0); POTASSIUM - SERUM 2.9 mmol/L (3.5-5.1)
--- NOTE | 2019-11-20 07:15 | NUR ---
REPORT RECEIVED. ASSESSMENT COMPLETE PER FLOW SHEET. VSS. PT RESTING COMFORTABLY WILL CONTINUE TO MONITOR
--- NOTE | 2019-11-20 09:31 | NUR ---
PS TRIAL 12/13
--- NOTE | 2019-11-20 09:50 | NUR ---
Nutrition follow-up: Intubated; sedation off OGT with Nepro @ 40 ml/hr; 10 ml/hr flush Labs reviewed; Na continues low @ 130 Wt: 198# +BM Pt tolerating TF at goal rate RDN following.
[2019-11-21] VITALS (18 sets, daily range): BP systolic 90–136; BP diastolic 41–69
[2019-11-21 05:16] LABS: BASOPHILS 0.1 % (0-2); EOSINOPHILS 0.9 % (0-7); HEMATOCRIT 22.4 % (42.0-54.0); HEMOGLOBIN 7.6 g/dL (13.5-17.5); IMMATURE GRANULOCYTES 0.2 % (0-5); LYMPHOCYTES 4.2 % (15-50); MCHC 33.9 g/dL (31.0-37.0); MCV 88.5 fL (80.0-100.0); MEAN PLATELET VOLUME 9.6 fL (7.4-10.4); NEUTROPHILS 91.6 % (40-80); PLATELET COUNT 185 10x3/uL (130-400); RBC 2.53 10x6/uL (4.20-6.10); RDW 19.7 % (11.5-14.5); WBC 11.2 10x3/uL (4.8-10.8)
[2019-11-21 05:32] LABS: ANION GAP 18.6 mmol/L (8-16); CALCIUM 11.4 mg/dL (8.5-10.1); CARBON DIOXIDE 23.2 mmol/L (21.0-32.0); CREATININE - SERUM 4.2 mg/dL (0.6-1.3); PHOSPHOROUS 4.5 mg/dL (2.5-4.9)
[2019-11-21 05:35] LABS: POTASSIUM - SERUM 2.8 mmol/L (3.5-5.1)
--- NOTE | 2019-11-21 11:12 | NUR ---
PT RECIEVIND DIALYSIS AT THIS TIME. NOTED H&H IS 7.6 AND 22.4, PER DR HANSON, ADMIN 1 U PRBC. ALSO NOTIFIED PHYSICIAN OF LOW SODIUM LEVELS, NO NEW ORDERS RECIEVED REGARDING THAT. VSS. WILL CONTINUE PLAN OF CARE.
--- NOTE | 2019-11-21 11:23 | NUR ---
NOTED ORDER FOR PT TO RECIEVE BLOOD. ATTEMPTED TO CALL PTS POA AT [phone], AND NUMBER IMMEDIATELY WENT TO VOICEMAIL. VOICEMAIL LEFT FOR KELIN THRASHER TO CALL BACK. WAITING FOR CALLBACK. WILL ALSO SEE FOR ALTERNATIVE NUMBERS FOR KELIN.
--- NOTE | 2019-11-21 12:20 | NUR ---
INFUSED 1U PRBC WITH DIALYSIS BY DIALYSIS NURSE.
--- NOTE | 2019-11-21 16:05 | NUR ---
INCONTINENT BOWEL MOVEMENT NOTED AT THIS TIME. TOTAL LINEN CHANGE PROVIDED. CHG BATH PROVIDED. VSS. NO ACUTE DISTRESS NOTED. WILL CONTINUE PLAN OF CARE.
[2019-11-22] VITALS (24 sets, daily range): BP systolic 87–142; BP diastolic 22–87
[2019-11-22 05:00] LABS: BASOPHILS 0.1 % (0-2); EOSINOPHILS 0.8 % (0-7); IMMATURE GRANULOCYTES 0.3 % (0-5); LYMPHOCYTES 4.8 % (15-50); MCH 29.1 pg (26.0-34.0); MCHC 33.3 g/dL (31.0-37.0); MCV 87.3 fL (80.0-100.0); MEAN PLATELET VOLUME 9.2 fL (7.4-10.4); MONOCYTES 5.2 % (2-11); NEUTROPHILS 88.8 % (40-80); PLATELET COUNT 176 10x3/uL (130-400); RBC 2.75 10x6/uL (4.20-6.10); RDW 21.1 % (11.5-14.5); WBC 9.7 10x3/uL (4.8-10.8)
[2019-11-22 05:13] LABS: CALCIUM 11.4 mg/dL (8.5-10.1); CARBON DIOXIDE 26.2 mmol/L (21.0-32.0); CREATININE - SERUM 3.4 mg/dL (0.6-1.3); POTASSIUM - SERUM 3.2 mmol/L (3.5-5.1)
[2019-11-22 05:24] LABS: PHOSPHOROUS 3.1 mg/dL (2.5-4.9)
--- NOTE | 2019-11-22 08:19 | NUR ---
LYINGING IN BED ON VENT AT THIS TIME. PT OPENS EYES SPONTANEOUSLY. DOES NOT FOLLOW COMMANDS. FACIAL GRIMACING NOTED TO DISCOMFORT. VSS. TURNED Q2H, ORAL CARE PROVIDED Q2H. NGT RESIDUAL 40ML, PLACEMENT VERIFIED VIA AUSCULTATION. WILL CONTINUE PLAN OF CARE.
--- NOTE | 2019-11-22 10:01 | NUR ---
PT FAILED CPAP TRAIL, NOTED RR UP TO 40 WITH HEART RATE INCREASED UP TO 122. PT MOVED LT LEG OFF OF BED. VENTILATOR SETTINGS TURNED BACK TO ASSISTED CONTROL BY RESPIRATORY THERAPIST. PT BEGINNING TO CALM DOWN. WILL NOTIFY CLINICAL RN MANAGER.
--- NOTE | 2019-11-22 12:23 | NUR ---
SPOKE WITH RENAL REGARDING LOW POTASSIUM LEVELS AND FEEDINGS. ORDERS RECIEVED. WILL CONTINUE PLAN OF CARE.
--- NOTE | 2019-11-22 14:30 | NUR ---
PER RENAL TUBE FEEDINGS CHANGED FROM NEPHRO TO TWO CALORIE HN
--- NOTE | 2019-11-22 14:31 | NUR ---
INCONTINENT BOWEL MOVEMENT NOTED AT THIS TIME. TOTAL LINEN CHANGE PROVIDED, LEVI CARE PROVIDED. CHG BATH PROVIDED. VSS. WILL CONTINUE PLAN OF CARE.
[2019-11-23] VITALS (22 sets, daily range): BP systolic 89–114; BP diastolic 23–62
--- NOTE | 2019-11-23 07:15 | NUR ---
REPORT RECEIVED. ASSESSMENT COMPLETE PER FLOW SHEET. VSS. PT RSETING COMFORTABLY WILL CONTINUE TO MONITOR
--- NOTE | 2019-11-23 10:46 | NUR ---
Nutrition follow-up: TF formula changed from Nepro to TwoCal HN @ 40 ml/hr via NGT per renal GLOBAL COMPENSATION MANAGER Labs reviewed Wt: 196# +BM Pt tolerating TF change at this time RDN following.
[2019-11-24] VITALS (23 sets, daily range): BP systolic 85–129; BP diastolic 22–83
[2019-11-24 05:11] LABS: BASOPHILS 0.3 % (0-2); EOSINOPHILS 1.3 % (0-7); HEMATOCRIT 21.9 % (42.0-54.0); IMMATURE GRANULOCYTES 0.1 % (0-5); LYMPHOCYTES 7.2 % (15-50); MCHC 32.9 g/dL (31.0-37.0); MCV 88.3 fL (80.0-100.0); MEAN PLATELET VOLUME 9.1 fL (7.4-10.4); MONOCYTES 5.4 % (2-11); NEUTROPHILS 85.7 % (40-80); PLATELET COUNT 164 10x3/uL (130-400); RBC 2.48 10x6/uL (4.20-6.10); WBC 8.9 10x3/uL (4.8-10.8)
[2019-11-24 05:17] LABS: ALBUMIN 3.4 g/dL (3.4-5.0); ANION GAP 14.1 mmol/L (8-16); BILIRUBIN - TOTAL 0.76 mg/dL (0.2-1.3); CARBON DIOXIDE 24.5 mmol/L (21.0-32.0); CREATININE - SERUM 4.4 mg/dL (0.6-1.3); POTASSIUM - SERUM 3.6 mmol/L (3.5-5.1); PROTEIN - SERUM 6.4 g/dL (6.4-8.2); VANCOMYCIN - RANDOM 17.2 ug/mL (10.0-20.0)
[2019-11-24 05:19] LABS: HEMOGLOBIN 7.2 g/dL (13.5-17.5)
[2019-11-24 05:21] LABS: CALCIUM 12.9 mg/dL (8.5-10.1)
--- NOTE | 2019-11-24 09:10 | NUR ---
DR SWENSON AT BEDSIDE NEW ORDERS RECIEVED. RT GIVEN UPDATE.
[2019-11-25] VITALS (23 sets, daily range): BP systolic 90–128; BP diastolic 26–96
[2019-11-25 05:40] LABS: BASOPHILS 0.4 % (0-2); HEMATOCRIT 22.7 % (42.0-54.0); IMMATURE GRANULOCYTES 0.1 % (0-5); LYMPHOCYTES 6.4 % (15-50); MCHC 31.7 g/dL (31.0-37.0); MCV 88.3 fL (80.0-100.0); MEAN PLATELET VOLUME 9.1 fL (7.4-10.4); MONOCYTES 6.8 % (2-11); NEUTROPHILS 83.3 % (40-80); PLATELET COUNT 169 10x3/uL (130-400); RBC 2.57 10x6/uL (4.20-6.10); RDW 21.2 % (11.5-14.5); WBC 7.7 10x3/uL (4.8-10.8)
[2019-11-25 05:56] LABS: HEMOGLOBIN 7.2 g/dL (13.5-17.5)
[2019-11-25 06:12] LABS: ALBUMIN 3.6 g/dL (3.4-5.0); ANION GAP 10.8 mmol/L (8-16); BILIRUBIN - TOTAL 0.78 mg/dL (0.2-1.3); CARBON DIOXIDE 29.4 mmol/L (21.0-32.0); CREATININE - SERUM 3.5 mg/dL (0.6-1.3); MAGNESIUM - SERUM 1.8 mg/dL (1.8-2.4); PHOSPHOROUS 3.2 mg/dL (2.5-4.9); POTASSIUM - SERUM 3.2 mmol/L (3.5-5.1); PROTEIN - SERUM 6.5 g/dL (6.4-8.2)
[2019-11-25 06:19] LABS: CALCIUM 12.4 mg/dL (8.5-10.1)
--- NOTE | 2019-11-25 07:15 | NUR ---
PT LAYING IN BED RES ING, PT OPENS EYES TO VERBAL STIMULI, DOES NOT FOLLOW COMMANDS, ORAL CARE PROVIDED AND ORAL SECRETIONS SUCTIONED, PT POSITIONED FOR COMFORT, WILL CONTINUE TO MONITOR
--- NOTE | 2019-11-25 09:00 | NUR ---
DISCUSSED WITH ABOUT TRACH AND PEG NEED BUT IT IS PT SO HE SAID WE NEED TO CHECK WITH HIM. CALLED AND HE AGREES TO DO IT AND STATES HE CAN DO IT SATURDAY. DISCUSSED WITH PRIMARY NURSE AND WILL PLAN FOR TRACH AND PEG TUBE PLACEMENT 11/27/19Saturday.
--- NOTE | 2019-11-25 10:30 | NUR ---
PT REPOSITIONED FOR COMFORT AT THIS TIME, ORAL SECREATIONS SUCTIONED, NO ACUTE DISTRESS NOTED AT THIS TIME, WILL MONITOR
--- NOTE | 2019-11-25 12:44 | NUR ---
Nutrition follow-up: Pt remains intubated Scheduled for trach/peg Saturday TwoCal HN infusing @ 40 ml/hr per nephrology labs reviewed Wt: 191# RDN following.
--- NOTE | 2019-11-25 13:20 | NUR ---
ORAL CARE PROVIDED AND PT REPOSITIONED, NO ACUTE DISTRESS NOTED, WILL MONITOR
--- NOTE | 2019-11-25 17:00 | NUR ---
complete bed bath given and linens changed, oral care provided and pt repositioned for comfort, dressing to coccyx changed, will monitor
[2019-11-26] VITALS (24 sets, daily range): BP systolic 97–138; BP diastolic 20–81
--- NOTE | 2019-11-26 09:30 | NUR ---
MORNING MEDS GIVEN
--- NOTE | 2019-11-26 10:24 | NUR ---
HD CLEANING BEGAN
[2019-11-26 10:51] LABS: ALBUMIN 3.8 g/dL (3.4-5.0); BILIRUBIN - TOTAL 0.97 mg/dL (0.2-1.3); CARBON DIOXIDE 29.3 mmol/L (21.0-32.0); CREATININE - SERUM 3.9 mg/dL (0.6-1.3); PROTEIN - SERUM 6.6 g/dL (6.4-8.2)
[2019-11-26 10:53] LABS: ANION GAP 12.4 mmol/L (8-16); POTASSIUM - SERUM 3.7 mmol/L (3.5-5.1)
[2019-11-26 10:54] LABS: CALCIUM 13.1 mg/dL (8.5-10.1)
[2019-11-26 12:13] LABS: BASOPHILS 0.4 % (0-2); EOSINOPHILS 1.8 % (0-7); HEMATOCRIT 27.3 % (42.0-54.0); IMMATURE GRANULOCYTES 0.1 % (0-5); LYMPHOCYTES 8.7 % (15-50); MCH 29.2 pg (26.0-34.0); MCV 88.6 fL (80.0-100.0); MEAN PLATELET VOLUME 9.9 fL (7.4-10.4); PLATELET COUNT 172 10x3/uL (130-400); RBC 3.08 10x6/uL (4.20-6.10); RDW 19.7 % (11.5-14.5); WBC 8.9 10x3/uL (4.8-10.8)
--- NOTE | 2019-11-26 13:24 | NUR ---
HD CLEANING COMPLETED, CHANGED HEMESLPIT DRESSING CHANGED BY HD NURSE, SMALL AMOUNT
--- NOTE | 2019-11-26 19:15 | NUR ---
called chris [facility]EV[facility] TO OBTAIN CONSENT FOR AM TRACH/PEG, NO ANSWER, LEFT MESSAGE ON VOICEMAIL
--- NOTE | 2019-11-26 19:58 | MORECARE ---
CASE MANAGEMENT DISCHARGE SUMMARY PATIENT: JHONATHAN THRASHER UNIT: [id number] ADM DATE: 11/08/19 AGE: 74 : 47 SEX: M ROOM/BED: D.2304 AUTHOR: SUMIT,DOC PHYSICIAN: REFERRING PHYSICIAN: JOLYNN MUNOZ MD DATE OF SERVICE: 11/26/19 Discharge Plan Patient Name: JHONATHAN THRASHER Facility: [facility]:[place] : 1945 Planned Disposition: Anticipated Discharge Date: Discharge Date: Expected LOS: Initial Reviewer: [email or web address] Initial Review Date: 11/08/2019 Generated: 11/26/19 8:57 pm DCP- Discharge Planning Updated by [email or web address]: Alta Melendez on 11/19/19 1:[address] CM received a call from Delano with APS [phone] he stated that he had received a call from a family member to investigate and requested for CM to call him if family decides to term extubate or if he is weaned off vent to where he could speak with him. DCP- Discharge Planning Updated by [email or web address]: Alta Melnedez on 11/18/19 3:[address] CM received a call from patient's daughter Nena Willis cell [phone] work [phone]. She asked if her sister Katherine had provided proof of POA paperwork . CM explained that at this time she was unaware if there was a copy on the chart. Nena stated that her, her brother and the patient's sister all are wanting to make patient a DNR but Katherine is the only one wanting to keep him on the vent. CM asked who was the eldest child and that if there isn't a POA then the eldest child will be the one acting as POA if the patient isn't . CM will look to see if patient has POA paperwork in his records. CM will notify Nena and let her know if paperwork is on file. CM did locate POA paperwork and placed a hard copy in front on hard chart. CM did call Nena and let her know that Katherine does have POA. CM will continue to follow and assist as needed with discharge planning/ needs DCP- Discharge Planning Updated by [email or web address]: Ebonigary Jiménez on 11/13/19 1:[address] CM called patient's daughter, Katherine Thrasher (POA) [phone], to discuss initial discharge planning. Patient's daughter is in agreement to proceed with the assessment. Daughter reports that the patient lives at home with her and he is total care. Daughter reports that the patient is non-ambulatory, requires feeding, incontinent of bowel IS TECHNICIAN. Daughter also reports that she is raising 5 grandchildren, along with caring for her father. 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 Daughter transports patient to and from HD. Patient is currently intubated to a mechanical vent. PCP: Danny Painter in [place]. [facility], daughter picks up his medication. Patient has been able to obtain all of his prescribed medications. HHS: [facility], IS TECHNICIAN. DME: walker, w/c, hospital bed, didi lift. Patient is totally dependent with medication management IS TECHNICIAN. CM discussed the availability of HH, Rehab, SNF, OP Therapy, DME services. When the patient is able to return home, his daughter states she would like to resume [facility]. Patient's daughter advises that she "had a call from an PHOTO ENGRAVER, to inform her she should not expect her father to return home this time". Daughter has been encouraged to fill out paperwork for the Medicaid Waver Program, daughter agrees, but states she hasn't had time. Advised daughter that the usual time frame is 45 days before a decision is reached. Daughter denies the use of community resources IS TECHNICIAN. Transportation at time of discharge: Daughter or facility, if patient requires a SNF setting. CM will continue to follow and assist with DC planning. DCPIA - Discharge Planning Initial Assessment Updated by [email or web address]: Eboni Sagastumelroy on 11/13/19 2:38 pm * Is the patient Alert and Oriented? No * PCP Dr. Sanchez [facility] * Pharmacy [facility] [place] Daughter picks up medications * Preadmission Environment Home with Family * ADLs Total Dependent * Equipment Tub Bench * Other Equipment RW, W/C, Hospital bed, Didi lift * List name and contact numbers for known caregivers / representatives who currently or will assist patient after discharge: Katherine Thrasher (POA-dtr) [phone] Address: [address] [place] [address] Rd, [place], [place] * Verbal permission to speak to the caregivers and representatives has been obtained from the patient. N/A * Community resources currently utilized Home Health * Please name any agencies selected above. [facility] * Additional services required to return to the preadmission environment? Yes * Can the patient safely return to the preadmission environment? No * Has this patient been hospitalized within the prior 30 days at any hospital? No External Providers External Provider: Yisel Grossman [facility] Next Contact Date: Service Request Date: Service Type: Resolution: Reviewer: Comments: Last DP export: 11/19/19 1:49 p Patient Name: JHONATHAN THRASHER Page [id number] at 1958 All edits/amendments must be made on the electronic document DICTATION DATE: 11/26/191956 AGATE SETTER: SINTIA 11/26/191956 RPT#: [id number] DC DATE: STATUS: ADM IN [facility] [address] [place] [address] END OF REPORT
[2019-11-27] VITALS (19 sets, daily range): BP systolic 94–153; BP diastolic 44–66
[2019-11-27 05:28] LABS: BASOPHILS 0.6 % (0-2); EOSINOPHILS 1.6 % (0-7); HEMATOCRIT 26.8 % (42.0-54.0); HEMOGLOBIN 8.5 g/dL (13.5-17.5); IMMATURE GRANULOCYTES 0.2 % (0-5); LYMPHOCYTES 6.9 % (15-50); MCH 28.8 pg (26.0-34.0); MCHC 31.7 g/dL (31.0-37.0); MEAN PLATELET VOLUME 9.5 fL (7.4-10.4); NEUTROPHILS 82.7 % (40-80); PLATELET COUNT 152 10x3/uL (130-400); RBC 2.95 10x6/uL (4.20-6.10); RDW 19.7 % (11.5-14.5); WBC 8.6 10x3/uL (4.8-10.8)
[2019-11-27 05:30] LABS: MCV 90.8 fL (80.0-100.0)
[2019-11-27 05:43] LABS: INR 1.33 (0.85-1.17); PROTIME 16.3 SECONDS (11.6-15.0)
[2019-11-27 05:44] LABS: ALBUMIN 3.9 g/dL (3.4-5.0); ANION GAP 12.6 mmol/L (8-16); CREATININE - SERUM 3.1 mg/dL (0.6-1.3); POTASSIUM - SERUM 3.6 mmol/L (3.5-5.1); PROTEIN - SERUM 6.5 g/dL (6.4-8.2)
[2019-11-27 05:48] LABS: CALCIUM 12.4 mg/dL (8.5-10.1)
--- NOTE | 2019-11-27 07:00 | NUR ---
REC'D REPORT AND RESUMED CARE, ETT TO TRACH AND SECURED, OGT CLAMPED FOR PENDING SURGERY, RIGHT CHEST HEMESPLIT IN PLACE WITH CDI DRESSING, NS AT KVO, AND PROPOFAL AT 15MCG, ORAL CARE AND SUCTION COMPLETED, RECTAL TUBE IN PLACE WITH LIQUID STOOL TO BAG, ASSESSMENT COMPLETED PER FLOWSHEET, VSS, WILL CONTINUE WITH POC
--- NOTE | 2019-11-27 08:45 | NUR ---
MORNING MEDS GIVEN PER MAY FLOWSHEET
--- NOTE | 2019-11-27 09:10 | NUR ---
COVID TEST COMPLETED AND TAKEN TO LAB FOR EVALUATION
--- NOTE | 2019-11-27 10:54 | NUR ---
Nutrition follow-up: Pt NPO for trach/PEG placement today Labs reviewed Wt: 192# Recommend restarting TwoCal HN @ 40 ml/hr per renal SANITARY AIDE RDN following.
--- NOTE | 2019-11-27 11:30 | NUR ---
BERT NEVILLE FOR CONSENT FOR TRACH AND PEG, WITNESSED BY HEIKE ROMAN
--- NOTE | 2019-11-27 12:55 | NUR ---
FSBS 43, NOTIFIED DR SWENSON IN UNIT, 1/2 AMP D50 AND D5W INITIATED AT 50 CC/HR
--- NOTE | 2019-11-27 13:15 | NUR ---
TO SURGERY VIA BED WITH HOPSITAL PERSONNEL X3, ETT TO AMBU AND PORTABLE 02, VSS.
--- NOTE | 2019-11-27 13:15 | NUR ---
RECHECK OF FSBS 87
--- NOTE | 2019-11-27 15:00 | NUR ---
BACK FROM SURGERY, [id number] TO ICU MONITOR, 9MM TRACH TO ANTERIOR NECK, DRESSING CDI, PEG TO MICD ABDOMEN, AND RIGHT GROIN TL KRISTINEE JARRETT CDI DRESSINGS
--- NOTE | 2019-11-27 20:23 | MORECARE ---
CASE MANAGEMENT DISCHARGE SUMMARY PATIENT: JHONATHAN THRASHER UNIT: [id number] ADM DATE: 11/08/19 AGE: 74 : 47 SEX: M ROOM/BED: D.2304 AUTHOR: SUMIT,DOC PHYSICIAN: REFERRING PHYSICIAN: JOLYNN MUNOZ MD DATE OF SERVICE: 11/27/19 Discharge Plan Patient Name: JHONATHAN THRASHER [facility] [facility] 1945 Planned Disposition: Anticipated Discharge Date: Discharge Date: Expected LOS: Initial Reviewer: [email or web address] Initial Review Date: 11/08/2019 Generated: 11/27/19 9:22 pm Comments DCP- Discharge Planning Updated by [email or web address]: Alta Melendez on 11/27/19 7:[address] LATE ENTRY 11/25/19 CM SPOKE WITH PATIENT'S DAUGHTER MALAIKA SANTANA AND SHE HAS AGREED FOR PATIENT TO HAVE PEG AND TRACH. CM SPOKE WITH HER IN REGARDS TO LTACH AND SHE STATED THAT SHE WOULD LIKE THE CLOSEST LTACH THEN IF NOT ACCEPTED THEN COULD REACH OUT TO OTHER FACILITIES. ARLET COMPLETED. DCP- Discharge Planning Updated by [id number]: Alta Melendez on 11/19/19 1:[address] CM received a call from Delano with APS [phone] he stated that he had received a call from a family member to investigate and requested for CM to call him if family decides to term extubate or if he is weaned off vent to where he could speak with him. DCP- Discharge Planning Updated by [id number]: Alta Melendez on 11/18/19 3:[address] CM received a call from patient's daughter Nena Willis cell [phone] work [phone]. She asked if her sister Katherine had provided proof of POA paperwork . CM explained that at this time she was unaware if there was a copy on the chart. Nena stated that her, her brother and the patient's sister all are wanting to make patient a DNR but Katherine is the only one wanting to keep him on the vent. CM asked who was the eldest child and that if there isn't a POA then the eldest child will be the one acting as POA if the patient isn't . CM will look to see if patient has POA paperwork in his records. CM will notify Nena and let her know if paperwork is on file. CM did locate POA paperwork and placed a hard copy in front on hard chart. CM did call Nena and let her know that Katherine does have POA. CM will continue to follow and assist as needed with discharge planning/ needs DCP- Discharge Planning Updated by [id number]: Ebnoi Jiménez on 11/13/19 1:[address] CM called patient's daughter, Katherine Thrasher (POA) [phone], to discuss initial discharge planning. Patient's daughter is in agreement to proceed with the assessment. Daughter reports that the patient lives at home with her and he is total care. Daughter reports that the patient is non-ambulatory, requires feeding, incontinent of bowel UPPER EXTREMITY SURGEON. Daughter also reports that she is raising 5 grandchildren, along with caring for her father. 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 Daughter transports patient to and from HD. Patient is currently intubated to a mechanical vent. PCP: Dr. Sanchez [facility] in [place]. Pharmacy: [facility], daughter picks up his medication. Patient has been able to obtain all of his prescribed medications. HHS: [facility], UPPER EXTREMITY SURGEON. DME: walker, w/c, hospital bed, didi lift. Patient is totally dependent with medication management UPPER EXTREMITY SURGEON. CM discussed the availability of HH, Rehab, SNF, OP Therapy, DME services. When the patient is able to return home, his daughter states she would like to resume [facility]. Patient's daughter advises that she "had a call from an SUPERVISOR TURKEY FARM, to inform her she should not expect her father to return home this time". Daughter has been encouraged to fill out paperwork for the Medicaid Waver Program, daughter agrees, but states she hasn't had time. Advised daughter that the usual time frame is 45 days before a decision is reached. Daughter denies the use of community resources UPPER EXTREMITY SURGEON. Transportation at time of discharge: Daughter or facility, if patient requires a SNF setting. CM will continue to follow and assist with DC planning. DCPIA - Discharge Planning Initial Assessment Updated by [id number]: Eboni Jiménez on 11/13/19 2:38 pm * Is the patient Alert and Oriented? No * PCP Dr. Sanchez, [facility] [place] * Pharmacy [facility], [place] Daughter picks up medications * Preadmission Environment Home with Family * ADLs Total Dependent * Equipment Tub Bench * Other Equipment RW, W/C, Hospital bed, Didi lift * List name and contact numbers for known caregivers / representatives who currently or will assist patient after discharge: Katherine Thrasher (POA-dtr) [phone] Address: [address] [place] [address] Rd, [place], [place] * Verbal permission to speak to the caregivers and representatives has been obtained from the patient. N/A * Community resources currently utilized Home Health * Please name any agencies selected above. [facility] * Additional services required to return to the preadmission environment? Yes * Can the patient safely return to the preadmission environment? No * Has this patient been hospitalized within the prior 30 days at any hospital? No Last DP export: 11/26/19 6:58 p Patient Name: JHONATHAN THRASHER Page [id number] at 2022 All edits/amendments must be made on the electronic document DICTATION DATE: 11/27/192022 INFANTRY INDIRECT FIRE CREWMEMBER: SINTIA 11/27/192022 RPT#: [id number] DC DATE: STATUS: ADM IN [facility] [address] [place] [address] END OF REPORT
--- NOTE | 2019-11-27 20:35 | MORECARE ---
CASE MANAGEMENT DISCHARGE SUMMARY PATIENT: JHONATHAN THRASHER UNIT: [id number] ADM DATE: 11/08/19 AGE: 74 : 47 SEX: M ROOM/BED: D.2304 AUTHOR: SUMIT,DOC PHYSICIAN: REFERRING PHYSICIAN: JOLYNN MUNOZ MD DATE OF SERVICE: 11/27/19 Discharge Plan Patient Name: JHONATHAN THRASEHR [facility] : 1945 Planned Disposition: Anticipated Discharge Date: Discharge Date: Expected LOS: Initial Reviewer: [email or web address] Initial Review Date: 11/08/2019 Generated: 11/27/19 9:35 pm Comments DCP- Discharge Planning Updated by [email or web address]: Alta Melendez on 11/27/19 7:[address] PATIENT DID GET A PEG AND TRACH TODAY. CM RECIEVED A CALL FROM [facility] THAT HAD RECIEVED REFEERAL PACKET AND WILL LOOK AT HIM ON SATURDAY FOR POSSIBLE ADMIT NEXT WEEK. CM WILL CONTINUE TO FOLLOW AND ASSIST NEEDED WITH DISCHARGE PLANNING / NEEDS. DCP- Discharge Planning Updated by [id number]: Alta Melendez on 11/27/19 7:[address] LATE ENTRY 11/26/19 CM FAXED REFFERAL TO [facility] FOR LTACH PLACEMENT. PATIENT TO HAVE PEG AND TRACH ON SATURDAY. DCP- Discharge Planning Updated by [email or web address]: Alta Melendez on 11/27/19 7:[address] LATE ENTRY 11/25/19 CM SPOKE WITH PATIENT'S DAUGHTER MALAIKA SANTANA AND SHE HAS AGREED FOR PATIENT TO HAVE PEG AND TRACH. CM SPOKE WITH HER IN REGARDS TO LTACH AND SHE STATED THAT SHE WOULD LIKE THE CLOSEST LTACH THEN IF NOT ACCEPTED THEN COULD REACH OUT TO OTHER FACILITIES. ARLET COMPLETED. DCP- Discharge Planning Updated by [id number]: Alta Melendez on 11/19/19 1:[address] CM received a call from Delano with APS [phone] he stated that he had received a call from a family member to investigate and requested for CM to call him if family decides to term extubate or if he is weaned off vent to where he could speak with him. DCP- Discharge Planning Updated by [id number]: Alta Melendez on 11/18/19 3:[address] CM received a call from patient's daughter Nena Willis cell [phone] work [phone]. She asked if her sister Katherine had provided proof of POA paperwork . CM explained that at this time she was unaware if there was a copy on the chart. Nena stated that her, her brother and the patient's sister all are wanting to make patient a DNR but Katherine is the only one wanting to keep him on the vent. CM asked who was the eldest child and that if there isn't a POA then the eldest child will be the one acting as POA if the patient isn't . CM will look to see if patient has POA paperwork in his records. CM will notify Nena and let her know if paperwork is on file. CM did locate POA paperwork and placed a hard copy in front on hard chart. CM did call Nena and let her know that Katherine does have POA. CM will continue to follow and assist as needed with discharge planning/ needs DCP- Discharge Planning Updated by [id number]: Ebonigary Jiménez on 11/13/19 1:[address] CM called patient's daughter, Katherine Thrasher (POA) [phone], to discuss initial discharge planning. Patient's daughter is in agreement to proceed with the assessment. Daughter reports that the patient lives at home with her and he is total care. Daughter reports that the patient is non-ambulatory, requires feeding, incontinent of bowel MOBILE SALES ASSISTANT. Daughter also reports that she is raising 5 grandchildren, along with caring for her father. ESRD on HD @[facility], M/W/F @0700. Daughter transports patient to and from HD. Patient is currently intubated to a mechanical vent. PCP: Dr. Sanchez [facility] in [place]. Pharmacy: [facility], daughter picks up his medication. Patient has been able to obtain all of his prescribed medications. HHS: [facility], MOBILE SALES ASSISTANT. DME: walker, w/c, hospital bed, didi lift. Patient is totally dependent with medication management MOBILE SALES ASSISTANT. CM discussed the availability of HH, Rehab, SNF, OP Therapy, DME services. When the patient is able to return home, his daughter states she would like to resume [facility]. Patient's daughter advises that she "had a call from an RITUAL CIRCUMCISER, to inform her she should not expect her father to return home this time". Daughter has been encouraged to fill out paperwork for the Medicaid Waver Program, daughter agrees, but states she hasn't had time. Advised daughter that the usual time frame is 45 days before a decision is reached. Daughter denies the use of community resources MOBILE SALES ASSISTANT. Transportation at time of discharge: Daughter or facility, if patient requires a SNF setting. CM will continue to follow and assist with DC planning. DCPIA - Discharge Planning Initial Assessment Updated by [id number]: Eboni Jiménez on 11/13/19 2:38 pm * Is the patient Alert and Oriented? No * PCP Dr. Sanchez, [facility] * Pharmacy [facility], [place] Daughter picks up medications * Preadmission Environment Home with Family * ADLs Total Dependent * Equipment Tub Bench * Other Equipment RW, W/C, Hospital bed, Didi lift * List name and contact numbers for known caregivers / representatives who currently or will assist patient after discharge: Katherine Thrasher (POA-dtr) [phone] Address: [address] [place] [address] Rd, [place], [place] * Verbal permission to speak to the caregivers and representatives has been obtained from the patient. N/A * Community resources currently utilized Home Health * Please name any agencies selected above. [facility] * Additional services required to return to the preadmission environment? Yes * Can the patient safely return to the preadmission environment? No * Has this patient been hospitalized within the prior 30 days at any hospital? No Coverage Notice Reviewer: [email or web address] Royal Melendez Notice Issued Date-Time: 11/25/2019 16:10 Notice Type: Patient Choice Letter Notice Delivered To: Family Member Relationship to Patient: Daughter Station Air Traffic Control Specialist Name: KATHERINE Delivery Method: PHONE - Phone Georgie Days: Prior Verbal Notification: Recipient Understood Notice: Yes Recipient Signature: Yes Med Rec Note Co-signed by Attending: Coverage Notice Comment: JENA - [facility] , THEN CAN LOOK ELSEWHERE IF NEEDED Last DP export: 11/27/19 7:23 p Patient Name: JHONATHAN THRASHER Page [id number] at 2035 All edits/amendments must be made on the electronic document DICTATION DATE: 11/27/192034 CONVENIENCE STORE CLERK: SINTIA 11/27/192034 RPT#: [id number] DC DATE: STATUS: ADM IN [facility] [address] [place] [address] END OF REPORT
[2019-11-28] VITALS (24 sets, daily range): BP systolic 109–137; BP diastolic 40–80
[2019-11-28 04:45] LABS: BASOPHILS 0.2 % (0-2); EOSINOPHILS 1.8 % (0-7); HEMATOCRIT 27.9 % (42.0-54.0); HEMOGLOBIN 8.8 g/dL (13.5-17.5); IMMATURE GRANULOCYTES 0.2 % (0-5); LYMPHOCYTES 3.9 % (15-50); MCHC 31.5 g/dL (31.0-37.0); MCV 92.1 fL (80.0-100.0); MEAN PLATELET VOLUME 9.9 fL (7.4-10.4); NEUTROPHILS 89.9 % (40-80); PLATELET COUNT 159 10x3/uL (130-400); RBC 3.03 10x6/uL (4.20-6.10); RDW 19.9 % (11.5-14.5); WBC 13.2 10x3/uL (4.8-10.8)
[2019-11-28 05:00] LABS: ALBUMIN 3.8 g/dL (3.4-5.0); ANION GAP 12.7 mmol/L (8-16); BILIRUBIN - TOTAL 0.82 mg/dL (0.2-1.3); CARBON DIOXIDE 27.1 mmol/L (21.0-32.0); CREATININE - SERUM 3.7 mg/dL (0.6-1.3); POTASSIUM - SERUM 3.8 mmol/L (3.5-5.1); PROTEIN - SERUM 6.5 g/dL (6.4-8.2)
[2019-11-28 05:07] LABS: CALCIUM 13.9 mg/dL (8.5-10.1)
--- NOTE | 2019-11-28 07:05 | NUR ---
REC'D REPORT AND RESUMED CARE, TRACH TO VENT AND SECURED, VSS, AROUSES TO VERBAL STIMULI, HD NURSE AT BEDSIDE SETTING UP, VSS, WILL CONTINUE TO MONITOR
--- NOTE | 2019-11-28 07:20 | NUR ---
DR HANSON HERE FOR EVAL, CONCERNED RE: ELEVATED CALCIUM, ADDED NEW MED, AREDIA TO BE GIVEN BY IV
--- NOTE | 2019-11-28 11:00 | NUR ---
DR SWENSON AT BEDSIDE, DISCUSSED POC AND NEED FOR BRONCOSCOPY, PC TO MALAIKA NEVILLE, LEFT MESSAGE TO CALL BACK [facility], NO OTHER ACUTE CHANGE FROM PREVIOUS
--- NOTE | 2019-11-28 12:35 | NUR ---
PC FOR DAUGHTER POA, CONSENT OBTAINED FOR PENDING BRONCHOSCOPY
--- NOTE | 2019-11-28 14:35 | NUR ---
BRONCOSCOPY COMPLETED AT BED SIDE BY DR SWENSON VSRosita, WILL CONTINUE TO MONITOR
[2019-11-29] VITALS (22 sets, daily range): BP systolic 92–138; BP diastolic 43–86
[2019-11-29 04:35] LABS: BASOPHILS 0.3 % (0-2); EOSINOPHILS 4.8 % (0-7); HEMATOCRIT 26.7 % (42.0-54.0); HEMOGLOBIN 8.4 g/dL (13.5-17.5); IMMATURE GRANULOCYTES 0.2 % (0-5); LYMPHOCYTES 4.9 % (15-50); MCH 28.8 pg (26.0-34.0); MCHC 31.5 g/dL (31.0-37.0); MCV 91.4 fL (80.0-100.0); MEAN PLATELET VOLUME 9.7 fL (7.4-10.4); MONOCYTES 4.9 % (2-11); NEUTROPHILS 84.9 % (40-80); PLATELET COUNT 153 10x3/uL (130-400); RBC 2.92 10x6/uL (4.20-6.10); RDW 19.6 % (11.5-14.5); WBC 11.1 10x3/uL (4.8-10.8)
[2019-11-29 04:55] LABS: ALBUMIN 3.9 g/dL (3.4-5.0); ANION GAP 13.7 mmol/L (8-16); BILIRUBIN - TOTAL 0.98 mg/dL (0.2-1.3); CALCIUM 14.1 mg/dL (8.5-10.1); CARBON DIOXIDE 26.4 mmol/L (21.0-32.0); CREATININE - SERUM 3.8 mg/dL (0.6-1.3); POTASSIUM - SERUM 4.1 mmol/L (3.5-5.1); PROTEIN - SERUM 6.6 g/dL (6.4-8.2)
--- NOTE | 2019-11-29 07:15 | NUR ---
PT LAYING IN BED RESTING, ORAL CARE PROVIDED AND ORAL SECREATIONS SUCTIONED, PT POSIOTIONED FOR COMFORT, WILL MONITOR
--- NOTE | 2019-11-29 10:00 | NUR ---
RESTING WITH EYES CLOSED, NO CHANGES IN CONDITION, WILL MONITOR
--- NOTE | 2019-11-29 12:00 | NUR ---
ORAL CARE PROVIDED AND SECREATIONS SUCTIONED, POSITIONED FOR COMFORT, NO ACUTE DISTRESS NOTED, WILL MONITOR
[2019-11-30] VITALS (28 sets, daily range): BP systolic 100–217; BP diastolic 5–127
[2019-11-30 06:50] LABS: BILIRUBIN - TOTAL 1.24 mg/dL (0.2-1.3); CARBON DIOXIDE 20.6 mmol/L (21.0-32.0); CREATININE - SERUM 4.4 mg/dL (0.6-1.3); PROTEIN - SERUM 6.8 g/dL (6.4-8.2); VANCOMYCIN - RANDOM 15.3 ug/mL (10.0-20.0)
[2019-11-30 06:56] LABS: ANION GAP 22.2 mmol/L (8-16); POTASSIUM - SERUM 4.8 mmol/L (3.5-5.1)
[2019-11-30 06:58] LABS: CALCIUM 14.8 mg/dL (8.5-10.1)
--- NOTE | 2019-11-30 07:00 | NUR ---
REC'D REPORT AND RESUMED CARE, TRACH TO VENT AND SECURED, O2, 97% WITH 40% FIO2, NOTED RT/LT ARM OLD FISTULA SITE, RIGHT CHEST HEMESPLIT WITH CDI DRESSING, G-TUBE WITH 2 KATE HN IN USE, RIGHT GROIN WITH CVL, IVF PER IV FLOWSHEET, GENERALIZED EDEMA NOTED THROUGHOUT, ASSESSMENT COMPLETED PER FLOWSHEET, VSS, REPOSITIONED UP AND TO BACK WITH HEELS FLOATED, ORAL CARE AND SUCTION COMPLETED
[2019-11-30 07:57] LABS: BASOPHILS 0.2 % (0-2); EOSINOPHILS 0.2 % (0-7); HEMATOCRIT 24.1 % (42.0-54.0); HEMOGLOBIN 7.6 g/dL (13.5-17.5); IMMATURE GRANULOCYTES 0.6 % (0-5); MCH 28.9 pg (26.0-34.0); MCHC 31.5 g/dL (31.0-37.0); MCV 91.6 fL (80.0-100.0); MEAN PLATELET VOLUME 11.2 fL (7.4-10.4); MONOCYTES 2.6 % (2-11); NEUTROPHILS 92.4 % (40-80); PLATELET COUNT 179 10x3/uL (130-400); RBC 2.63 10x6/uL (4.20-6.10); RDW 19.6 % (11.5-14.5)
[2019-11-30 07:59] LABS: WBC 16.1 10x3/uL (4.8-10.8)
--- NOTE | 2019-11-30 08:30 | NUR ---
MORNING MEDS GIVEN PER MAY FLOWSHEET
--- NOTE | 2019-11-30 09:08 | OP ---
PATIENT NAME: JHONATHAN THRASHER MEDICAL RECORD: [id number] :49 LOCATION:[facility] D.2304 ADMISSION DATE:11/08/19 SURGEON: JENNY TAFOYA MD DATE OF OPERATION: 11/27/2019 PREOPERATIVE DIAGNOSES: End-stage renal disease, on dialysis dependence on hemodialysis, sepsis, acute and chronic respiratory failure with chronic obstructive pulmonary disease and pneumonia. POSTOPERATIVE DIAGNOSES: End-stage renal disease, on dialysis dependence on hemodialysis, sepsis, acute and chronic respiratory failure with chronic obstructive pulmonary disease and pneumonia. OPERATION PERFORMED: 1. Ultrasound-guided insertion of a triple lumen central venous line percutaneously in the right common femoral vein. 2. EGD with percutaneous endoscopic gastrostomy placement. 3. Percutaneous tracheostomy inserting a 9 mm tracheostomy tube. SURGEON: Jenny Tafoya MD ANESTHESIA: General endotracheal per RISK ASSESSMENT CONSULTANT. DESCRIPTION OF PROCEDURE: With the patient under anesthesia on the operating table in supine position, he was prepped and draped in sterile manner. The left groin was exposed and examined with ultrasound and the left common femoral vein was noted to be absent or so sclerotic as to not be usable for IV access at least there in the groin. The right common femoral vein was patent and compressible and then using real-time ultrasound guidance with image documentation, I accessed the vein through a small incision with micropuncture technique, and this led up to insertion of a larger catheter and wire and eventually placement of the 16 cm triple lumen catheter over the guidewire. This was done without difficulty and without radiologic visualization and guidance. All 3 lumens were accessed and aspirated blood easily. They were then flushed with saline and hep locked, clamped and capped. The catheter was sutured in place with 2-0 Prolene in a standard CVL dressing with Biopatch applied. Olympus gastroscope was passed easily through the patient's mouth and oropharynx into the esophagus and passed distally into the stomach. The esophagus appeared normal. The NG feeding tube was removed. The stomach was insufflated and fairly extensive hemorrhagic gastritis without any active bleeding and without any ulceration was noted. The scope was passed across the pylorus, which was spastic, into the duodenal bulb and no lesions were identified there. There is no active ulceration of the antrum, pyloric channel, or duodenal bulb. The scope was pulled back into the stomach, and with the stomach insufflated and the anterior abdominal wall transilluminated, a site was chosen for placement of the PEG high in the epigastric area near the midline. A small incision was made and then a needle was inserted through the abdominal wall and through the anterior stomach wall into the antrum of the stomach. A guidewire was inserted and this was picked up easily with a snare from the endoscope. The endoscope was removed and the guidewire pulled out through the mouth and attached to a gastrostomy tube, which was then pulled back through my standard technique. The scope was reinserted and satisfactory positioning of the feeding tube was documented. The scope was removed after suctioning insufflated air. A standard dressing with OPERATIVE REPORT [id number] JHONATHAN THRASHER Maxorb AG was applied with care that there was not excessive tension on the gastrostomy to compressing the tissues which might lead to necrosis. The patient was then continued in supine position with the neck fully extended. The patient is large and his neck was quite long, which greatly facilitated the procedure. He did, however, had numerous large collateral subcutaneous veins due to his chronic superior vena cava syndrome. I made a small incision horizontally in the midline below the thyroid and above the sternal notch. I infiltrated the tissues with 0.25% Marcaine with epinephrine and then with fluoroscopy demonstrated that the end of the patient's endotracheal tube was above that level. I then inserted a needle and then a guidewire and then serial dilators and lastly a 9 mm tracheostomy tube where the balloon was inflated. The patient was then easily ventilated through that and his endotracheal tube removed. There was some bleeding during the procedure, but we achieved good tamponade and there was absolutely no bleeding at the end of the operation. The inner cannula was placed into the tracheostomy tube. 2-0 Prolene sutures were used to suture to the skin on either side as well as a standard Velcro necklace. That site was dressed with Maxorb AG and an additional dry sterile dressings and Medipore tape in an effort to try to isolate the tracheostomy from the right internal jugular central venous tunneled dialysis catheter. The patient remained stable throughout and was returned to the ICU and placed back on the ventilator. Blood loss during the operation was less than 5 cc probably. Sponges, instruments and needles were accounted for. No drain was used and no surgical specimen submitted for histopathology. PLAN: The patient will be monitored and ventilated still in ICU of course, tube feedings can begin immediately and specific orders for nursing care on the tracheostomy site and PEG site have been written. TRANSINT:[id number] Voice Confirmation ID: [id number] DOCUMENT ID: [id number] JENNY TAFOYA MD at 0908 CC: JOLYNN MUNOZ MD [id number] DICTATION DATE: 11/27/19 1523 MATRIX PLATER: 11/27/19 2232 ADM IN [facility] [address] [id number]
--- NOTE | 2019-11-30 09:30 | NUR ---
NUTRITIONS CLARA MAKING ROUNDS, ASKED HER IF 2 KATE HN HAS LOTS OF CALCIUM, STATED YES, DISCUSSED CHANGING TO NEPRO BECAUSE PATIENT HAS INCREASED CALCIUM LEVELS, ALSO MAD PHONE CALL TO DR HANSON TO LET HER KNOW AND SHE IS STATED SHE IS IN AGREEMENT THAT 2 KATE HN SHOULD BE STOPPED AND NEPRO BEGAN
--- NOTE | 2019-11-30 11:00 | NUR ---
HD BEGAN BY DIALYSIS NURSE, VSS WILL CONINTUE WITH POC, NO OTHER AUTE CHANGE FROM PREVIOUS
--- NOTE | 2019-11-30 12:31 | NUR ---
Nutrition follow-up: Pt with trach to vent; PEG tub sedated with propofol @ 9 ml/hr TF formula changing to Nepro Nurse using bolus instead of gravity drip Pt needs at least 4 cartons of Nepro per day to provide: 1700 kcal, 76 gms protein, 688 ml free H2O RDN following.
--- NOTE | 2019-11-30 14:05 | NUR ---
HD COMPLETE, 1 LITER OFF, VSS, FSBS CHECK 95,
--- NOTE | 2019-11-30 18:17 | NUR ---
CHG BATH GIVEN, LARGE HEART MEPILEX TO BUTTOCK
--- NOTE | 2019-11-30 20:57 | MORECARE ---
CASE MANAGEMENT DISCHARGE SUMMARY PATIENT: JHONATAHN THRASHER UNIT: [id number] ADM DATE: 11/08/19 AGE: 74 : 49 SEX: M ROOM/BED: D.2304 AUTHOR: SUMIT,DOC PHYSICIAN: REFERRING PHYSICIAN: JOLYNN MUNOZ MD DATE OF SERVICE: 11/30/19 Discharge Plan Patient Name: JHONATHAN THRASHER [facility] : 1945 Planned Disposition: Anticipated Discharge Date: Discharge Date: Expected LOS: Initial Reviewer: [email or web address] Initial Review Date: 11/08/2019 Generated: 11/30/19 9:56 pm Comments DCP- Discharge Planning Updated by [email or web address]: Alta Melendez on 11/30/19 7:[address] CM was notified today from [facility] that the patient was out of Medicare days and only has a few codays available. CM attempted to call [employer] to find out how many days the patient has. CM did not get an answer and will try back later to see if they are able to pull up Medicare days. CM will continue to follow this will make it difficult for placement. DCP- Discharge Planning Updated by [email or web address]: Alta Melendez on 11/27/19 7:[address] PATIENT DID GET A PEG AND TRACH TODAY. CM RECIEVED A CALL FROM [facility] THAT HAD RECIEVED REFEERAL PACKET AND WILL LOOK AT HIM ON SATURDAY FOR POSSIBLE ADMIT NEXT WEEK. CM WILL CONTINUE TO FOLLOW AND ASSIST NEEDED WITH DISCHARGE PLANNING / NEEDS. DCP- Discharge Planning Updated by [email or web address]: Alta Melendez on 11/27/19 7:[address] LATE ENTRY 11/26/19 CM FAXED REFFERAL TO [facility] FOR [facility] PLACEMENT. PATIENT TO HAVE PEG AND TRACH ON SATURDAY. DCP- Discharge Planning Updated by [id number]: Alta Melendez on 11/27/19 7:[address] LATE ENTRY 11/25/19 CM SPOKE WITH PATIENT'S DAUGHTER MALAIKA SANTANA AND SHE HAS AGREED FOR PATIENT TO HAVE PEG AND TRACH. CM SPOKE WITH HER IN REGARDS TO [facility] AND SHE STATED THAT SHE WOULD LIKE THE CLOSEST [facility] THEN IF NOT ACCEPTED THEN COULD REACH OUT TO OTHER FACILITIES. ARLET COMPLETED. DCP- Discharge Planning Updated by [email or web address]: Alta Melendez on 11/19/19 1:[address] CM received a call from Delano with APS [phone] he stated that he had received a call from a family member to investigate and requested for CM to call him if family decides to term extubate or if he is weaned off vent to where he could speak with him. DCP- Discharge Planning Updated by [email or web address]: Alta Melendez on 11/18/19 3:[address] CM received a call from patient's daughter Nena Willis cell [phone] work [phone]. She asked if her sister Katherine had provided proof of POA paperwork . CM explained that at this time she was unaware if there was a copy on the chart. Nena stated that her, her brother and the patient's sister all are wanting to make patient a DNR but Katherine is the only one wanting to keep him on the vent. CM asked who was the eldest child and that if there isn't a POA then the eldest child will be the one acting as POA if the patient isn't . CM will look to see if patient has POA paperwork in his records. CM will notify Nena and let her know if paperwork is on file. CM did locate POA paperwork and placed a hard copy in front on hard chart. CM did call Nena and let her know that Katherine does have POA. CM will continue to follow and assist as needed with discharge planning/ needs DCP- Discharge Planning Updated by [id number]: Eboni Jiménez on 11/13/19 1:[address] CM called patient's daughter, Katherine Thrasher (POA) [phone], to discuss initial discharge planning. Patient's daughter is in agreement to proceed with the assessment. Daughter reports that the patient lives at home with her and he is total care. Daughter reports that the patient is non-ambulatory, requires feeding, incontinent of bowel HOME HEALTH REGISTERED NURSE. Daughter also reports that she is raising 5 grandchildren, along with caring for her father. ESRD [facility] HD [facility], M/W/F @0700. Daughter transports patient to and from HD. Patient is currently intubated to a mechanical vent. PCP: Danny Painter in [place]. Pharmacy: [facility], daughter picks up his medication. Patient has been able to obtain all of his prescribed medications. HHS: [facility], HOME HEALTH REGISTERED NURSE. DME: walker, w/c, hospital bed, didi lift. Patient is totally dependent with medication management HOME HEALTH REGISTERED NURSE. CM discussed the availability of HH, Rehab, SNF, OP Therapy, DME services. When the patient is able to return home, his daughter states she would like to resume [facility]. Patient's daughter advises that she "had a call from an BOARD WRITER, to inform her she should not expect her father to return home this time". Daughter has been encouraged to fill out paperwork for the Medicaid [place] [facility], daughter agrees, but states she hasn't had time. Advised daughter that the usual time frame is 45 days before a decision is reached. Daughter denies the use of community resources HOME HEALTH REGISTERED NURSE. Transportation at time of discharge: Daughter or facility, if patient requires a SNF setting. CM will continue to follow and assist with DC planning. DCPIA - Discharge Planning Initial Assessment Updated by [id number]: Eboni Jiménez on 11/13/19 2:38 pm * Is the patient Alert and Oriented? No * PCP [facility]. Sanchez [facility] * [facility] [place] Daughter picks up medications * Preadmission Environment Home with Family * ADLs Total Dependent * Equipment Tub Bench * Other Equipment RW, W/C, Hospital bed, Didi lift * List name and contact numbers for known caregivers / representatives who currently or will assist patient after discharge: Katherine Thrasher (POA-dtr) [phone] Address: [address] [place] [address] Rd, [place], [place] * Verbal permission to speak to the caregivers and representatives has been obtained from the patient. N/A * Community resources currently utilized Home Health * Please name any agencies selected above. [facility] * Additional services required to return to the preadmission environment? Yes * Can the patient safely return to the preadmission environment? No * Has this patient been hospitalized within the prior 30 days at any hospital? No Coverage Notice Reviewer: [email or web address] - Alta Melendez Notice Issued Date-Time: 11/25/2019 16:10 Notice Type: Patient Choice Letter Notice Delivered To: Family Member Relationship to Patient: Daughter Personalized Living Assistant Name: KATHERINE Delivery Method: PHONE - Phone Georgie Days: Prior Verbal Notification: Recipient Understood Notice: Yes Recipient Signature: Yes Med Rec Note Co-signed by Attending: Coverage Notice Comment: JENA LEDESMA , THEN CAN LOOK ELSEWHERE IF NEEDED Last DP export: 11/27/19 7:35 p Patient Name: JHONATHAN THRASHER Page [phone] at 2057 All edits/amendments must be made on the electronic document DICTATION DATE: 11/30/192055 AIRVEYOR OPERATOR: SINTIA 11/30/192055 RPT#: [id number] DC DATE: STATUS: ADM IN [facility] [address] [place] [address] END OF REPORT
[2019-12-01] VITALS (60 sets, daily range): BP systolic 83–153; BP diastolic 21–64
[2019-12-01 04:31] LABS: BASOPHILS 0.1 % (0-2); EOSINOPHILS 5.7 % (0-7); HEMATOCRIT 22.5 % (42.0-54.0); IMMATURE GRANULOCYTES 1.2 % (0-5); LYMPHOCYTES 3.2 % (15-50); MCH 28.7 pg (26.0-34.0); MCHC 32.4 g/dL (31.0-37.0); MEAN PLATELET VOLUME 10.3 fL (7.4-10.4); NEUTROPHILS 87.8 % (40-80); PLATELET COUNT 209 10x3/uL (130-400); RBC 2.54 10x6/uL (4.20-6.10); RDW 19.5 % (11.5-14.5); WBC 12.9 10x3/uL (4.8-10.8)
[2019-12-01 04:50] LABS: INR 1.46 (0.85-1.17); MCV 88.6 fL (80.0-100.0); PROTIME 17.6 SECONDS (11.6-15.0)
[2019-12-01 04:52] LABS: HEMOGLOBIN 7.3 g/dL (13.5-17.5)
[2019-12-01 04:57] LABS: ANION GAP 17.8 mmol/L (8-16); CARBON DIOXIDE 22.4 mmol/L (21.0-32.0); CREATININE - SERUM 4.5 mg/dL (0.6-1.3); PHOSPHOROUS 3.7 mg/dL (2.5-4.9); POTASSIUM - SERUM 5.2 mmol/L (3.5-5.1); THYROID STIMULATING HORMONE 1.23 uIU/mL (0.36-3.74); VANCOMYCIN - RANDOM 23.4 ug/mL (10.0-20.0)
--- NOTE | 2019-12-01 05:48 | NUR ---
PATIENT WITH CRITICAL HEMAGLOBIN OF 7.3. WELFARE DIRECTOR PAGED AT [phone]. CALL RETURNED AT 0524 AND NO ORDERS WERE RECEIVED AFTER REVIEWING RESULTS FROM YESTERDAY AND TODAY WITH DOCTOR
[2019-12-01 05:58] LABS: CALCIUM 16.3 mg/dL (8.5-10.1)
--- NOTE | 2019-12-01 10:00 | NUR ---
REPOSITONED UP AND TO BACK, HD STARTED, VSS, WILL CONTINUE WITH POC
--- NOTE | 2019-12-01 10:20 | NUR ---
HD IN PROGRESS, SBP 96, MAP 59, LEVOPHED INITIATED AT 5 MCG
--- NOTE | 2019-12-01 16:27 | NUR ---
DR GUTHRIE IN UNIT DISCUSSED NPATIENT FROTHING AT MOUTH, POST HD AND COPIOUS SECRETIONS, ORDER GIVNE TO HOLD TF TIL 12/01
[2019-12-01 18:08] LABS: ACID FAST SMEAR Negative (()); AFB SPECIMEN PROCESSING Concentration (())
[2019-12-01 22:14] LABS: BASOPHILS 0.2 % (0-2); EOSINOPHILS 0.4 % (0-7); IMMATURE GRANULOCYTES 0.6 % (0-5); LYMPHOCYTES 3.6 % (15-50); MCH 29.1 pg (26.0-34.0); MCHC 33.2 g/dL (31.0-37.0); MCV 87.7 fL (80.0-100.0); MEAN PLATELET VOLUME 10.6 fL (7.4-10.4); NEUTROPHILS 91.2 % (40-80); PLATELET COUNT 223 10x3/uL (130-400); RDW 18.3 % (11.5-14.5); WBC 14.9 10x3/uL (4.8-10.8)
[2019-12-01 22:15] LABS: HEMATOCRIT 27.1 % (42.0-54.0); RBC 3.09 10x6/uL (4.20-6.10)
[2019-12-01 22:27] LABS: APTT 37.9 SECONDS (22.8-39.4); INR 1.44 (0.85-1.17); PROTIME 17.4 SECONDS (11.6-15.0)
[2019-12-01 22:39] LABS: D-DIMER-QUANTITATIVE 7.78 ug/mLFEU (0.20-0.54)
[2019-12-01 22:46] LABS: ALBUMIN 3.7 g/dL (3.4-5.0); ALKALINE PHOSPHATASE 75 U/L (30-120); ALT (SGPT) 13 U/L (10-68); BILIRUBIN - TOTAL 1.28 mg/dL (0.2-1.3); CALC OSMOLALITY 274 mosm/kg (275-300); CHLORIDE - SERUM 95 mmol/L (98-107); CKMB 0.7 U/L (0.0-3.6); CREATINE KINASE 39 UL (21-232); CREATININE - SERUM 3.1 mg/dL (0.6-1.3); GLUCOSE 88 mg/dL (74-106); POTASSIUM - SERUM 4.3 mmol/L (3.5-5.1); PROTEIN - SERUM 6.8 g/dL (6.4-8.2); SODIUM 130 mmol/L (136-145); UREA NITROGEN 55 mg/dL (7-18); eGFR NON AFRICAN AMERICAN 21 mL/min (90-120)
[2019-12-01 22:48] LABS: CALCIUM 15.4 mg/dL (8.5-10.1); TROPONIN-I 0.066 ng/mL (0.000-0.060)
--- NOTE | 2019-12-01 23:17 | NUR ---
Pt had lab work ordered his name but was not intended for him. The blood was drawn and sent to the lab and resulted before the error was identified. Lab was notified and they stated that the labs would be removed from the Pt's chart and credited back to him. The nurse was notified that has the original intended patient and labs had been ordered for that patient, so no orders were missed.
[2019-12-02] VITALS (95 sets, daily range): BP systolic 103–140; BP diastolic 26–72
[2019-12-02 03:37] LABS: BASOPHILS 0.1 % (0-2); EOSINOPHILS 0.4 % (0-7); HEMATOCRIT 26.8 % (42.0-54.0); IMMATURE GRANULOCYTES 0.4 % (0-5); LYMPHOCYTES 4.9 % (15-50); MCH 29.1 pg (26.0-34.0); MCHC 33.6 g/dL (31.0-37.0); MCV 86.7 fL (80.0-100.0); MONOCYTES 3.7 % (2-11); NEUTROPHILS 90.5 % (40-80); PLATELET COUNT 211 10x3/uL (130-400); RBC 3.09 10x6/uL (4.20-6.10); RDW 18.4 % (11.5-14.5); WBC 13.4 10x3/uL (4.8-10.8)
[2019-12-02 04:03] LABS: ANION GAP 16.6 mmol/L (8-16); CARBON DIOXIDE 23.5 mmol/L (21.0-32.0); CREATININE - SERUM 3.3 mg/dL (0.6-1.3); POTASSIUM - SERUM 4.1 mmol/L (3.5-5.1); VANCOMYCIN - RANDOM 18.6 ug/mL (10.0-20.0)
--- NOTE | 2019-12-02 05:59 | NUR ---
Pt was given a bath and bed changed, no acute distress noted. Pt's buttock has a very large unstageable wound and a new dressing was placed on it.
--- NOTE | 2019-12-02 09:20 | NUR ---
PATIENT REPOSITIONED FOR COMFORT WITH TURN BLOCKS IN PLACE. VSS. BED LOCKED AND IN LOW POSITION. WILL CONTINUE TO MONITOR.
--- NOTE | 2019-12-02 11:08 | NUR ---
Nutrition follow-up: Pt intubated, sedated on propofol Pt receiving 4 cartons of Nepro bolus/day; changed from TwoCal HN Labs reviewed; Ca 16 rectal tube Levophed Wt: 200# RDN folloiwng.
--- NOTE | 2019-12-02 13:00 | NUR ---
DIALYSIS REMAINS AT BEDSIDE. VSS. WILL CONTINUE TO MONITOR.
[2019-12-02 13:11] LABS: FUNGUS STAIN Final report (())
--- NOTE | 2019-12-02 13:43 | NUR ---
PT TX COMPLETE. 2L FLUID OFF. VSS. 2 ALBUMIN GIVEN ON TX. HEART RHYTHM WAS IRREGULAR WITH PVC'S. SEDATION HAD TO BE SLIGHTLY INCREASED TOWARDS END OF TX BY ACO COORDINATOR. HEPARIN PLACED IN LUMENS, NEW BLUE CAPS ON ENDS. DRESSING NOT CHANGED TODAY. NO SUPPLY. DRESSING IS INTACT, BIO SEAL IS INPLACE.
--- NOTE | 2019-12-02 14:25 | NUR ---
CVL DRESSING CHANGE COMPLETE TO THE RT GROIN PER TOOLING SPECIALIST.
--- NOTE | 2019-12-02 17:10 | NUR ---
PEG TUBE FOUND TO BE DISCONNECTED FROM TUBE FEED LAYING IN BED WITH PATIENT. PARTIAL BATH AND LINEN CHANGE DONE AT THIS TIME. PATIENT REPOSITIONED FOR COMFORT USING TURN BLOCKS. BED LOCKED AND IN LOW POSITION.
[2019-12-03] VITALS (91 sets, daily range): BP systolic 90–134; BP diastolic 28–78
[2019-12-03 05:42] LABS: BASOPHILS 0.2 % (0-2); EOSINOPHILS 1.9 % (0-7); HEMATOCRIT 26.1 % (42.0-54.0); HEMOGLOBIN 8.7 g/dL (13.5-17.5); IMMATURE GRANULOCYTES 0.9 % (0-5); LYMPHOCYTES 4.4 % (15-50); MCH 29.1 pg (26.0-34.0); MCHC 33.3 g/dL (31.0-37.0); MCV 87.3 fL (80.0-100.0); MEAN PLATELET VOLUME 10.3 fL (7.4-10.4); MONOCYTES 4.2 % (2-11); NEUTROPHILS 88.4 % (40-80); PLATELET COUNT 194 10x3/uL (130-400); RBC 2.99 10x6/uL (4.20-6.10); RDW 18.4 % (11.5-14.5); WBC 12.3 10x3/uL (4.8-10.8)
--- NOTE | 2019-12-03 06:24 | NUR ---
Pt was turned, bed changed, and pt cleaned, no acute distress noted.
[2019-12-03 06:25] LABS: ANION GAP 14.6 mmol/L (8-16); CARBON DIOXIDE 25.9 mmol/L (21.0-32.0); CREATININE - SERUM 2.5 mg/dL (0.6-1.3); PHOSPHOROUS 3.2 mg/dL (2.5-4.9); POTASSIUM - SERUM 3.5 mmol/L (3.5-5.1); VANCOMYCIN - RANDOM 14.7 ug/mL (10.0-20.0)
[2019-12-03 06:29] LABS: CALCIUM 14.8 mg/dL (8.5-10.1)
--- NOTE | 2019-12-03 07:10 | NUR ---
REPORT RECIEVED AND PATIENT CARE ASSUMED. PATIENT LAYING IN BED ON BACK WITH EYES CLOSED HOB ELEVATED 30 DEGREES ON VENT VIA TRACH AC16 FIO2 50%N TV 500 PEEP . BP121/54 HR74 R22 T99.1.CVL RSC INTACT WITH CLEAN BANDAGE. PATIENT OPENS EYES SPONTANEOUSLY. FOLLOW SIMPLE COMMANDS, SHAKES HEAD YES AND NO , SQUEEZES HAND WEAKLY. WILL CONTINUE WITH PLAN OF CARE. SR UP X 2 BED IN LOW POSITION AND KATE LIGHT IN REACH.
--- NOTE | 2019-12-03 15:00 | NUR ---
CALLED DR THRASHER WITH CONSULT. NEW ORDERS RECEIVED. GIL [place]ITT[place], CT HEAD WITHOUT CONTORAST AND EEG.
--- NOTE | 2019-12-03 17:30 | NUR ---
PATIENT IS STABLE AND VSS. PATIENT TO CT VIA HOSPITAL BED ACCOMPANIED BY RT PORTABLE VENT AND THIS NURSE. PATIENT TOLERATGED WELL. BACK TO ROOM [facility] HOSPITAL BED ACCOMPANIED BY RT AND THIS NURSE.
[2019-12-04] VITALS (96 sets, daily range): BP systolic 19–144; BP diastolic 32–97
[2019-12-04 05:38] LABS: BASOPHILS 0.3 % (0-2); EOSINOPHILS 1.5 % (0-7); HEMATOCRIT 26.8 % (42.0-54.0); HEMOGLOBIN 8.8 g/dL (13.5-17.5); IMMATURE GRANULOCYTES 1.5 % (0-5); LYMPHOCYTES 5.5 % (15-50); MCH 28.7 pg (26.0-34.0); MCHC 32.8 g/dL (31.0-37.0); MCV 87.3 fL (80.0-100.0); MEAN PLATELET VOLUME 9.9 fL (7.4-10.4); MONOCYTES 5.9 % (2-11); NEUTROPHILS 85.3 % (40-80); PLATELET COUNT 186 10x3/uL (130-400); RBC 3.07 10x6/uL (4.20-6.10); RDW 18.5 % (11.5-14.5)
[2019-12-04 06:21] LABS: ANION GAP 16.6 mmol/L (8-16); CREATININE - SERUM 3.1 mg/dL (0.6-1.3); PHOSPHOROUS 3.4 mg/dL (2.5-4.9); POTASSIUM - SERUM 3.6 mmol/L (3.5-5.1); VANCOMYCIN - RANDOM 13.8 ug/mL (10.0-20.0)
--- NOTE | 2019-12-04 07:10 | NUR ---
REPORT RECEIVED FROM OFF GOING NURSE AND PATIENT CARE ASSUMED. PATIENT LAYING IN BED ON LEFT SIDE WITH EYES CLOSED TRACH ON VENT AC 16 FIO2 50$ TV500 PEEP5. BP 115/80 R 19 HR 80 O2SAT 97%. IV TO RT GROIN INFUSING RECTAL TUBE IN PLACE AND DRAINING LIQUID BROWN STOOL. WILL CONTINUE WITH PLAN OF CARE. SR UP X 2 BED IN LOW POSITION AND CALL LIGHT IN REACH.
--- NOTE | 2019-12-04 09:37 | NUR ---
Nutrition follow-up: Pt with trach, intubated; PSV trials Nepro restarted @ 20 ml/hr gravity drip; goal rate 40 ml/hr Labs reviewed; Ca: 15.0 Wt: 200# RDN following.
--- NOTE | 2019-12-04 19:47 | MORECARE ---
CASE MANAGEMENT DISCHARGE SUMMARY PATIENT: JHONATHAN THRASHER UNIT: [id number] ADM DATE: 11/08/19 AGE: 74 : 49 SEX: M ROOM/BED: D.2304 AUTHOR: SUMIT,DOC PHYSICIAN: REFERRING PHYSICIAN: JOLYNN MUNOZ MD DATE OF SERVICE: 12/04/19 Discharge Plan Patient Name: JHONATHAN THRASHER [facility] [facility] 1945 Planned Disposition: Anticipated Discharge Date: Discharge Date: Expected LOS: Initial Reviewer: [email or web address] Initial Review Date: 11/08/2019 Generated: 12/04/19 8:47 pm Comments DCP- Discharge Planning Updated by [email or web address]: Alta Melendez on 12/04/19 6:[address] CM contacted [employer] and asked if they would contact the patient's daughter and see if he would qualify for Medicaid since his Medicare days are out. DCP- Discharge Planning Updated by [id number]: Alta Melendez on 11/30/19 7:[address] CM was notified today from [facility] that the patient was out of Medicare days and only has a few codays available. CM attempted to call [employer] to find out how many days the patient has. CM did not get an answer and will try back later to see if they are able to pull up Medicare days. CM will continue to follow this will make it difficult for placement. DCP- Discharge Planning Updated by [id number]: Alta Melendez on 11/27/19 7:[address] PATIENT DID GET A PEG AND TRACH TODAY. CM RECIEVED A CALL FROM [facility] THAT HAD RECIEVED REFEERAL PACKET AND WILL LOOK AT HIM ON SATURDAY FOR POSSIBLE ADMIT NEXT WEEK. CM WILL CONTINUE TO FOLLOW AND ASSIST NEEDED WITH DISCHARGE PLANNING / NEEDS. DCP- Discharge Planning Updated by [email or web address]: Alta Melendez on 11/27/19 7:[address] LATE ENTRY 11/26/19 CM FAXED REFFERAL TO [facility] FOR [facility] PLACEMENT. PATIENT TO HAVE PEG AND TRACH ON SATURDAY. DCP- Discharge Planning Updated by [id number]: Alta Melendez on 11/27/19 7:[address] LATE ENTRY 11/25/19 CM SPOKE WITH PATIENT'S DAUGHTER MALAIKA SANTANA AND SHE HAS AGREED FOR PATIENT TO HAVE PEG AND TRACH. CM SPOKE WITH HER IN REGARDS TO LTACH AND SHE STATED THAT SHE WOULD LIKE THE CLOSEST LTACH THEN IF NOT ACCEPTED THEN COULD REACH OUT TO OTHER FACILITIES. ARLET COMPLETED. DCP- Discharge Planning Updated by [id number]: Alta Melendez on 11/19/19 1:[address] CM received a call from Delano with APS [phone] he stated that he had received a call from a family member to investigate and requested for CM to call him if family decides to term extubate or if he is weaned off vent to where he could speak with him. DCP- Discharge Planning Updated by [id number]: Alta Melendez on 11/18/19 3:[address] CM received a call from patient's daughter Nena Walker cell [phone] work [phone]. She asked if her sister Katherine had provided proof of POA paperwork . CM explained that at this time she was unaware if there was a copy on the chart. Nena stated that her, her brother and the patient's sister all are wanting to make patient a DNR but Katherine is the only one wanting to keep him on the vent. CM asked who was the eldest child and that if there isn't a POA then the eldest child will be the one acting as POA if the patient isn't . CM will look to see if patient has POA paperwork in his records. CM will notify Nena and let her know if paperwork is on file. CM did locate POA paperwork and placed a hard copy in front on hard chart. CM did call Nena and let her know that Katherine does have POA. CM will continue to follow and assist as needed with discharge planning/ needs DCP- Discharge Planning Updated by [id number]: Eboni Jiménez on 11/13/19 1:[address] CM called patient's daughter, Katherine Thrasher (POA) [phone], to discuss initial discharge planning. Patient's daughter is in agreement to proceed with the assessment. Daughter reports that the patient lives at home with her and he is total care. Daughter reports that the patient is non-ambulatory, requires feeding, incontinent of bowel JAVA DEVELOPER CONSULTANT. Daughter also reports that she is raising 5 grandchildren, along with caring for her father. 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 Daughter transports patient to and from HD. Patient is currently intubated to a mechanical vent. PCP: Danny Painter in [place]. Pharmacy: [facility], daughter picks up his medication. Patient has been able to obtain all of his prescribed medications. HHS: [facility], JAVA DEVELOPER CONSULTANT. DME: walker, w/c, hospital bed, didi lift. Patient is totally dependent with medication management JAVA DEVELOPER CONSULTANT. CM discussed the availability of HH, Rehab, SNF, OP Therapy, DME services. When the patient is able to return home, his daughter states she would like to resume [facility]. Patient's daughter advises that she "had a call from an FRUIT SHIPPER, to inform her she should not expect her father to return home this time". Daughter has been encouraged to fill out paperwork for the Medicaid Waver Program, daughter agrees, but states she hasn't had time. Advised daughter that the usual time frame is 45 days before a decision is reached. Daughter denies the use of community resources JAVA DEVELOPER CONSULTANT. Transportation at time of discharge: Daughter or facility, if patient requires a SNF setting. CM will continue to follow and assist with DC planning. DCPIA - Discharge Planning Initial Assessment Updated by [id number]: Eboni Jiménez on 11/13/19 2:38 pm * Is the patient Alert and Oriented? No * PCP Dr. Sanchez [facility] * Pharmacy [facility], [place] Daughter picks up medications * Preadmission Environment Home with Family * ADLs Total Dependent * Equipment Tub Bench * Other Equipment RW, W/C, Hospital bed, Didi lift * List name and contact numbers for known caregivers / representatives who currently or will assist patient after discharge: Katherine Thrasher (POA-dtr) [phone] Address: [address] [place] [address] [place], [place], [place] * Verbal permission to speak to the caregivers and representatives has been obtained from the patient. N/A * Community resources currently utilized Home Health * Please name any agencies selected above. [facility] * Additional services required to return to the preadmission environment? Yes * Can the patient safely return to the preadmission environment? No * Has this patient been hospitalized within the prior 30 days at any hospital? No Coverage Notice Reviewer: [email or web address] Royal Melendez Notice Issued Date-Time: 11/25/2019 16:10 Notice Type: Patient Choice Letter Notice Delivered To: Family Member Relationship to Patient: Daughter Certified Registered Nurse Practitioner Name: KATHERINE Delivery Method: PHONE - Phone Georgie Days: Prior Verbal Notification: Recipient Understood Notice: Yes Recipient Signature: Yes Med Rec Note Co-signed by Attending: Coverage Notice Comment: JENA - [facility] , THEN CAN LOOK ELSEWHERE IF NEEDED Last DP export: 11/30/19 7:57 p Patient Name: JHONATHAN THRASHER Page [id number] at 194 All edits/amendments must be made on the electronic document DICTATION DATE: 12/04/191946 JUNIOR WEB DEVELOPER: SINTIA 12/04/191946 RPT#: [id number] DC DATE: STATUS: ADM IN [place] [address] [place] [address] END OF REPORT
--- NOTE | 2019-12-04 20:54 | MORECARE ---
CASE MANAGEMENT DISCHARGE SUMMARY PATIENT: JHONATHAN THRASHER UNIT: [id number] ADM DATE: 11/08/19 AGE: 74 : 47 SEX: M ROOM/BED: D.2304 AUTHOR: SUMITDOC PHYSICIAN: REFERRING PHYSICIAN: JOLYNN MUNOZ MD DATE OF SERVICE: 12/04/19 Discharge Plan Patient Name: JHONATHAN THRASHER [facility] [facility] 1945 Planned Disposition: Anticipated Discharge Date: Discharge Date: Expected LOS: Initial Reviewer: [email or web address] Initial Review Date: 11/08/2019 Generated: 12/04/19 9:54 pm Comments DCP- Discharge Planning Updated by [email or web address]: Alta Melendez on 12/04/19 7:[address] CM contacted [employer] and asked if they would contact the patient's daughter and see if he would qualify for Medicaid since his Medicare days are out. Appended by Alta Melendez on 12/04/2019 20:48 CDT: Patient will most likely have to have a paul bed for [facility] d/t being out of Medicare days and if he was to get Medicaid. [facility] doesn't accept Medicaid DCP- Discharge Planning Updated by [id number]: Alta Melendez on 11/30/19 7:[address] CM was notified today from [facility] that the patient was out of Medicare days and only has a few codays available. CM attempted to call [employer] to find out how many days the patient has. CM did not get an answer and will try back later to see if they are able to pull up Medicare days. CM will continue to follow this will make it difficult for placement. DCP- Discharge Planning Updated by [id number]: Alta Melendez on 11/27/19 7:[address] PATIENT DID GET A PEG AND TRACH TODAY. CM RECIEVED A CALL FROM [facility] THAT HAD RECIEVED REFEERAL PACKET AND WILL LOOK AT HIM ON SATURDAY FOR POSSIBLE ADMIT NEXT WEEK. CM WILL CONTINUE TO FOLLOW AND ASSIST NEEDED WITH DISCHARGE PLANNING / NEEDS. DCP- Discharge Planning Updated by [id number]: Alta Melendez on 11/27/19 7:[address] LATE ENTRY 11/26/19 CM FAXED REFFERAL TO [facility] FOR [facility] PLACEMENT. PATIENT TO HAVE PEG AND TRACH ON SATURDAY. DCP- Discharge Planning Updated by [id number]: Alta Melendez on 11/27/19 7:[address] LATE ENTRY 11/25/19 CM SPOKE WITH PATIENT'S DAUGHTER MALAIKA SANTANA AND SHE HAS AGREED FOR PATIENT TO HAVE PEG AND TRACH. CM SPOKE WITH HER IN REGARDS TO LTACH AND SHE STATED THAT SHE WOULD LIKE THE CLOSEST LTACH THEN IF NOT ACCEPTED THEN COULD REACH OUT TO OTHER FACILITIES. ARLET COMPLETED. DCP- Discharge Planning Updated by [id number]: Alta Calzadar on 11/19/19 1:[address] CM received a call from Delano with APS [phone] he stated that he had received a call from a family member to investigate and requested for CM to call him if family decides to term extubate or if he is weaned off vent to where he could speak with him. DCP- Discharge Planning Updated by [id number]: Alta Calzadar on 11/18/19 3:[address] CM received a call from patient's daughter Nena Walker cell [phone] work [phone]. She asked if her sister Katherine had provided proof of POA paperwork . CM explained that at this time she was unaware if there was a copy on the chart. Nena stated that her, her brother and the patient's sister all are wanting to make patient a DNR but Katherine is the only one wanting to keep him on the vent. CM asked who was the eldest child and that if there isn't a POA then the eldest child will be the one acting as POA if the patient isn't . CM will look to see if patient has POA paperwork in his records. CM will notify Nena and let her know if paperwork is on file. CM did locate POA paperwork and placed a hard copy in front on hard chart. CM did call Nena and let her know that Katherine does have POA. CM will continue to follow and assist as needed with discharge planning/ needs DCP- Discharge Planning Updated by [id number]: Eboni Jiménez on 11/13/19 1:[address] CM called patient's daughter, Katherine Thrasher (POA) [phone], to discuss initial discharge planning. Patient's daughter is in agreement to proceed with the assessment. Daughter reports that the patient lives at home with her and he is total care. 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 Daughter also reports that she is raising 5 grandchildren, along with caring for her father. 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 Daughter transports patient to and from HD. Patient is currently intubated to a mechanical vent. PCP: Dr. Sanchez [facility] in [place]. Pharmacy: [facility], daughter picks up his medication. Patient has been able to obtain all of his prescribed medications. HHS: [facility], FLORAL DESIGNER SALESPERSON. DME: walker, w/c, hospital bed, didi lift. Patient is totally dependent with medication management FLORAL DESIGNER SALESPERSON. CM discussed the availability of HH, Rehab, SNF, OP Therapy, DME services. When the patient is able to return home, his daughter states she would like to resume [facility]. Patient's daughter advises that she "had a call from an EXPLOSIVE OPERATOR FUSE, to inform her she should not expect her father to return home this time". Daughter has been encouraged to fill out paperwork for the Medicaid Waver Program, daughter agrees, but states she hasn't had time. Advised daughter that the usual time frame is 45 days before a decision is reached. Daughter denies the use of community resources FLORAL DESIGNER SALESPERSON. Transportation at time of discharge: Daughter or facility, if patient requires a SNF setting. CM will continue to follow and assist with DC planning. DCPIA - Discharge Planning Initial Assessment Updated by [id number]: Eboni Jiménez on 11/13/19 2:38 pm * Is the patient Alert and Oriented? No * PCP Dr. Sanchez, [facility] * Pharmacy [facility], [place] Daughter picks up medications * Preadmission Environment Home with Family * ADLs Total Dependent * Equipment Tub Bench * Other Equipment RW, W/C, Hospital bed, Didi lift * List name and contact numbers for known caregivers / representatives who currently or will assist patient after discharge: Katherine Thrasher (POA-dtr) [phone] Address: [address] [place] [address] [address], [place], [place] * Verbal permission to speak to the caregivers and representatives has been obtained from the patient. N/A * Community resources currently utilized Home Health * Please name any agencies selected above. [facility] * Additional services required to return to the preadmission environment? Yes * Can the patient safely return to the preadmission environment? No * Has this patient been hospitalized within the prior 30 days at any hospital? No Coverage Notice Reviewer: [id number] Royal Melendez Notice Issued Date-Time: 11/25/2019 16:10 Notice Type: Patient Choice Letter Notice Delivered To: Family Member Relationship to Patient: Daughter Skiver Welt End Name: KATHERINE Delivery Method: PHONE - Phone Georgie Days: Prior Verbal Notification: Recipient Understood Notice: Yes Recipient Signature: Yes Med Rec Note Co-signed by Attending: Coverage Notice Comment: JENA - [facility] , THEN CAN LOOK ELSEWHERE IF NEEDED Last DP export: 12/04/19 6:47 p Patient Name: JHONATHAN THRASHER Page [id number] at 2053 All edits/amendments must be made on the electronic document DICTATION DATE: 12/04/192053 JAVA ORACLE DEVELOPER: SINTIA 12/04/192053 RPT#: [id number] DC DATE: STATUS: ADM IN [facility] [address] [place] [address] END OF REPORT
[2019-12-05] VITALS (95 sets, daily range): BP systolic 90–147; BP diastolic 26–98
--- NOTE | 2019-12-05 00:21 | NUR ---
SPOKE WITH DAUGHTER DONNA ABOUT PT ASSESSMENT AND POC SINCE SHIFT HAS STARTED. FAMILY MADE AWARE OF VASOPRESSOR DRIP ADDED TO KEEP B/P WITHIN PARAMETERS WELL FENTANYL FOR PAIN. QUESTIONS ANSWERED BEST POSSIBLE.
[2019-12-05 03:26] LABS: BASOPHILS 0.4 % (0-2); EOSINOPHILS 1.3 % (0-7); HEMATOCRIT 26.1 % (42.0-54.0); HEMOGLOBIN 8.7 g/dL (13.5-17.5); IMMATURE GRANULOCYTES 3.7 % (0-5); LYMPHOCYTES 6.6 % (15-50); MCH 29.4 pg (26.0-34.0); MCHC 33.3 g/dL (31.0-37.0); MCV 88.2 fL (80.0-100.0); MEAN PLATELET VOLUME 10.6 fL (7.4-10.4); MONOCYTES 6.8 % (2-11); NEUTROPHILS 81.2 % (40-80); PLATELET COUNT 185 10x3/uL (130-400); RBC 2.96 10x6/uL (4.20-6.10); RDW 18.2 % (11.5-14.5); WBC 15.7 10x3/uL (4.8-10.8)
[2019-12-05 03:41] LABS: ANION GAP 11.3 mmol/L (8-16); CARBON DIOXIDE 27.2 mmol/L (21.0-32.0); CREATININE - SERUM 2.5 mg/dL (0.6-1.3); MAGNESIUM - SERUM 1.8 mg/dL (1.8-2.4); PHOSPHOROUS 3.2 mg/dL (2.5-4.9); POTASSIUM - SERUM 3.5 mmol/L (3.5-5.1); VANCOMYCIN - RANDOM 11.2 ug/mL (10.0-20.0)
[2019-12-05 03:44] LABS: CALCIUM 14.7 mg/dL (8.5-10.1)
--- NOTE | 2019-12-05 05:00 | NUR ---
DR. MUNOZ ANSWERING SERVICE CALLED TO REPORT CRITICAL CALCIUM LEVEL. AWAITING RETURN call.
--- NOTE | 2019-12-05 05:02 | NUR ---
DR CHURCH RETURNED CALL TO UNIT AND MADE AWARE OF CRITICAL CALCIUM OF 14.7. NO NEW ORDERS GIVEN.
--- NOTE | 2019-12-05 09:01 | NUR ---
REPORT GIVEN TO NEW SHIFT RN. PT HAS REMAINED STABLE THROUGHOUT THE SHIFT. VS DOCUMENTED. OCCASSIONAL TITRATION OF LEVOPHED FOR PARAMETERS. TEMP RESOLVED WITH TYLENOL AND ICE. PT GIVEN VERSED 2MG X2 FOR INCREASED RESP RATE AND RESOLVED. CARES ASSUMED.
--- NOTE | 2019-12-05 11:39 | NUR ---
HD IN PROGRESS.
[2019-12-06] VITALS (90 sets, daily range): BP systolic 89–136; BP diastolic 20–89
[2019-12-06 08:43] LABS: BASOPHILS 0.5 % (0-2); HEMOGLOBIN 8.9 g/dL (13.5-17.5); IMMATURE GRANULOCYTES 2.5 % (0-5); LYMPHOCYTES 7.7 % (15-50); MCH 29.2 pg (26.0-34.0); MCV 88.5 fL (80.0-100.0); MEAN PLATELET VOLUME 10.2 fL (7.4-10.4); MONOCYTES 6.9 % (2-11); NEUTROPHILS 79.4 % (40-80); PLATELET COUNT 185 10x3/uL (130-400); RBC 3.05 10x6/uL (4.20-6.10); RDW 18.4 % (11.5-14.5); WBC 16.9 10x3/uL (4.8-10.8)
[2019-12-06 09:06] LABS: ANION GAP 13.4 mmol/L (8-16); BILIRUBIN - TOTAL 1.24 mg/dL (0.2-1.3); CARBON DIOXIDE 27.8 mmol/L (21.0-32.0); CREATININE - SERUM 2.2 mg/dL (0.6-1.3); MAGNESIUM - SERUM 1.9 mg/dL (1.8-2.4); POTASSIUM - SERUM 3.2 mmol/L (3.5-5.1); PROTEIN - SERUM 6.9 g/dL (6.4-8.2); VANCOMYCIN - RANDOM 17.1 ug/mL (10.0-20.0)
[2019-12-06 09:14] LABS: CALCIUM 15.5 mg/dL (8.5-10.1)
[2019-12-07] VITALS (44 sets, daily range): BP systolic 90–143; BP diastolic 40–79
[2019-12-07 05:51] LABS: BASOPHILS 0.7 % (0-2); HEMATOCRIT 25.7 % (42.0-54.0); HEMOGLOBIN 8.3 g/dL (13.5-17.5); IMMATURE GRANULOCYTES 2.8 % (0-5); LYMPHOCYTES 8.3 % (15-50); MCH 28.9 pg (26.0-34.0); MCHC 32.3 g/dL (31.0-37.0); MCV 89.5 fL (80.0-100.0); MEAN PLATELET VOLUME 10.9 fL (7.4-10.4); MONOCYTES 7.5 % (2-11); NEUTROPHILS 76.7 % (40-80); RBC 2.87 10x6/uL (4.20-6.10); RDW 18.3 % (11.5-14.5); WBC 14.5 10x3/uL (4.8-10.8)
[2019-12-07 06:12] LABS: PLATELET COUNT 237 10x3/uL (130-400)
[2019-12-07 06:30] LABS: ALBUMIN 4.1 g/dL (3.4-5.0); ANION GAP 17.4 mmol/L (8-16); BILIRUBIN - TOTAL 1.23 mg/dL (0.2-1.3); CARBON DIOXIDE 25.2 mmol/L (21.0-32.0); CREATININE - SERUM 2.7 mg/dL (0.6-1.3); POTASSIUM - SERUM 3.6 mmol/L (3.5-5.1); VANCOMYCIN - RANDOM 15.9 ug/mL (10.0-20.0)
--- NOTE | 2019-12-07 15:37 | NUR ---
CONTINUING ON HD, SBP 65, MAP 48, LEVOPHED TIRATED TO 10 MCG, AND ALBUMIN 12.5 INITIATED
[2019-12-08] VITALS (75 sets, daily range): BP systolic 79–143; BP diastolic 22–91
[2019-12-08 05:25] LABS: BASOPHILS 0.4 % (0-2); EOSINOPHILS 1.8 % (0-7); HEMATOCRIT 26.1 % (42.0-54.0); HEMOGLOBIN 8.2 g/dL (13.5-17.5); IMMATURE GRANULOCYTES 1.7 % (0-5); MCH 28.4 pg (26.0-34.0); MCHC 31.4 g/dL (31.0-37.0); MCV 90.3 fL (80.0-100.0); MEAN PLATELET VOLUME 9.9 fL (7.4-10.4); MONOCYTES 6.1 % (2-11); PLATELET COUNT 246 10x3/uL (130-400); RBC 2.89 10x6/uL (4.20-6.10); RDW 18.2 % (11.5-14.5)
[2019-12-08 05:34] LABS: WBC 18.6 10x3/uL (4.8-10.8)
[2019-12-08 06:09] LABS: ALBUMIN 4.4 g/dL (3.4-5.0); ANION GAP 13.1 mmol/L (8-16); BILIRUBIN - TOTAL 1.25 mg/dL (0.2-1.3); CARBON DIOXIDE 29.1 mmol/L (21.0-32.0); CREATININE - SERUM 2.2 mg/dL (0.6-1.3); POTASSIUM - SERUM 3.2 mmol/L (3.5-5.1); PROTEIN - SERUM 7.4 g/dL (6.4-8.2); VANCOMYCIN - RANDOM 12.4 ug/mL (10.0-20.0)
[2019-12-08 06:42] LABS: CALCIUM 13.8 mg/dL (8.5-10.1)
--- NOTE | 2019-12-08 21:15 | MORECARE ---
CASE MANAGEMENT DISCHARGE SUMMARY PATIENT: JHONATHAN THRASHER UNIT: [id number] ADM DATE: 11/08/19 AGE: 74 : 47 SEX: M ROOM/BED: D.2304 AUTHOR: SUMIT,DOC PHYSICIAN: REFERRING PHYSICIAN: JOLYNN MUNOZ MD DATE OF SERVICE: 12/08/19 Discharge Plan Patient Name: JHONATHAN THRASHER [facility] [facility] 1945 Planned Disposition: Anticipated Discharge Date: Discharge Date: Expected LOS: Initial Reviewer: [id number] Initial Review Date: 11/08/2019 Generated: 12/08/19 10:14 pm Comments DCP- Discharge Planning Updated by [id number]: Alta Melendez on 12/08/19 8:[address] CM will speak with Katherine to see if CM can send referral packet to another facility to see if they are showing that he is out of Medicare days. [employer] is till working to see if patient could be approved for Medicaid. DCP- Discharge Planning Updated by [id number]: Alta Melendez on 12/04/19 7:[address] CM contacted [employer] and asked if they would contact the patient's daughter and see if he would qualify for Medicaid since his Medicare days are out. Appended by Alta Melendez on 12/04/2019 20:48 CDT: Patient will most likely have to have a paul bed for LTACH d/t being out of Medicare days and if he was to get Medicaid. [facility] doesn't accept Medicaid DCP- Discharge Planning Updated by [id number]: Alta Melendez on 11/30/19 7:[address] CM was notified today from [facility] that the patient was out of Medicare days and only has a few codays available. CM attempted to call [employer] to find out how many days the patient has. CM did not get an answer and will try back later to see if they are able to pull up Medicare days. CM will continue to follow this will make it difficult for placement. DCP- Discharge Planning Updated by [id number]: Alta Melendez on 11/27/19 7:[address] PATIENT DID GET A PEG AND TRACH TODAY. CM RECIEVED A CALL FROM [facility] THAT HAD RECIEVED REFEERAL PACKET AND WILL LOOK AT HIM ON SATURDAY FOR POSSIBLE ADMIT NEXT WEEK. CM WILL CONTINUE TO FOLLOW AND ASSIST NEEDED WITH DISCHARGE PLANNING / NEEDS. DCP- Discharge Planning Updated by [email or web address]: Alta Calzadar on 11/27/19 7:[address] LATE ENTRY 11/26/19 CM FAXED REFFERAL TO [facility] FOR [facility]ACH PLACEMENT. PATIENT TO HAVE PEG AND TRACH ON SATURDAY. DCP- Discharge Planning Updated by [id number]: Alta Calzadar on 11/27/19 7:[address] LATE ENTRY 11/25/19 CM SPOKE WITH PATIENT'S DAUGHTER MALAIKA SANTANA AND SHE HAS AGREED FOR PATIENT TO HAVE PEG AND TRACH. CM SPOKE WITH HER IN REGARDS TO LTACH AND SHE STATED THAT SHE WOULD LIKE THE CLOSEST LTACH THEN IF NOT ACCEPTED THEN COULD REACH OUT TO OTHER FACILITIES. ARLET COMPLETED. DCP- Discharge Planning Updated by [email or web address]: Alta Melendez on 11/19/19 1:[address] CM received a call from Delano with APS [phone] he stated that he had received a call from a family member to investigate and requested for CM to call him if family decides to term extubate or if he is weaned off vent to where he could speak with him. DCP- Discharge Planning Updated by [id number]: Alta Calzadar on 11/18/19 3:[address] CM received a call from patient's daughter Nena Willis cell [phone] work [phone]. She asked if her sister Katherine had provided proof of POA paperwork . CM explained that at this time she was unaware if there was a copy on the chart. Nena stated that her, her brother and the patient's sister all are wanting to make patient a DNR but Katherine is the only one wanting to keep him on the vent. CM asked who was the eldest child and that if there isn't a POA then the eldest child will be the one acting as POA if the patient isn't . CM will look to see if patient has POA paperwork in his records. CM will notify Nena and let her know if paperwork is on file. CM did locate POA paperwork and placed a hard copy in front on hard chart. CM did call Nena and let her know that Katherine does have POA. CM will continue to follow and assist as needed with discharge planning/ needs DCP- Discharge Planning Updated by [id number]: Eboni Jiménez on 11/13/19 1:[address] CM called patient's daughter, Katherine Thrasher (POA) [phone], to discuss initial discharge planning. Patient's daughter is in agreement to proceed with the assessment. Daughter reports that the patient lives at home with her and he is total care. 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 Daughter also reports that she is raising 5 grandchildren, along with caring for her father. 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 Daughter transports patient to and from HD. Patient is currently intubated to a mechanical vent. PCP: Danny Painter in [place]. Pharmacy: [facility], daughter picks up his medication. Patient has been able to obtain all of his prescribed medications. HHS: [facility], SPACE CONTROL SUPERVISOR. DME: walker, w/c, hospital bed, didi lift. Patient is totally dependent with medication management SPACE CONTROL SUPERVISOR. CM discussed the availability of HH, Rehab, SNF, OP Therapy, DME services. When the patient is able to return home, his daughter states she would like to resume [facility]. Patient's daughter advises that she "had a call from an CUSTOM SEAMSTRESS, to inform her she should not expect her father to return home this time". Daughter has been encouraged to fill out paperwork for the Medicaid Waver Program, daughter agrees, but states she hasn't had time. Advised daughter that the usual time frame is 45 days before a decision is reached. Daughter denies the use of community resources SPACE CONTROL SUPERVISOR. Transportation at time of discharge: Daughter or facility, if patient requires a SNF setting. CM will continue to follow and assist with DC planning. DCPIA - Discharge Planning Initial Assessment Updated by [id number]: Eboni Jiménez on 11/13/19 2:38 pm * Is the patient Alert and Oriented? No * [facility] * Pharmacy [facility] [place] Daughter picks up medications * Preadmission Environment Home with Family * ADLs Total Dependent * Equipment Tub Bench * Other Equipment RW, W/C, Hospital bed, Didi lift * List name and contact numbers for known caregivers / representatives who currently or will assist patient after discharge: Katherine Thrasher (POA-dtr) [phone] Address: [address] [place] [address] Rd, [place], [place] * Verbal permission to speak to the caregivers and representatives has been obtained from the patient. N/A * Community resources currently utilized Home Health * Please name any agencies selected above. [facility] * Additional services required to return to the preadmission environment? Yes * Can the patient safely return to the preadmission environment? No * Has this patient been hospitalized within the prior 30 days at any hospital? No Coverage Notice Reviewer: [email or web address] - Alta Melendez Notice Issued Date-Time: 11/25/2019 16:10 Notice Type: Patient Choice Letter Notice Delivered To: Family Member Relationship to Patient: Daughter Larry Car Operator Name: KATHERINE Delivery Method: PHONE - Phone Georgie Days: Prior Verbal Notification: Recipient Understood Notice: Yes Recipient Signature: Yes Med Rec Note Co-signed by Attending: Coverage Notice Comment: JENA LEDESMA , THEN CAN LOOK ELSEWHERE IF NEEDED Last DP export: 12/04/19 7:54 p Patient Name: JHONATHAN THRASHER Page [id number] at 2115 All edits/amendments must be made on the electronic document DICTATION DATE: 12/08/192113 MANAGER MARKET: SINTIA 12/08/192113 RPT#: [id number] DC DATE: STATUS: ADM IN [facility] [address] [place] [address] END OF REPORT
[2019-12-09] VITALS (75 sets, daily range): BP systolic 73–127; BP diastolic 20–63
[2019-12-09 05:16] LABS: BASOPHILS 0.3 % (0-2); EOSINOPHILS 1.4 % (0-7); HEMATOCRIT 24.9 % (42.0-54.0); IMMATURE GRANULOCYTES 0.9 % (0-5); LYMPHOCYTES 6.1 % (15-50); MCH 29.3 pg (26.0-34.0); MCHC 32.1 g/dL (31.0-37.0); MCV 91.2 fL (80.0-100.0); MEAN PLATELET VOLUME 10.5 fL (7.4-10.4); MONOCYTES 5.8 % (2-11); NEUTROPHILS 85.5 % (40-80); PLATELET COUNT 258 10x3/uL (130-400); RBC 2.73 10x6/uL (4.20-6.10); RDW 18.5 % (11.5-14.5)
[2019-12-09 05:46] LABS: ALBUMIN 4.1 g/dL (3.4-5.0); BILIRUBIN - TOTAL 1.13 mg/dL (0.2-1.3); CARBON DIOXIDE 27.8 mmol/L (21.0-32.0); CREATININE - SERUM 1.9 mg/dL (0.6-1.3); PROTEIN - SERUM 7.1 g/dL (6.4-8.2); VANCOMYCIN - RANDOM 18.9 ug/mL (10.0-20.0)
[2019-12-09 06:31] LABS: ANION GAP 14.1 mmol/L (8-16)
[2019-12-09 06:38] LABS: CALCIUM 13.3 mg/dL (8.5-10.1); POTASSIUM - SERUM 2.9 mmol/L (3.5-5.1)
--- NOTE | 2019-12-09 09:15 | NUR ---
Spoke with patient sister Tasha. Update given for patient status. Discussed further plan of care for LTAC placement. She became upset and was crying stating "The rest of the family has discussed and agreed upon taking him off of life support because this is just no way for him to live and he had told us prior to all this happening that he would not want all of this but there is one daughter who will not agree and she has the power of employment law attorney."
--- NOTE | 2019-12-09 10:00 | NUR ---
Dr Davis currently at bedside. Notified him of K+ level from morning labs. New orders received at this time.
--- NOTE | 2019-12-09 10:55 | NUR ---
Nutrition follow-up: Pt remains intubated, sedated Labs reviewed Wt: 226# Rectal tube in place PEG tube with Nepro infusing @ 40 ml/hr RDN following.
--- NOTE | 2019-12-09 13:45 | NUR ---
Full CHG bath and linen change complete at this time. Skin breakdown noted to the inner LT calf from SCD's. Dressing applied.
--- NOTE | 2019-12-09 14:32 | NUR ---
Dialysis currently at bedside. VSS. Will continue to monitor.
--- NOTE | 2019-12-09 16:54 | NUR ---
Dialysis continues at bedside. VSS. Will continue to monitor.
--- NOTE | 2019-12-09 16:56 | MORECARE ---
CASE MANAGEMENT DISCHARGE SUMMARY PATIENT: JHONATHAN THRASHER UNIT: [id number] ADM DATE: 11/08/19 AGE: 74 : 47 SEX: M ROOM/BED: D.2304 AUTHOR: SUMIT,DOC PHYSICIAN: REFERRING PHYSICIAN: JOLYNN MUNOZ MD DATE OF SERVICE: 12/09/19 Discharge Plan Patient Name: JHONATHAN THRASHER [facility] [facility] 1945 Planned Disposition: Anticipated Discharge Date: Discharge Date: Expected LOS: Initial Reviewer: [email or web address] Initial Review Date: 11/08/2019 Generated: 12/09/19 5:56 pm Comments DCP- Discharge Planning Updated by [email or web address]: Alta Melendez on 12/09/19 3:[address] CM spoke with Shannan in [employer] and she stated that they have spoken with daughter and patient doesn't qualify for Medicaid at this time but once he is discharged they will most likely be able to do a spin down. CM will continue to follow and assist as needed with discharge planning / needs. DCP- Discharge Planning Updated by [email or web address]: Alta Melendez on 12/08/19 8:[address] CM will speak with Katherine to see if CM can send referral packet to another facility to see if they are showing that he is out of Medicare days. [employer] is till working to see if patient could be approved for Medicaid. DCP- Discharge Planning Updated by [id number]: Alta Melendez on 12/04/19 7:[address] CM contacted [employer] and asked if they would contact the patient's daughter and see if he would qualify for Medicaid since his Medicare days are out. Appended by Alta Melendez on 12/04/2019 20:48 CDT: Patient will most likely have to have a paul bed for LTACH d/t being out of Medicare days and if he was to get Medicaid. LTACH doesn't accept Medicaid DCP- Discharge Planning Updated by [email or web address]: Alta Melenedz on 11/30/19 7:[address] CM was notified today from [facility] that the patient was out of Medicare days and only has a few codays available. CM attempted to call [employer] to find out how many days the patient has. CM did not get an answer and will try back later to see if they are able to pull up Medicare days. CM will continue to follow this will make it difficult for placement. DCP- Discharge Planning Updated by [id number]: Alta Melendez on 11/27/19 7:[address] PATIENT DID GET A PEG AND TRACH TODAY. CM RECIEVED A CALL FROM [facility] THAT HAD RECIEVED REFEERAL PACKET AND WILL LOOK AT HIM ON SATURDAY FOR POSSIBLE ADMIT NEXT WEEK. CM WILL CONTINUE TO FOLLOW AND ASSIST NEEDED WITH DISCHARGE PLANNING / NEEDS. DCP- Discharge Planning Updated by [email or web address]: Alta Melendez on 11/27/19 7:[address] LATE ENTRY 11/26/19 CM FAXED REFFERAL TO [facility] FOR [facility] PLACEMENT. PATIENT TO HAVE PEG AND TRACH ON SATURDAY. DCP- Discharge Planning Updated by [email or web address]: Alta Melendez on 11/27/19 7:[address] LATE ENTRY 11/25/19 CM SPOKE WITH PATIENT'S DAUGHTER MALAIKA SANTANA AND SHE HAS AGREED FOR PATIENT TO HAVE PEG AND TRACH. CM SPOKE WITH HER IN REGARDS TO LTACH AND SHE STATED THAT SHE WOULD LIKE THE CLOSEST LTACH THEN IF NOT ACCEPTED THEN COULD REACH OUT TO OTHER FACILITIES. ARLET COMPLETED. DCP- Discharge Planning Updated by [id number]: Alta Melendez on 11/19/19 1:[address] CM received a call from Delano with APS [phone] he stated that he had received a call from a family member to investigate and requested for CM to call him if family decides to term extubate or if he is weaned off vent to where he could speak with him. DCP- Discharge Planning Updated by [email or web address]: Alta Melendez on 11/18/19 3:[address] CM received a call from patient's daughter Nena Willis cell [phone] work [phone]. She asked if her sister Katherine had provided proof of POA paperwork . CM explained that at this time she was unaware if there was a copy on the chart. Nena stated that her, her brother and the patient's sister all are wanting to make patient a DNR but Katherine is the only one wanting to keep him on the vent. CM asked who was the eldest child and that if there isn't a POA then the eldest child will be the one acting as POA if the patient isn't . CM will look to see if patient has POA paperwork in his records. CM will notify Nena and let her know if paperwork is on file. CM did locate POA paperwork and placed a hard copy in front on hard chart. CM did call Nena and let her know that Katherine does have POA. CM will continue to follow and assist as needed with discharge planning/ needs DCP- Discharge Planning Updated by [id number]: Eboni Jiménez on 11/13/19 1:[address] CM called patient's daughter, Katherine Thrasher (POA) [phone], to discuss initial discharge planning. Patient's daughter is in agreement to proceed with the assessment. Daughter reports that the patient lives at home with her and he is total care. Daughter reports that the patient is non-ambulatory, requires feeding, incontinent of bowel NUT FORMER. Daughter also reports that she is raising 5 grandchildren, along with caring for her father. 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 Daughter transports patient to and from HD. Patient is currently intubated to a mechanical vent. PCP: Dr. Sanchez [facility] in [place]. Pharmacy: [facility], daughter picks up his medication. Patient has been able to obtain all of his prescribed medications. HHS: [facility], [employer] [employer]. DME: walker, w/c, hospital bed, didi lift. Patient is totally dependent with medication management NUT FORMER. CM discussed the availability of HH, Rehab, SNF, OP Therapy, DME services. When the patient is able to return home, his daughter states she would like to resume [facility]. Patient's daughter advises that she "had a call from an EXECUTIVE CONSULTANT, to inform her she should not expect her father to return home this time". Daughter has been encouraged to fill out paperwork for the Medicaid [place] Program, daughter agrees, but states she hasn't had time. Advised daughter that the usual time frame is 45 days before a decision is reached. Daughter denies the use of community resources NUT FORMER. Transportation at time of discharge: Daughter or facility, if patient requires a SNF setting. CM will continue to follow and assist with DC planning. DCPIA - Discharge Planning Initial Assessment Updated by [email or web address]: Eboni Jiménez on 11/13/19 2:38 pm * Is the patient Alert and Oriented? No * PCP Dr. Sanchez, [facility] * Pharmacy [facility], [place] Daughter picks up medications * Preadmission Environment Home with Family * ADLs Total Dependent * Equipment Tub Bench * Other Equipment RW, W/C, Hospital bed, Didi lift * List name and contact numbers for known caregivers / representatives who currently or will assist patient after discharge: Katherine Thrasher (POA-dtr) [phone] Address: [address] [place] [address] Rd, [place], [place] * Verbal permission to speak to the caregivers and representatives has been obtained from the patient. N/A * Community resources currently utilized Home Health * Please name any agencies selected above. [facility] * Additional services required to return to the preadmission environment? Yes * Can the patient safely return to the preadmission environment? No * Has this patient been hospitalized within the prior 30 days at any hospital? No Coverage Notice Reviewer: [id number] Royal Melendez Notice Issued Date-Time: 11/25/2019 16:10 Notice Type: Patient Choice Letter Notice Delivered To: Family Member Relationship to Patient: Daughter Dialysis Clinical Manager Name: KATHERINE Delivery Method: PHONE - Phone Georgie Days: Prior Verbal Notification: Recipient Understood Notice: Yes Recipient Signature: Yes Med Rec Note Co-signed by Attending: Coverage Notice Comment: JENA - [facility] , THEN CAN LOOK ELSEWHERE IF NEEDED Last DP export: 12/08/19 8:15 p Patient Name: JHONATHAN THRASHER Page [id number] at 1656 All edits/amendments must be made on the electronic document DICTATION DATE: 12/09/191655 CLOTH PRESSER: SINTIA 12/09/191655 RPT#: [id number] DC DATE: STATUS: ADM IN [facility] [address] [place] [address] END OF REPORT
--- NOTE | 2019-12-09 17:05 | MORECARE ---
CASE MANAGEMENT DISCHARGE SUMMARY PATIENT: JHONATHAN THRASHER UNIT: [id number] ADM DATE: 11/08/19 AGE: 74 : 49 SEX: M ROOM/BED: D.2304 AUTHOR: SUMIT,DOC PHYSICIAN: REFERRING PHYSICIAN: JOLYNN MUNOZ MD DATE OF SERVICE: 12/09/19 Discharge Plan Patient Name: JHONATHAN THRASHER Facility[facility]:[place] : 1945 Planned Disposition: Anticipated Discharge Date: Discharge Date: Expected LOS: Initial Reviewer: [email or web address] Initial Review Date: 11/08/2019 Generated: 12/09/19 6:05 pm Comments DCP- Discharge Planning Updated by [email or web address]: Alta Melendez on 12/09/19 4:[address] CM spoke with cynthia Murphy explained the situation and she gave verbal consent to send referral to another facility. The facility will check MCR days. DCP- Discharge Planning Updated by [email or web address]: Alta Melendez on 12/09/19 3:[address] CM spoke with Shannan in [employer] and she stated that they have spoken with daughter and patient doesn't qualify for Medicaid at this time but once he is discharged they will most likely be able to do a spin down. CM will continue to follow and assist as needed with discharge planning / needs. DCP- Discharge Planning Updated by [email or web address]: Alta Melendez on 12/08/19 8:[address] CM will speak with Kahterine to see if CM can send referral packet to another facility to see if they are showing that he is out of Medicare days. [employer] is till working to see if patient could be approved for Medicaid. DCP- Discharge Planning Updated by [email or web address]: Alta Melendez on 12/04/19 7:[address] CM contacted [employer] and asked if they would contact the patient's daughter and see if he would qualify for Medicaid since his Medicare days are out. Appended by Alta Melendez on 12/04/2019 20:48 CDT: Patient will most likely have to have a paul bed for LTACH d/t being out of Medicare days and if he was to get Medicaid. LTACH doesn't accept Medicaid DCP- Discharge Planning Updated by [id number]: Alta Melendez on 11/30/19 7:[address] CM was notified today from LTACH that the patient was out of Medicare days and only has a few codays available. CM attempted to call [employer] to find out how many days the patient has. CM did not get an answer and will try back later to see if they are able to pull up Medicare days. CM will continue to follow this will make it difficult for placement. DCP- Discharge Planning Updated by [email or web address]: Alta Melendez on 11/27/19 7:[address] PATIENT DID GET A PEG AND TRACH TODAY. CM RECIEVED A CALL FROM [facility] THAT HAD RECIEVED REFEERAL PACKET AND WILL LOOK AT HIM ON SATURDAY FOR POSSIBLE ADMIT NEXT WEEK. CM WILL CONTINUE TO FOLLOW AND ASSIST NEEDED WITH DISCHARGE PLANNING / NEEDS. DCP- Discharge Planning Updated by [id number]: Alta Melendez on 11/27/19 7:[address] LATE ENTRY 11/26/19 CM FAXED REFFERAL TO [facility] FOR [facility] PLACEMENT. PATIENT TO HAVE PEG AND TRACH ON SATURDAY. DCP- Discharge Planning Updated by [id number]: Alta Melendez on 11/27/19 7:[address] LATE ENTRY 11/25/19 CM SPOKE WITH PATIENT'S DAUGHTER MALAIKA SANTANA AND SHE HAS AGREED FOR PATIENT TO HAVE PEG AND TRACH. CM SPOKE WITH HER IN REGARDS TO LTACH AND SHE STATED THAT SHE WOULD LIKE THE CLOSEST LTACH THEN IF NOT ACCEPTED THEN COULD REACH OUT TO OTHER FACILITIES. ARLET COMPLETED. DCP- Discharge Planning Updated by [id number]: Alta Melendez on 11/19/19 1:[address] CM received a call from Delano with APS [phone] he stated that he had received a call from a family member to investigate and requested for CM to call him if family decides to term extubate or if he is weaned off vent to where he could speak with him. DCP- Discharge Planning Updated by [id number]: Alta Melendez on 11/18/19 3:[address] CM received a call from patient's daughter Nena Willis cell [phone] work [phone]. She asked if her sister Katherine had provided proof of POA paperwork . CM explained that at this time she was unaware if there was a copy on the chart. Nena stated that her, her brother and the patient's sister all are wanting to make patient a DNR but Katherine is the only one wanting to keep him on the vent. CM asked who was the eldest child and that if there isn't a POA then the eldest child will be the one acting as POA if the patient isn't . CM will look to see if patient has POA paperwork in his records. CM will notify Nena and let her know if paperwork is on file. CM did locate POA paperwork and placed a hard copy in front on hard chart. CM did call Nena and let her know that Katherine does have POA. CM will continue to follow and assist as needed with discharge planning/ needs DCP- Discharge Planning Updated by [id number]: Eboni Jiménez on 11/13/19 1:[address] CM called patient's daughter, Katherine Thrasher (POA) [phone], to discuss initial discharge planning. Patient's daughter is in agreement to proceed with the assessment. Daughter reports that the patient lives at home with her and he is total care. Daughter reports that the patient is non-ambulatory, requires feeding, incontinent of bowel PUTTY AND CAULKING SUPERVISOR. Daughter also reports that she is raising 5 grandchildren, along with caring for her father. 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 Daughter transports patient to and from HD. Patient is currently intubated to a mechanical vent. PCP: Dr. Sanchez [facility] in [place]. Pharmacy: [facility], daughter picks up his medication. Patient has been able to obtain all of his prescribed medications. HHS: [facility], [employer]UL[employer]. DME: walker, w/c, hospital bed, didi lift. Patient is totally dependent with medication management PUTTY AND CAULKING SUPERVISOR. CM discussed the availability of HH, Rehab, SNF, OP Therapy, DME services. When the patient is able to return home, his daughter states she would like to resume [facility]. Patient's daughter advises that she "had a call from an FOREST LANDSCAPE ECOLOGY PROFESSOR, to inform her she should not expect her father to return home this time". Daughter has been encouraged to fill out paperwork for the Medicaid [place] Program, daughter agrees, but states she hasn't had time. Advised daughter that the usual time frame is 45 days before a decision is reached. Daughter denies the use of community resources PUTTY AND CAULKING SUPERVISOR. Transportation at time of discharge: Daughter or facility, if patient requires a SNF setting. CM will continue to follow and assist with DC planning. DCPIA - Discharge Planning Initial Assessment Updated by [id number]: Eboni Jiménez on 11/13/19 2:38 pm * Is the patient Alert and Oriented? No * PCP Dr. Sanchez, [facility] * Pharmacy [facility], [place] Daughter picks up medications * Preadmission Environment Home with Family * ADLs Total Dependent * Equipment Tub Bench * Other Equipment RW, W/C, Hospital bed, Didi lift * List name and contact numbers for known caregivers / representatives who currently or will assist patient after discharge: Katherine Thrasher (POA-dtr) [phone] Address: [address] [place] [address] Rd, [place], [place] * Verbal permission to speak to the caregivers and representatives has been obtained from the patient. N/A * Community resources currently utilized Home Health * Please name any agencies selected above. [facility] * Additional services required to return to the preadmission environment? Yes * Can the patient safely return to the preadmission environment? No * Has this patient been hospitalized within the prior 30 days at any hospital? No Coverage Notice Reviewer: [id number] Royal Melendez Notice Issued Date-Time: 11/25/2019 16:10 Notice Type: Patient Choice Letter Notice Delivered To: Family Member Relationship to Patient: Daughter Paperhanger And Painter Name: KATHERINE Delivery Method: PHONE - Phone Georgie Days: Prior Verbal Notification: Recipient Understood Notice: Yes Recipient Signature: Yes Med Rec Note Co-signed by Attending: Coverage Notice Comment: JENA - [facility] [place] , THEN CAN LOOK ELSEWHERE IF NEEDED Last DP export: 12/09/19 3:56 p Patient Name: JHONATHAN THRASHER Page [id number] at 1705 All edits/amendments must be made on the electronic document DICTATION DATE: 12/09/19 170 SPEEDOMETER MECHANIC: SINTIA 12/09/191704 RPT#: [id number] DC DATE: STATUS: ADM IN [facility] [address] [place] [address] END OF REPORT
[2019-12-10] VITALS (88 sets, daily range): BP systolic 81–150; BP diastolic 21–82
[2019-12-10 04:52] LABS: BASOPHILS 0.4 % (0-2); EOSINOPHILS 0.6 % (0-7); HEMATOCRIT 24.8 % (42.0-54.0); HEMOGLOBIN 7.7 g/dL (13.5-17.5); IMMATURE GRANULOCYTES 0.6 % (0-5); LYMPHOCYTES 4.4 % (15-50); MCH 28.5 pg (26.0-34.0); MCV 91.9 fL (80.0-100.0); MEAN PLATELET VOLUME 10.4 fL (7.4-10.4); MONOCYTES 8.6 % (2-11); NEUTROPHILS 85.4 % (40-80); PLATELET COUNT 305 10x3/uL (130-400); RDW 18.3 % (11.5-14.5); WBC 19.1 10x3/uL (4.8-10.8)
[2019-12-10 05:17] LABS: ALBUMIN 4.8 g/dL (3.4-5.0); ANION GAP 15.9 mmol/L (8-16); BILIRUBIN - TOTAL 1.11 mg/dL (0.2-1.3); CARBON DIOXIDE 28.4 mmol/L (21.0-32.0); CREATININE - SERUM 1.7 mg/dL (0.6-1.3); POTASSIUM - SERUM 3.3 mmol/L (3.5-5.1); PROTEIN - SERUM 7.8 g/dL (6.4-8.2); VANCOMYCIN - RANDOM 21.4 ug/mL (10.0-20.0)
[2019-12-10 05:42] LABS: CALCIUM 12.8 mg/dL (8.5-10.1)
--- NOTE | 2019-12-10 15:19 | NUR ---
Pt came to icu on 11/08/19 with pressure injuries noted on admission assessment. There is a 10cm x 10cm area covering sacrum with the upper half being eschar and the lower half stage 2 pressure injuries. Right heel has 2 deep tissue injuries and left heel is boggy. Left calf has a open wound 7cm x 3cm with wound bed colored hanks/yellow and draining gannon exudate. No odor noted. Scrotum is excoriated (calmoseptine cream is being used). Pt is on an air overlay mattress with comfort glide sheet for turning/repositioning. Wedges are used for positioning. Heel protectors are in place. Pt has a mepilex sacral dressing covering sacral area. He is intubated/sedated, has f/c, rectal tube and PEG. Recommendations: -Continue turning/repositioning q 2 hours -Continue with heel protectors and bridging heels off mattress -Continue using mepilex sacral dressings-changing every 72 hours and as needed if soiled. -Continue using calmoseptine cream on scrotal area to protect from moisture. Wound care continues to monitor.
--- NOTE | 2019-12-10 19:19 | MORECARE ---
CASE MANAGEMENT DISCHARGE SUMMARY PATIENT: JHONATHAN THRASHER UNIT: [id number] ADM DATE: 11/08/19 AGE: 74 : 47 SEX: M ROOM/BED: D.2304 AUTHOR: SUMIT,DOC PHYSICIAN: REFERRING PHYSICIAN: JOLYNN MUNOZ MD DATE OF SERVICE: 12/10/19 Discharge Plan Patient Name: JHONATHAN THRASHER Facility: [facility]:[place] : 1945 Planned Disposition: Anticipated Discharge Date: Discharge Date: Expected LOS: Initial Reviewer: [id number] Initial Review Date: 11/08/2019 Generated: 12/10/19 8:18 pm Comments DCP- Discharge Planning Updated by [id number]: Alta Melendez on 12/09/19 4:[address] CM spoke with cynthia Murphy explained the situation and she gave verbal consent to send referral to another facility. The facility will check MCR days. DCP- Discharge Planning Updated by [email or web address]: Alta Melendez on 12/09/19 3:[address] CM spoke with Shannan in [facility] and she stated that they have spoken with daughter and patient doesn't qualify for Medicaid at this time but once he is discharged they will most likely be able to do a spin down. CM will continue to follow and assist as needed with discharge planning / needs. DCP- Discharge Planning Updated by [id number]: Alta Melendez on 12/08/19 8:[address] CM will speak with Katherine to see if CM can send referral packet to another facility to see if they are showing that he is out of Medicare days. [facility] is till working to see if patient could be approved for Medicaid. DCP- Discharge Planning Updated by [id number]: Alta Melendez on 12/04/19 7:[address] CM contacted [facility] and asked if they would contact the patient's daughter and see if he would qualify for Medicaid since his Medicare days are out. Appended by Alta Melendez on 12/04/2019 20:48 CDT: Patient will most likely have to have a paul bed for [facility] d/t being out of Medicare days and if he was to get Medicaid. [facility] doesn't accept Medicaid DCP- Discharge Planning Updated by [id number]: Alta Melendez on 11/30/19 7:[address] CM was notified today from [facility] that the patient was out of Medicare days and only has a few codays available. CM attempted to call [facility] to find out how many days the patient has. CM did not get an answer and will try back later to see if they are able to pull up Medicare days. CM will continue to follow this will make it difficult for placement. DCP- Discharge Planning Updated by [id number]: Alta Melendez on 11/27/19 7:[address] PATIENT DID GET A PEG AND TRACH TODAY. CM RECIEVED A CALL FROM [facility] THAT HAD RECIEVED REFEERAL PACKET AND WILL LOOK AT HIM ON SATURDAY FOR POSSIBLE ADMIT NEXT WEEK. CM WILL CONTINUE TO FOLLOW AND ASSIST NEEDED WITH DISCHARGE PLANNING / NEEDS. DCP- Discharge Planning Updated by [id number]: Alta Melendez on 11/27/19 7:[address] LATE ENTRY 11/26/19 CM FAXED REFFERAL TO [facility] FOR [facility] PLACEMENT. PATIENT TO HAVE PEG AND TRACH ON SATURDAY. DCP- Discharge Planning Updated by [id number]: Alta Melendez on 11/27/19 7:[address] LATE ENTRY 11/25/19 CM SPOKE WITH PATIENT'S DAUGHTER MALAIKA SANTANA AND SHE HAS AGREED FOR PATIENT TO HAVE PEG AND TRACH. CM SPOKE WITH HER IN REGARDS TO LTACH AND SHE STATED THAT SHE WOULD LIKE THE CLOSEST LTACH THEN IF NOT ACCEPTED THEN COULD REACH OUT TO OTHER FACILITIES. ARLET COMPLETED. DCP- Discharge Planning Updated by [id number]: Alta Melendez on 11/19/19 1:[address] CM received a call from Delano with [facility]PS [phone] he stated that he had received a call from a family member to investigate and requested for CM to call him if family decides to term extubate or if he is weaned off vent to where he could speak with him. DCP- Discharge Planning Updated by [id number]: Alta Melendez on 11/18/19 3:[address] CM received a call from patient's daughter Nena Willis cell [phone] work [phone]. She asked if her sister Katherine had provided proof of POA paperwork . CM explained that at this time she was unaware if there was a copy on the chart. Nena stated that her, her brother and the patient's sister all are wanting to make patient a DNR but Katherine is the only one wanting to keep him on the vent. CM asked who was the eldest child and that if there isn't a POA then the eldest child will be the one acting as POA if the patient isn't . CM will look to see if patient has POA paperwork in his records. CM will notify Nena and let her know if paperwork is on file. CM did locate POA paperwork and placed a hard copy in front on hard chart. CM did call Nena and let her know that Katherine does have POA. CM will continue to follow and assist as needed with discharge planning/ needs DCP- Discharge Planning Updated by [id number]: Eboni Jiménez on 11/13/19 1:[address] CM called patient's daughter, Katherine Thrasher (POA) [phone], to discuss initial discharge planning. Patient's daughter is in agreement to proceed with the assessment. Daughter reports that the patient lives at home with her and he is total care. 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 Daughter also reports that she is raising 5 grandchildren, along with caring for her father. 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 Daughter transports patient to and from HD. Patient is currently intubated to a mechanical vent. PCP: Dr. Sanchez [facility] in [place]. Pharmacy: [facility], daughter picks up his medication. Patient has been able to obtain all of his prescribed medications. 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 DME: walker, w/c, hospital bed, didi lift. 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 CM discussed the availability of HH, Rehab, SNF, OP Therapy, DME services. When the patient is able to return home, his daughter states she would like to resume [facility]. Patient's daughter advises that she "had a call from an AUTOMOBILE REPOSSESSOR, to inform her she should not expect her father to return home this time". Daughter has been encouraged to fill out paperwork for the Medicaid [place] Program, daughter agrees, but states she hasn't had time. Advised daughter that the usual time frame is 45 days before a decision is reached. Daughter denies the use of community resources BRANCH RENTAL MANAGER. Transportation at time of discharge: Daughter or facility, if patient requires a SNF setting. CM will continue to follow and assist with DC planning. DCPIA - Discharge Planning Initial Assessment Updated by [id number]: Eboni Jiménez on 11/13/19 2:38 pm * Is the patient Alert and Oriented? No * PCP Dr. Sanchez, [facility] * Pharmacy [facility], [place] Daughter picks up medications * Preadmission Environment Home with Family * ADLs Total Dependent * Equipment Tub Bench * Other Equipment RW, W/C, Hospital bed, Didi lift * List name and contact numbers for known caregivers / representatives who currently or will assist patient after discharge: Katherine Thrasher (POA-dtr) [phone] Address: [address] [place] [address] Rd, [place], [place] * Verbal permission to speak to the caregivers and representatives has been obtained from the patient. N/A * Community resources currently utilized Home Health * Please name any agencies selected above. [facility] * Additional services required to return to the preadmission environment? Yes * Can the patient safely return to the preadmission environment? No * Has this patient been hospitalized within the prior 30 days at any hospital? No External Providers External Provider: [facility] Next Contact Date: Service Request Date: Service Type: Resolution: Reviewer: Comments: Coverage Notice Reviewer: [id number] - Alta Melendez Notice Issued Date-Time: 11/25/2019 16:10 Notice Type: Patient Choice Letter Notice Delivered To: Family Member Relationship to Patient: Daughter Scheduler Conveyor Name: KATHERINE Delivery Method: PHONE - Phone Georgie Days: Prior Verbal Notification: Recipient Understood Notice: Yes Recipient Signature: Yes Med Rec Note Co-signed by Attending: Coverage Notice Comment: [facility] - [facility] , THEN CAN LOOK ELSEWHERE IF NEEDED Last DP export: 12/09/19 4:05 p Patient Name: JHONATHAN THRASHER Page [id number] at 191 All edits/amendments must be made on the electronic document DICTATION DATE: 12/10/191918 STUDIO ARTIST: SINTIA 12/10/191918 RPT#: [id number] DC DATE: STATUS: ADM IN [facility] [address] [place] [address] END OF REPORT
--- NOTE | 2019-12-10 19:38 | MORECARE ---
CASE MANAGEMENT DISCHARGE SUMMARY PATIENT: JHONATHAN THRASHER UNIT: [id number] ADM DATE: 11/08/19 AGE: 74 : 47 SEX: M ROOM/BED: D.2304 AUTHOR: SUMIT,DOC PHYSICIAN: REFERRING PHYSICIAN: JOLYNN MUNOZ MD DATE OF SERVICE: 12/10/19 Discharge Plan Patient Name: JHONATHAN THRASHER [facility] [facility] 1945 Planned Disposition: Anticipated Discharge Date: Discharge Date: Expected LOS: Initial Reviewer: [id number] Initial Review Date: 11/08/2019 Generated: 12/10/19 8:37 pm Comments DCP- Discharge Planning Updated by [id number]: Alta Melendez on 12/10/19 6:[address] CM sent pack to [facility] in [place] to see if patient might qualify/ rechecking benefits. CM will continue to follow and assist as needed with discharge planning / needs. DCP- Discharge Planning Updated by [id number]: Alta Melendez on 12/09/19 4:[address] CM spoke with daughter Katherine explained the situation and she gave verbal consent to send referral to another facility. The facility will check MCR days. DCP- Discharge Planning Updated by [id number]: Alta Melendez on 12/09/19 3:[address] CM spoke with Shannan in [facility] and she stated that they have spoken with daughter and patient doesn't qualify for Medicaid at this time but once he is discharged they will most likely be able to do a spin down. CM will continue to follow and assist as needed with discharge planning / needs. DCP- Discharge Planning Updated by [id number]: Alta Melendez on 12/08/19 8:[address] CM will speak with Katherine to see if CM can send referral packet to another facility to see if they are showing that he is out of Medicare days. [facility] is till working to see if patient could be approved for Medicaid. DCP- Discharge Planning Updated by [id number]: Alta Melendez on 12/04/19 7:[address] CM contacted [facility] and asked if they would contact the patient's daughter and see if he would qualify for Medicaid since his Medicare days are out. Appended by Alta Melendez on 12/04/2019 20:48 CDT: Patient will most likely have to have a paul bed for [facility] d/t being out of Medicare days and if he was to get Medicaid. [facility] doesn't accept Medicaid DCP- Discharge Planning Updated by [email or web address]: Alta Melendez on 11/30/19 7:[address] CM was notified today from [facility] that the patient was out of Medicare days and only has a few codays available. CM attempted to call [facility] to find out how many days the patient has. CM did not get an answer and will try back later to see if they are able to pull up Medicare days. CM will continue to follow this will make it difficult for placement. DCP- Discharge Planning Updated by [id number]: Alta Melendez on 11/27/19 7:[address] PATIENT DID GET A PEG AND TRACH TODAY. CM RECIEVED A CALL FROM [facility] THAT HAD RECIEVED REFEERAL PACKET AND WILL LOOK AT HIM ON SATURDAY FOR POSSIBLE ADMIT NEXT WEEK. CM WILL CONTINUE TO FOLLOW AND ASSIST NEEDED WITH DISCHARGE PLANNING / NEEDS. DCP- Discharge Planning Updated by [id number]: Alta Melendez on 11/27/19 7:[address] LATE ENTRY 11/26/19 CM FAXED REFFERAL TO [facility] FOR [facility] PLACEMENT. PATIENT TO HAVE PEG AND TRACH ON SATURDAY. DCP- Discharge Planning Updated by [id number]: Alta Melendez on 11/27/19 7:[address] LATE ENTRY 11/25/19 CM SPOKE WITH PATIENT'S DAUGHTER MALAIKA SANTANA AND SHE HAS AGREED FOR PATIENT TO HAVE PEG AND TRACH. CM SPOKE WITH HER IN REGARDS TO LTACH AND SHE STATED THAT SHE WOULD LIKE THE CLOSEST LTACH THEN IF NOT ACCEPTED THEN COULD REACH OUT TO OTHER FACILITIES. ARLET COMPLETED. DCP- Discharge Planning Updated by [id number]: Alta Melendez on 11/19/19 1:[address] CM received a call from Delano with [facility] [phone] he stated that he had received a call from a family member to investigate and requested for CM to call him if family decides to term extubate or if he is weaned off vent to where he could speak with him. DCP- Discharge Planning Updated by [id number]: Alta Melendez on 11/18/19 3:[address] CM received a call from patient's daughter Nena Willis cell [phone] work [phone]. She asked if her sister Katherine had provided proof of POA paperwork . CM explained that at this time she was unaware if there was a copy on the chart. eNna stated that her, her brother and the patient's sister all are wanting to make patient a DNR but Katherine is the only one wanting to keep him on the vent. CM asked who was the eldest child and that if there isn't a POA then the eldest child will be the one acting as POA if the patient isn't . CM will look to see if patient has POA paperwork in his records. CM will notify Nena and let her know if paperwork is on file. CM did locate POA paperwork and placed a hard copy in front on hard chart. CM did call Nena and let her know that Katherine does have POA. CM will continue to follow and assist as needed with discharge planning/ needs DCP- Discharge Planning Updated by [id number]: Eboni Sagastumelroy on 11/13/19 1:[address] CM called patient's daughter, Katherine Thrasher (POA) [phone], to discuss initial discharge planning. Patient's daughter is in agreement to proceed with the assessment. Daughter reports that the patient lives at home with her and he is total care. 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 Daughter also reports that she is raising 5 grandchildren, along with caring for her father. 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 Daughter transports patient to and from HD. Patient is currently intubated to a mechanical vent. PCP: Dr. Sanchez [facility] in [place]. Pharmacy: [facility], daughter picks up his medication. Patient has been able to obtain all of his prescribed medications. HHS: [facility], FOREIGN LANGUAGE INSTRUCTOR. DME: walker, w/c, hospital bed, didi lift. 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 CM discussed the availability of HH, Rehab, SNF, OP Therapy, DME services. When the patient is able to return home, his daughter states she would like to resume [facility]. Patient's daughter advises that she "had a call from an VALIDATION ENGINEER, to inform her she should not expect her father to return home this time". Daughter has been encouraged to fill out paperwork for the Medicaid [place] Program, daughter agrees, but states she hasn't had time. Advised daughter that the usual time frame is 45 days before a decision is reached. Daughter denies the use of community resources FOREIGN LANGUAGE INSTRUCTOR. Transportation at time of discharge: Daughter or facility, if patient requires a SNF setting. CM will continue to follow and assist with DC planning. DCPIA - Discharge Planning Initial Assessment Updated by [email or web address]: Eboni Jiménez on 11/13/19 2:38 pm * Is the patient Alert and Oriented? No * PCP Dr. Sanchez, [facility] * Pharmacy [facility], [place] Daughter picks up medications * Preadmission Environment Home with Family * ADLs Total Dependent * Equipment Tub Bench * Other Equipment RW, W/C, Hospital bed, Didi lift * List name and contact numbers for known caregivers / representatives who currently or will assist patient after discharge: Katherine Thrasher (POA-dtr) [phone] Address: [address] [place] [address] Rd, [place], [place] * Verbal permission to speak to the caregivers and representatives has been obtained from the patient. N/A * Community resources currently utilized Home Health * Please name any agencies selected above. [facility] * Additional services required to return to the preadmission environment? Yes * Can the patient safely return to the preadmission environment? No * Has this patient been hospitalized within the prior 30 days at any hospital? No Coverage Notice Reviewer: [id number] Royal Melendez Notice Issued Date-Time: 11/25/2019 16:10 Notice Type: Patient Choice Letter Notice Delivered To: Family Member Relationship to Patient: Daughter Ladies' Locker Room Attendant Name: KATHERINE Delivery Method: PHONE - Phone Georgie Days: Prior Verbal Notification: Recipient Understood Notice: Yes Recipient Signature: Yes Med Rec Note Co-signed by Attending: Coverage Notice Comment: [facility] , THEN CAN LOOK ELSEWHERE IF NEEDED Last DP export: 12/10/19 6:19 p Patient Name: JHONATHAN THRASHER Page 70003 at 1938 All edits/amendments must be made on the electronic document DICTATION DATE: 12/10/191936 DISTRICT RANGER: SINTIA 12/10/191936 RPT#: [id number] DC DATE: STATUS: ADM IN [facility] [address] [place] [address] END OF REPORT
--- NOTE | 2019-12-10 21:59 | MORECARE ---
CASE MANAGEMENT DISCHARGE SUMMARY PATIENT: JHONATHAN THRASHER UNIT: [id number] ADM DATE: 11/08/19 AGE: 74 : 47 SEX: M ROOM/BED: D.2304 AUTHOR: SUMIT,DOC PHYSICIAN: REFERRING PHYSICIAN: JOLYNN MUNOZ MD DATE OF SERVICE: 12/10/19 Discharge Plan Patient Name: JHONATHAN THRASHER [facility] : 1945 Planned Disposition: Anticipated Discharge Date: Discharge Date: Expected LOS: Initial Reviewer: [email or web address] Initial Review Date: 11/08/2019 Generated: 12/10/19 10:58 pm Comments DCP- Discharge Planning Updated by [id number]: Alta Melendez on 12/10/19 6:[address] CM sent pack to [facility] in [place] to see if patient might qualify/ rechecking benefits. CM will continue to follow and assist as needed with discharge planning / needs. DCP- Discharge Planning Updated by [id number]: Alta Melendez on 12/09/19 4:[address] CM spoke with daughter Katherine explained the situation and she gave verbal consent to send referral to another facility. The facility will check MCR days. DCP- Discharge Planning Updated by [id number]: Alta Melendez on 12/09/19 3:[address] CM spoke with Shannan in [employer] and she stated that they have spoken with daughter and patient doesn't qualify for Medicaid at this time but once he is discharged they will most likely be able to do a spin down. CM will continue to follow and assist as needed with discharge planning / needs. DCP- Discharge Planning Updated by [id number]: Alta Melendez on 12/08/19 8:[address] CM will speak with Katherine to see if CM can send referral packet to another facility to see if they are showing that he is out of Medicare days. [employer] is till working to see if patient could be approved for Medicaid. DCP- Discharge Planning Updated by [id number]: Alta Melendez on 12/04/19 7:[address] CM contacted [employer] and asked if they would contact the patient's daughter and see if he would qualify for Medicaid since his Medicare days are out. Appended by Alta Melendez on 12/04/2019 20:48 CDT: Patient will most likely have to have a paul bed for LTACH d/t being out of Medicare days and if he was to get Medicaid. LTACH doesn't accept Medicaid DCP- Discharge Planning Updated by [id number]: Alta Melendez on 11/30/19 7:[address] CM was notified today from [facility] that the patient was out of Medicare days and only has a few codays available. CM attempted to call [employer] to find out how many days the patient has. CM did not get an answer and will try back later to see if they are able to pull up Medicare days. CM will continue to follow this will make it difficult for placement. DCP- Discharge Planning Updated by [email or web address]: Alta Melendez on 11/27/19 7:[address] PATIENT DID GET A PEG AND TRACH TODAY. CM RECIEVED A CALL FROM [facility] THAT HAD RECIEVED REFEERAL PACKET AND WILL LOOK AT HIM ON SATURDAY FOR POSSIBLE ADMIT NEXT WEEK. CM WILL CONTINUE TO FOLLOW AND ASSIST NEEDED WITH DISCHARGE PLANNING / NEEDS. DCP- Discharge Planning Updated by [id number]: Alta Melendez on 11/27/19 7:[address] LATE ENTRY 11/26/19 CM FAXED REFFERAL TO [facility] FOR [facility] PLACEMENT. PATIENT TO HAVE PEG AND TRACH ON SATURDAY. DCP- Discharge Planning Updated by [id number]: Alta Melendez on 11/27/19 7:[address] LATE ENTRY 11/25/19 CM SPOKE WITH PATIENT'S DAUGHTER MALAIKA SANTANA AND SHE HAS AGREED FOR PATIENT TO HAVE PEG AND TRACH. CM SPOKE WITH HER IN REGARDS TO LTACH AND SHE STATED THAT SHE WOULD LIKE THE CLOSEST LTACH THEN IF NOT ACCEPTED THEN COULD REACH OUT TO OTHER FACILITIES. ARLET COMPLETED. DCP- Discharge Planning Updated by [id number]: Alta Melendez on 11/19/19 1:[address] CM received a call from Delano with APS [phone] he stated that he had received a call from a family member to investigate and requested for CM to call him if family decides to term extubate or if he is weaned off vent to where he could speak with him. DCP- Discharge Planning Updated by [email or web address]: Alta Melendez on 11/18/19 3:[address] CM received a call from patient's daughter Nena Willis cell [phone] work [phone]. She asked if her sister Katherine had provided proof of POA paperwork . CM explained that at this time she was unaware if there was a copy on the chart. Nena stated that her, her brother and the patient's sister all are wanting to make patient a DNR but Katherine is the only one wanting to keep him on the vent. CM asked who was the eldest child and that if there isn't a POA then the eldest child will be the one acting as POA if the patient isn't . CM will look to see if patient has POA paperwork in his records. CM will notify Nena and let her know if paperwork is on file. CM did locate POA paperwork and placed a hard copy in front on hard chart. CM did call Nena and let her know that Katherine does have POA. CM will continue to follow and assist as needed with discharge planning/ needs DCP- Discharge Planning Updated by [id number]: Eboni Sagastumelroy on 11/13/19 1:[address] CM called patient's daughter, Katherine Thrasher (POA) [phone], to discuss initial discharge planning. Patient's daughter is in agreement to proceed with the assessment. Daughter reports that the patient lives at home with her and he is total care. Daughter reports that the patient is non-ambulatory, requires feeding, incontinent of bowel SYSTEMS SUPPORT OFFICER. Daughter also reports that she is raising 5 grandchildren, along with caring for her father. 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 Daughter transports patient to and from HD. Patient is currently intubated to a mechanical vent. PCP: Dr. Sanchez [facility] in [place]. Pharmacy: [facility], daughter picks up his medication. Patient has been able to obtain all of his prescribed medications. HHS: [facility], [facility]. DME: walker, w/c, hospital bed, didi lift. Patient is totally dependent with medication management SYSTEMS SUPPORT OFFICER. CM discussed the availability of HH, Rehab, SNF, OP Therapy, DME services. When the patient is able to return home, his daughter states she would like to resume [facility]. Patient's daughter advises that she "had a call from an ENROLLMENT COUNSELOR, to inform her she should not expect her father to return home this time". Daughter has been encouraged to fill out paperwork for the Medicaid Waver Program, daughter agrees, but states she hasn't had time. Advised daughter that the usual time frame is 45 days before a decision is reached. Daughter denies the use of community resources SYSTEMS SUPPORT OFFICER. Transportation at time of discharge: Daughter or facility, if patient requires a SNF setting. CM will continue to follow and assist with DC planning. DCPIA - Discharge Planning Initial Assessment Updated by [id number]: Eboni Jiménez on 11/13/19 2:38 pm * Is the patient Alert and Oriented? No * PCP Dr. Sanchez, [facility] * Pharmacy [facility], [place] Daughter picks up medications * Preadmission Environment Home with Family * ADLs Total Dependent * Equipment Tub Bench * Other Equipment RW, W/C, Hospital bed, Didi lift * List name and contact numbers for known caregivers / representatives who currently or will assist patient after discharge: Katherine Thrasher (POA-dtr) [phone] Address: [address] [place] [address] Rd, [place], [place] * Verbal permission to speak to the caregivers and representatives has been obtained from the patient. N/A * Community resources currently utilized Home Health * Please name any agencies selected above. [facility] * Additional services required to return to the preadmission environment? Yes * Can the patient safely return to the preadmission environment? No * Has this patient been hospitalized within the prior 30 days at any hospital? No Coverage Notice Reviewer: [id number] Royal Melendez Notice Issued Date-Time: 11/25/2019 16:10 Notice Type: Patient Choice Letter Notice Delivered To: Family Member Relationship to Patient: Daughter Hand Spring Repairer Name: KATHERINE Delivery Method: PHONE - Phone Georgie Days: Prior Verbal Notification: Recipient Understood Notice: Yes Recipient Signature: Yes Med Rec Note Co-signed by Attending: Coverage Notice Comment: JENA - [facility] , THEN CAN LOOK ELSEWHERE IF NEEDED Last DP export: 12/10/19 6:38 p Patient Name: JHONATHAN THRASHER Page [id number] at 2159 All edits/amendments must be made on the electronic document DICTATION DATE: 12/10/192157 DIE CASTING SUPERVISOR: SINTIA 12/10/192157 RPT#: [id number] DC DATE: STATUS: ADM IN [facility] [address] [place] [address] END OF REPORT
[2019-12-11] VITALS (94 sets, daily range): BP systolic 80–158; BP diastolic 32–116
[2019-12-11 04:35] LABS: HEMATOCRIT 24.8 % (42.0-54.0); HEMOGLOBIN 7.9 g/dL (13.5-17.5); MCH 29.5 pg (26.0-34.0); MCHC 31.9 g/dL (31.0-37.0); MCV 92.5 fL (80.0-100.0); MEAN PLATELET VOLUME 9.9 fL (7.4-10.4); PLATELET COUNT 302 10x3/uL (130-400); RBC 2.68 10x6/uL (4.20-6.10); RDW 18.3 % (11.5-14.5); WBC 27.8 10x3/uL (4.8-10.8)
[2019-12-11 04:52] LABS: ALBUMIN 4.6 g/dL (3.4-5.0); ANION GAP 17.7 mmol/L (8-16); BILIRUBIN - TOTAL 1.31 mg/dL (0.2-1.3); CARBON DIOXIDE 25.7 mmol/L (21.0-32.0); POTASSIUM - SERUM 3.4 mmol/L (3.5-5.1); PROTEIN - SERUM 7.7 g/dL (6.4-8.2); VANCOMYCIN - RANDOM 16.6 ug/mL (10.0-20.0)
[2019-12-11 04:54] LABS: CREATININE - SERUM 2.6 mg/dL (0.6-1.3)
[2019-12-11 04:55] LABS: CALCIUM 13.1 mg/dL (8.5-10.1)
[2019-12-11 05:06] LABS: LYMPHOCYTES 4 % (15-50); MONOCYTES 1 % (2-11); NEUTROPHILS 95 % (40-80); PLATELET ESTIMATE NORMAL
--- NOTE | 2019-12-11 07:10 | NUR ---
REPORT RECEIVED FROM OFF GOING NURSE AND PATIENT CARE ASSUMED. PATIENT LAYING IN BED ON LEFT SIDE WITH EYES CLOSED SEDATED ON VENT WITH IV INSUSING TO RT GROIN WITH RECTA TUBE IN PLACE. WILL CONTINUE WITH PLAN OF CARE. SR UP X 2 BED IN LOW POSITION AND CALL LIGHT IN REACH.
--- NOTE | 2019-12-11 12:03 | NUR ---
Nutrition Follow-up: On vent & sedated. Nepro running @ 40 mL/hr. On Diprivan @ 6.3 mL/hr (provides 166 kcal/day). Wt: 222# (12/10) Labs noted: K+ 3.4, Glu 115, Ca 13.1 Meds noted: Diprivan, Sensipar, Albumin, Florajen -RD following.
[2019-12-12] VITALS (93 sets, daily range): BP systolic 64–136; BP diastolic 22–68
[2019-12-12 07:14] LABS: HEP B CORE AB TOTAL Negative (Negative); HEPATITIS C ANTIBODY 0.2 S/CO RAT (0.0-0.9)
--- NOTE | 2019-12-12 10:00 | NUR ---
ASKED RENAL IF THEY WATED PT TO HAVE LABS THIS AM, THEY STATED NO THEY WILL WAIT UNTIL TOMORROW BEFORE DRAWING LABS.
--- NOTE | 2019-12-12 13:26 | NUR ---
CHG BATH AND TOTAL LINEN CHANGE PROVIDED TO PT. VSS. NO ACUTE DISTRESS NOTED. LEVOPHED TITRATED TO ORDER. TURNED Q2H, ORAL CARE PROVIDED Q2H. WILL CONTINUE PLAN OF CARE.
[2019-12-13] VITALS (86 sets, daily range): BP systolic 90–132; BP diastolic 22–77
[2019-12-13 05:42] LABS: BASOPHILS 0.6 % (0-2); EOSINOPHILS 0.7 % (0-7); HEMATOCRIT 23.6 % (42.0-54.0); IMMATURE GRANULOCYTES 0.3 % (0-5); LYMPHOCYTES 8.5 % (15-50); MCH 28.3 pg (26.0-34.0); MCHC 30.9 g/dL (31.0-37.0); MCV 91.5 fL (80.0-100.0); MEAN PLATELET VOLUME 10.4 fL (7.4-10.4); MONOCYTES 5.1 % (2-11); NEUTROPHILS 84.8 % (40-80); PLATELET COUNT 306 10x3/uL (130-400); RBC 2.58 10x6/uL (4.20-6.10); RDW 18.2 % (11.5-14.5); WBC 18.9 10x3/uL (4.8-10.8)
[2019-12-13 05:49] LABS: HEMOGLOBIN 7.3 g/dL (13.5-17.5)
[2019-12-13 06:00] LABS: ANION GAP 16.2 mmol/L (8-16); CARBON DIOXIDE 26.3 mmol/L (21.0-32.0); CREATININE - SERUM 2.5 mg/dL (0.6-1.3); PHOSPHOROUS 4.1 mg/dL (2.5-4.9); POTASSIUM - SERUM 3.5 mmol/L (3.5-5.1); VANCOMYCIN - RANDOM 18.9 ug/mL (10.0-20.0)
[2019-12-13 06:01] LABS: CALCIUM 13.5 mg/dL (8.5-10.1)
--- NOTE | 2019-12-13 06:45 | NUR ---
DR. MUNOZ PAGED PER SERVICE. RE CRITICAL LAB RESULTS
--- NOTE | 2019-12-13 06:49 | NUR ---
SPOKE WITH DR. MUNOZ INFORMED OF CRITICAL LAB RESULTS. NEW ORDERS RECEIVED.
[2019-12-13 14:08] LABS: HEPATITIS BE ANTIBODY Negative (Negative)
--- NOTE | 2019-12-13 15:28 | NUR ---
LYING IN BED ON VENT VIA TRACH AT THIS TIME. VSS. NO ACUTE DISTRESS NOTED. TURNED Q2H, ORAL CARE PROVIDED Q2H. WILL CONTINUE PLAN OF CARE.
[2019-12-14] VITALS (45 sets, daily range): BP systolic 87–130; BP diastolic 26–67
[2019-12-14 05:00] LABS: BASOPHILS 0.5 % (0-2); EOSINOPHILS 1.2 % (0-7); HEMATOCRIT 23.3 % (42.0-54.0); IMMATURE GRANULOCYTES 0.2 % (0-5); LYMPHOCYTES 8.4 % (15-50); MCH 29.1 pg (26.0-34.0); MCHC 32.2 g/dL (31.0-37.0); MCV 90.3 fL (80.0-100.0); MEAN PLATELET VOLUME 10.3 fL (7.4-10.4); MONOCYTES 9.3 % (2-11); NEUTROPHILS 80.4 % (40-80); PLATELET COUNT 268 10x3/uL (130-400); RBC 2.58 10x6/uL (4.20-6.10); RDW 17.8 % (11.5-14.5)
[2019-12-14 05:12] LABS: HEMOGLOBIN 7.5 g/dL (13.5-17.5); WBC 12.1 10x3/uL (4.8-10.8)
[2019-12-14 05:22] LABS: ANION GAP 17.4 mmol/L (8-16); CARBON DIOXIDE 25.1 mmol/L (21.0-32.0); CREATININE - SERUM 3.1 mg/dL (0.6-1.3); PHOSPHOROUS 4.6 mg/dL (2.5-4.9); POTASSIUM - SERUM 3.5 mmol/L (3.5-5.1)
[2019-12-14 05:30] LABS: CALCIUM 13.3 mg/dL (8.5-10.1)
--- NOTE | 2019-12-14 06:35 | NUR ---
DR. MUNOZ HERE. AWARE OF CALCIUM
--- NOTE | 2019-12-14 11:01 | NUR ---
Nutrition follow-up: Remains with trach to vent. Sedated with propofol @ 2.1 ml/hr Nepro @ 40 ml/hr; pt tolerating per nurse Rectal tube in place Labs reviewed RDN following.
[2019-12-14 14:09] LABS: HEPATITIS BE ANTIGEN Negative (Negative)
--- NOTE | 2019-12-14 15:11 | NUR ---
PER JANNET IN PHARMACY HIS TOBRAMYCIN WILL NOT BE GIVEN PHARMACY HAS BEEN CONSULTED FOR DOSING.
--- NOTE | 2019-12-14 21:47 | NUR ---
PT. IN THE BED EYE CLOSED, PT UNABLE TO FOLLOW COMMANDS. PT. ON VENT VIA TRACH, NO S/S OF PAIN OR DISCOMFORT AT THIS TIME. WILL CONT. TO MONITOR
[2019-12-15] VITALS (54 sets, daily range): BP systolic 79–129; BP diastolic 21–70
[2019-12-15 05:16] LABS: BASOPHILS 0.8 % (0-2); EOSINOPHILS 1.8 % (0-7); HEMATOCRIT 26.4 % (42.0-54.0); HEMOGLOBIN 8.6 g/dL (13.5-17.5); IMMATURE GRANULOCYTES 0.2 % (0-5); LYMPHOCYTES 9.5 % (15-50); MCH 29.3 pg (26.0-34.0); MCHC 32.6 g/dL (31.0-37.0); MCV 89.8 fL (80.0-100.0); MEAN PLATELET VOLUME 10.6 fL (7.4-10.4); MONOCYTES 10.3 % (2-11); NEUTROPHILS 77.4 % (40-80); PLATELET COUNT 263 10x3/uL (130-400); RBC 2.94 10x6/uL (4.20-6.10); RDW 17.6 % (11.5-14.5); WBC 9.9 10x3/uL (4.8-10.8)
[2019-12-15 05:42] LABS: ALBUMIN 4.7 g/dL (3.4-5.0); ANION GAP 17.9 mmol/L (8-16); BILIRUBIN - DIRECT 0.31 mg/dL (0.00-0.30); BILIRUBIN - INDIRECT 0.72 mg/dL (0.00-1.00); BILIRUBIN - TOTAL 1.03 mg/dL (0.2-1.3); CARBON DIOXIDE 26.2 mmol/L (21.0-32.0); CREATININE - SERUM 2.5 mg/dL (0.6-1.3); PHOSPHOROUS 3.7 mg/dL (2.5-4.9); POTASSIUM - SERUM 3.1 mmol/L (3.5-5.1); PROTEIN - SERUM 7.9 g/dL (6.4-8.2); TOBRAMYCIN - TROUGH 2.2 ug/mL (0.5-2.0); VANCOMYCIN - RANDOM 19.4 ug/mL (10.0-20.0)
[2019-12-15 05:51] LABS: CALCIUM 12.5 mg/dL (8.5-10.1)
--- NOTE | 2019-12-15 15:02 | MORECARE ---
CASE MANAGEMENT DISCHARGE SUMMARY PATIENT: JHONATHAN THRASHER UNIT: [id number] ADM DATE: 11/08/19 AGE: 74 : 47 SEX: M ROOM/BED: D.2304 AUTHOR: SUMIT,DOC PHYSICIAN: REFERRING PHYSICIAN: JOLYNN MUNOZ MD DATE OF SERVICE: 12/15/19 Discharge Plan Patient Name: JHONATHAN THRASHER [facility] [facility] 1945 Planned Disposition: Anticipated Discharge Date: Discharge Date: Expected LOS: Initial Reviewer: [email or web address] Initial Review Date: 11/08/2019 Generated: 12/15/19 4:02 pm Comments DCP- Discharge Planning Updated by [id number]: Mirnarupert Dukess on 12/15/19 1:[address] 1320 SPOKE W/ WILLIAM Voss FROM [facility]. PATIENT DOES NOT HAVE ENOUGH MEDICARE DAYS REMAINING TO ACCEPT. HE IS COVERING FOR LUIS. WHAT WOULD BE THE DISCHARGE PLAN OF CARE. DCP- Discharge Planning Updated by [id number]: Alta Melendez on 12/10/19 6:[address] CM sent pack to [facility] in [place] to see if patient might qualify/ rechecking benefits. CM will continue to follow and assist as needed with discharge planning / needs. DCP- Discharge Planning Updated by [id number]: Alta Melendez on 12/09/19 4:[address] CM spoke with daughter Katherine explained the situation and she gave verbal consent to send referral to another facility. The facility will check MCR days. DCP- Discharge Planning Updated by [id number]: Alta Melendez on 12/09/19 3:[address] CM spoke with Shannan in [employer] and she stated that they have spoken with daughter and patient doesn't qualify for Medicaid at this time but once he is discharged they will most likely be able to do a spin down. CM will continue to follow and assist as needed with discharge planning / needs. DCP- Discharge Planning Updated by [id number]: Alta Melendez on 12/08/19 8:[address] CM will speak with Katherine to see if CM can send referral packet to another facility to see if they are showing that he is out of Medicare days. [employer] is till working to see if patient could be approved for Medicaid. DCP- Discharge Planning Updated by [id number]: Alta Melendez on 12/04/19 7:[address] CM contacted [employer] and asked if they would contact the patient's daughter and see if he would qualify for Medicaid since his Medicare days are out. Appended by Alta Melendez on 12/04/2019 20:48 CDT: Patient will most likely have to have a paul bed for LTACH d/t being out of Medicare days and if he was to get Medicaid. LTACH doesn't accept Medicaid DCP- Discharge Planning Updated by [id number]: Alta Melendez on 11/30/19 7:[address] CM was notified today from [facility] that the patient was out of Medicare days and only has a few codays available. CM attempted to call [employer] to find out how many days the patient has. CM did not get an answer and will try back later to see if they are able to pull up Medicare days. CM will continue to follow this will make it difficult for placement. DCP- Discharge Planning Updated by [id number]: Alta Melendez on 11/27/19 7:[address] PATIENT DID GET A PEG AND TRACH TODAY. CM RECIEVED A CALL FROM [facility] THAT HAD RECIEVED REFEERAL PACKET AND WILL LOOK AT HIM ON SATURDAY FOR POSSIBLE ADMIT NEXT WEEK. CM WILL CONTINUE TO FOLLOW AND ASSIST NEEDED WITH DISCHARGE PLANNING / NEEDS. DCP- Discharge Planning Updated by [email or web address]: Alta Melendez on 11/27/19 7:[address] LATE ENTRY 11/26/19 CM FAXED REFFERAL TO [facility] FOR [facility] PLACEMENT. PATIENT TO HAVE PEG AND TRACH ON SATURDAY. DCP- Discharge Planning Updated by [id number]: Alta Melendez on 11/27/19 7:[address] LATE ENTRY 11/25/19 CM SPOKE WITH PATIENT'S DAUGHTER MALAIKA SANTANA AND SHE HAS AGREED FOR PATIENT TO HAVE PEG AND TRACH. CM SPOKE WITH HER IN REGARDS TO LTACH AND SHE STATED THAT SHE WOULD LIKE THE CLOSEST LTACH THEN IF NOT ACCEPTED THEN COULD REACH OUT TO OTHER FACILITIES. ARLET COMPLETED. DCP- Discharge Planning Updated by [id number]: Alta Melendez on 11/19/19 1:[address] CM received a call from Delano with [facility]PS [phone] he stated that he had received a call from a family member to investigate and requested for CM to call him if family decides to term extubate or if he is weaned off vent to where he could speak with him. DCP- Discharge Planning Updated by [id number]: Alta Melendez on 11/18/19 3:[address] CM received a call from patient's daughter Nena Willis cell [phone] work [phone]. She asked if her sister Katherine had provided proof of POA paperwork . CM explained that at this time she was unaware if there was a copy on the chart. Nena stated that her, her brother and the patient's sister all are wanting to make patient a DNR but Katherine is the only one wanting to keep him on the vent. CM asked who was the eldest child and that if there isn't a POA then the eldest child will be the one acting as POA if the patient isn't . CM will look to see if patient has POA paperwork in his records. CM will notify Nena and let her know if paperwork is on file. CM did locate POA paperwork and placed a hard copy in front on hard chart. CM did call Nena and let her know that Katherine does have POA. CM will continue to follow and assist as needed with discharge planning/ needs DCP- Discharge Planning Updated by [id number]: Eboni Jiménez on 11/13/19 1:[address] CM called patient's daughter, Katherine Thrasher (POA) [phone], to discuss initial discharge planning. Patient's daughter is in agreement to proceed with the assessment. Daughter reports that the patient lives at home with her and he is total care. Daughter reports that the patient is non-ambulatory, requires feeding, incontinent of bowel ROADMASTER. Daughter also reports that she is raising 5 grandchildren, along with caring for her father. 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 Daughter transports patient to and from HD. Patient is currently intubated to a mechanical vent. PCP: Dr. Sanchez, [facility] in [place]. Pharmacy: [facility], daughter picks up his medication. Patient has been able to obtain all of his prescribed medications. HHS: [facility], ROAD[facility]. DME: walker, w/c, hospital bed, didi lift. Patient is totally dependent with medication management ROADMASTER. CM discussed the availability of HH, Rehab, SNF, OP Therapy, DME services. When the patient is able to return home, his daughter states she would like to resume [facility]. Patient's daughter advises that she "had a call from an OIL TANKER CAPTAIN, to inform her she should not expect her father to return home this time". Daughter has been encouraged to fill out paperwork for the Medicaid Waver Program, daughter agrees, but states she hasn't had time. Advised daughter that the usual time frame is 45 days before a decision is reached. Daughter denies the use of community resources ROADMASTER. Transportation at time of discharge: Daughter or facility, if patient requires a SNF setting. CM will continue to follow and assist with DC planning. DCPIA - Discharge Planning Initial Assessment Updated by [id number]: Eboni Jiménez on 11/13/19 2:38 pm * Is the patient Alert and Oriented? No * PCP Dr. Sanchez, [facility] * Pharmacy [facility], [facility] Daughter picks up medications * Preadmission Environment Home with Family * ADLs Total Dependent * Equipment Tub Bench * Other Equipment RW, W/C, Hospital bed, Didi lift * List name and contact numbers for known caregivers / representatives who currently or will assist patient after discharge: Katherine Thrasher (POA-dtr) [phone] Address: [address] [place] [address] Rd, [place], [place] * Verbal permission to speak to the caregivers and representatives has been obtained from the patient. N/A * Community resources currently utilized Home Health * Please name any agencies selected above. [facility] * Additional services required to return to the preadmission environment? Yes * Can the patient safely return to the preadmission environment? No * Has this patient been hospitalized within the prior 30 days at any hospital? No Coverage Notice Reviewer: [id number] Royal Melendez Notice Issued Date-Time: 11/25/2019 16:10 Notice Type: Patient Choice Letter Notice Delivered To: Family Member Relationship to Patient: Daughter Post Acute Care Nurse Name: KATHERINE Delivery Method: PHONE - Phone Georgie Days: Prior Verbal Notification: Recipient Understood Notice: Yes Recipient Signature: Yes Med Rec Note Co-signed by Attending: Coverage Notice Comment: JENA - [facility] , THEN CAN LOOK ELSEWHERE IF NEEDED Last DP export: 12/10/19 8:59 p Patient Name: JHONATHAN THRASHER Page [id number] at 1502 All edits/amendments must be made on the electronic document DICTATION DATE: 12/15/191501 DIETITIAN ASSISTANT: SINTIA 12/15/191501 RPT#: [id number] DC DATE: STATUS: ADM IN [facility] [address] [place] [address] END OF REPORT
[2019-12-15 16:09] LABS: FUNGUS MYCOLOGY CULTURE Preliminary report (())
--- NOTE | 2019-12-15 16:59 | MORECARE ---
CASE MANAGEMENT DISCHARGE SUMMARY PATIENT: JHONATHAN THRASHER UNIT: [id number] ADM DATE: 11/08/19 AGE: 74 : 49 SEX: M ROOM/BED: D.2304 AUTHOR: SUMIT,DOC PHYSICIAN: REFERRING PHYSICIAN: JOLYNN MUNOZ MD DATE OF SERVICE: 12/15/19 Discharge Plan Patient Name: JHONATHAN THRASHER [facility] [facility] 1945 Planned Disposition: Anticipated Discharge Date: Discharge Date: Expected LOS: Initial Reviewer: [id number] Initial Review Date: 11/08/2019 Generated: 12/15/19 5:58 pm Comments DCP- Discharge Planning Updated by [email or web address]: Mirna Marx on 12/15/19 3:[address] SPOKE WITH SATYA AT [facility]. THE DAUGHTER HAS BEEN MAILED A MEDICAID APPLICATION. AWAIT RETURN OF PAPERWORK. PATIENT WOULD BE ELIGIBLE FOR SPENDDOWN MEDICAID APPLICATION ONCE MEDICARE EXHAUSTED. THE DAUGHTER GETS PAID TO TAKE CARE OF THE PATIENT THRU ANOTHER PROGRAM. DCP- Discharge Planning Updated by [id number]: Mirna Marx on 12/15/19 1:[address] 1320 SPOKE W/ WILLIAM Voss FROM [facility]. PATIENT DOES NOT HAVE ENOUGH MEDICARE DAYS REMAINING TO ACCEPT. HE IS COVERING FOR [facility]. WHAT WOULD BE THE DISCHARGE PLAN OF CARE. DCP- Discharge Planning Updated by [id number]: Alta Melendez on 12/10/19 6:[address] CM sent pack to [facility] [place] to see if patient might qualify/ rechecking benefits. CM will continue to follow and assist as needed with discharge planning / needs. DCP- Discharge Planning Updated by [id number]: Alta Melendez on 12/09/19 4:[address] CM spoke with daughter Katherine explained the situation and she gave verbal consent to send referral to another facility. The facility will check MCR days. DCP- Discharge Planning Updated by [id number]: Alta Melendez on 12/09/19 3:[address] CM spoke with Shannan in [employer] and she stated that they have spoken with daughter and patient doesn't qualify for Medicaid at this time but once he is discharged they will most likely be able to do a spin down. CM will continue to follow and assist as needed with discharge planning / needs. DCP- Discharge Planning Updated by [id number]: Alta Melendez on 12/08/19 8:[address] CM will speak with Katherine to see if CM can send referral packet to another facility to see if they are showing that he is out of Medicare days. [employer] is till working to see if patient could be approved for Medicaid. DCP- Discharge Planning Updated by [id number]: Alta Melendez on 12/04/19 7:[address] CM contacted [employer] and asked if they would contact the patient's daughter and see if he would qualify for Medicaid since his Medicare days are out. Appended by Alta Melendez on 12/04/2019 20:48 CDT: Patient will most likely have to have a paul bed for [facility] d/t being out of Medicare days and if he was to get Medicaid. [facility] doesn't accept Medicaid DCP- Discharge Planning Updated by [id number]: Alta Melendez on 11/30/19 7:[address] CM was notified today from [facility] that the patient was out of Medicare days and only has a few codays available. CM attempted to call [employer] to find out how many days the patient has. CM did not get an answer and will try back later to see if they are able to pull up Medicare days. CM will continue to follow this will make it difficult for placement. DCP- Discharge Planning Updated by [id number]: Alta Melendez on 11/27/19 7:[address] PATIENT DID GET A PEG AND TRACH TODAY. CM RECIEVED A CALL FROM [facility] THAT HAD RECIEVED REFEERAL PACKET AND WILL LOOK AT HIM ON SATURDAY FOR POSSIBLE ADMIT NEXT WEEK. CM WILL CONTINUE TO FOLLOW AND ASSIST NEEDED WITH DISCHARGE PLANNING / NEEDS. DCP- Discharge Planning Updated by [id number]: Alta Melendez on 11/27/19 7:[address] LATE ENTRY 11/26/19 CM FAXED REFFERAL TO [facility] FOR [facility] PLACEMENT. PATIENT TO HAVE PEG AND TRACH ON SATURDAY. DCP- Discharge Planning Updated by [email or web address]: Alta Melendez on 11/27/19 7:[address] LATE ENTRY 11/25/19 CM SPOKE WITH PATIENT'S DAUGHTER MALAIKA -KATHERINE AND SHE HAS AGREED FOR PATIENT TO HAVE PEG AND TRACH. CM SPOKE WITH HER IN REGARDS TO [facility] AND SHE STATED THAT SHE WOULD LIKE THE [facility]LO[facility] THEN IF NOT ACCEPTED THEN COULD REACH OUT TO OTHER FACILITIES. ARLET COMPLETED. DCP- Discharge Planning Updated by [email or web address]: Alta Melendez on 11/19/19 1:[address] CM received a call from Delano with [facility]PS [phone] he stated that he had received a call from a family member to investigate and requested for CM to call him if family decides to term extubate or if he is weaned off vent to where he could speak with him. DCP- Discharge Planning Updated by [email or web address]: Alta Melendez on 11/18/19 3:[address] CM received a call from patient's daughter Nena Walker cell [phone] work [phone]. She asked if her sister Katherine had provided proof of POA paperwork . CM explained that at this time she was unaware if there was a copy on the chart. Nena stated that her, her brother and the patient's sister all are wanting to make patient a DNR but Katherine is the only one wanting to keep him on the vent. CM asked who was the eldest child and that if there isn't a POA then the eldest child will be the one acting as POA if the patient isn't . CM will look to see if patient has POA paperwork in his records. CM will notify Nena and let her know if paperwork is on file. CM did locate POA paperwork and placed a hard copy in front on hard chart. CM did call Nena and let her know that Katherine does have POA. CM will continue to follow and assist as needed with discharge planning/ needs DCP- Discharge Planning Updated by [id number]: Eboni Jiménez on 11/13/19 1:[address] CM called patient's daughter, Katherine Thrasher (POA) [phone], to discuss initial discharge planning. Patient's daughter is in agreement to proceed with the assessment. Daughter reports that the patient lives at home with her and he is total care. 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 Daughter also reports that she is raising 5 grandchildren, along with caring for her father. 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 Daughter transports patient to and from HD. Patient is currently intubated to a mechanical vent. PCP: Dr. [facility] in [place]. Pharmacy: [facility], daughter picks up his medication. Patient has been able to obtain all of his prescribed medications. HHS: [facility], [facility]OVE MACH[facility]. DME: walker, w/c, hospital bed, didi lift. 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 CM discussed the availability of HH, Rehab, SNF, OP Therapy, DME services. When the patient is able to return home, his daughter states she would like to resume [facility]. Patient's daughter advises that she "had a call from an DOG HANDLER, to inform her she should not expect her father to return home this time". Daughter has been encouraged to fill out paperwork for the Medicaid [place] [facility], daughter agrees, but states she hasn't had time. Advised daughter that the usual time frame is 45 days before a decision is reached. Daughter denies the use of community resources GLOVE MACHINE OPERATOR. Transportation at time of discharge: Daughter or facility, if patient requires a SNF setting. CM will continue to follow and assist with DC planning. DCPIA - Discharge Planning Initial Assessment Updated by [id number]: Eboni Jiménez on 11/13/19 2:38 pm * Is the patient Alert and Oriented? No * PCP Dr. Sanchez [facility] * Pharmacy [facility], [place] Daughter picks up medications * Preadmission Environment Home with Family * ADLs Total Dependent * Equipment Tub Bench * Other Equipment RW, W/C, Hospital bed, Didi lift * List name and contact numbers for known caregivers / representatives who currently or will assist patient after discharge: Katherine Thrasher (POA-dtr) [phone] Address: [address] [place] [address] Rd, [place], [place] * Verbal permission to speak to the caregivers and representatives has been obtained from the patient. N/A * Community resources currently utilized Home Health * Please name any agencies selected above. [facility] * Additional services required to return to the preadmission environment? Yes * Can the patient safely return to the preadmission environment? No * Has this patient been hospitalized within the prior 30 days at any hospital? No Coverage Notice Reviewer: [id number] Royal Melendez Notice Issued Date-Time: 11/25/2019 16:10 Notice Type: Patient Choice Letter Notice Delivered To: Family Member Relationship to Patient: Daughter Business Professor Name: KATHERINE Delivery Method: PHONE - Phone Georgie Days: Prior Verbal Notification: Recipient Understood Notice: Yes Recipient Signature: Yes Med Rec Note Co-signed by Attending: Coverage Notice Comment: [facility] - [facility] , THEN CAN LOOK ELSEWHERE IF NEEDED Last DP export: 12/15/19 2:02 p Patient Name: JHONATHAN THRASHER Page [id number] at 1659 All edits/amendments must be made on the electronic document DICTATION DATE: 12/15/191657 V BELT BUILDER: ISNTIA 12/15/191657 RPT#: [id number] DC DATE: STATUS: ADM IN [facility] [address] [place] [address] END OF REPORT
[2019-12-15 18:08] LABS: ACID FAST SMEAR Negative (()); AFB SPECIMEN PROCESSING Concentration (())
[2019-12-16] VITALS (52 sets, daily range): BP systolic 15–126; BP diastolic 26–74
--- NOTE | 2019-12-16 04:15 | NUR ---
0300 TURNED OFF PROPOFOL, PT REMAINS IN THE BED, CALM NO SIGNS OF DISTRESS OR DISCOMFORT. EYES OPEN SPONTANEOUSLY. DOES NOT FOLLOW COMMANDS. BED IN LOWEST POSITION, SIDE RAILS UP X3. WILL CONTINUE TO MONITOR
--- NOTE | 2019-12-16 04:28 | NUR ---
0200 PT NOTED TO HAVE THROWN UP TUBE FEED. FEED TURNED OFF, SUCTIONED AND CLEANED MOUTH. WILL CONT. TO MONITOR
[2019-12-16 04:43] LABS: BASOPHILS 0.7 % (0-2); EOSINOPHILS 2.2 % (0-7); HEMATOCRIT 27.2 % (42.0-54.0); HEMOGLOBIN 8.7 g/dL (13.5-17.5); IMMATURE GRANULOCYTES 0.2 % (0-5); LYMPHOCYTES 13.1 % (15-50); MCH 28.9 pg (26.0-34.0); MCV 90.4 fL (80.0-100.0); MEAN PLATELET VOLUME 10.8 fL (7.4-10.4); MONOCYTES 6.5 % (2-11); NEUTROPHILS 77.3 % (40-80); PLATELET COUNT 229 10x3/uL (130-400); RBC 3.01 10x6/uL (4.20-6.10); RDW 17.6 % (11.5-14.5); WBC 8.6 10x3/uL (4.8-10.8)
[2019-12-16 05:04] LABS: ANION GAP 20.1 mmol/L (8-16); CARBON DIOXIDE 24.9 mmol/L (21.0-32.0); PHOSPHOROUS 4.6 mg/dL (2.5-4.9); TOBRAMYCIN - TROUGH 1.9 ug/mL (0.5-2.0); VANCOMYCIN - RANDOM 17.7 ug/mL (10.0-20.0)
[2019-12-16 05:23] LABS: CALCIUM 13.4 mg/dL (8.5-10.1)
--- NOTE | 2019-12-16 11:09 | NUR ---
Nutrition Follow-up: Trach->vent. TF not running this AM; per chart, pt threw up overnight. Rectal tube; diarrhea. Diet: Nepro @ 40 mL/hr Wt: 216# (12/15) Labs noted: K+ 3.0, Glu 73, Ca 13.4, PO4 4.6 Meds noted: Diprivan, Sensipar, Albumin -Resume TF as tolerated. -RD following.
[2019-12-16 11:11] LABS: FUNGUS STAIN Final report (())
--- NOTE | 2019-12-16 17:00 | NUR ---
Tube feed restarted at this time per verbal order of Dr Melvin to restart after second dose of reglan was adminsitered. Residual is approx 5 ml. Will continue to monitor how patient is tolerating feedings.
[2019-12-17] VITALS (93 sets, daily range): BP systolic 85–150; BP diastolic 21–73
[2019-12-17 04:48] LABS: HEMATOCRIT 26.5 % (42.0-54.0); HEMOGLOBIN 8.5 g/dL (13.5-17.5); MCH 28.9 pg (26.0-34.0); MCHC 32.1 g/dL (31.0-37.0); MCV 90.1 fL (80.0-100.0); MEAN PLATELET VOLUME 10.6 fL (7.4-10.4); PLATELET COUNT 201 10x3/uL (130-400); RBC 2.94 10x6/uL (4.20-6.10); RDW 17.4 % (11.5-14.5); WBC 21.1 10x3/uL (4.8-10.8)
[2019-12-17 05:06] LABS: ALBUMIN 5.1 g/dL (3.4-5.0); BILIRUBIN - DIRECT 0.79 mg/dL (0.00-0.30); BILIRUBIN - INDIRECT 1.01 mg/dL (0.00-1.00); BILIRUBIN - TOTAL 1.8 mg/dL (0.2-1.3); CARBON DIOXIDE 23.7 mmol/L (21.0-32.0); CREATININE - SERUM 3.4 mg/dL (0.6-1.3); PHOSPHOROUS 4.4 mg/dL (2.5-4.9); PROTEIN - SERUM 8.3 g/dL (6.4-8.2); TOBRAMYCIN - TROUGH 2.5 ug/mL (0.5-2.0)
[2019-12-17 05:17] LABS: ANION GAP 22.8 mmol/L (8-16); POTASSIUM - SERUM 3.5 mmol/L (3.5-5.1)
[2019-12-17 05:19] LABS: CALCIUM 13.4 mg/dL (8.5-10.1)
[2019-12-17 05:27] LABS: EOSINOPHILS 1 % (0-7); LYMPHOCYTES 5 % (15-50); NEUTROPHILS 94 % (40-80); PLATELET ESTIMATE DECREASED
[2019-12-18] VITALS (75 sets, daily range): BP systolic 60–123; BP diastolic 20–56
[2019-12-18 05:15] LABS: BASOPHILS 0.3 % (0-2); EOSINOPHILS 0.7 % (0-7); HEMATOCRIT 25.2 % (42.0-54.0); HEMOGLOBIN 7.7 g/dL (13.5-17.5); IMMATURE GRANULOCYTES 0.3 % (0-5); LYMPHOCYTES 11.4 % (15-50); MCH 28.6 pg (26.0-34.0); MCHC 30.6 g/dL (31.0-37.0); MEAN PLATELET VOLUME 10.2 fL (7.4-10.4); MONOCYTES 6.9 % (2-11); NEUTROPHILS 80.4 % (40-80); PLATELET COUNT 170 10x3/uL (130-400); RBC 2.69 10x6/uL (4.20-6.10); RDW 17.8 % (11.5-14.5)
[2019-12-18 05:24] LABS: MCV 93.7 fL (80.0-100.0)
[2019-12-18 05:34] LABS: ANION GAP 20.6 mmol/L (8-16); CARBON DIOXIDE 23.9 mmol/L (21.0-32.0); CREATININE - SERUM 3.9 mg/dL (0.6-1.3); PHOSPHOROUS 5.1 mg/dL (2.5-4.9); POTASSIUM - SERUM 3.5 mmol/L (3.5-5.1); TOBRAMYCIN - TROUGH 2.1 ug/mL (0.5-2.0); VANCOMYCIN - RANDOM 16.7 ug/mL (10.0-20.0)
[2019-12-18 05:37] LABS: CALCIUM 13.5 mg/dL (8.5-10.1)
--- NOTE | 2019-12-18 12:08 | NUR ---
Nutrition Follow-up: Trach->vent. Receiving Nepro @ 40 mL/hr. Diet: Nepro @ 40 mL/hr WT: 227# (12/17) Labs noted: K+ 3.5, Ca 13.5, PO4 5.1 Meds noted: Reglan, Sensipar, Albumin, D10 @ 30 -RD following.
[2019-12-18 14:10] LABS: FUNGUS CULTURE RESULT 1 Candida albicans (())
[2019-12-19] VITALS (25 sets, daily range): BP systolic 73–112; BP diastolic 20–49
[2019-12-19 06:01] LABS: BASOPHILS 0.2 % (0-2); EOSINOPHILS 1.7 % (0-7); HEMATOCRIT 23.4 % (42.0-54.0); IMMATURE GRANULOCYTES 0.3 % (0-5); LYMPHOCYTES 8.8 % (15-50); MCH 28.3 pg (26.0-34.0); MCHC 30.3 g/dL (31.0-37.0); MCV 93.2 fL (80.0-100.0); MEAN PLATELET VOLUME 10.7 fL (7.4-10.4); MONOCYTES 7.7 % (2-11); NEUTROPHILS 81.3 % (40-80); PLATELET COUNT 163 10x3/uL (130-400); RBC 2.51 10x6/uL (4.20-6.10); RDW 17.7 % (11.5-14.5)
[2019-12-19 06:10] LABS: WBC 14.1 10x3/uL (4.8-10.8)
[2019-12-19 06:12] LABS: HEMOGLOBIN 7.1 g/dL (13.5-17.5)
[2019-12-19 06:35] LABS: ANION GAP 22.3 mmol/L (8-16); CARBON DIOXIDE 22.3 mmol/L (21.0-32.0); CREATININE - SERUM 4.4 mg/dL (0.6-1.3); PHOSPHOROUS 5.5 mg/dL (2.5-4.9); POTASSIUM - SERUM 3.6 mmol/L (3.5-5.1); TOBRAMYCIN - TROUGH 1.7 ug/mL (0.5-2.0)
[2019-12-19 06:45] LABS: CALCIUM 13.9 mg/dL (8.5-10.1)
--- NOTE | 2019-12-19 13:12 | NUR ---
SOPKR WITH DR. AHNSON MAP IS 38. AFTER INCREASING LEVOFED MAP ONLY CAME UP TO 45. WE ARE TO HOLD DIALYSIS FOR TODAY. SHE WILL DISCUSS PATIENT WITH NEPHROLOGY TEAM REGARDING CARE.
--- NOTE | 2019-12-19 16:02 | NUR ---
0700 REPORT RECIEVED AND CARE ASSUMED OF THE PATIENT.. SEE FLOW SHEET FOR SHIFT ASSESMENT FINDINGS... 0900 UNABLE TO GIVE PO MEDS .. PT IS VOMITING GREEN LIQUID.. 1300 DIALYSIS IN TO SEE PATIENT.. ORDC NURSE TALKING WITH . DIALYSIS HELD FOR TODAY
[2019-12-20] VITALS (29 sets, daily range): BP systolic 83–117; BP diastolic 20–39
[2019-12-20 06:27] LABS: BASOPHILS 0.4 % (0-2); HEMATOCRIT 23.2 % (42.0-54.0); IMMATURE GRANULOCYTES 0.2 % (0-5); LYMPHOCYTES 12.4 % (15-50); MCH 28.5 pg (26.0-34.0); MCHC 30.6 g/dL (31.0-37.0); MCV 93.2 fL (80.0-100.0); MEAN PLATELET VOLUME 11.3 fL (7.4-10.4); MONOCYTES 10.2 % (2-11); NEUTROPHILS 74.8 % (40-80); PLATELET COUNT 164 10x3/uL (130-400); RBC 2.49 10x6/uL (4.20-6.10); RDW 17.5 % (11.5-14.5)
[2019-12-20 06:32] LABS: HEMOGLOBIN 7.1 g/dL (13.5-17.5)
[2019-12-20 06:41] LABS: ANION GAP 21.2 mmol/L (8-16); CARBON DIOXIDE 23.6 mmol/L (21.0-32.0); CREATININE - SERUM 4.9 mg/dL (0.6-1.3); PHOSPHOROUS 5.6 mg/dL (2.5-4.9); POTASSIUM - SERUM 3.8 mmol/L (3.5-5.1); TOBRAMYCIN - TROUGH 1.5 ug/mL (0.5-2.0)
[2019-12-20 06:43] LABS: CALCIUM 13.4 mg/dL (8.5-10.1)
--- NOTE | 2019-12-20 12:22 | NUR ---
0700 REPORT RECIEVED AND CARE ASSUMED OF PATIENT.. SEE FLOW SHEET FOR SHIFT ASSESMENT FINDINGS.. CHG BATH WITH LINEN CHANGE GIVEN ... REPORSITIONED AND ORAL CARE DONE..
[2019-12-21] VITALS (38 sets, daily range): BP systolic 68–110; BP diastolic 20–62; Ht 182.9 cm; Wt 101.6 kg
[2019-12-21 05:57] LABS: HEMATOCRIT 24.8 % (42.0-54.0); HEMOGLOBIN 7.7 g/dL (13.5-17.5); MCH 29.1 pg (26.0-34.0); MCV 93.6 fL (80.0-100.0); MEAN PLATELET VOLUME 10.7 fL (7.4-10.4); PLATELET COUNT 163 10x3/uL (130-400); RBC 2.65 10x6/uL (4.20-6.10); RDW 17.4 % (11.5-14.5); WBC 25.7 10x3/uL (4.8-10.8)
[2019-12-21 06:34] LABS: ANION GAP 27.4 mmol/L (8-16); CARBON DIOXIDE 19.4 mmol/L (21.0-32.0); CREATININE - SERUM 5.2 mg/dL (0.6-1.3); PHOSPHOROUS 5.7 mg/dL (2.5-4.9); POTASSIUM - SERUM 3.8 mmol/L (3.5-5.1); TOBRAMYCIN - TROUGH 1.3 ug/mL (0.5-2.0)
[2019-12-21 06:42] LABS: CALCIUM 13.1 mg/dL (8.5-10.1)
--- NOTE | 2019-12-21 07:55 | NUR ---
FSBS REDRAW FOR HYPOGLYCEMIA AFTER TX COMPLETED. FSBS 71. NO FURTHER ACTION REQUIRED AT THIS TIME. TURNED OFF LIS FROM OGT TO PERFORM MED PASS VIA PEG TUBE. 25CC OF LIGHT GREEN RESIDUAL NOTED AND RETURNED TO STOMACH WILL CRUSH MORNING MEDICATIONS AND GIVE ORDERED.
--- NOTE | 2019-12-21 09:24 | NUR ---
PT REMAINS HYPOTENSIVE. MAP STAYING <60. SBP HANGS IN THE 90S OR LOWER AND DBP HAS NOT BEEN NOTED >40. PRIMARY AND RENAL ARE AWARE AND PT IS MAXED OUT ON LEVOPHED. VERY SAD SITUATION. PT IS NOT RESPONSIVE TO STIMULI JUST LAYS WITH HIS EYES WATERY/RED AND OPEN. FAMILY DEMANDS FULL CODE AND ARE AWARE OF VERY POOR PROGNOSIS. WILL CONTINUE TO CARE AND DO EVERYTHING POSSIBLE.
--- NOTE | 2019-12-21 10:19 | NUR ---
PT WAS CLAMPING DOWN ON HIS OGT. ABOUT 75CC OF LIGHT GREEN SECRETIONS SUCTIONED. PT SOUNDS VERY GARGLY/WET AND IS GRIMACING ALOT. BP REMAINS HYPOTENSIVE HOWEVER ITS VERY HEARTBREAKING HOW PT APPEARS IN PAIN AND IS CONTINUOUSLY SQEEZING HIS EYES TIGHT. DISCUSSED WITH RENAL ELEMENTARY SCHOOL BAND DIRECTOR AND WILL OBTAIN PRN PAIN MEDICATION HE IS OBVIOUSLY NOT COMFORTABLE. WILL DO OUR BEST TO KEEP PT COMFORTABLE AND CONTINUE TO TRY AND KEEP HIM ALIVE PER POA WISHES DESPITE HIS VERY POOR PROGNOSIS.
[2019-12-21 10:45] LABS: ANISOCYTOSIS OCC; EOSINOPHILS 6 % (0-7); LYMPHOCYTES 1 % (15-50); MONOCYTES 9 % (2-11); NEUTROPHILS 81 % (40-80); PLATELET ESTIMATE NORMAL; ROULEAUX OCC; TOXIC GRANULATION OCC
--- NOTE | 2019-12-21 10:54 | NUR ---
Nutrition follow-up: Pt intubated, sedated. Pt NPO 2/2 vomiting green liquid PEG tube -> LIWS Rectal tube in place Not tolerating TF at this time; maxed out on levophed Wt: 223# RDN following.
--- NOTE | 2019-12-21 11:16 | NUR ---
PT APPEARS TO BE IN LESS PAIN AFTER PRN PAIN MEDICATIONS. WILL CTM.
--- NOTE | 2019-12-21 11:50 | NUR ---
AT BEDSIDE ROUNDING. TWEAKED WITH VENT SETTINGS. PT VERY LETHARGIC AND BARELY AWAKE WITH EYES OPEN. PT DOES NOT FOLLOW COMMANDS OR MOVE EXTREMETIES. PTS BP VERY HYPOTENSIVE, ASKED THE PLAN FOR THIS, WE CURRENTLY HAVE HIM MAXED OUT ON LEVOPHED. WILL DISCUSS WITH RENAL AND SEE IF THEY WANT TO ADD VASOPRESSIN OR ANYTHING ELSE. WILL CPOC.
--- NOTE | 2019-12-21 12:33 | NUR ---
FSBS 30. STAT SERUM DRAW COMPLETED AND IT CONFIRMED 30. RENAL AWARE AND WE ARE TO CONTINUE TO TREAT PER HYPOGLYCEMIC PROTOCOL. HALF AMP OF D50 GIVEN PER ORDER. PT STILL HAS D10 INFUSING @30ML/HR. PT REMAINS HYPOTENSIVE DESPITE MAXED OUT ON HIS LEVOPHED. I DID FIND AN ORDER ON [facility] FOR ALBUMIN TO GIVE IF HYPOVOLMIC SO I PROVIDED PT WITH THIS TO SEE IF IT HELPS. PT IS LETHARGIC AND SLEEPY APPEARS COMFORTABLE, NO MORE FACIAL GRIMACING. WILL RECHECK SUGAR AND CONTINUE TO TREAT PER PROTOCOL.
--- NOTE | 2019-12-21 13:42 | NUR ---
PT DETERIOATING. ATTEMPTED TO RECHECK BLOOD SUGAR AND ITS TOO LOW TO READ ON THE MACHINE. ORDERED AND OBTAINED STAT SERUM. WILL TREAT ACCORDINGLY.
--- NOTE | 2019-12-21 14:17 | NUR ---
REPOSITIONED PT IN BED TO RELIEVE PRESSURE FROM HIS BONY PROMINENCES. CHANGED OUT SEVERAL LINENS PADS THEY WERE SOILED R/T SEVERE WEEPING EDEMA. PT APPEARS COMFORTABLE AND IS RESTING QUIETLY IN BED WITH EYES GAZED OVER LOOKING AT THE CEILING. NO IMMEDIATE NEEDS NOTED AT THIS TIME. WILL CPOC.
--- NOTE | 2019-12-21 14:30 | NUR ---
LAB RESULTS STILL NOT BACK SO UNABLE TO ACCURATELY TREAT SUGAR. CALLED LAB AND THEY STATE IT WILL BE READY IN ABOUT "5MINS"
--- NOTE | 2019-12-21 14:42 | NUR ---
LAB RESULTS STILL NOT CONFIRMED ATTEMPTED WITH GLUCOSE MACHINE AND ITS STILL TOO LOW TO READ. CALLED LAB AND THEY STATE ITS "RESULTING" NOW. IF NOT BACK WILL HAVE TO TAKE OTHER MEASURES AND TREAT SUGAR.
[2019-12-21 14:55] LABS: ANION GAP 25.3 mmol/L (8-16); CARBON DIOXIDE 19.6 mmol/L (21.0-32.0); CREATININE - SERUM 5.3 mg/dL (0.6-1.3); POTASSIUM - SERUM 3.9 mmol/L (3.5-5.1)
[2019-12-21 14:57] LABS: CALCIUM 12.8 mg/dL (8.5-10.1)
--- NOTE | 2019-12-21 14:57 | NUR ---
GLUCOSE REDRAW REMAINS CRITICALLY LOW DESPITE INTEREVENTIONS AND REPLACEMENT. CURRENTLY 19 PER LAB DRAW. REPLACED AGAIN AND WILL PAGE RENAL TO FIND OUT WHAT ELSE THEY WANT TO DO. WILL ALSO NOTIFY FAMILY OF CHANGES SO THEY ARE AWARE OF THE DETERIOATION.
--- NOTE | 2019-12-21 15:18 | NUR ---
DISCUSSED PTS STATUS WITH POA DAUGHTER KELIN AND SHE STATES SHE UNDERSTANDS BUT IS ADAMENT THAT HE WOULD WANT TO BE A FULL CODE AND SHE WANTS US TO CONTINUE WITH PLAN OF CARE AND ALL INDICATED PROCEDURES TO KEEP PT ALIVE NO MATTER WHAT IT TAKES. PT IS GRAVELY ILL AND UNABLE TO HAVE DIALYSIS TODAY R/T PRESSURE. TREATED SUGAR AND WAITING ON REDRAW VALUE HOWEVER PT NOT EXACTLY RESPONDING AND IS REMAINING LOW. THE DAUGHTER REALLY WANTS TO SEE HER DAD BUT DUE TO COVID RESTRICTIONS NO VISITORS ALLOWED. WILL DISCUSS WITH OUR INDUSTRIAL GAS FITTER HELPER AND SEE ABOUT EXCEPTIONS R/T HIS CONDITION DESPITE BEING A FULL CODE.
--- NOTE | 2019-12-21 15:40 | NUR ---
PTS HR DROPPING AT A STEADY PACE. WILL BEGIN DOPAMINE TRANSFUSION PER ORDERS FOR BRADYCARDIA. BP REMAINS HYPOTENSIVE MAXED OUT ON LEVOPHED. PAGED PRIMARY FOR ANY FURTHER ORDERS.
--- NOTE | 2019-12-21 15:48 | NUR ---
PT BECAME ASYSTOLE. HONORIO LEAL CALLED AND INITIATED CPR IMMEDIATELY. SEE CODE BLUE SHEET FOR FURTHER DETAIL.
--- NOTE | 2019-12-21 16:00 | NUR ---
UNABLE TO RESUSCITATE PT. AT BEDSIDE AND CALLED TIME OF . NOTIFIED PTS DAUGHTER KELIN AND SHE IS ON HER WAY.
--- NOTE | 2019-12-21 16:27 | NUR ---
RECORD OF FILLED OUT. SHERWIN NOTIFIED. WAITING ON FAMILY TO ARRIVE. POST MORTEM CARE PROVIDED.
--- NOTE | 2019-12-21 17:59 | NUR ---
PTS EMA MARIE AT BEDSIDE NOW.
--- NOTE | 2019-12-21 18:24 | NUR ---
PTS SON IN LAW CYNTHIA BOYD ABOUT TO LEAVE AND REQUESTED WE KEEP THE PT OVERNIGHT AND STATES THEY ARENT SURE ABOUT HOME. THEN HE CALLED KELIN THRASHER PTS DAUGHTER AND POA AND DECIDED [facility]. WHEN ASKED IF SHE WAS COMING UP HERE TO RELEASE THE BODY AND SEE HIM, CYNTHIA STATES "NO SHE WILL NOT BE" CYNTHIA SIGNED TO RELEASE THE BODY AND I ATTEMPTED TO VERIFY WITH KELIN VIA PHONE CALL HOWEVER SHE DID NOT ANSWER. WILL CALL AGAIN AND NOT RELEASE THE BODY UNTIL CONFIRMED CYNTHIA WAS ACTING VERY ABRASIVE AND SKEPTICAL.
--- NOTE | 2019-12-21 18:27 | NUR ---
SPOKE TO KELIN DAI AND OBTAINED PERMISSION TO RELEASE BODY TO [facility]. NOTIFIED THEM AT THIS TIME AND THEY WILL GET TRANSPORTATION OUT.
--- NOTE | 2019-12-21 19:27 | NUR ---
HOME HERE AT THIS TIME. D/C PTS RECTAL TUBE AND R.GROIN CVL. PT NOW LEAVING FACILITY WILL NOTIFY FAMILY AT THIS TIME.
--- NOTE | 2019-12-22 08:58 | MORECARE ---
CASE MANAGEMENT DISCHARGE SUMMARY PATIENT: JHONATHAN THRASHER UNIT: [id number] ADM DATE: 11/08/19 AGE: 74 : 49 SEX: M ROOM/BED: D.2304 AUTHOR: SUMITDOC PHYSICIAN: REFERRING PHYSICIAN: JOLYNN MUNOZ MD DATE OF SERVICE: 12/22/19 Discharge Plan Patient Name: JHONATHAN THRASHER [facility] [facility] 1945 Planned Disposition: Anticipated Discharge Date: Discharge Date: 12/21/2019 Expected LOS: Initial Reviewer: [email or web address] Initial Review Date: 11/08/2019 Generated: 12/22/19 9:57 am Comments DCP- Discharge Planning Updated by [email or web address]: Mirna Marx on 12/15/19 3:[address] SPOKE WITH SATYA AT [facility]. THE DAUGHTER HAS BEEN MAILED A MEDICAID APPLICATION. AWAIT RETURN OF PAPERWORK. PATIENT WOULD BE ELIGIBLE FOR SPENDDOWN MEDICAID APPLICATION ONCE MEDICARE EXHAUSTED. THE DAUGHTER GETS PAID TO TAKE CARE OF THE PATIENT THRU ANOTHER PROGRAM. DCP- Discharge Planning Updated by [id number]: Mirna Marx on 12/15/19 1:[address] 1320 SPOKE W/ WILLIAM Voss FROM [facility]. PATIENT DOES NOT HAVE ENOUGH MEDICARE DAYS REMAINING TO ACCEPT. HE IS COVERING FOR LUIS. WHAT WOULD BE THE DISCHARGE PLAN OF CARE. DCP- Discharge Planning Updated by [id number]: Alta Melendez on 12/10/19 6:[address] CM sent pack to [facility] in [place] to see if patient might qualify/ rechecking benefits. CM will continue to follow and assist as needed with discharge planning / needs. DCP- Discharge Planning Updated by [id number]: Alta Melendez on 12/09/19 4:[address] CM spoke with daughter Katherine explained the situation and she gave verbal consent to send referral to another facility. The facility will check MCR days. DCP- Discharge Planning Updated by [email or web address]: Alta Melendez on 12/09/19 3:[address] CM spoke with Shannan in [facility] and she stated that they have spoken with daughter and patient doesn't qualify for Medicaid at this time but once he is discharged they will most likely be able to do a spin down. CM will continue to follow and assist as needed with discharge planning / needs. DCP- Discharge Planning Updated by [id number]: Alta Melendez on 12/08/19 8:[address] CM will speak with Katherine to see if CM can send referral packet to another facility to see if they are showing that he is out of Medicare days. [facility] is till working to see if patient could be approved for Medicaid. DCP- Discharge Planning Updated by [id number]: Alta Melendez on 12/04/19 7:[address] CM contacted [facility] and asked if they would contact the patient's daughter and see if he would qualify for Medicaid since his Medicare days are out. Appended by Alta Melendez on 12/04/2019 20:48 CDT: Patient will most likely have to have a paul bed for [facility] d/t being out of Medicare days and if he was to get Medicaid. [facility] doesn't accept Medicaid DCP- Discharge Planning Updated by [id number]: Alta Melendez on 11/30/19 7:[address] CM was notified today from [facility] that the patient was out of Medicare days and only has a few codays available. CM attempted to call [facility] to find out how many days the patient has. CM did not get an answer and will try back later to see if they are able to pull up Medicare days. CM will continue to follow this will make it difficult for placement. DCP- Discharge Planning Updated by [email or web address]: Alta Melendez on 11/27/19 7:[address] PATIENT DID GET A PEG AND TRACH TODAY. CM RECIEVED A CALL FROM [facility] THAT HAD RECIEVED REFEERAL PACKET AND WILL LOOK AT HIM ON SATURDAY FOR POSSIBLE ADMIT NEXT WEEK. CM WILL CONTINUE TO FOLLOW AND ASSIST NEEDED WITH DISCHARGE PLANNING / NEEDS. DCP- Discharge Planning Updated by [id number]: Alta Melendez on 11/27/19 7:[address] LATE ENTRY 11/26/19 CM FAXED REFFERAL TO [facility] FOR [facility]AC[facility]. PATIENT TO HAVE PEG AND TRACH ON SATURDAY. DCP- Discharge Planning Updated by [id number]: Alta Melendez on 11/27/19 7:[address] LATE ENTRY 11/25/19 CM SPOKE WITH PATIENT'S DAUGHTER MALAIKA SANTANA AND SHE HAS AGREED FOR PATIENT TO HAVE PEG AND TRACH. CM SPOKE WITH HER IN REGARDS TO [facility] AND SHE STATED THAT SHE WOULD LIKE THE [facility] THEN IF NOT ACCEPTED THEN COULD REACH OUT TO OTHER FACILITIES. ARLET COMPLETED. DCP- Discharge Planning Updated by [email or web address]: Alta Melendez on 11/19/19 1:[address] CM received a call from Delano with [facility]PS [phone] he stated that he had received a call from a family member to investigate and requested for CM to call him if family decides to term extubate or if he is weaned off vent to where he could speak with him. DCP- Discharge Planning Updated by [id number]: Alta Melendez on 11/18/19 3:[address] CM received a call from patient's daughter Nena Walker cell [phone] work [phone]. She asked if her sister Katherine had provided proof of POA paperwork . CM explained that at this time she was unaware if there was a copy on the chart. Nena stated that her, her brother and the patient's sister all are wanting to make patient a DNR but Katherine is the only one wanting to keep him on the vent. CM asked who was the eldest child and that if there isn't a POA then the eldest child will be the one acting as POA if the patient isn't . CM will look to see if patient has POA paperwork in his records. CM will notify Nena and let her know if paperwork is on file. CM did locate POA paperwork and placed a hard copy in front on hard chart. CM did call Nena and let her know that Katherine does have POA. CM will continue to follow and assist as needed with discharge planning/ needs DCP- Discharge Planning Updated by [id number]: Eboni Jiménez on 11/13/19 1:[address] CM called patient's daughter, Katherine Thrasher (POA) [phone], to discuss initial discharge planning. Patient's daughter is in agreement to proceed with the assessment. Daughter reports that the patient lives at home with her and he is total care. 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 Daughter also reports that she is raising 5 grandchildren, along with caring for her father. 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 Daughter transports patient to and from HD. Patient is currently intubated to a mechanical vent. PCP: Danny Painter in [place]. Pharmacy: [facility], daughter picks up his medication. Patient has been able to obtain all of his prescribed medications. HHS: [facility], OFFICE WORKER. DME: walker, w/c, hospital bed, didi lift. Patient is totally dependent with medication management OFFICE WORKER. CM discussed the availability of HH, Rehab, SNF, OP Therapy, DME services. When the patient is able to return home, his daughter states she would like to resume [facility]. Patient's daughter advises that she "had a call from an RATING EXAMINER, to inform her she should not expect her father to return home this time". Daughter has been encouraged to fill out paperwork for the Medicaid [facility], daughter agrees, but states she hasn't had time. Advised daughter that the usual time frame is 45 days before a decision is reached. Daughter denies the use of community resources OFFICE WORKER. Transportation at time of discharge: Daughter or facility, if patient requires a SNF setting. CM will continue to follow and assist with DC planning. DCPIA - Discharge Planning Initial Assessment Updated by [email or web address]: Eboni Jiménez on 11/13/19 2:38 pm * Is the patient Alert and Oriented? No * PCP [facility]. [facility] * Pharmacy [facility], [place] Daughter picks up medications * Preadmission Environment Home with Family * ADLs Total Dependent * Equipment Tub Bench * Other Equipment RW, W/C, Hospital bed, Didi lift * List name and contact numbers for known caregivers / representatives who currently or will assist patient after discharge: Katherine Thrasher (POA-dtr) [phone] Address: [address] [place] [address] [address], [place], [place] * Verbal permission to speak to the caregivers and representatives has been obtained from the patient. N/A * Community resources currently utilized Home Health * Please name any agencies selected above. [facility] * Additional services required to return to the preadmission environment? Yes * Can the patient safely return to the preadmission environment? No * Has this patient been hospitalized within the prior 30 days at any hospital? No Coverage Notice Reviewer: [id number] Royal Melendez Notice Issued Date-Time: 11/25/2019 16:10 Notice Type: Patient Choice Letter Notice Delivered To: Family Member Relationship to Patient: Daughter Parachute/Combatant Diver Officer Name: KATHERINE Delivery Method: PHONE - Phone Georgie Days: Prior Verbal Notification: Recipient Understood Notice: Yes Recipient Signature: Yes Med Rec Note Co-signed by Attending: Coverage Notice Comment: [facility] - [facility] , THEN CAN LOOK ELSEWHERE IF NEEDED Last DP export: 12/15/19 3:59 p Patient Name: JHONATHAN THRASHER Page [id number] at 0858 All edits/amendments must be made on the electronic document DICTATION DATE: 12/22/19856 LOCAL SUPERINTENDENT: SINTIA 12/22/19856 RPT#: [id number] DC DATE:12/21/19 STATUS: DIS IN [facility] [address] [place] [address] END OF REPORT
== END 2019-12-21 19:28 | DRG 4 ==
LOC: D.ER 18:51 → D.ICU 19:25
PROVIDERS: Family Medicine; Internal Medicine Nephrology; Internal Medicine Pulmonary Disease; Surgery; ADMIT Internal Medicine Nephrology; ATTEND Internal Medicine Nephrology
PROC: 5A1955Z Respiratory Ventilation, Greater than 96 Consecutive Hours (ICD-10-PCS; principal; 2019-11-08)
PROC: 0BH17EZ Insertion of Endotracheal Airway into Trachea, Via Natural or Artificial Opening (ICD-10-PCS; 2019-11-08)
PROC: 06HY33Z Insertion of Infusion Device into Lower Vein, Percutaneous Approach (ICD-10-PCS; 2019-11-27)
PROC: 0B113F4 Bypass Trachea to Cutaneous with Tracheostomy Device, Percutaneous Approach (ICD-10-PCS; 2019-11-27 11:00)
PROC: 0DH63UZ Insertion of Feeding Device into Stomach, Percutaneous Approach (ICD-10-PCS; 2019-11-27 11:00)
PROC: 0B978ZZ Drainage of Left Main Bronchus, Via Natural or Artificial Opening Endoscopic (ICD-10-PCS; 2019-11-28)
PROC: 0B938ZZ Drainage of Right Main Bronchus, Via Natural or Artificial Opening Endoscopic (ICD-10-PCS; 2019-11-28)
PROC: 0B9J8ZX Drainage of Left Lower Lung Lobe, Via Natural or Artificial Opening Endoscopic, Diagnostic (ICD-10-PCS; 2019-12-14)
DX: A41.9 Sepsis, unspecified organism (principal); J96.21 Acute and chronic respiratory failure with hypoxia; I50.33 Acute on chronic diastolic (congestive) heart failure; N18.6 End stage renal disease; J69.0 Pneumonitis due to inhalation of food and vomit; J44.1 Chronic obstructive pulmonary disease with (acute) exacerbation; I13.2 Hypertensive heart and chronic kidney disease with heart failure and with stage 5 chronic kidney disease, or end stage renal disease; N39.0 Urinary tract infection, site not specified; R57.9 Shock, unspecified; G72.81 Critical illness myopathy; G93.40 Encephalopathy, unspecified; T17.590A Other foreign object in bronchus causing asphyxiation, initial encounter; Z99.2 Dependence on renal dialysis; D50.9 Iron deficiency anemia, unspecified; F41.8 Other specified anxiety disorders; I86.8 Varicose veins of other specified sites; M19.90 Unspecified osteoarthritis, unspecified site; M41.9 Scoliosis, unspecified; G31.9 Degenerative disease of nervous system, unspecified